=== PATIENT | male | born 1980 | race Caucasian/White ===

== ENCOUNTER 2024-01-19 13:28 | Inpatient (IN) | payer OTHER, SELFPAY ==
--- NOTE | ~2024-01-19 | CT_ITS ---
EXAMINATION: CT ABDOMEN AND PELVIS WITH CONTRAST CLINICAL INFORMATION: Questionable colitis COMPARISON: August 03, 2011 TECHNIQUE: Multidetector volumetric images were obtained from the superior aspect of the liver through the pubic symphysis following administration 85 mL of Omnipaque 350 intravenous contrast. Sagittal and coronal reformatted images were obtained on the technologist's workstation. Oral contrast: No This CT examination was performed using dose optimization techniques as appropriate, variously including the following: *Automated exposure control *Adjustment of mA and/or kV according to patient size (this includes techniques or standardized protocols for targeted exams where dose is matched to indication/reason for exam; i.e. extremities or head) *Use of iterative reconstruction technique DLP: 345 mGy-cm FINDINGS: LUNG BASES: There are numerous ill-defined perihilar lung nodules seen mostly on the right but seen in the left lower lobe as well. No evidence of pleural effusion. LIVER, GALLBLADDER, AND BILIARY TREE: The liver is normal in size, shape, and attenuation. No focal hepatic lesion or biliary ductal dilatation is present. The gallbladder is unremarkable with no evidence of radiopaque gallstones, gallbladder wall thickening, or obvious pericholecystic inflammatory changes. PANCREAS: Unremarkable. SPLEEN: There is splenomegaly, the spleen measured 14.3 cm. ADRENAL GLANDS: Unremarkable. KIDNEYS AND URETERS: There is nonobstructing calculus in interpolar collecting system of right kidney, measured, 0.5 cm. In the left kidney there is nonobstructing 0.3 cm stone in upper pole. There is no hydroureteronephrosis. BLADDER: Unremarkable. GASTROINTESTINAL TRACT: There is thickened gastroesophageal junction Loops of bowel are not dilated. Appendix not identified. ABDOMINAL WALL: No significant hernia is appreciated. LYMPH NODES: Normal. VASCULAR: Unremarkable. PELVIC VISCERA: Unremarkable. OSSEOUS STRUCTURES: Status post L4-S1 posterior fusion CT/CT abdomen pelvis w IV con IMPRESSION: Dilated esophagus with thickened wall: Correlate with possibility of esophagitis. Splenomegaly. Multifocal pneumonia. Nephrolithiasis without hydronephrosis. Fleischner guidelines were followed. Electronically signed by: Maryse Vanessa MD 01/19/2024 10:19 PM EDT
--- NOTE | ~2024-01-19 | XR_ITS ---
EXAMINATION: XR CHEST 2 VIEW CLINICAL INFORMATION: Cough COMPARISON: None TECHNIQUE: PA and lateral views of the chest obtained. FINDINGS: There are patchy and nodular airspace opacities scattered throughout the right lung. The left lung is clear. No pleural effusions. The cardiomediastinal silhouette is not enlarged. XR/XR chest 2V IMPRESSION: Patchy and nodular opacities in the right hemithorax might be postinfectious, but are nonspecific. Close follow-up is recommended to confirm clearing. If persistent, suggest thoracic CT. Electronically signed by: Edin Harden MD 01/19/2024 03:48 PM EDT
--- NOTE | ~2024-01-19 | CT_ITS ---
EXAMINATION: CT ANGIOGRAM CHEST CLINICAL INFORMATION: Coughing up blood question of PE COMPARISON: None available. TECHNIQUE: Multiple axial images were obtained through the chest after the administration of 85 mL of Omnipaque 350 intravenous contrast. Extensive vascular post-processing including two-dimensional and three-dimensional reformatted images were created and reviewed on an independent workstation. This CT examination was performed using dose optimization techniques as appropriate, variously including the following: *Automated exposure control *Adjustment of mA and/or kV according to patient size (this includes techniques or standardized protocols for targeted exams where dose is matched to indication/reason for exam; i.e. extremities or head) *Use of iterative reconstruction technique DLP: 186.94 mGy-cm FINDINGS: There is no evidence of pulmonary embolism. Mediastinum. Thyroid gland is unremarkable. There is mild mediastinal lymphadenopathy with lymph nodes in front of the trachea measured 1.6 cm. There is dilatation of esophagus filled with fluid. There is no pericardial effusion or cardiomegaly and no coronary artery calcifications seen. Lungs there are numerous lung nodules, with reticulonodular pattern seen in the most of the right upper lobe but seen through the entire right lung with less prominent nodularity through the left lung and scarring in the left upper lobe as well as left upper lung bronchiectasis. Pleura: There is no pleural or pericardial effusion. ABDOMEN: Liver, visualized pancreas, spleen, unremarkable. No evidence of reflux seen IVC. Osseous structures: Unremarkable CT/CT angio chest PE protocol IMPRESSION: No evidence of pulmonary embolism. Dilated esophagus with possible mass in the lower esophagus at the gastroesophageal junction. Mediastinal lymphadenopathy. Numerous lung nodules and multifocal pneumonia. Fleischner guidelines were followed. Electronically signed by: Maryse Vanessa MD 01/19/2024 10:11 PM EDT
[2024-01-19 13:48] VITALS: BP 141/96; PULSE 118; RESP 16; TEMP 37.2; O2SAT 98; BMI 24.0
--- NOTE | 2024-01-19 14:16 | ED_ITS ---
HPI - URI/Sore Throat General Chief Complaint: Upper Respiratory Symptoms Stated Complaint: Coughing up black substance Time Seen by Provider: 01/19/24 16:31 Source: patient Mode of arrival: ambulatory Limitations: no limitations History of Present Illness ED Provider: Donna Bernal PA-C HPI Narrative: Year old male history of hep C,DM, and CKD homeless presents to ED for coughing up brown black phlegm with body aches. Patient is a smoker. Patient denies any fever, or chills. He denies any rectal bleeding. Patient denies any recent Pepto-Bismol. Patient states acid burning sensation in abdomen. Patient denies drinking alcohol. Related Data Home Medications ?Medication ?Instructions ?Recorded ?Confirmed cyclobenzaprine 5 mg tablet 5 mg PO Q8H PRN muscle spasm 01/19/24 01/19/24 gabapentin 600 mg tablet 600 mg PO TID 01/19/24 01/19/24 methadone 10 mg/5 mL oral solution 120 mg PO DAILY 01/20/24 01/20/24 Allergies Allergy/AdvReac Type Severity Reaction Status Date / Time morphine [Morphine] Allergy Unknown ITCHY RASH Verified 01/19/24 13:50 Review of Systems 2 Review of Systems: Coughing up black brown sputum, body aches Yes all other systems are reviewed and are negative PMFSH Past Medical History Medical History Peripheral neuropathy Social History Social History Household Members: Other Housing: Other Do you presently have visiting nurse or other home services: No Patient Tobacco Use Status: Current everyday Tobacco user Tobacco use type: Cigarette Smoked in Last 30 Days: Yes Patient Interested in Nicotine Replacement: No Patient Given Instructions on How to Stop Smoking: No Second Hand Smoke Exposure: Yes Use of substances other than those prescribed or required for medical reasons: Yes Last Used Substance Other:: 1 year ago Currently Displaying Signs/Symptoms of Drug Intoxication Withdrawal: No Any prior treatment program specific to substance use: No Have you been hit, kicked, punched, or otherwise hurt by someone within the past year? If so, by whom?: No Is there a partner from a previous relationship who is making you feel unsafe now?: No Are you made to feel afraid or neglected: No Advance Directives: Yes Advance Directives Information Provided: Yes Advance Directives on File: No Advance Directives Date on File: 01/20/24 Do you have a plan to hurt others: No Plan Recently lost weight without trying: No How much weight loss: Unsure Eating poorly because of decreased appetite: No Nutrition screen score: 2 Poor oral hygiene: No service: No Physical Exam 2 Vital Signs: Vital Signs: Last Vital Signs Temp 97.8 F 01/20/24 11:28 Pulse 95 01/20/24 11:28 Resp 17 01/20/24 11:28 BP 143/88 H 01/20/24 11:28 Pulse Ox 96 01/20/24 11:28 O2 Del Method Room Air 01/20/24 11:28 BMI result Body Mass Index 24.0 Const: General: cooperative, healthy appearing, comfortable, no acute distress, well developed, alert, awake and Physically active O rientation/consciousness: patient oriented x3 HEENT: Head: Yes normal to inspection, Yes No palpable skull fracture present, Yes normocephalic, Yes atraumatic and No abrasion Ears: hearing grossly normal bilaterally, external ears normal, TM's normal bilaterally, TM normal on the right, TM normal on the left, EAC's normal, mastoids normal and no periauricular adenopathy Throat: Yes posterior oropharynx normal, Yes tonsils normal and Yes uvula midline Eyes: General: appearance normal, both eyes and all related structures Neck: Neck: Yes normal visual inspection, Yes full ROM, Yes no lymphadenopathy, Yes no meningeal signs, Yes trachea midline, Yes supple, No anterior neck swelling and No tender Chest: Chest palpation & inspection: normal inspection of the chest and normal palpation of entire chest wall Resp: Effort & Inspection: normal respiratory effort and able to speak in complete sentences Auscultation: clear to auscultation bilaterally Cardio: Jugular venous distension: no JVD Heart sounds: S1 normal heart sound present and S2 normal heart sound present GI: Inspection: Yes normal to inspection Palpation (GI): Soft to palpation, not firm, nontender, no guarding and not rigid : General: No CVA tenderness and Yes no CVA tenderness Back/Spine/Pelvis: Back: no CVA tenderness, No CVA tenderness and No back tenderness Skin: General skin exam: no rashes or lesions noted, elasticity normal and turgor normal Neuro: General: patient oriented x3, gait normal, tone normal, moves all extremities, Normal light touch and pain sensation, no meningeal signs, no focal motor deficits, CN's II-XI intact bilaterally and normal sensation to monofilament Extrem: General: Yes normal to inspection, Yes full ROM and Yes capillary refill normal Course Course Course Narrative: This is a Rapid Medical Exam performed in triage by Madai Ramos PA-C. Full HPI, ROS and PE to be performed by primary ED provider. 43-year-old male PMHx DM presenting to the ED c/o productive cough of brown/black phlegm, malaise, myalgias. Denies CP/SOB, travel, AC use PE: Taking in complete sentences. Lungs CTA, +dark brown/black sputum appreciated in emesis bag Plan: Viral testing, CXR Reevaluation(s) Reevaluation #1: Patient's repeat hemoglobin hematocrit is 7.2 and 21.8 representing a drop from 8.5 and 25.9 respectively. Will discuss with Dr. Zaman again Time: 21:00 Reevaluation #2: Patient's CT scan shows erosive esophagitis with multifocal pneumonia. The patient's respiratory status has been stable on room air throughout his visit. He has received antibiotics for pneumonia. In regards to the erosive esophagitis and GI bleed, I discussed with Dr. Zaman who is comfortable admitting the patient here, we will plan for EGD in the morning, so would like the patient NPO after midnight. The patient is already typed and crossed for possible blood transfusion. I did discuss possible blood transfusion with the patient given his drop in hemoglobin but he would prefer to hold off for now. He is willing to reconsider if he becomes more unstable but currently his blood pressure is 148/88 Time: 22:45 Medications Administered Generic Name Dose Route Start Last Admin Trade Name Freq PRN Reason Stop Dose Admin Levofloxacin 750 mg in 150 mls @ 100 mls/hr 01/19/24 23:00 01/20/24 01:15 Levaquin IV Infused Q24H BECKI Infusion Methadone HCl 120 mg 01/20/24 11:20 01/20/24 11:29 Methadone Hcl 20 Mg/2 Ml Oral.Conc PO 120 mg DAILY@0800 BECKI Administration Pantoprazole Sodium 40 mg 01/20/24 06:30 01/20/24 05:56 Pantoprazole Sodium 40 Mg/10 Ml Vial IVPUSH 40 mg BID@0630,1630 BECKI Administration Sodium Chloride 3 ml 01/20/24 00:00 01/20/24 11:31 0.9 % Sodium Chloride Flush 3 Ml Syringe IVFLUSH 3 ml QSHIFT BECKI Administration Discontinued Medications Generic Name Dose Route Start Last Admin Trade Name Cal PRN Reason Stop Dose Admin Ceftriaxone Sodium 1 gm 01/19/24 19:25 01/19/24 20:23 Ceftriaxone Sodium 1 Gm Vial IVPUSH 01/19/24 19:26 1 gm ONCE ONE Administration Azithromycin 500 mg/ Sodium 250 mls @ 125 mls/hr 01/19/24 19:25 01/19/24 22:34 Chloride IV 01/19/24 21:24 Infused ONCE ONE Infusion Sodium Chloride 1,000 mls @ 999 mls/hr 01/20/24 02:30 01/20/24 03:37 Ns IV 01/20/24 03:30 Infused .Q1H1M BECKI Infusion Iohexol 85 ml 01/19/24 20:24 01/19/24 20:25 Iohexol 350 Mg/Ml 100 Ml Infus..Btl IV 01/19/24 20:25 85 ml ONCE ONE Administration Pantoprazole Sodium 40 mg 01/19/24 18:16 01/19/24 20:23 Pantoprazole Sodium 40 Mg/10 Ml Vial IVPUSH 01/19/24 18:17 40 mg ONCE ONE Administration Medical Decision Making Medical Decision Making MDM Narrative: 43 yold male presenting to the ED for coughing black/brown phelghm with malaise and body aches. Patient states also feeling fatigued. Patient refused rectal exam. Patient into anemic and we have no prior labs to compare to. Case was discussed with Dr. Messina who came to also evaluate patient. He states patient may be having upper GI bleed and agreed to start Protonix. He states this could be hemoptysis versus hematochezia. You recommend chest CT to rule out PE and pneumonia. Chest x-ray does show opacity. Patient dental Dr. Mayuri Bills he is also having multiple bouts of abdominal pain diarrhea. CT abdomen ordered. 7:42pm: Stool guaiac negative. Lab called and canceled gastric occult testing stating sample has too much mucus. [facility] received which shows patient also has a history of diabetes and CKD. Patient also has history of opiate use disorder. 8:04pm: Case discussed with Dr. Zaman of gastroenterology who recommends repeat CBC and for BRANDO RODRIGUEZ to text her with the results of imaging and repeat CBC. Differential Diagnosis Differential Diagnoses: The differential diagnosis associated with the presentation includes (GI bleed, pneumonia,) Admission/Observation Consideration of admission/observation: Escalation of care including admission/observation considered Consult Healthcare Provider Management of the patient was discussed with: Oscillograph Technician (Dr. Zaman) Lab Data MDM Lab Attestation statement: I reviewed the patient's lab results. 01/20/24 05:50 01/20/24 05:50 Labs: Lab Results 01/19/24 01/19/24 01/19/24 Range/Units 13:59 14:33 14:54 WBC 5.4 (4.8-10.8) X10*3/uL RBC 2.96 L (4.60-5.80) X10*6/uL Hgb 8.5 L (14.0-18.0) g/dl Hct 25.9 L (42.0-52.0) % MCV 87.5 (80.0-98.0) fL MCH 28.7 (27.0-33.0) pg MCHC 32.8 (31.0-36.0) g/dl RDW 14.4 (11.0-16.0) % Plt Count 111 L (160-400) X10*3/uL MPV 10.5 (9.4-12.4) fL Immature Gran % (Auto) 0.6 H (0.0-0.4) % Neut % (Auto) 71.5 (45-73) % Lymph % (Auto) 19.5 L (20-40) % [place] % (Auto) 6.3 (2-11) % Eos % (Auto) 1.5 (0-4) % Baso % (Auto) 0.6 (0-2) % Lymph # (Auto) 1.1 L (1.2-4.9) X10*3/uL [place] # (Auto) 0.3 (0.1-1.2) X10*3/uL Eos # (Auto) 0.1 (0.0-0.4) X10*3/uL Baso # (Auto) 0.0 (0.0-0.2) X10*3/uL Abs Immat Gran (auto) 0.03 (0.00-0.03) X10*3/uL Absolute Neuts (auto) 3.9 (2.0-8.3) x10*3/uL Absolute Nucleated RBC 0.000 (0.0-0.012) X10*3/uL Nucleated RBC % (auto) 0.0 (0.0-0.2) /100WBC PT 11.7 (10.9-12.4) SEC INR 1.0 (0.9-1.1) APTT 31.7 (26.0-36.8) SEC Sodium 139 (135-145) mmol/L Potassium 4.1 (3.3-5.1) mmol/L Chloride 104 (96-108) mmol/L Carbon Dioxide 26 (22-29) mmol/L Anion Gap 13 (12-20) BUN 27 H (9-16) mg/dL Creatinine 1.19 (0.5-1.4) mg/dL Estim Creat Clear Calc 65.6 Estimated GFR > 60 Random Glucose 170 H (60-115) mg/dL Lactic Acid (0.5-2.0) mmol/L Calcium 8.9 (8.4-10.2) mg/dL Total Bilirubin 0.3 (0.0-1.0) mg/dL Direct Bilirubin 0.1 (0.0-0.5) mg/dL AST 25 (5-37) U/L ALT 42 H (0-40) U/L Alkaline Phosphatase 79 (39-117) U/L Total Protein 7.0 (6.5-8.0) g/dL Albumin 3.8 (3.5-5.0) g/dL Gastric Occult Blood Stool Occult Blood (NEGATIVE) Influenza Type A (PCR) NEGATIVE (Negative) Influenza Type B (PCR) NEGATIVE (Negative) RSV RNA Qual (PCR) NEGATIVE (Negative) SARS-CoV-2 RNA (RT-PCR) NEGATIVE (Negative) Blood Type Antibody Screen 01/19/24 01/19/24 01/19/24 Range/Units 18:47 18:48 20:24 WBC 5.3 (4.8-10.8) X10*3/uL RBC 2.49 L (4.60-5.80) X10*6/uL Hgb 7.2 L (14.0-18.0) g/dl Hct 21.8 L (42.0-52.0) % MCV 87.6 (80.0-98.0) fL MCH 28.9 (27.0-33.0) pg MCHC 33.0 (31.0-36.0) g/dl RDW 14.4 (11.0-16.0) % Plt Count 97 L (160-400) X10*3/uL MPV 11.0 (9.4-12.4) fL Immature Gran % (Auto) 0.2 (0.0-0.4) % Neut % (Auto) 67.5 (45-73) % Lymph % (Auto) 22.7 (20-40) % [place] % (Auto) 7.9 (2-11) % Eos % (Auto) 1.3 (0-4) % Baso % (Auto) 0.4 (0-2) % Lymph # (Auto) 1.2 (1.2-4.9) X10*3/uL [place] # (Auto) 0.4 (0.1-1.2) X10*3/uL Eos # (Auto) 0.1 (0.0-0.4) X10*3/uL Baso # (Auto) 0.0 (0.0-0.2) X10*3/uL Abs Immat Gran (auto) 0.01 (0.00-0.03) X10*3/uL Absolute Neuts (auto) 3.6 (2.0-8.3) x10*3/uL Absolute Nucleated RBC 0.000 (0.0-0.012) X10*3/uL Nucleated RBC % (auto) 0.0 (0.0-0.2) /100WBC PT (10.9-12.4) SEC INR (0.9-1.1) APTT (26.0-36.8) SEC Sodium (135-145) mmol/L Potassium (3.3-5.1) mmol/L Chloride (96-108) mmol/L Carbon Dioxide (22-29) mmol/L Anion Gap (12-20) BUN (9-16) mg/dL Creatinine (0.5-1.4) mg/dL Estim Creat Clear Calc Estimated GFR Random Glucose (60-115) mg/dL Lactic Acid 1.2 (0.5-2.0) mmol/L Calcium (8.4-10.2) mg/dL Total Bilirubin (0.0-1.0) mg/dL Direct Bilirubin (0.0-0.5) mg/dL AST (5-37) U/L ALT (0-40) U/L Alkaline Phosphatase (39-117) U/L Total Protein (6.5-8.0) g/dL Albumin (3.5-5.0) g/dL Gastric Occult Blood Cancelled Stool Occult Blood NEGATIVE (NEGATIVE) Influenza Type A (PCR) (Negative) Influenza Type B (PCR) (Negative) RSV RNA Qual (PCR) (Negative) SARS-CoV-2 RNA (RT-PCR) (Negative) Blood Type O Positive Antibody Screen NEGATIVE Independent Historian Clinical information obtained from an independent historian. History obtained from or confirmed by: Other (patient) External Record Review External record reviewed: Other (prior visits) Critical Care Time Critical Care Time Critical Care Time: Yes Total Critical Care Time: 35 Attestation: 43-year-old male presents for evaluation of coughing up black substance. There was some question of whether he had upper GI bleed versus coughing up blood. CT scan does show multifocal pneumonia but the blood is likely coming some erosive esophagitis, he has received Protonix, plan for EGD in the morning. There were multiple consultations with GI Discharge Plan Discharge Clinical Impression: Multifocal pneumonia, Erosive esophagitis Patient Disposition: Admitted As Inpatient Interventions: Admission Worksheet (ED) Last Done: 01/19/24 23:13 Discharge Date/Time: 01/20/24 00:44
[2024-01-19 14:45] LABS: MANUAL DIFF FLAG NO
[2024-01-19 14:48] LABS: Basophils Percent Auto 0.6 % (0-2); Eosinophils Absolute Auto 0.1 X10*3/uL (0.0-0.4); Eosinophils Percent Auto 1.5 % (0-4); Hematocrit 25.9 % (42.0-52.0); Hemoglobin 8.5 g/dl (14.0-18.0); Imm Gran Abs Auto 0.03 X10*3/uL (0.00-0.03); Imm Gran Pct Auto 0.6 % (0.0-0.4); Lymphocytes Absolute Auto 1.1 X10*3/uL (1.2-4.9); Lymphocytes Percent Auto 19.5 % (20-40); Mean Corpuscular HGB Conc 32.8 g/dl (31.0-36.0); Mean Corpuscular Hemoglobin 28.7 pg (27.0-33.0); Mean Corpuscular Volume 87.5 fL (80.0-98.0); Mean Platelet Volume 10.5 fL (9.4-12.4); Monocytes Absolute Auto 0.3 X10*3/uL (0.1-1.2); Monocytes Percent Auto 6.3 % (2-11); Neutrophils Absolute Auto 3.9 x10*3/uL (2.0-8.3); Neutrophils Percent Auto 71.5 % (45-73); Platelet Count 111 X10*3/uL (160-400); Red Blood Count 2.96 X10*6/uL (4.60-5.80); Red Cell Distribution Width 14.4 % (11.0-16.0); White Blood Count 5.4 X10*3/uL (4.8-10.8)
[2024-01-19 15:04] LABS: Prothrombin Time 11.7 SEC (10.9-12.4)
[2024-01-19 15:24] LABS: Influenza A PCR NEGATIVE (Negative); Influenza B PCR NEGATIVE (Negative); Resp Syncy Virus RNA Qual PCR NEGATIVE (Negative); SARS COV2 PCR INHOUSE NEGATIVE (Negative)
[2024-01-19 15:27] LABS: Anion Gap 13 (12-20); Blood Urea Nitrogen 27 mg/dL (9-16); Calcium 8.9 mg/dL (8.4-10.2); Carbon Dioxide 26 mmol/L (22-29); Chloride 104 mmol/L (96-108); Creatinine Clr Calc Pharmacy 65.6; Estimated Glomerular Filt Rate > 60; Glucose Random 170 mg/dL (60-115); Potassium 4.1 mmol/L (3.3-5.1); Sodium 139 mmol/L (135-145)
[2024-01-19 17:54] VITALS: BP 131/95; PULSE 119; RESP 16; TEMP 37.1; O2SAT 95
[2024-01-19 18:18] LABS: Alanine Aminotransferase 42 U/L (0-40); Albumin Level 3.8 g/dL (3.5-5.0); Alkaline Phosphatase 79 U/L (39-117); Aspartate Amino Transferase 25 U/L (5-37); Bilirubin Direct 0.1 mg/dL (0.0-0.5); Bilirubin Total 0.3 mg/dL (0.0-1.0)
--- NOTE | 2024-01-19 18:30 | PC.NURSE ---
pt evaluated by MD Villa- pt will require more extensive eval and treatment- additional labs ordered, sputum collected and sent to lab for occult blood testing- sputum noted to be tenacious, thick, dark brown/black. pt refuses rectal exam. pt to provide stool. pt to be transferred to ED12. Report given to JESSICA Loza.
[2024-01-19 18:37] LABS: Partial Thromboplastin Time 31.7 SEC (26.0-36.8)
[2024-01-19 19:07] LABS: Lactic Acid 1.2 mmol/L (0.5-2.0)
[2024-01-19 19:09] LABS: OBS Int Ctl Valid YES; OBS1 NEGATIVE (NEGATIVE)
--- NOTE | 2024-01-19 19:13 | MHC.EDTECH ---
Second set of blood cultures sent to lab and patient moved from [facility] to ED12
[2024-01-19 19:19] VITALS: BP 135/87; PULSE 104; RESP 16; TEMP 36.9; O2SAT 94
[2024-01-19] MEDS: Azithromycin 500 MG in 0.9 % Sodium Chloride 250 ML 125 MG IV (20:23)
[2024-01-19] MEDS: Pantoprazole Sodium 40 MG/10 ML VIAL IVPUSH (20:23)
[2024-01-19] MEDS: cefTRIAXone sodium 1 GM VIAL IVPUSH (20:23)
[2024-01-19] MEDS: iohexoL 350 MG/ML 100 ML INFUS..BTL 85 ML IV (20:25)
[2024-01-19 20:28] LABS: MANUAL DIFF FLAG NO
[2024-01-19 20:50] LABS: Basophils Percent Auto 0.4 % (0-2); Eosinophils Absolute Auto 0.1 X10*3/uL (0.0-0.4); Eosinophils Percent Auto 1.3 % (0-4); Hematocrit 21.8 % (42.0-52.0); Hemoglobin 7.2 g/dl (14.0-18.0); Imm Gran Abs Auto 0.01 X10*3/uL (0.00-0.03); Imm Gran Pct Auto 0.2 % (0.0-0.4); Lymphocytes Absolute Auto 1.2 X10*3/uL (1.2-4.9); Lymphocytes Percent Auto 22.7 % (20-40); Mean Corpuscular Hemoglobin 28.9 pg (27.0-33.0); Mean Corpuscular Volume 87.6 fL (80.0-98.0); Monocytes Absolute Auto 0.4 X10*3/uL (0.1-1.2); Monocytes Percent Auto 7.9 % (2-11); Neutrophils Absolute Auto 3.6 x10*3/uL (2.0-8.3); Neutrophils Percent Auto 67.5 % (45-73); Red Blood Count 2.49 X10*6/uL (4.60-5.80); Red Cell Distribution Width 14.4 % (11.0-16.0); White Blood Count 5.3 X10*3/uL (4.8-10.8)
[2024-01-19 20:51] LABS: Platelet Count 97 X10*3/uL (160-400)
[2024-01-19 21:35] VITALS: BP 144/88; PULSE 112; RESP 16; TEMP 36.6; O2SAT 93
--- NOTE | 2024-01-19 22:50 | P.HPHOSP_ITS ---
History of Present Illness Date of Service: 01/20/24 Chief Complaint: Black sputum This is a 43-year-old male with pertinent history of neuropathy, opioid use disorder on methadone who presents to the emergency department for evaluation of coughing up black sputum. Patient states his symptoms started 1 day prior to presentation. He has been coughing up black colored phlegm. Has had multiple episodes of the same. His last episode he coughed up blood. Also had episode of vomiting but unclear if it was black or contained blood. This has never happened before. Denies dysphagia or odynophagia. No fever, chills, chest pain, palpitations, shortness of breath, abdominal pain, changes in urinary or bowel habits. In the emergency department, hemoglobin drop noted. Imaging with dilatation of esophagus concerning for possible mass. Review of Systems 2 Constitutional: Constitutional: Reports no additional constitutional complaints Cardiovascular: Cardiovascular: Reports no additional cardiovascular complaints Respiratory: Respiratory: Reports hemoptysis Gastrointestinal: Gastrointestinal: Reports vomiting Genitourinary: Genitourinary: Reports no additional male genitourinary complaints [facility] Medical History Peripheral neuropathy Pertinent family history: No family history of early CAD Social History Household Members: Other Housing: Other Do you presently have visiting nurse or other home services: No Patient Tobacco Use Status: Current everyday Tobacco user Tobacco use type: Cigarette Smoked in Last 30 Days: Yes Patient Interested in Nicotine Replacement: No Patient Given Instructions on How to Stop Smoking: No Second Hand Smoke Exposure: Yes Use of substances other than those prescribed or required for medical reasons: Yes Last Used Substance Other:: 1 year ago Any prior treatment program specific to substance use: No Have you been hit, kicked, punched, or otherwise hurt by someone within the past year? If so, by whom?: No Is there a partner from a previous relationship who is making you feel unsafe now?: No Are you made to feel afraid or neglected: No Advance Directives: Yes Advance Directives Information Provided: Yes Advance Directives on File: No Advance Directives Date on File: 01/20/24 Do you have a plan to hurt others: No Plan Recently lost weight without trying: No How much weight loss: Unsure Eating poorly because of decreased appetite: No Nutrition screen score: 2 Poor oral hygiene: No Meds Allergies Allergy/AdvReac Type Severity Reaction Status Date / Time morphine [Morphine] Allergy Unknown ITCHY RASH Verified 01/19/24 13:50 Home Medications ?Medication ?Instructions ?Recorded ?Confirmed ?Last Taken ?Type cyclobenzaprine 5 mg tablet 5 mg PO Q8H PRN muscle spasm 01/19/24 01/19/24 Unknown History gabapentin 600 mg tablet 600 mg PO TID 01/19/24 01/19/24 Unknown History Physical Exam 2 Vital Signs and Narrative: Vital Signs: Last Vital Signs Temp 97.8 F 01/19/24 21:35 Pulse 112 H 01/19/24 21:35 Resp 16 01/19/24 21:35 BP 144/88 H 01/19/24 21:35 Pulse Ox 93 01/19/24 21:35 O2 Del Method Room Air 01/19/24 21:35 BMI result Body Mass Index 24.0 Middle-aged male lying in bed in no distress Neck supple, no JVD Regular rate and rhythm, S1-S2 heard Bilateral crackles present Abdomen soft nontender, no guarding, no rigidity Patient is awake, alert and oriented to self, place, time and person ; no focal motor deficit Psych: Normal mood No pedal edema Results Labs 01/19/24 20:24 01/19/24 14:33 Labs: Laboratory Results - last 24 hr 01/19/24 01/19/24 01/19/24 13:59 14:33 14:54 MCV 87.5 MCH 28.7 MCHC 32.8 RDW 14.4 Plt Count 111 L MPV 10.5 Immature Gran % (Auto) 0.6 H Neut % (Auto) 71.5 Lymph % (Auto) 19.5 L [place] % (Auto) 6.3 Eos % (Auto) 1.5 Baso % (Auto) 0.6 Lymph # (Auto) 1.1 L [place] # (Auto) 0.3 Eos # (Auto) 0.1 Baso # (Auto) 0.0 Abs Immat Gran (auto) 0.03 Absolute Neuts (auto) 3.9 Absolute Nucleated RBC 0.000 Nucleated RBC % (auto) 0.0 PT 11.7 INR 1.0 APTT 31.7 Anion Gap 13 Estim Creat Clear Calc 65.6 Estimated GFR > 60 Random Glucose 170 H Lactic Acid Calcium 8.9 Total Bilirubin 0.3 Direct Bilirubin 0.1 AST 25 ALT 42 H Alkaline Phosphatase 79 Total Protein 7.0 Albumin 3.8 Stool Occult Blood Influenza Type A (PCR) NEGATIVE Influenza Type B (PCR) NEGATIVE RSV RNA Qual (PCR) NEGATIVE SARS-CoV-2 RNA (RT-PCR) NEGATIVE Blood Type Antibody Screen 01/19/24 01/19/24 01/19/24 18:47 18:48 20:24 MCV 87.6 MCH 28.9 MCHC 33.0 RDW 14.4 Plt Count 97 L MPV 11.0 Immature Gran % (Auto) 0.2 Neut % (Auto) 67.5 Lymph % (Auto) 22.7 [place] % (Auto) 7.9 Eos % (Auto) 1.3 Baso % (Auto) 0.4 Lymph # (Auto) 1.2 [place] # (Auto) 0.4 Eos # (Auto) 0.1 Baso # (Auto) 0.0 Abs Immat Gran (auto) 0.01 Absolute Neuts (auto) 3.6 Absolute Nucleated RBC 0.000 Nucleated RBC % (auto) 0.0 PT INR APTT Anion Gap Estim Creat Clear Calc Estimated GFR Random Glucose Lactic Acid 1.2 Calcium Total Bilirubin Direct Bilirubin AST ALT Alkaline Phosphatase Total Protein Albumin Stool Occult Blood NEGATIVE Influenza Type A (PCR) Influenza Type B (PCR) RSV RNA Qual (PCR) SARS-CoV-2 RNA (RT-PCR) Blood Type O Positive Antibody Screen NEGATIVE Imaging Radiologist's Impressions: Impressions Chest X-Ray 01/19/24 13:53 IMPRESSION: Patchy and nodular opacities in the right hemithorax might be postinfectious, but are nonspecific. Close follow-up is recommended to confirm clearing. If persistent, suggest thoracic CT. Electronically signed by: Edin Harden MD 01/19/2024 03:48 PM EDT RP Abdomen/Pelvis CT 01/19/24 20:01 IMPRESSION: Dilated esophagus with thickened wall: Correlate with possibility of esophagitis. Splenomegaly. Multifocal pneumonia. Nephrolithiasis without hydronephrosis. Fleischner guidelines were followed. Electronically signed by: Maryse Vanessa MD 01/19/2024 10:19 PM EDT RP Chest CTA 01/19/24 20:01 IMPRESSION: No evidence of pulmonary embolism. Dilated esophagus with possible mass in the lower esophagus at the gastroesophageal junction. Mediastinal lymphadenopathy. Numerous lung nodules and multifocal pneumonia. Fleischner guidelines were followed. Electronically signed by: Maryse Vanessa MD 01/19/2024 10:11 PM EDT RP Assessment and Plan (1) Bronchiectasis: Status: Acute (2) Hemoptysis: Status: Acute (3) Blood loss anemia: Status: Acute (4) Dilation of esophagus: Status: Acute Plan This is a 43-year-old male with pertinent history of neuropathy, opioid use disorder on methadone who presents to the emergency department for evaluation of coughing up black sputum. #. Hemoptysis: Likely in the setting of bronchiectasis. Initiated IV Levaquin. Consulting pulmonology, appreciate assistance #. Dilated esophagus with possible mass on imaging: Leading to ?pseudohemoptysis in the setting of GI bleed. Consulted Gastroenterology, appreciate assistance #. Acute blood loss anemia in the setting of above: Patient refused blood transfusion in the ER. Closely monitor and repeat H&H in a.m. #. Peripheral neuropathy: On Flexeril and gabapentin #. Opioid use disorder: On methadone Med rec pending DVT prophylaxis: Mechanical Full code Admit as inpatient and will require two night minimum hospital stay for IV antibiotics, close monitoring of H&H (as above), which is not possible in a lesser acute setting. Specialist consult pending Quality Stroke Does the patient have a stroke diagnosis?: No VTE Prior VTE?: No VTE Risk Level:: Medical - moderate - high VTE Device Contraindication: N/A - Device Ordered VTE Drug Contraindication: Treatment Not Indicated
--- OUTSIDE RECORDS SUMMARY | 2024-01-19 22:58 | XMS_ITS | Continuity of Care Document ---
Author Organization [facility] Address [address] [place] [address]- Care Team Providers Care Gambreler Name Role Phone Lachelle MCKEON, Calin Mckeon Primary Care Physician [place] [facility] [place]): [place] 07/03/23 [facility] [address] [place] [id number] Attending Physician: AdmtrDuke Admitting Physician: Admtr, Ar8 Referring Physician: Admtr, Ar8 Allergies, Adverse Reactions, Alerts Substance Reaction Severity Status morphine 1 Unknown Active Zosyn Active 1Has a side effect - itching. Immunizations Given and Recorded Vaccine Date Status Refusal Reason SARS-CoV-2 (COVID-19) Ad26 vaccine 11/13/20 Record ed tetanus/diphtheria/pertussis, acel(Tdap) 10/26/08 Recorded Medications Alcohol Wipes See Instructions, # 100 each, Refills 5, Tot. Refills 5, Maintenance, use as directed for Type 2 Diabetes Mellitus; test at least 3 times per day, insulin given 4 x daily, 12/19/22 9:25:00 EDT, Supply, 163, cm, 12/18/22 13:39:00 EDT, Height, 43.6, kg,... Start Date: 12/19/22 Status: Ordered cefepime 2 g intravenous injection = 2,000 mg, IVPB, Every 8 hours, 0 Refills, Maintenance, 03/10/23 16:18:00 EST, Injection, Partial fill upon patient request if the prescription is for a schedule II opioid drug. Start Date: 03/10/23 Status: Ordered Cubicin RF = 450 mg, IV Infusion, Every 24 hours, 0 Refills, Maintenance, 03/10/23 16:19:00 EST, Partial fill upon patient request if the prescription is for a schedule II opioid drug. Start Date: 03/10/23 Status: Ordered Enoxaparin 0.4 mL = 40 mg, Subcutaneous Injection, Daily, 0 Refills, Maintenance, 04/08/23 14:59:00 EST, Injection, Partial fill upon patient request if the prescription is for a schedule II opioid drug. Start Date: 04/08/23 Status: Ordered Freestyle Lite Lancets See Instructions, # 200 each, Refills 5, Tot. Refills 5, Maintenance, use as directed for Type 2 Diabetes Mellitus; test at least 3 times per day, 12/19/22 9:23:00 EDT, Supply, 163, cm, 12/18/22 13:39:00 EDT, Height, 43.6, kg, 12/04/22 9:38:00 EDT, . Start Date: 12/19/22 Stop Date: 06/17/23 Status: Ordered Freestyle Lite Monitor See Instructions, # 1 each, Refills 5, Tot. Refills 5, Maintenance, use as directed for Type 2 Diabetes Mellitus, 12/19/22 9:24:00 EDT, Supply, 163, cm, 12/18/22 13:39:00 EDT, Height, 43.6, kg, 12/04/22 9:38:00 EDT, Dry Weight Start Date: 12/19/22 Stop Date: 06/17/23 Status: Ordered Freestyle Lite Test Strips See Instructions, # 200 each, Tot. Refills 5, Maintenance, use as directed for Type 2, as directed for Type 2 Diabetes Mellitus; test at least 3 times per day, 12/19/22 9:24:00 EDT, Supply, 163, cm, 12/18/22 13:39:00 EDT, Height, 43.6, kg, 12/04/22 9:... Start Date: 12/19/22 Stop Date: 01/18/23 Status: Ordered gabapentin 300 mg oral capsule 600 mg, By Mouth, 3 times a day, # 90 capsule, Refills 0, Tot. Refills 0, Maintenance, 12/19/22 9:11:00 EDT, Route to Pharmacy Electronically, [facility]/pharmacy #[id number], Partial fill upon patient request ifthe prescription is for a schedule II opioid drug.,... Start Date: 12/19/22 Stop Date: 01/18/23 Status: Ordered Glucagon Inj = 1 mg, Intramuscular, Once, PRN Other, 0 Refills, Maintenance, 04/08/23 14:59:00 EST, Injection, Partial fill upon patient request if the prescription is for a schedule II opioid drug. Start Date: 04/08/23 Status: Ordered Glucose Gel = 15 Gm, By Mouth, Every 20 minutes, PRN Blood Glucose, 50 to 70 and patient ALERT, 0 Refills, Maintenance, 04/08/23 14:59:00 EST, Gel, Partial fill upon patient request if the prescription is for a schedule II opioid drug. Start Date: 04/08/23 Status: Ordered Glucose Gel = 30 Gm, By Mouth, Every 20 minutes, PRN Blood Glucose, LESS THAN 50 and patient ALERT, 0 Refills, Maintenance, 04/08/23 14:59:00 EST, Gel, Partial fill upon patient request if the prescription is for a schedule II opioid drug. Start Date: 04/08/23 Status: Ordered HYDROmorphone 2 mg oral tablet = 2 mg, By Mouth, Every 6 hours, PRN Pain , Severe, 0 Refills, Maintenance, 04/22/23 11:04:00 EST, Tablet, Partial fill upon patient request if the prescription is for a schedule II opioid drug. Start Date: 04/22/23 Status: Ordered ibuprofen 400 mg oral tablet 400 mg, By Mouth, 3 times a day, PRN, Refills 0, Maintenance, Pain , Moderate, 03/10/23 16:20:00 EST, Partial fill upon patient request if the prescription is for a schedule II opioid drug. Start Date: 03/10/23 Status: Ordered Insulin Glargine Inj 0.1 mL = 10 units, Subcutaneous Injection, Daily at bedtime, 0 Refills, Maintenance, 04/22/23 11:04:00 EST, Injection, Partial fill upon patient request if the prescription is for a schedule II opioid drug. Start Date: 04/22/23 Status: Ordered Insulin Lispro 1-5 units , Subcutaneous Injection, 3 times a day before meals, << Sliding Scale Comments >> 150 - 199 1 units Call if less than 70 200 - 249 2 units 250 - 299 3 units 300 - 349 4 units 350 - 399 5 units Call if greater than 400 <<... Start Date: 04/22/23 Status: Ordered lisinopril 10 mg oral tablet 10 mg, By Mouth, Daily, Refills 0, Maintenance, 04/22/23 11:05:00 EST, Partial fill upon patient request if the prescription is for a schedule II opioid drug. Start Date: 04/22/23 Status: Ordered LORazepam 0.5 mg oral tablet = 0.5 mg, By Mouth, Daily at bedtime, PRN Anxiety, 0 Refills, Maintenance, 04/08/23 15:00:00 EST, Tablet, Partial fill upon patient request if the prescription is for a schedule II opioid drug. Start Date: 04/08/23 Status: Ordered melatonin 3 mg oral tablet = 3 mg, By Mouth, Daily at bedtime, PRN Insomnia, 0 Refills, Maintenance, 03/10/23 16:33:00 EST, Tablet, Partial fill upon patient request if the prescription is for a schedule II opioid drug. Start Date: 03/10/23 Status: Ordered Methadone = 80 mg, By Mouth, Daily, 0 Refills, Maintenance, 04/22/23 11:05:00 EST, Tablet, Partial fill upon patient request if the prescription is for a schedule II opioid drug. Start Date: 04/22/23 Status: Ordered NaCL 0.9% Flush 5 mL, IV Push, Daily, 0 Refills, Maintenance, 04/08/23 14:59:00 EST, Injection, Partial fill upon patient request if the prescription is for a schedule II opioid drug. Start Date: 04/08/23 Status: Ordered NaCL 0.9% Flush 3 mL, IV Push, Every 8 hours, PRN Line/Tube Patency, 0 Refills, Maintenance, 04/08/23 15:00:00 EST,Injection, Partial fill upon patient request if the prescription is for a schedule II opioid drug. Start Date: 04/08/23 Status: Ordered NaCL 0.9% Flush 5 mL, IV Push, Every hour, PRN Line/Tube Patency, Pre and post medication administration, follow with Heparin Flush, use 10 mL syringe, 0 Refills, Maintenance, 04/08/23 15:00:00 EST, Injection, Partial fill upon patient request if the prescription is... Start Date: 04/08/23 Status: Ordered nalOXONE Inj 0.5 mL = 0.2 mg, IV Push, Every 5 minutes, PRN Other, Respiratory Rate less than 8 or for somnolence/excessive sedation. Repeat until Respiratory Rate is greater than 15 and patient is more alert., 0Refills, Maintenance, 04/08/23 15:00:00 EST, Inject... Start Date: 04/08/23 Status: Ordered Pen [place], 31 G x 5 mm BD Ultra Fine III See Instructions, # 100 each, Refills 5, Tot. Refills 5, Maintenance, use as directed for Type 2 Diabetes Mellitus, 12/19/22 9:23:00 EDT, Supply, 163, cm, 12/18/22 13:39:00 EDT, Height, 43.6, kg, 12/04/22 9:38:00 EDT, Dry Weight Start Date: 12/19/22 Stop Date: 06/17/23 Status: Ordered Robitussin DM Liquid 10 mL, By Mouth, Every 4 hours, PRN Cough, 0 Refills, Maintenance, 04/08/23 15:00:00 EST, Syrup, Partial fill upon patient request if the prescription is for a schedule II opioid drug. Start Date: 04/08/23 Status: Ordered simethicone 80 mg oral tablet, chewable 80 mg, Chew, 3 times a day, PRN, Refills 0, Maintenance, Gas, 04/08/23 15:00:00 EST, Partial fill upon patient request if the prescription is for a schedule II opioid drug. Start Date: 04/08/23 Status: Ordered Tylenol 325 mg oral tablet 975 mg, By Mouth, 3 times a day, Refills 0, Maintenance, 03/10/23 16:18:00 EST, Partial fill upon patient request if the prescription is for a schedule II opioid drug. Start Date: 03/10/23 Status: Ordered Vashe Topical Solution 475 mL, Topically, Every other day, 0 Refills, Maintenance, Solution Start Date: 04/07/23 Status: Ordered Zofran Inj = 4 mg, IV Push, Every 6 hours, PRN Nausea & Vomiting, 0 Refills, Maintenance, 04/08/23 15:00:00 EST, Injection, Partial fill upon patient request if the prescription is for a schedule II opioid drug. Start Date: 04/08/23 Status: Ordered Problem List Condition Confirmation Course Effective Dates Status H ealth Status Informant Cellulitis Confirmed Active Cellulitis and abscess of hand, except fingers and thumb Confirmed Active Cocaine use disorder, severe, dependence Confirmed Active Uncontrolled diabetes mellitus with hyperglycemia Confirmed Active Diabetes Confirmed Active Hyperglycemia without ketosis Confirmed Active Hyponatremia Confirmed Active Opioid use disorder, severe, dependence Confirmed Active Polysubstance abuse Confirmed Active Underweight Confirmed Active Social History Social History Type Response Smoking Status 10 or more cigarette s (1/2 pack or more)/day in last 30 days entered on: 01/28/18 Sex Patient Care team information Care Team Personnel Name: Suha Joya RN Position: [facility] RN Member Role: Primary Care Nurse Name: Lorraine Sherwood RN Position: [facility] AMB Nurse Member Role: Primary Care Nurse Name: Hailey Corado RN Position: [facility] RN Jessica Member Role: Primary Care Nurse Name: Alayna Barfield RN Position: [facility] RN Member Role: Primary Care Nurse Name: Ana Pink RN Position: [facility] RN Member Role: Primary Care Nurse Name: Aida Saul RN Position: [facility] RN Member Role: Primary Care Nurse Name: Ashley Gastelum RN Position: [facility] RN Member Role: Primary Care Nurse Name: Calin Larose MD Position: [facility] Physician (General Medicine) Member Role: PCP Address: Address: [address] [place] [address] Name: Mami Goetz RN Position: [facility] RN Member Role: Primary Care Nurse Name: Pennie Hamilton RN Position: [facility] RN Member Role: Primary Care Nurse Name: Naima Beach RN Position: [facility] RN Member Role: Primary Care Nurse Name: Margo Valdez LPN Position: [facility] RN Member Role: Primary Care Nurse Name: Rakel Barfield RN Position: [facility] RN Member Role: Primary Care Nurse Name: Zev Brock RN Position: [facility] RN Member Role: Primary Care Nurse Name: Chela Herrera RN Position: [facility] RN Member Role: Primary Care Nurse Name: Felecia Vaughn RN Position: [facility] RN Member Role: Primary Care Nurse Name: Liane Tellez RN Position: [facility] SN RN Member Role: Primary Care Nurse Name: Veronica Garcia RN Position: [facility] RN Member Role: Primary Care Nurse Name: Mai Jimenez LPN Position: [facility] RN Member Role: Primary Care Nurse Name: Toña Dubon RN Position: [facility] RN Member Role: Primary Care Nurse Name: Connie Leavitt RN Position: [facility] RN Member Role: Primary Care Nurse Name: Manav Muñiz RN Position: [facility] ED RN W/OE and Tasks Member Role: Primary Care Nurse Name: Alee Shaikh RN Position: [facility] RN Member Role: Primary Care Nurse Name: Christy Almanza RN Position: [facility] RN Member Role: Primary Care Nurse Name: Lashae Servin RN Position: [facility] RN Member Role: Primary Care Nurse Name: Toy Langley RN Position: [facility] RN Member Role: Primary Care Nurse Name: Bindu Gaspar RN Position: [facility] RN Member Role: Primary Care Nurse Name: Alexey Wilkins RN Position: [facility] RN Member Role: Primary Care Nurse Name: Ilene Orona RN Position: [facility] RN Member Role: Primary Care Nurse Name: Doroteo Ray RN Position: [facility] RN Member Role: Primary Care Nurse Name: Miko Alvarez RN Position: [facility] RN Member Role: Primary Care Nurse Name: Fausto Pearl LPN Position: [facility] RN Member Role: Primary Care Nurse Name: Hugo Marshall RN Position: [facility] RN Member Role: Primary Care Nurse Name: Sammie Jimenez RN Position: [facility] RN Member Role: Primary Care Nurse Name: Verenice Espinoza RN Position: [facility] RN Member Role: Primary Care Nurse Name: Livier Denton Position: [facility] RN Member Role: Primary Care Nurse Name: Lucian Kelly RN Position: [facility] RN Member Role: Primary Care Nurse Name: Charissa Banuelos RN Position: [facility] RN Member Role: Primary Care Nurse Name: See Anderson RN Position: [facility] ED RN W/OE and Tasks Member Role: Primary Care Nurse Name: Michoacano Bowles RN Position: [facility] RN Member Role: Primary Care Nurse Name: Kala Ferraro RN Position: [facility] RN Member Role: Primary Care Nurse Name: Lee Hyde RN Position: [facility] RN Member Role: Primary Care Nurse Name: Dino Brewster RN Position: [facility] RN Member Role: Primary Care Nurse Name: Sara Carpenter RN Position: [facility] RN Member Role: Primary Care Nurse Name: Molly Kebede RN Position: [facility] OB RN Member Role: Primary Care Nurse Name: Nadya Murillo LPN Position: [facility] RN Member Role: Primary Care Nurse Name: Brittaney Eagle RN Position: [facility] RN Member Role: Primary Care Nurse Name: Dahiana Muller LPN Position: [facility] RN Member Role: Primary Care Nurse Name: Renee Villanueva RN Position: [facility] ED RN W/OE and Tasks Member Role: Primary Care Nurse Care Team Related Persons Name: DEBRA ZHAO Address: [address] [place] [address] Name: DODIE ZHAO Address: home [address] [facility] [place] [address] Name: GEMMA ZHAO Address: home [address] [place] [address]
--- OUTSIDE RECORDS SUMMARY | 2024-01-19 22:58 | XMS_ITS | Continuity of Care Document ---
Author Organization [facility] ter Address [address] [place] [id number]- Care Team Providers Care Service Advocate Contact Name Role Phone Anthony MCKEON, Jett Su Primary Care Physician Encounter [facility] [place] Date(s): 10/15/21 - 10/17/[address] [address]- Encounter Diagnosis Infected wound(Final) - 10/15/21 Discharge Disposition: A-D/C AMA Attending Physician: Gris MCKEON, Liz Yousif Admitting Physician: José Manuel MKCEON, Rashad Steele Referring Physician: Not on Staff, Referring MD Allergies, Adverse Reactions, Alerts Substance Reaction Severity Status morphine 1 Unknown Active 1Has a side effect - itching. Medications Alcohol Pads See Instructions, # 200 each, Refills 1, Tot. Refills 1, Maintenance, use as directed for Type 2 DMcheck POC TID, 06/30/21 9:35:00 EDT, Supply, 162, cm, 02/29/20 13:15:00 EST, Height, 46.9, kg, 06/28/21 12:21:00 EDT, Dry Weight Start Date: 06/30/21 Stop Date: 08/29/21 Status: Ordered ferrous sulfate 325 mg oral tablet 1 tablet = 325 mg, By Mouth, 3 times a day, # 270 tablet, 0 Refills, Maintenance, 10/16/21 15:42:00EDT, Tablet, Partial fill upon patient request if the prescription is for a schedule II opioid drug. Start Date: 10/16/21 Status: Ordered Freestyle Lancets See Instructions, # 200 each, Refills 1, Tot. Refills 1, Maintenance, use as directed for Type 2 DMcheck POC TID, 06/30/21 9:34:00 EDT, Supply, 162, cm, 02/29/20 13:15:00 EST, Height, 46.9, kg, 06/28/21 12:21:00 EDT, Dry Weight Start Date: 06/30/21 Stop Date: 08/29/21 Status: Ordered Freestyle Lite Monitor See Instructions, # 1 each, Refills 5, Tot. Refills 5, Maintenance, use as directed for Type 2 DM check POC TID, 06/30/21 9:34:00 EDT, Supply, 162, cm, 02/29/20 13:15:00 EST, Height, 46.9, kg, 06/28/21 12:21:00 EDT, Dry Weight Start Date: 06/30/21 Stop Date: 12/27/21 Status: Ordered Freestyle Lite Test Strips See Instructions, # 200 each, Tot. Refills 5, Maintenance, use as directed for Type 2 DM check POC TID, 06/30/21 9:34:00 EDT, Supply, 162, cm, 02/29/20 13:15:00 EST, Height, 46.9, kg, 06/28/21 12:21:00 EDT, Dry Weight Start Date: 06/30/21 Stop Date: 07/30/21 Status: Ordered Humalog Kwik Pen 100 units/mL subcutaneous injection See Instructions, take Insulin SQ TID use slidingscale for the dose 100 to 149 take 4 units 150 to 199 take 6 units 200 to 249 take 8 units 250 to 299 take 10 units 300 to 349 take 12 units 350 to 399 take 14 units call MD if > 400, # 15 mL, 2... Start Date: 06/30/21 Status: Ordered Lantus Solostar Pen 100 units/mL subcutaneous solution TAKE 10 UNITS AT 8AM AND 20 UNITS AT BEDTIME Start Date: 10/16/21 Status: Ordered multivitamin with minerals Therapeutic Multiple Vitamins with Minerals oral tablet 1 tablet, By Mouth, Daily, # 30 tablet, 0 Refills, Maintenance, 10/16/21 15:42:00 EDT, Tablet, Partial fill upon patient request if the prescription is for a schedule II opioid drug. Start Date: 10/16/21 Status: Ordered olanzapine 15 mg oral tablet, disintegrating 1 tablet = 15 mg, By Mouth, Daily, # 30 tablet, 0 Refills, Maintenance, 10/16/21 15:41:00 EDT, DIS Tablet, Partial fill upon patient request if the prescription is for a schedule II opioid drug. Start Date: 10/16/21 Status: Ordered Pen [place], 29 G x 12.7 mm BD Ultra Fine See Instructions, # 100 each, Refills 5, Tot. Refills 5, Maintenance, use as directed for Type 2 DMcheck POC TID, 06/30/21 9:35:00 EDT, Supply, 162, cm, 02/29/20 13:15:00 EST, Height, 46.9, kg, 06/28/21 12:21:00 EDT, Dry Weight Start Date: 06/30/21 Stop Date: 12/27/21 Status: Ordered vitamin A 48546 u oral capsule 10,000 International_Units, 1, capsule, By Mouth, Daily, # 30 capsule, Refills 0, Maintenance, 10/16/21 15:42:00 EDT, Partial fill upon patient request if the prescription is for a schedule II opioiddrug. Start Date: 10/16/21 Status: Ordered Vitamin C 500 mg oral tablet 1 tablet = 500 mg, By Mouth, Daily, # 30 tablet, 0 Refills, Maintenance, 10/16/21 15:42:00 EDT, Tablet, Partial fill upon patient request if the prescription is for a schedule II opioid drug. Start Date: 10/16/21 Status: Ordered zinc sulfate 220 mg oral capsule 220 mg, 1, capsule, By Mouth, Daily Start Date: 10/16/21 Status: Ordered Problem List Condition Effective Dates Status Health Status Inform ant Cellulitis(Confirmed) Active Cellulitis and abscess of [place] nd, except fingers and thumb(Confirmed) Active Cocaine use disorder, severe , dependence(Confirmed) Active Hyperglycemia without ketosis(Confirmed) Active Hyponatremia(Confirmed) Active Opioid use disorder, severe, dependence(Confirmed) Active Polysubstance abuse(Confirmed) Active Results Orders for Microbiology Reports Name Date Blood Culture 10/15/21 Blood Culture #2 10/15/21 Microbiology Reports TEST:Blood Culture, Second Order STATUS:Unauthenticated BODY SITE: SOURCE:Blood COLLECTED DATE/TIME:10/15/21 10:04 AM Blood Culture, Second Order SPECIMEN DESCRIPTION : BLOOD NOSITE SPECIAL REQUESTS : NONE CULTURE : NO GROWTH AFTER 48 HOURS REPORT STATUS : PRELIMINARY REPORT TEST:Blood Culture STATUS:Unauthenticated BODY SITE: SOURCE:Blood COLLECTED DATE/TIME:10/15/21 10:00 AM Blood Culture SPECIMEN DESCRIPTION : BLOOD NOSITE SPECIAL REQUESTS : NONE CULTURE : NO GROWTH AFTER 48 HOURS REPORT STATUS : PRELIMINARY REPORT Vital Signs Most recent to oldest [Reference Range]: 1 2 3 Oxygen Saturation [94-100 %] 100 % (10/17/21 6:00 PM) 100 % (10/17/21 3:00 PM) 100 % (10/17/21 8:00 AM) Pulse Rate [55-90 bpm] 73 bpm (10/17/21 6:00 PM) 60 bpm (10/17/21 3:00 PM) 56 bpm (10/17/21 8:00 AM) Blood Pressure [90-138/55-84 mm Hg] 130/83mm Hg (10/17/21 6:00 PM) 159/96mm Hg *H* (10/17/21 3:00 PM) 137/89mm Hg (10/17/21 8:00 AM) Respiratory Rate [16-30 br/min] 18 br/min (10/17/21 6:00 PM) 18 br/min (10/17/21 3:00 PM) 20 br/min (10/17/21 8:00 AM) Temperature [96.8-100.4 DegF] 97.5 DegF (10/17/21 6:00 PM) 94.3 DegF *L* (10/17/21 3:00 PM) 95.4 DegF *L* (10/17/21 8:00 AM) Mode of Delivery (Oxygen) Room air (10/17/21 6:00 PM) Room air (10/17/21 3:00 PM) Room air (10/17/21 8:00 AM) Blood pressure sites Arm, right (10/17/21 6:00 PM) Arm, left (10/17/21 3:00 PM) Arm, right (10/17/21 8:00 AM) Temperature Route Oral (10/17/21 6:00 PM) Oral (10/17/21 3:00 PM) Axillary (10/17/21 8:00 AM) Social History Social History Type Response Smoking Status 10 or more cigarette s (1/2 pack or more)/day in last 30 days entered on: 01/28/18 Sex
--- OUTSIDE RECORDS SUMMARY | 2024-01-19 22:58 | XMS_ITS | Continuity of Care Document ---
Author Organization [facility] Address [address] [place] [address]- Care Team Providers Care Aluminum Siding Installer Name Role Phone Calin Lraose MD Primary Care Physician [place] [facility] [place] 05/01/23 [facility] [address] [place] [id number]- Attending Physician: Olena Parsons MD Admitting Physician: Olena Parsons MD Referring Physician: Not on Staff, Referring MD [...] 12/19/22 9:11:00 EDT, Route to Pharmacy Electronically, [facility]pharm[facility] #[id number], Partial fill upon patient request [...] Inject... Start Date: 04/08/23 Status: Ordered Pen [place], 31 G x 5 mm BD Ultra [...] Team Personnel Name: Suha Joya RN Position: [facility] RN Member Role: Primary Care Nurse Name: Lorraine Sherwood RN Position: [facility] AMB Nurse Member Role: Primary Care Nurse Name: Hailey Corado RN Position: [facility] RN Supv Member Role: Primary Care Nurse Name: Alayna Barfield RN Position: [facility] RN Member Role: Primary Care Nurse Name: Ana Pink RN Position: [facility] RN Member Role: Primary Care Nurse Name: Aida Saul RN Position: [facility] RN Member Role: Primary Care Nurse Name: Ashley Gasteulm RN Position: [facility] RN Member Role: Primary Care Nurse Name: Calin Larose MD Position: [facility] Physician (General Medicine) Member Role: PCP Address: Address: [address] [place] [address] Name: Mami Goetz RN Position: [facility] RN Member Role: Primary Care Nurse Name: Naima Beach RN Position: [facility] RN Member Role: Primary Care Nurse Name: Margo Valdez LPN Position: [facility] RN Member Role: Primary Care Nurse Name: Zev Brock RN Position: [facility] RN Member Role: Primary Care Nurse Name: Chela Herrera RN Position: [facility] RN Member Role: Primary Care Nurse Name: Felecia Vaughn RN Position: [facility] RN Member Role: Primary Care Nurse Name: Liane Tellez RN Position: [facility] SN RN Member Role: Primary Care Nurse Name: Pennie Sanchez RN Position: [facility] RN Member Role: Primary Care Nurse Name: Veronica Garcia RN Position: [facility] RN Member Role: Primary Care Nurse Name: Mai Jimenez LPN Position: [facility] RN Member Role: Primary Care Nurse Name: Rakel Burton RN Position: [facility] RN Member Role: Primary Care Nurse Name: Toña Dubon RN Position: [facility] RN Member Role: Primary Care Nurse Name: Connie Leavitt RN Position: [facility] RN Member Role: Primary Care Nurse Name: Manav Muñiz RN Position: [facility] ED RN W/OE and Tasks Member Role: Primary Care Nurse Name: Alee Shaikh RN Position: [facility] RN Member Role: Primary Care Nurse Name: Christy Almanza RN Position: [facility] RN Member Role: Primary Care Nurse Name: Lashae Servin RN Position: [facility] RN Member Role: Primary Care Nurse Name: Toy Langley RN Position: [facility] RN Member Role: Primary Care Nurse Name: Bindu Gaspar RN Position: [facility] RN Member Role: Primary Care Nurse Name: Alexey Wilkins RN Position: [facility] RN Member Role: Primary Care Nurse Name: Ilene Orona RN Position: [facility] RN Member Role: Primary Care Nurse Name: Carlos Martin RN Position: [facility] RN Member Role: Primary Care Nurse Name: Doroteo Ray RN Position: [facility] RN Member Role: Primary Care Nurse Name: Miko Alvarez RN Position: [facility] RN Member Role: Primary Care Nurse Name: Fausto Pearl LPN Position: [facility] RN Member Role: Primary Care Nurse Name: Hugo Marshall RN Position: [facility] RN Member Role: Primary Care Nurse Name: Sammie Jimenez RN Position: [facility] RN Member Role: Primary Care Nurse Name: Verenice Espinoza RN Position: [facility] RN Member Role: Primary Care Nurse Name: Livier Denton Position: [facility] RN Member Role: Primary Care Nurse Name: Lucian Kelly RN Position: [facility] RN Member Role: Primary Care Nurse Name: Charissa Banuelos RN Position: [facility] RN Member Role: Primary Care Nurse Name: See Anderson RN Position: [facility] ED RN W/OE and Tasks Member Role: Primary Care Nurse Name: Michoacano Bowles RN Position: [facility] RN Member Role: Primary Care Nurse Name: Kala Ferraro RN Position: [facility] RN Member Role: Primary Care Nurse Name: Lee Hyde RN Position: [facility] RN Member Role: Primary Care Nurse Name: Dino Brewster RN Position: [facility] RN Member Role: Primary Care Nurse Name: Sara Carpenter RN Position: [facility] RN Member Role: Primary Care Nurse Name: Molly Kebede RN Position: [facility] OB RN Member Role: Primary Care Nurse Name: Nadya Murillo LPN Position: [facility] RN Member Role: Primary Care Nurse Name: Brittaney Eagle RN Position: [facility] RN Member Role: Primary Care Nurse Name: Dahiana Muller LPN Position: [facility] RN Member Role: Primary Care Nurse Name: Renee Villanueva RN Position: [facility] ED RN W/OE and Tasks Member Role: Primary Care Nurse Care Team Related Persons Name: DEBRA ZHAO Address: home [address] [place] [address] Name: DODIE ZHAO Address: [address] [place] [address] Name: GEMMA ZHAO Address: home [address] [place] [address]
--- OUTSIDE RECORDS SUMMARY | 2024-01-19 22:58 | XMS_ITS | Continuity of Care Document ---
Author Organization [facility] Address [address] [place] [address]- Care Team Providers Care Advertising Coordinator Name Role Phone Marshall Mcghee MD Primary Care Physician [place] [facility] [place] 12/25/19 [facility] [address] [place] [address]- [facility] Attending Physician: [facility] Admitting Physician: [facility], [facility] Referring Physician: [place], [facility] Allergies, Adverse Reactions, Alerts Substance Reaction Severity Status morphine Active Medications insulin glargine 100 units/mL subcutaneous solution 0.42 mL = 42 units, Subcutaneous Injection, Daily at bedtime, # 12.6 mL, 0 Refills, Maintenance, 11/08/19 18:09:00 EDT, Injection, Open[facility] #[id number], 163, cm, 11/08/19 1:23:00 EDT, Height, 45.8, kg, 10/28/19 21:34:00 EDT, Dry Weight Start Date: 11/08/19 Status: Ordered insulin lispro 100 units/mL injectable solution 8-24 units, Subcutaneous Injection, 3 times a day before meals, << Sliding Scale Comments >> 70 - 109 8 units Call if less than 70 110 - 149 10 units 150 - 189 12 units 190 - 229 14 [id number] - 269 16 units 270 - 309 18 units 3... Start Date: 11/08/19 Stop Date: 12/08/19 Status: Ordered Problem List Condition Effective Dates Status Health Status Inform ant Cellulitis(Confirmed) Active Social History Social History Type Response Smoking Status 10 or more cigarette s (1/2 pack or more)/day in last 30 days entered on: 01/28/18 Sex
--- OUTSIDE RECORDS SUMMARY | 2024-01-19 22:58 | XMS_ITS | Continuity of Care Document ---
Author Organization [facility] ter Address [address] [place] [id number]- Care Team Providers Care High Worker Name Role Phone Osmel MORALEZ MD, Delvin Garces Primary Care Physician Encounter [facility] Date(s): 08/06/22 - 08/07/[address] [id number]- Encounter Diagnosis Left arm cellulitis(Final) - 08/06/22 Discharge Disposition: A-D/C AMA Attending Physician: Zaria Ramos MD Admitting Physician: Eber Tao DO Referring Physician: Not on Staff, Referring MD Allergies, Adverse Reactions, Alerts Substance Reaction Severity Status morphine 1 Unknown Active 1Has a side effect - itching. Immunizations Given and Recorded Vaccine Date Status Refusal Reason SARS-CoV-2 (COVID-19) Ad26 vaccine 11/13/20 Record ed tetanus/diphtheria/pertussis, acel(Tdap) 10/26/08 Recorded Medications Bactrim DS 800 mg-160 mg oral tablet 1 tablet, By Mouth, 2 times a day, for 7 days, # 14 tablet, 0 Refills, Acute 08/14/22 18:35:00 EDT,08/07/22 18:35:00 EDT, Tablet, [facility]/pharmacy #[id number], Partial fill upon patient request if the prescription is for a schedule II opioid drug., 1 tablet By... Start Date: 08/07/22 Stop Date: 08/14/22 Status: Ordered HYDROmorphone Inj 1 mg, Injection, IV Push Slowly, Every 4 hours, PRN for Pain , Severe, Routine, 08/06/22 11:51:00 EDT Start Date: 08/06/22 Stop Date: 08/08/22 Status: Discontinued Problem List Condition Confirmation Course Effective Dates Status H ealth Status Informant Cellulitis Confirmed Active Cellulitis and abscess of hand, except fingers and thumb Confirmed Active Cocaine use disorder, severe, dependence Confirmed Active Hyperglycemia without ketosis Confirmed Active Hyponatremia Confirmed Active Opioid use disorder, severe, dependence Confirmed Active Polysubstance abuse Confirmed Active Underweight Confirmed Active Results Orders for Microbiology Reports Name Date Wound Superficial Culture W/ Gram Smear (Superficial Wound Culture W/ Gram Smear) 08/07/22 Blood Culture 08/05/22 Blood Culture #2 08/05/22 Microbiology Reports TEST:Superficial Wound Culture STATUS:Unauthenticated BODY SITE: SOURCE:E SWAB COLLECTED DATE/TIME:08/07/22 11:03 AM Superficial Wound Culture SPECIMEN DESCRIPTION : E SWAB ARM LT ULCER SPECIAL REQUESTS : NONE GRAM STAIN : 4+ POLYMORPHONUCLEAR LEUKOCYTES 3+ GRAM POSITIVE COCCI REPORT STATUS : PRELIMINARY REPORT TEST:Blood Culture STATUS:Unauthenticated BODY SITE: SOURCE:Blood COLLECTED DATE/TIME:08/05/22 10:32 PM Blood Culture SPECIMEN DESCRIPTION : BLOOD RA SPECIAL REQUESTS : NONE CULTURE : NO GROWTH AFTER 24 HOURS REPORT STATUS : PRELIMINARY REPORT TEST:Blood Culture, Second Order STATUS:Unauthenticated BODY SITE: SOURCE:Blood COLLECTED DATE/TIME:08/05/22 10:32 PM Blood Culture, Second Order SPECIMEN DESCRIPTION : BLOOD LA SPECIAL REQUESTS : NONE CULTURE : NO GROWTH AFTER 24 HOURS REPORT STATUS : PRELIMINARY REPORT Radiology Reports * Exam Date Time Procedure Performing Provider Status 08/05/22 11:[address] Ext Upper W/O Contrast Left Yu Landeros; Modified Notes: (CT Ext Upper W/O Contrast Left) Reason For Exam: Infection RESULT: CT Ext Upper W/O Contrast Left CT Ext Upper W/O Contrast Left Hx of Present Illness: Pt arrives by AMS from home. Started 3 days go wound. Diabetic 40ibs weight loss with few days. bs 567; Reason: Infection; Clinical Question(s): Forearm; Order Comment: Please get from elbow through fingers 08 05 2022 22:01:08 EDT Rn putting IV now. 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 AC TECHNIQUE: Helical CT without contrast formatted in 3 planes. Weight-based protocol using automatictube modulation was used to optimize exposure parameters. COMPARISONS: None FINDINGS: Bones and joints: No fracture or dislocation is present. No erosions, productive changes or abnormal calcifications are noted. Soft Tissues: There is gas seen within the dorsal soft tissues in the wrist/proximal hand as well as along the dorsal aspect of the distal forearm. Possible small 1 cm fluid density collection seen in the adjacent soft tissues axial image 64 series 207. This can also be seen on coronal image 50 series 208. This could represent a small abscess likely in the subcutaneous tissues. There appears to be diffuse edema throughout the forearm. No other findings to indicate abscess appreciated. IMPRESSION: Prominent gas seen throughout the dorsal soft tissues. Possible small abscess in the soft tissues along the dorsal aspect of the distal forearm/overlying the ulna. This appears to be adjacent to the soft tissue defect in the same region. MRI may be helpful for further evaluation. No bony findings to indicate osteomyelitis appreciated. Ultrasound may be helpful to evaluate possible drainable abscess versus edematous change/phlegmon. WSN: [id number] Ordering Physician: Alejandro Lea Dictated By: Agusto Humphries MD Dictated Date/Time: 08/05/22 11:30 p Reviewed By: Agusto Humphries MD Signed By: Agusto Humphries MD Signed Date/Time: 08/05/22 11:30 pm Transcribed By: AKASH Transcribed Date/Time: 08/05/22 11:24 pm * Exam Date Time Procedure Performing Provider Status 08/05/22 11:01 PM Chest 2 Views Frontal and Lat Basilia Barry; Auth (Verified) Notes: (Chest 2 Views Frontal and Lat) Reason For Exam: Shortness of Breath, Fever;Other: RESULT: Chest 2 Views Frontal and Lat Chest 2 Views Frontal and Lat Hx of Present Illness: Pt arrives by AMS from home. Started 3 days go wound. Diabetic 40ibs weight loss with few days. bs 567; Reason: Other:; Shortness of Breath, Fever; Clinical Question(s): Pneumonia COMPARISON: None. FINDINGS: LINES AND TUBES: None. LUNGS AND PLEURA: Clear lungs. Normal pulmonary vascularity. No pleural effusion. No pneumothorax. HEART, MEDIASTINUM AND LIZBETH: Heart is normal in size. Normal mediastinal and hilar contour. BONES AND SOFT TISSUES: No acute osseous abnormality. An 8.5 cm non-circumscribed hyperdensity projects over the anterior left axillary region. IMPRESSION: No acute cardiopulmonary abnormality. An 8.5 cm hyperdensity projecting over the left anterior axillary region could be in the soft tissues or external to the patient. The density is similar to contrast material. WSN: [id number] Ordering Physician: Sugar Sullivan Dictated By: Nahid Mata MD Dictated Date/Time: 08/05/22 11:08 p Reviewed By: Nahid Mata MD Signed By: Nahid Mata MD Signed Date/Time: 08/05/22 11:08 pm Transcribed By: AKASH Transcribed Date/Time: 08/05/22 11:06 pm Vital Signs Most recent to oldest [Reference Range]: 1 2 3 Weight 41.3 kg (08/06/22 12:44 PM) Oxygen Saturation [94-100 %] 100 % (08/07/22 2:51 PM) 100 % (08/07/22 11:26 AM) 100 % (08/07/22 7:40 AM) Pulse Rate [55-90 bpm] 78 bpm (08/07/22 2:51 PM) 74 bpm (08/07/22 11:26 AM) 77 bpm (08/07/22 7:40 AM) Blood Pressure [90-138/55-84 mm Hg] 121/90mm Hg (08/07/22 2:51 PM) 130/89mm Hg (08/07/22 11:26 AM) 131/83mm Hg (08/07/22 7:40 AM) Respiratory Rate [16-30 br/min] 18 br/min (08/07/22 4:23 PM) 17 br/min (08/07/22 2:51 PM) 18 br/min (08/07/22 11:26 AM) Temperature [96.8-100.4 DegF] 97.6 DegF (08/07/22 2:51 PM) 97.7 DegF (08/07/22 11:26 AM) 98.1 DegF (08/07/22 7:40 AM) Mode of Delivery (Oxygen) Room air (08/07/22 2:51 PM) Room air (08/07/22 11:26 AM) Room air (08/07/22 7:40 AM) Blood pressure sites Arm, left (08/07/22 2:51 PM) Arm, left (08/07/22 11:26 AM) Arm, left (08/07/22 7:40 AM) Temperature Route Oral (08/07/22 2:51 PM) Oral (08/07/22 11:26 AM) Oral (08/07/22 7:40 AM) Dry Weight 41.3 kg (08/06/22 12:44 PM) Social History Social History Type Response Smoking Status 10 or more cigarette s (1/2 pack or more)/day in last 30 days entered on: 01/28/18 Sex History and physical note * Doreen MCKEON, Jaxson: PERFORM Event Display: History and Physical Hospital Authored Date: [id number] Patient: ??LUCIAN ZHAO ? Age:??42 Years?Sex:??Male?:??1980?? History of Present Illness ?? Mr. Zhao is our extremely unfortunate 42 y.o gentleman, appearing older and frailer than his age, severely cachectic, seen in the -B Observation Unit for his hospital admission PMH * Diet-controlled DM-2 (has not refilled any insulin since 10/2021) *??IVDU & polysubstance abuse * H.o. extensive IVDU-related infections:?? - H.o. 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 MRSA +??Burholderia cepacia bacteremia (10/2019) - H.o. 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 Romero)?? * H.o.??YAMILKA cavitary pneumonia with Streptococcus pneumoniae bacteremia (08/2020) ?? History??of current illness He presented to the ER yesterday evening (the triage note is from 08/05/2022 at 21:25 PM) with an impressive left arm wound.... he thought bugs were crawling in his wound .... He claims that he has??lost 40 pounds in the past few weeks. He looks completely cachectic. He says that his arm was fine until about a week or two ago , when he started developing progressively worse left arm wounds... the changes are IMPRESSIVE... they look older than a week or two... ulceration, crusting, with claw fingers, thickened fingers / dactylitis / enthesopathy.... (please see picture in the ER note) To our ER colleagues he denied any recent cocaine use / IVDU, but upon further questioning,??to me he admitted he was injecting as recently as Thursday?? just not on that arm ?? In-house: * Afebrile * WBC count = 4.7 K * H&H = 7.7??/ 26 * sCreat = 0.7 * Hyponatremia = 132 * Hypomagnesemia = 1.5, replacing * Sedimentation rate = 46 / CRP =??4.1 * Glucose values anywhere between 136 - 503 * HIV (-) * CXR (-) * CT left arm IMPRESSION: Prominent gas seen throughout the dorsal soft tissues. Possible small abscess in the soft tissues along the dorsal aspect of the distal forearm/overlying the ulna. This appears to be adjacent to the soft tissue defect in the same region. MRI may be helpful for further evaluation. No bony findings to indicate osteomyelitis appreciated. Ultrasound may be helpful to evaluate possible drainable abscess versus edematous change/phlegmon. ?? Hand Surgery has been consulted Has been started on IV vancomycin + piperacillin-tazobactam Blood cultures incubating / in process TTE + CT chest ordered (suspect endocarditis + septic emboli +/- lung abscess) ? Allergies Morphine ?? 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 Family history Both parents are diabetic Has 4 brothers and 1 sister and they are healthy as far as he knows / not aware of their medical history Otherwise, non-contributory ?? --? Review of Systems General symptoms: (-)??fever / chills / sweats Cardiopulmonary:??(-) dyspnea??/ (-) cough / (-) chest pain GI:??(-) nausea /??(-)??abdominal pain /??(-) diarrhea :??(-) dysuria / urgency / frequency Skin: (+) impressive left arm ulcers and swelling / claw fingers / dactylitis / enthesopathy MSK: (+) left hand changes as above Vascular: No claudication Neuro: (-) headache / dizziness Heme: (-) bruising / bleeding Psych: No suicidal / homicidal ideation?? Objective Vital Signs?? Temperature: 97.4 DegF (08/06/22 12:01:00) Temperature Route: Oral (08/06/22 12:01:00) Pulse Rate: 76 bpm (08/06/22 12:01:00) Respiratory Rate: 19 br/min (08/06/22 13:19:00) Systolic Blood Pressure: 112 mm Hg (08/06/22 12:01:00) Diastolic Blood Pressure: 75 mm Hg (08/06/22 12:01:00) Blood pressure sites: Arm, left (08/06/22 12:01:00) Mean Arterial Pressure: 87 mm Hg (08/06/22 12:01:00) Pulse Pressure: 37 mm Hg (08/06/22 12:01:00) Oxygen Saturation: 100 % (08/06/22 12:01:00) Mode of Delivery (Oxygen): Room air (08/06/22 12:01:00) Early Warning Score: 9 (08/06/22 13:20:21) ? Physical Exam Afebrile, Tmax = 98.1 F, HR = 81', BP =??112 / 75 Cachectic, appearing older and frailer than his age Head & ENT: Normocephalic,??no thrush Eyes: SANTANA, normal orbits Respiratory: Chest??auscultation c.w.??few scattered rhonchi / secretions, poor inspiratory effort Cardiac: S1 / S2 / no murmur Gastrointestinal: Custer abdomen, no rebound, with no hepatosplenomegaly appreciated Skin: Left arm has impressive changes of ulceration / swelling / diffuse erythema / dactylitis / enthesopathy / claw??fingers?? Vascular: LEs (-) for edema.?? Neuro:??Grossly non-focal, A&O x 3 Psych: Grossly normal affect, no appreciable hallucinations.?? Assessment/Plan ? Left arm cellulitis (L03.90):??. Multiple ulcers of left arm (L98.499):??. Dactylitis (Q74.0):??. Enthesopathy (M77.9):??. Cachexia (R64):??. IVDU (intravenous drug user) (F19.90):??. Polysubstance abuse (F19.10):? Poor historian... he claims all these arm changes go back 1-2 weeks but they look older than that... Also, he is cachectic, has lost 40#, raising questions of (?) endocarditis / septic lung emboli / lung abscess Plan: * Hand Surgery has been consulted * On IV vancomycin + piperacillin-tazobactam while awaiting microbiology * Blood cultures incubating / in process * TTE ordered * CT chest ordered * Proactive skin & wound care * Proactive pain control On PRN oxycodone / PRN hydromorphone ?? DM2 (diabetes mellitus, type 2) (E11.9):? On insulin s.s. / POC's TID & qHS In 24-48 hs, once we get a sense of his 24-hour insulin requirements, can start insulin glargine...suspect he will need a small dose, maybe 8-10 units. ?? Hypomagnesemia (E83.42):? Closely monitor renal function and lytes Avoid nephrotoxics / NSAIDs? VTE Prophylaxis:? In all honesty, I would have ordered SC heparin, but the current VTE guidelines order set does not let me, does not provide any pharmacologic recommendations and you cannot order SC heparin on its own, separate from the order set. On pneumoboots. ?? Ongoing Medical Necessity:? Left arm cellulitis / suspected endocarditis / cachexia / hypomagnesemia / DM-2 ?? Discharge Planning:? Unclear yet ? Medications Home Medications No medications documented.? Results ?? Test Name Test Result Date/Time WBC 4.7 k/mm3 08/05/2022 22:32 EDT Hgb 7.7 Gm/dL 08/05/2022 22:32 EDT Hct 26.0 % 08/05/2022 22:32 EDT Platelet Count 149 k/mm3 08/05/2022 22:32 EDT Sed Rate 46 mm/hr 08/05/2022 22:32 EDT Sodium 132 mmol/L 08/05/2022 22:32 EDT Potassium 3.8 mmol/L 08/05/2022 22:32 EDT Chloride 93 mmol/L 08/05/2022 22:32 EDT Bicarbonate Level 28 mmol/L 08/05/2022 22:32 EDT Anion Gap 11 08/05/2022 22:32 EDT Glucose Level 503 mg/dL 08/05/2022 22:32 EDT Beta Hydroxybutyrate <0.05 mmol/L 08/05/2022 22:32 EDT BUN 10 mg/dL 08/05/2022 22:32 EDT Creatinine-Blood 0.7 mg/dL 08/05/2022 22:32 EDT Estimated GFR Creatinine 119 ML/MIN/1.73 M2 08/05/2022 22:32 EDT Calcium 8.6 mg/dL 08/05/2022 22:32 EDT Magnesium 1.5 mg/dL 08/05/2022 22:32 EDT Protein, Total 7.1 Gm/dL 08/05/2022 22:32 EDT Albumin 3.3 Gm/dL 08/05/2022 22:32 EDT AG Ratio 0.9 08/05/2022 22:32 EDT Alkaline Phosphatase 132 units/L 08/05/2022 22:32 EDT AST (SGOT) 21 units/L 08/05/2022 22:32 EDT ALT (SGPT) 23 units/L 08/05/2022 22:32 EDT Bilirubin, Total 0.2 mg/dL 08/05/2022 22:32 EDT Lactate 3.4 mmol/L 08/05/2022 22:32 EDT C-Reactive Protein 4.1 mg/dL 08/05/2022 22:32 EDT CK, Total 83 units/L 08/05/2022 22:32 EDT High Sensitivity Troponin (HSTnT) 47 ng/L 08/06/2022 04:00 EDT High Sensitivity Troponin (HSTnT) 56 ng/L 08/05/2022 22:32 EDT TSH 1.02 uIU/mL 08/05/2022 22:32 EDT HIV 4th Generation Ab-Ag Result NEGATIVE 08/05/2022 22:32 EDT COVID-19 by RT-PCR NEGATIVE 08/06/2022 03:20 EDT Appear/Color, Urine COLORLESS 08/06/2022 07:40 EDT Specific [place], Urine 1.018 08/06/2022 07:40 EDT pH, Urine 7.5 08/06/2022 07:40 EDT Albumin, Urine NEGATIVE 08/06/2022 07:40 EDT Glucose, Urine 3+ 08/06/2022 07:40 EDT Ketones, Urine NEGATIVE 08/06/2022 07:40 EDT Bilirubin, Urine NEGATIVE 08/06/2022 07:40 EDT Hemoglobin, Urine NEGATIVE 08/06/2022 07:40 EDT Nitrite, Urine NEGATIVE 08/06/2022 07:40 EDT Leukocyte, Urine NEGATIVE 08/06/2022 07:40 EDT Urobilinogen NORMAL 08/06/2022 07:40 EDT WBC's, Urine 3 /HPF 08/06/2022 07:40 EDT RBC's, Urine 1 /HPF 08/06/2022 07:40 EDT EKG study * Event Display: ECG 12-Lead Authored Date: Please click on pdf link to open report * Event Display: ECG 12-Lead Authored Date: Ventricular Rate: 106 BPM Atrial Rate: 106 BPM P-R Interval: 146 ms QRS Duration: 88 ms Q-T Interval: 370 ms QTC Calculation(Bazett): 491 ms P Dixon: 74 degrees R Dixon: 68 degrees T Dixon: 69 degrees Sinus tachycardia Nonspecific T wave abnormality Abnormal ECG When compared with ECG of 03-MAY-2022 11:29, Vent. rate has increased BY 51 BPM Confirmed by SOTERO QUINN MD ([id number]) on 08/06/2022 7:34:32 AM [place]: SOTERO QUINN MD US Heart * Event Display: Echocardiogram - Complete Authored Date: [id number] Transthoracic Echocardiography Report (TTE) Patient Demographics Patient Name LUCIAN ZHAO Date of Study 08/07/2022 Corporate Gender Male Facility Race Ethnicity Date of 1980 Height: 65 inches Age 42 year(s) Weight: 90.38 pounds Accession Number [id number] BSA: 1.41 m2 Room Number D32X BMI: 15.04 kg/m2 Referring Jaxson Braswell Interpreting Davida Villegas MD Physician [employer] Account Representative Indications Endocarditis. Additional Indications:IVDU Clinical History Diabetes mellitus. Polysubstance abuse. Study Data Type of Study TTE procedure:Echo Complete-Doppler, Colorflow, M-Mode. Study Date08/07/2022 Start Time: 08:55 AM Study Location: [facility] Adult Echo Study Status: Bedside Patient Status: Routine Technical Quality: Adequate Blood Pressure:111/58 mmHg EKG: Normal sinus rhythm HR: 61 bpm 2D Measurements LV Diastolic Dimension: 3.8 cm LV Systolic Dimension: 2.7 cm LV Septum Diastolic: 1 cm LV PW Diastolic: 1 cm AO Root Dimension: 3.8 cm LA Dimension: 3.1 cm LA ESV (BP):29.9 ml LVOT Stroke Volume: 56.23 ml LA ESV Index: 21 ml/m2 Stroke Volume Index39.88 ml/m2 LVOT: 2.2 cm Cardiac Index:2.43 l/min/m2 Doppler Measurements AV Peak Velocity: 84.5 cm/s MV Peak E-Wave: 68.3 cm/s AV Peak Gradient: 2.86 mmHg MV Peak A-Wave: 63.7 cm/s AV Mean Gradient: 2 mmHg MV E/A Ratio: 1.07 AV VTI:20.8 cm MV P1/2t: 54 msec LVOT Peak Velocity: 72.2 cm/s LVOT VTI14.8 cm MV Deceleration Time: 184 msec AV Area (Continuity):2.7 cm2 MV Area (PHT): 4.07 cm2 TR Velocity:201 cm/s PV Peak Velocity: 88.4 cm/s TR Gradient:16.16 mmHg PV Peak Gradient: 3.13 mmHg E' Septal Velocity: 10.8 cm/s E' Lateral Velocity: 13.4 cm/s E/Med E':6.552138 E/Lat E':5.302524 Cardiac Anatomy Left Ventricle/Interventricular Septum The left ventricle is normal in size. Ejection fraction is 50-60% overall. No definite wall motion abnormalities detected. Normal diastolic function. Left Atrium/Interatrial Septum The left atrium is normal in size. Aortic Valve No significant regurgitation or stenosis. Mitral Valve No significant regurgitation or stenosis. Aorta The aortic root is dilated at 3.8 cm when indexed. Right Ventricle The right ventricle is normal in size. Function preserved overall. Right Atrium The right atrium is normal in size. Pulmonic Valve No significant regurgitation. Tricuspid Valve Trace regurgitation. Pumonary Artery The pulmonary artery systolic pressure estimation is within normal limits. Venous Structures IVC is normal in size. Inspiratory collapse is likely normal. Pericardium/Extracardiac A small pericardial effusion cannot be excluded. Summary The left ventricle is normal in size. Ejection fraction is 50-60% overall. No definite wall motion abnormalities detected. Normal diastolic function. The left atrium is normal in size. The aortic root is dilated at 3.8 cm when indexed. The right ventricle is normal in size. Function preserved overall. The right atrium is normal in size. The pulmonary artery systolic pressure estimation is within normal limits. No obvious evidence of endocarditis, however, sensitivity of this study is inherently limited due to transthoracic technique. If clinical suspicion remains for endocarditis, consider OLIVIA. Comparison Comparison is made to the study of June 30, 2021. Signature * Event Display: Echocardiogram - Complete Authored Date: Hospital Progress note * Akbar Carias LPN: PERFORM, SIGN, VERIFY Event Display: Progress Note Hospital Authored Date: Patient: LUCIAN ZHAO Age: 42 years Sex: Male : 1980 Associated Diagnoses: None Author: Akbar Carisa LPN Pt is A+Ox4, VSS, BS 305 given lispro 8units, pt decided to leave AMA. I explained to patient to patient that it is for best of his health condition to stay in the hospital to finish his IV antibiotics but refused. I paged provider Yu Thorpe who came and talk to him too but still insisting to leave AMA. Pt left AMA. Discharge Information Rehabilitation Discharge : Rehab Discharge Index 08/07/2022 9:40 EDT Comments on treatment indicated OT to address ADL's, transfers, LUE function Full chart review completed Yes Hospital course Please see comment Transfer tub/shower OT Plan Supervision * Maurilio ROGERS, Yu Muñiz: PERFORM, SIGN, VERIFY Event Display: Progress Note Hospital Authored Date: Patient: LUCIAN ZHAO Age: 42 years Sex: Male : 1980 Associated Diagnoses: None Author: Yu Thorpe NP Impression and Plan Paged by RN pt requesting to leave AMA, has done so in the past, on exam a/ox3 has capacity and understands the risk of leaving including possible , discussed any s/s of concern pt is welcome tocome back to ED and requested pt f/u with PCP, discussed briefly with ID Dr. Johnson (time and recs appreciated) will send Bactrim script to his pharmacy of choice. * Rachel MCKEON, Zaria: PERFORM Event Display: Progress Note Hospital Authored Date: Patient: ??LUCIAN ZHAO ? Age:??42 Years?Sex:??Male?:??1980?? Subjective Patient seen and examined today. ??Patient refusing??most of the things today. ??He??he was earlierseen by the??surgeon and he refused surgical approach??to the abscess.?? He said he does not want anybody to open up his hand. ??He said IV antibiotics are working. ??He refuses??the CT??scan.?? He does not want to talk to anybody.?Mentions pain is a little better Review of Systems No nausea vomiting No??diarrhea or constipation No urinary complaints No fever or chills. Cachectic Lost weight. Objective Measurements?? Weight: 41.3 kg (08/06/22) Dry Weight: 41.3 kg (08/06/22) ? Vital Signs?? Temperature: 97.6 DegF (08/07/22 14:51:00) Temperature Route: Oral (08/07/22 14:51:00) Pulse Rate: 78 bpm (08/07/22 14:51:00) Respiratory Rate: 17 br/min (08/07/22 14:51:00) Systolic Blood Pressure: 121 mm Hg (08/07/22 14:51:00) Diastolic Blood Pressure:??90 mm Hg??High (08/07/22 14:51:00) Blood pressure sites: Arm, left (08/07/22 14:51:00) Mean Arterial Pressure: 100 mm Hg (08/07/22 14:51:00) Pulse Pressure: 31 mm Hg (08/07/22 14:51:00) Oxygen Saturation: 100 % (08/07/22 14:51:00) Mode of Delivery (Oxygen): Room air (08/07/22 14:51:00) Early Warning Score: 2 (08/07/22 14:52:05) ? Intake/Output? 08/06 03:11 08/07 07:00 08/06 07:00 08/05 07:00 08/04 07:00 ?? 08/07 15:27 08/07 15:27 08/07 06:59 08/06 06:59 08/05 06:59 Intake ?250.0 ?0 ? 50 ?200.0 ?0 Output ?0 ?0 ?0 ?0 ?0 Net Total ?250.0 ?0 ? 50 ?200.0 ?0 ? Physical Exam GENERAL: Thin, cachectic man who appears much older than his stated age though nontoxic HEENT: Anicteric, no subconjunctival petechiae, moist oral mucosa without lesions or thrush, edentulous CARDIOVASCULAR: Regular rate and rhythm. ??Not able to appreciate any murmurs, rubs, or gallops. ??No peripheral edema.?? RESPIRATORY: Lungs clear to auscultation GASTROINTESTINAL: Non-distended, normoactive bowel sounds, non-tender SKIN: ??No diffuse rash present, no stigmata of infective endocarditis, tattoos, track pinto.?? Left upper extremity with scattered wounds, most heavily??over the dorsum of the hand extending into the forearm.?? There is no??obvious surrounding erythema,??though upon light palpation??purulence is expressible from multiple locations (deep purulence was expressed and culture swab was obtained).?? His fingers are??quite edematous with poor range of motion. NEUROLOGICAL/PSYCH: A&Ox3, grossly intact _ Inpatient Medications Medications (16) Active SCHEDULED: (7) Heparin 5000 units/mL Inj (1 mL) (Heparin Inj) ??5,000 units 1 mL, Subcutaneous Injection, 2 times a day Insulin Lispro 100 units/mL Inj (3mL) (Insulin LISPRO Sliding Scale) ??2-10 units, Subcutaneous Injection, 3 times a day before meals NaCl 0.9% Flush 3ml (NaCL 0.9% Flush) ??3 mL, IV Push, Every 8 hours Piperacillin/Tazobactam 3.375 Gm Inj (Zosyn Extended IVPB) ??3.375 Gm, IVPB, Every 8 hours Silver dressing gel (44.4mL) (SilvaSorb) ??1 application, Topically, Every other day Vancomycin 500 mg Inj (Vancomycin IVPB) ??500 mg, IVPB, Every 24 hours Vashe Wound Care Emollient/Cleanser (Vashe Topical Solution) ??475 mL, Topically, Every other day CONTINUOUS: (0) PRN: (9) Acetaminophen 325 mg Tablet (Acetaminophen Tablet) ??650 mg, By Mouth, Every 4 hours Dextromethorphan-Guaifenesin 20 mg-200 mg/10 mL Liqu UD (Robitussin DM Liquid) ??10 mL, By Mouth, Every 4 hours HYDROmorphone 1 mg/mL Inj Syringe (HYDROmorphone Inj) ??1 mg 1 mL, IV Push Slowly, Every 4 hours Melatonin 3 mg Tablet (Melatonin Tablet) ??3 mg, By Mouth, Daily at bedtime NaCl 0.9% Flush 3ml (NaCL 0.9% Flush) ??3 mL, IV Push, Every 8 hours OxyCODONE 5 mg IR Tablet (oxyCODONE 5 mg oral tablet) ??5 mg, By Mouth, Every 6 hours Polyethylene Glycol 17 Gm Powder (MiraLax Powder) ??17 Gm 1 pack/packet, By Mouth, Daily Senna 8.6 mg / Docusate 50 mg tablet (Docusate/Senna Tablet) ??1 tablet, By Mouth, 2 times a day Simethicone 80 mg Chewable Tablet (Simethicone Tablet) ??80 mg, Chew, 3 times a day ? 72 Hour Antibiotic History Active Antibiotics Calendar Day Last Administered First Administered Piperacillin-Tazobactam??3.375 Gm, 25 mL/hr, IVPB, Every 8 hours ?2 08/07/2022 12:16 08/06/2022 13:28 Vancomycin??500 mg, 100 mL/hr, IVPB, Every 24 hours ?1 08/07/2022 00:25 08/07/2022 00:25 ? Stopped Antibiotics Stop Date/Time Last Administered First Administered Piperacillin-Tazobactam??3.375 Gm, 25 mL/hr, IVPB, Once 08/05/2022 23:59 08/05/2022 23:59 08/05/2022 23:59 Vancomycin??1 Gm, 200 mL, 200 mL/hr, IVPB, Once 08/05/2022 23:59 08/05/2022 23:59 08/05/2022 23:59 ? Results Recent Labs BLOOD COUNT & DIFF WBC 4.0 k/mm3 ()?? 08/07/2022 09:34 RBC 4.11 m/mm3 (Low)?? 08/07/2022 09:34 Hgb 8.3 Gm/dL (Low)?? 08/07/2022 09:34 Hct 29.0 % (Low)?? 08/07/2022 09:34 MCV 70.6 femtoliters (Low)?? 08/07/2022 09:34 MCH 20.2 pg (Low)?? 08/07/2022 09:34 MCHC 28.6 g/dL (Low)?? 08/07/2022 09:34 Platelet Count 160 k/mm3 ()?? 08/07/2022 09:34 RDW-SD 36.1 femtoliters ()?? 08/07/2022 09:34 MPV 9.5 femtoliters ()?? 08/07/2022 09:34 Nucleated RBC (Automated) 0.0 #/100 WBC'S ()?? 08/07/2022 09:34 Abs. NRBC 0.0 k/mm3 ()?? 08/07/2022 09:34 Abs. Neut 2.4 k/mm3 ()?? 08/07/2022 09:34 Abs. Lymph 1.3 k/mm3 ()?? 08/07/2022 09:34 Abs. Keith 0.2 k/mm3 (Low)?? 08/07/2022 09:34 Abs. Eo 0.1 k/mm3 ()?? 08/07/2022 09:34 Abs. Baso 0.0 k/mm3 ()?? 08/07/2022 09:34 Neut % 60.6 % ()?? 08/07/2022 09:34 Lymph % 31.8 % ()?? 08/07/2022 09:34 Keith % 4.0 % (Low)?? 08/07/2022 09:34 Eos % 2.3 % ()?? 08/07/2022 09:34 Baso % 0.8 % ()?? 08/07/2022 09:34 Imm Gran 0.5 % ()?? 08/07/2022 09:34 Abs. Imm Gran 0.0 k/mm3 ()?? 08/07/2022 09:34 ?? CARDIAC High Sensitivity Troponin (HSTnT) 47 ng/L (High)?? 08/06/2022 04:00 ?? CHEM GENERAL Sodium 137 mmol/L ()?? 08/07/2022 09:34 Potassium 3.5 mmol/L (Low)?? 08/07/2022 09:34 Chloride 100 mmol/L ()?? 08/07/2022 09:34 Bicarbonate Level 30 mmol/L (High)?? 08/07/2022 09:34 Anion Gap 7 ()?? 08/07/2022 09:34 Glucose Level 260 mg/dL (High)?? 08/07/2022 09:34 Glucose, POC 169 mg/dL (High)?? 08/07/2022 11:43 Hemoglobin A1C (Monitoring) 13.4 % (High)?? 08/07/2022 09:34 BUN 11 mg/dL ()?? 08/07/2022 09:34 Creatinine-Blood 0.6 mg/dL (Low)?? 08/07/2022 09:34 Estimated GFR Creatinine 120 ML/MIN/1.73 M2 ()?? 08/07/2022 09:34 Phosphorus 3.0 mg/dL ()?? 08/07/2022 09:34 Magnesium 1.8 mg/dL ()?? 08/07/2022 09:34 Albumin 3.0 Gm/dL (Low)?? 08/07/2022 09:34 Lactate 2.0 mmol/L ()?? 08/06/2022 02:51 C-Reactive Protein 4.1 mg/dL (High)?? 08/07/2022 09:34 ?? HEME OTHER Sed Rate 46 mm/hr (High)?? 08/07/2022 09:34 ?? UA/URINALYSIS Appear/Color, Urine COLORLESS ()?? 08/06/2022 07:40 Specific [place], Urine 1.018 ()?? 08/06/2022 07:40 pH, Urine 7.5 ()?? 08/06/2022 07:40 Albumin, Urine NEGATIVE ()?? 08/06/2022 07:40 Glucose, Urine 3+ (Abnormal)?? 08/06/2022 07:40 Ketones, Urine NEGATIVE ()?? 08/06/2022 07:40 Bilirubin, Urine NEGATIVE ()?? 08/06/2022 07:40 Hemoglobin, Urine NEGATIVE ()?? 08/06/2022 07:40 Nitrite, Urine NEGATIVE ()?? 08/06/2022 07:40 Leukocyte, Urine NEGATIVE ()?? 08/06/2022 07:40 Urobilinogen NORMAL mg/dL ()?? 08/06/2022 07:40 WBC's, Urine 3 /HPF ()?? 08/06/2022 07:40 RBC's, Urine 1 /HPF ()?? 08/06/2022 07:40 Bacteria SLIGHT HPF (Abnormal)?? 08/06/2022 07:40 Mucus SLIGHT /LPF ()?? 08/06/2022 07:40 Hold Urine Culture Testing available 48 hours from time of collection. ()?? 08/06/2022 07:40 ?? VIROLOGY COVID-19 by RT-PCR NEGATIVE ()?? 08/06/2022 03:20 ? Assessment/Plan Chief Complaint: Pt arrives by AMS from home. Started 3 days go wound. Diabetic 40ibs weight loss with few days. bs 567 ?? Diagnoses Cachexia ??(R64) DM2 (diabetes mellitus, type 2) ??(E11.9) Dactylitis ??(Q74.0) Enthesopathy ??(M77.9) Hypomagnesemia ??(E83.42) IVDU (intravenous drug user) ??(F19.90) Left arm cellulitis ??(L03.90) Multiple ulcers of left arm ??(L98.499) Polysubstance abuse ??(F19.10) ? 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 He is admitted due to the chronic LUE wounds and weight loss. ? CT of the left upper extremity revealed gas in the dorsal soft tissues with possible small abscesses without any obvious evidence of osteomyelitis ?? Complicated, chronic, infected LUE wound with gas and possible small abscesses on imaging with multifocal purulent drainage in a patient with poorly controlled diabetes and IVDU Patient completely refusing??surgical debridement at this time. Seen by ID and recommended to continue??IV Zosyn and vancomycin at this time. Cultures from the wound have been sent in. ??We will follow-up with the cultures and blood cultures. ?? Poorly controlled type 2 diabetes.?? Hemoglobin A1c??more than 13 Patient was started on insulin sliding scale. ??He mentions??that is what he takes at home. ??Not on long-acting.?? I will start him on Lantus 10 units daily.?? His sugars have been??ranging in the 300-4 100s ?? Hypomagnesemia on admission.?? Will replete ?? Polysubstance abuse, IVDA Addiction consult placed and but patient is refusing ?? Wound care consult placed and further wound ?? DVT prophylaxis placed on subcu heparin for now Patient is a full code Disposition??Will need hospitalization??for at least??2 to 3 days??till cultures come back ? Echo findings show The left ventricle is normal in size. Ejection fraction is 50-60% overall. No definite wall motion abnormalities detected. Normal diastolic function. ?? The left atrium is normal in size. ?? The aortic root is dilated at 3.8 cm when indexed. ?? The right ventricle is normal in size. Function preserved overall. ?? The right atrium is normal in size. ?? The pulmonary artery systolic pressure estimation is within normal limits. ?? No obvious evidence of endocarditis, however, sensitivity of this study is inherently limited due to transthoracic technique. If clinical suspicion remains for endocarditis, consider OLIVIA. ? Note * Akbar Carias LPN: PERFORM Event Display: Discharge/Transfer Note Hospital Authored Date: [id number] Nursing Discharge Note Entered On: 08/07/2022 18:33 EDT Performed On: 08/07/2022 18:29 EDT by Akbar Carias LPN Nursing Discharge Note 2 Discharge Time : 08/07/2022 18:20 EDT Discharge Level of Care at Discharge : Left Against Medical Advice Patient Left Unit Via : Wheelchair Patient Accompanied Off Unit with : Responsible adult DC Instructions Provided & Signed by Pt : No Patient Understands D/C Instructions : No Patient Instructions Discharge Signed : No Did Pt have Specialty Bed or Wound Vac : No Status of Unresolved Issues : Provider Yu Thorpe came to the bed side and explianed the risks ofleaving AMA. Akbar Carias LPN - 08/07/2022 18:29 EDT Laboratory * [place] , CIS S: TRANSCRIBE Nahid Mata MD: VERIFY Event Display: Result: Authored Date: [id number] Chest 2 Views Frontal and Lat Hx of Present Illness: Pt arrives by AMS from home. Started 3 days go wound. Diabetic 40ibs weight loss with few days. bs 567; Reason: Other:; Shortness of Breath, Fever; Clinical Question(s): Pneumonia COMPARISON: None. FINDINGS: LINES AND TUBES: None. LUNGS AND PLEURA: Clear lungs. Normal pulmonary vascularity. No pleural effusion. No pneumothorax. HEART, MEDIASTINUM AND LIZBETH: Heart is normal in size. Normal mediastinal and hilar contour. BONES AND SOFT TISSUES: No acute osseous abnormality. An 8.5 cm non-circumscribed hyperdensity projects over the anterior left axillary region. IMPRESSION: No acute cardiopulmonary abnormality. An 8.5 cm hyperdensity projecting over the left anterior axillary region could be in the soft tissues or external to the patient. The density is similar to contrast material. WSN: [id number] Ordering Physician: Sugar Sullivan Dictated By: Nahid Mata MD Dictated Date/Time: 08/05/22 11:08 p Reviewed By: Nahid Mata MD Signed By: Nahid Mata MD Signed Date/Time: 08/05/22 11:08 pm Transcribed By: AKASH Transcribed Date/Time: 08/05/22 11:[address] Upper extremity WO contrast * [facility] , CIS S: TRANSCRIBE Agusto Humphries MD: VERIFY Event Display: Result: Authored Date: [id number] CT Ext Upper W/O Contrast Left Hx of Present Illness: Pt arrives by AMS from home. Started 3 days go wound. Diabetic 40ibs weight loss with few days. bs 567; Reason: Infection; Clinical Question(s): Forearm; Order Comment: Please get from elbow through fingers 08 05 2022 22:01:08 EDT Rn putting IV now. 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 AC TECHNIQUE: Helical CT without contrast formatted in 3 planes. Weight-based protocol using automatictube modulation was used to optimize exposure parameters. COMPARISONS: None FINDINGS: Bones and joints: No fracture or dislocation is present. No erosions, productive changes or abnormal calcifications are noted. Soft Tissues: There is gas seen within the dorsal soft tissues in the wrist/proximal hand as well as along the dorsal aspect of the distal forearm. Possible small 1 cm fluid density collection seen in the adjacent soft tissues axial image 64 series 207. This can also be seen on coronal image 50 series 208. This could represent a small abscess likely in the subcutaneous tissues. There appears to be diffuse edema throughout the forearm. No other findings to indicate abscess appreciated. IMPRESSION: Prominent gas seen throughout the dorsal soft tissues. Possible small abscess in the soft tissues along the dorsal aspect of the distal forearm/overlying the ulna. This appears to be adjacent to the soft tissue defect in the same region. MRI may be helpful for further evaluation. No bony findings to indicate osteomyelitis appreciated. Ultrasound may be helpful to evaluate possible drainable abscess versus edematous change/phlegmon. WSN: [id number] Ordering Physician: Alejandro Lea Dictated By: Agusto Humphries MD Dictated Date/Time: 08/05/22 11:30 p Reviewed By: Agusto Humphries MD Signed By: Agusto Humphries MD Signed Date/Time: 08/05/22 11:30 pm Transcribed By: AKASH Transcribed Date/Time: 08/05/22 11:24 pm Patient Care team information Care Team Personnel Name: Lorraine Sherwood RN Position: [facility] AMB Nurse Member Role: Primary Care Nurse Name: Ana Pink RN Position: [facility] RN Member Role: Primary Care Nurse Name: Ashley Gastelum RN Position: [facility] RN Member Role: Primary Care Nurse Name: Naima Beach RN Position: [facility] RN Member Role: Primary Care Nurse Name: Delvin Bolivar III, MD Position: Reference Physician Member Role: PCP Address: Address: [address] [place] [id number] Name: Zev Brock Position: [facility] RN Member Role: Primary Care Nurse Name: Patt Ponce RN Position: [facility] RN Member Role: Primary Care Nurse Name: Pennie Sanchez RN Position: [facility] RN Member Role: Primary Care Nurse Name: Veronica Garcia RN Position: [facility] RN Member Role: Primary Care Nurse Name: Manav Muñiz RN Position: [facility] ED RN W/OE and Tasks Member Role: Primary Care Nurse Name: Alee Shaikh RN Position: [facility] RN Member Role: Primary Care Nurse Name: Christy Almanza RN Position: [facility] RN Member Role: Primary Care Nurse Name: Bindu Gaspar RN Position: [facility] RN Member Role: Primary Care Nurse Name: Alexey Wilkins RN Position: [facility] RN Member Role: Primary Care Nurse Name: Ilene Orona RN Position: [facility] RN Member Role: Primary Care Nurse Name: Miko Alvarez RN Position: [facility] RN Member Role: Primary Care Nurse Name: Sammie Jimenez RN Position: [facility] RN Member Role: Primary Care Nurse Name: Verenice Espinoza RN Position: [facility] RN Member Role: Primary Care Nurse Name: Lucian Kelly RN Position: [facility] RN Member Role: Primary Care Nurse Name: Charissa Banuelos RN Position: [facility] RN Member Role: Primary Care Nurse Name: Yana Hernandez RN Position: [facility] RN Member Role: Primary Care Nurse Name: Molly Kebdee RN Position: [facility] OB RN Member Role: Primary Care Nurse Name: Brittaney Eagle RN Position: [facility] RN Member Role: Primary Care Nurse Name: Fabian ESQUIVEL Attending Position: [facility] ED Medicine MD Name: Daina Rivero Position: [facility] Associate Professional Member Role: ED Physician Logistics Support Address: Address: [address] [place] [address] [place] [address]- Name: Dahiana Wheat Position: [facility] ED RN W/OE and Tasks Member Role: Patient Care Provider Name: Jack Mcnulty Position: [facility] ED TA [facility] Name: Sakina Collins Position: [facility] ED TA [facility] Member Role: Dam Operator Care Team Related Persons Name: DEBRA ZHAO Address: home [address] [place] [address] Name: DODIE ZHAO Address: home [address] [place] [address]
--- OUTSIDE RECORDS SUMMARY | 2024-01-19 22:58 | XMS_ITS | Continuity of Care Document ---
Author Organization [facility] Address [address] [place] [address]- Care Team Providers Care Noise Tester Name Role Phone Marshall Mcghee MD Primary Care Physician Encounter [facility] ACCT R [id number] Date(s): 11/03/19 - 12/25/19 [facility] [address] [place] [address]- [facility] Attending Physician: Boris García MD Admitting Physician: Boris García MD Referring Physician: Marshall Mcghee MD Allergies, Adverse Reactions, Alerts Substance Reaction Severity Status morphine Active Medications insulin glargine 100 units/mL subcutaneous solution 0.42 mL = 42 units, Subcutaneous Injection, Daily at bedtime, # 12.6 mL, 0 Refills, Maintenance, 11/08/19 18:09:00 EDT, Injection, [employer] #[id number], 163, cm, 11/08/19 1:23:00 EDT, Height, 45.8, kg, 10/28/19 21:34:00 EDT, Dry Weight Start Date: 11/08/19 Status: Ordered insulin lispro 100 units/mL injectable solution 8-24 units, Subcutaneous Injection, 3 times a day before meals, << Sliding Scale Comments >> 70 - 109 8 units Call if less than 70 110 - 149 10 units 150 - 189 12 units 190 - 229 14 [id number] - 269 16 units 270 - 309 18 units 3... Start Date: 11/08/19 Stop Date: 12/08/19 Status: Ordered Problem List Condition Effective Dates Status Health Status Inform ant Cellulitis(Confirmed) Active Social History Social History Type Response Smoking Status 10 or more cigarette s (1/2 pack or more)/day in last 30 days entered on: 01/28/18 Sex
--- OUTSIDE RECORDS SUMMARY | 2024-01-19 22:58 | XMS_ITS | Continuity of Care Document ---
Author Organization [facility] ter Address [address] [place] [id number]- Care Team Providers Care Aircraft Servicer Name Role Phone Osmel MORALEZ MD, Delvin Garces Primary Care Physician Encounter [facility] Date(s): 09/09/20 - 09/13/[address] [address] Discharge Disposition: A-D/C AMA Attending Physician: Maria Del Rosario Escalante MD Admitting Physician: Hailey Mtz MD Referring Physician: Not on Staff, Referring MD Allergies, Adverse Reactions, Alerts Substance Reaction Severity Status morphine 1 Unknown Active 1Has a side effect - itching. Medications Dilaudid Inj 1 mg, Injection, IV Push Slowly, Every 4 hours, Hold for: sbp<100 or oversedation or rr<12, PRN for Pain , Severe, Routine, 09/10/20 16:29:00 EDT Start Date: 09/10/20 Stop Date: 09/14/20 Status: Discontinued Problem List Condition Effective Dates Status Health Status Inform ant Cellulitis(Confirmed) Active Cellulitis and abscess of [place] nd, except fingers and thumb(Confirmed) Active Cocaine use disorder, severe , dependence(Confirmed) Active Hyperglycemia without ketosis(Confirmed) Active Hyponatremia(Confirmed) Active Opioid use disorder, severe, dependence(Confirmed) Active Polysubstance abuse(Confirmed) Active Results Orders for Microbiology Reports Name Date AFB Culture w/ AFB Smear, Respiratory (C ulture AFB w/ AFB Smear, Respiratory) 09/12/20 AFB Culture w/ AFB Smear, Respiratory (C ulture AFB w/ AFB Smear, Respiratory) 09/11/20 AFB Culture w/ AFB Smear, Respiratory (A RAJENDRA FAST CULT,RESPIRATORY) 09/10/20 Blood Culture 09/10/20 Sputum Culture w/ Gram Smear 09/10/20 Blood Culture 09/09/20 Blood Culture #2 09/09/20 Microbiology Reports TEST:AFB Culture w/AFB Smear, Respiratory STATUS:Unauthenticated BODY SITE: SOURCE:EXPECT COLLECTED DATE/TIME:09/12/20 10:42 AM AFB Culture w/AFB Smear, Respiratory SPECIMEN DESCRIPTION : EXPECTORATED SPUTUM SPUTUM SPECIAL REQUESTS : NONE DIRECT EXAM : NO ACID FAST BACILLI SEEN ON DIRECT SMEAR, TEST PERFORMED AT [facility] CULTURE : SPECIMEN SENT TO [facility], [place], [place] REPORT STATUS : PRELIMINARY REPORT TEST:AFB Culture w/AFB Smear, Respiratory STATUS:Unauthenticated BODY SITE: SOURCE:EXPECT COLLECTED DATE/TIME:09/11/20 12:00 PM AFB Culture w/AFB Smear, Respiratory SPECIMEN DESCRIPTION : EXPECTORATED SPUTUM SPUTUM SPECIAL REQUESTS : NONE DIRECT EXAM : NO ACID FAST BACILLI SEEN ON DIRECT SMEAR, TEST PERFORMED AT [facility] CULTURE : SPECIMEN SENT TO [facility], [place], [place] REPORT STATUS : PRELIMINARY REPORT TEST:AFB Culture w/AFB Smear, Respiratory STATUS:Unauthenticated BODY SITE: SOURCE:ENDOTR COLLECTED DATE/TIME:09/10/20 1:00 PM AFB Culture w/AFB Smear, Respiratory SPECIMEN DESCRIPTION : ENDOTRACHEAL ASPIRATE SPECIAL REQUESTS : NONE DIRECT EXAM : NO ACID FAST BACILLI SEEN ON DIRECT SMEAR, TEST PERFORMED AT [facility] CULTURE : SPECIMEN SENT TO [facility], [place], [place] REPORT STATUS : PRELIMINARY REPORT TEST:Blood Culture STATUS:Unauthenticated BODY SITE: SOURCE:Blood COLLECTED DATE/TIME:09/10/20 10:52 AM Blood Culture SPECIMEN DESCRIPTION : BLOOD L ARM SPECIAL REQUESTS : NONE CULTURE : NO GROWTH 3 DAYS REPORT STATUS : PRELIMINARY REPORT TEST:Sputum Culture STATUS:Auth (Verified) BODY SITE: SOURCE:INDUCE COLLECTED DATE/TIME:09/10/20 3:00 AM Sputum Culture SPECIMEN DESCRIPTION : INDUCED SPUTUM SPECIAL REQUESTS : NONE GRAM STAIN : 2+ POLYMORPHONUCLEAR LEUKOCYTES 1+ SQ.EPITHELIAL CELLS 2+ GRAM POSITIVE COCCI 1+ GRAM POSITIVE COCCI CULTURE : 3+ STAPHYLOCOCCUS AUREUS. REPORT STATUS : FINAL 09/12/2020 ORGANISM 3+ STAPHYLOCOCCUS AUREUS. METHOD MIN. INHIB. CONC. (MCG/ML) CIPROFLOXACIN SUSCEPTIBLE CLINDAMYCIN SUSCEPTIBLE ERYTHROMYCIN SUSCEPTIBLE LEVOFLOXACIN SUSCEPTIBLE OXACILLIN SUSCEPTIBLE PENICILLIN SUSCEPTIBLE RIFAMPIN SUSCEPTIBLE RIFAMPIN RIFAMPIN SHOULD NOT BE USED ALONE FOR ANTIMICROBIAL RIFAMPIN THERAPY. TETRACYCLINE SUSCEPTIBLE TRIMETH/SULFAMETHOX SUSCEPTIBLE VANCOMYCIN SUSCEPTIBLE TEST:Blood Culture, Second Order STATUS:Auth (Verified) BODY SITE: SOURCE:Blood COLLECTED DATE/TIME:09/09/20 5:02 PM Blood Culture, Second Order SPECIMEN DESCRIPTION : BLOOD LT AC SPECIAL REQUESTS : CRITICAL VALUE CALLED AND VERIFIED BY READBACK FOR: GRAM POSITIVE COCCI TO [id number], ER, 09/10/20603, BY TECH [id number] CULTURE : STREPTOCOCCUS PNEUMONIAE. FOR SUSCEPTIBILITY RESULT REFER TO BLOOD CULTURE REPORT STATUS : FINAL 09/12/2020 TEST:Blood Culture STATUS:Auth (Verified) BODY SITE: SOURCE:Blood COLLECTED DATE/TIME:09/09/20 4:49 PM Blood Culture SPECIMEN DESCRIPTION : BLOOD RAC SPECIAL REQUESTS : CRITICAL VALUE CALLED AND VERIFIED BY READBACK FOR: GRAM POSITIVE COCCI TO [id number], ER, 09/10/20603, BY [employer] [id number] CULTURE : STREPTOCOCCUS PNEUMONIAE. INTERPRETIVE GUIDANCE FOR S.PNEUMONIAE AND PENICILLIN: SUSCEPTIBILITY TO PENICILLIN IS DETERMINED BY BODY SITE OF INFECTION WELL ROUTE OF ADMINISTRATION. THIS RESULT WOULD BE CONSIDERED RESISTANT FOR CSF ISOLATES (I.E., MENINGITIS). FOR ALL OTHER ISOLATES, THE POTENTIAL EFFICACY OF PENICILLIN DEPENDS ON DOSE WELL ROUTE OF ADMINISTRATION. FOR ORAL THERAPY WITH PENICILLIN V, VALUES OF 0.12 TO 1.0 MCG/ML ARE CONSIDERED INTERMEDIATE, GREATER THAN OR EQUAL TO 2.0 MCG/ML IS CONSIDERED RESISTANT. FOR PARENTERAL THERAPY, LESS THAN OR EQUAL TO 2.0 MCG/ML IS SUSCEPTIBLE, 4.0 MCG/ML IS INTERMEDIATE. FOR NONMENINGITIS ISOLATES, PENICILLIN MICS LESS THAN OR EQUAL TO 2.0 MCG/ML INDICATE SUSCEPTIBILITY TO AMOXICILLIN. Streptococcus pneumoniae was identified by multi-plex PCR REPORT STATUS : FINAL 09/12/2020 ORGANISM STREPTOCOCCUS PNEUMONIAE. INTERPRETIVE GUIDANCE FOR S.PNEUMONIAE AND PENICILLIN: SUSCEPTIBILITY TO PENICILLIN IS DETERMINED BY BODY SITE OF INFECTION WELL ROUTE OF ADMINISTRATION. THIS RESULT WOULD BE CONSIDERED RESISTANT FOR CSF ISOLATES (I.E., MENINGITIS). FOR ALL OTHER ISOLATES, THE POTENTIAL EFFICACY OF PENICILLIN DEPENDS ON DOSE WELL ROUTE OF ADMINISTRATION. FOR ORAL THERAPY WITH PENICILLIN V, VALUES OF 0.12 TO 1.0 MCG/ML ARE CONSIDERED INTERMEDIATE, GREATER THAN OR EQUAL TO 2.0 MCG/ML IS CONSIDERED RESISTANT. FOR PARENTERAL THERAPY, LESS THAN OR EQUAL TO 2.0 MCG/ML IS SUSCEPTIBLE, 4.0 MCG/ML IS INTERMEDIATE. FOR NONMENINGITIS ISOLATES, PENICILLIN MICS LESS THAN OR EQUAL TO 2.0 MCG/ML INDICATE SUSCEPTIBILITY TO AMOXICILLIN. METHOD MIN. INHIB. CONC. (MCG/ML) PENICILLIN MCG/ML. SEE INTERPRETIVE GUIDANCE FOR S.PNEUMONIAE PENICILLIN AND PENICILLIN. PENICILLIN JILLIAN EQ 2 MCG/ML CEFTRIAXONE SUSCEPTIBLE CLINDAMYCIN SUSCEPTIBLE ERYTHROMYCIN SUSCEPTIBLE LEVOFLOXACIN SUSCEPTIBLE MEROPENEM INTERMEDIATE TETRACYCLINE SUSCEPTIBLE TRIMETH/SULFAMETHOX RESISTANT CEFTRIAXONE(MENINGIT SUSCEPTIBLE Radiology Reports * Exam Date Time Procedure Performing Provider Status 09/09/20 6:09 PM Chest 2 Views Frontal and Lat Amparo Green; Auth (Verified) Notes: (Chest 2 Views Frontal and Lat) Reason For Exam: Shortness of Breath, Fever;Other: RESULT: Chest 2 Views Frontal and Lat Chest 2 Views Frontal and Lat Hx of Present Illness: Pt C O chest Pressure, and worsening BLE, + cough; Reason: Other:; Shortnessof Breath, Fever; Clinical Question(s): Pneumonia COMPARISON: 03/02/2020 FINDINGS: LINES AND TUBES: None. LUNGS AND PLEURA: Interval development of a large thick wall cavity in the left apex. Right lung is clear. No pleuraleffusion. HEART, MEDIASTINUM AND LIZBETH: Heart is normal in size. Normal upper mediastinal and hilar contour. BONES AND SOFT TISSUES: No acute abnormality. IMPRESSION: Large cavitary lesion in the left apex. CT is recommended for further evaluation. A [place] message has been communicated via the [employer] system on 09/09/2020 6:22 PM, Message ID [id number]. WSN: [id number] Ordering Physician: Dior Kunz Dictated By: Marty Rodriguez MD Dictated Date/Time: 09/09/20 6:22 pm Reviewed By: Marty Rodriguez MD Signed By: Marty Rodriguez MD Signed Date/Time: 09/09/20 6:22 pm Transcribed By: AKASH Transcribed Date/Time: 09/09/20 6:16 pm Vital Signs Most recent to oldest [Reference Range]: 1 2 3 Oxygen Saturation [94-100 %] 100 % (09/13/20 2:00 PM) 100 % (09/13/20 11:00 AM) 99 % (09/13/20 7:00 AM) Pulse Rate [55-90 bpm] 85 bpm (09/13/20 2:00 PM) 95 bpm *H* (09/13/20 11:00 AM) 89 bpm (09/13/20 7:00 AM) Blood Pressure [90-138/55-84 mm Hg] 117/70mm Hg (09/13/20 2:00 PM) 122/79mm Hg (09/13/20 11:00 AM) 132/81mm Hg (09/13/20 7:00 AM) Respiratory Rate [16-30 br/min] 20 br/min (09/13/20 2:01 PM) 18 br/min (09/13/20 2:00 PM) 20 br/min (09/13/20 1:31 PM) Temperature [96.8-100.4 DegF] 98.5 DegF (09/13/20 2:00 PM) 98.1 DegF (09/13/20 11:00 AM) 97.9 DegF (09/13/20 7:00 AM) Mode of Delivery (Oxygen) Room air (09/13/20 2:00 PM) Room air (09/13/20 11:00 AM) Room air (09/13/20 7:00 AM) Blood pressure sites Arm, right (09/13/20 2:00 PM) Arm, right (09/13/20 11:00 AM) Arm, right (09/13/20 7:00 AM) Temperature Route Oral (09/13/20 2:00 PM) Oral (09/13/20 11:00 AM) Oral (09/13/20 7:00 AM) Social History Social History Type Response Smoking Status 10 or more cigarette s (1/2 pack or more)/day in last 30 days entered on: 01/28/18 Sex
--- OUTSIDE RECORDS SUMMARY | 2024-01-19 22:58 | XMS_ITS | Continuity of Care Document ---
Author Organization [facility] Address [address] [place] [address]- Care Team Providers Care Daycare Director Name Role Phone Lachelle MCKEON, Calin Mckeon Primary Care Physician Encounter [facility] Date(s): 09/14/20 - 11/01/20 [facility] [address] [place], [place] [address] Attending Physician: Young Castillo MD Admitting Physician: Young Castillo MD Referring Physician: Calin Larose MD Allergies, Adverse Reactions, Alerts Substance Reaction Severity Status morphine 1 Unknown Active 1Has a side effect - itching. Problem List Condition Effective Dates Status Health Status Inform ant Cellulitis(Confirmed) Active Cellulitis and abscess of camp[place] nd, except fingers and thumb(Confirmed) Active Cocaine use disorder, severe , dependence(Confirmed) Active Hyperglycemia without ketosis(Confirmed) Active Hyponatremia(Confirmed) Active Opioid use disorder, severe, dependence(Confirmed) Active Polysubstance abuse(Confirmed) Active Social History Social History Type Response Smoking Status 10 or more cigarette s (1/2 pack or more)/day in last 30 days entered on: 01/28/18 Sex
--- OUTSIDE RECORDS SUMMARY | 2024-01-19 22:58 | XMS_ITS | Continuity of Care Document ---
Author Organization [facility] ter Address [address] [place] [id number]- Care Team Providers Care Panel Cutter Name Role Phone Not on Staff, PCP Primary Care Physician Unavail able Encounter [facility] [place] Date(s): 03/26/23 - 03/26/[address] [address]- Discharge Disposition: A-D/C Walkout Attending Physician: Not on Staff, Attending MD Admitting Physician: Not on Staff, Admitting MD Referring Physician: Not on Staff, Referring [...] opioid drug. Start Date: 03/10/23 Status: Ordered ferrous sulfate 325 mg oral enteric coated tablet 325 mg, 1, tablet, By Mouth, Daily, # 30 tablet, Refills 0, Tot. Refills 0, Maintenance, 12/19/22 10:40:00 EDT, Route to Pharmacy Electronically, [facility]/pharmacy #[id number], Partial fill upon patient requestif the prescription is for a schedule II opioid serenity... Start Date: 12/19/22 Stop Date: 01/18/23 Status: Ordered folic acid 1 mg oral tablet 1 mg, By Mouth, Daily, Refills 0, Maintenance, 03/10/23 16:23:00 EST, Partial fill upon patient request if the prescription is for a schedule II opioid drug. Start Date: 03/10/23 Status: Ordered Freestyle Lite Lancets See Instructions, # 200 each, Refills 5, Tot. Refills 5, Maintenance, use as directed for Type 2 Diabetes Mellitus; test at least 3 times per day, 12/19/22 9:23:00 EDT, Supply, 163, cm, 12/18/22 13:39:00 EDT, Height, 43.6, kg, 12/04/22 9:38:00 EDT, Dr... Start Date: 12/19/22 Stop Date: 06/17/23 Status: [...] 12/19/22 9:11:00 EDT, Route to Pharmacy Electronically, [facility]/pharmacy #[id number], Partial fill upon patient request ifthe prescription is for a schedule II opioid drug.,... Start Date: 12/19/22 Stop Date: 01/18/23 Status: Ordered Humalog Kwik Pen 100 units/mL subcutaneous injection See Instructions, Take 3 times a day before meals, based on your blood sugar: For blood sugar 100 -149, take 4 units 150 - 199 5 units 200 - 249 6 units 250 - 299 7 units 300 - 349 8 units 350 - 3999 units 400 - 449 10 uni... Start Date: 12/19/22 Status: Ordered ibuprofen 400 mg oral tablet 400 mg, By Mouth, 3 times a day, PRN, Refills 0, Maintenance, Pain , Moderate, 03/10/23 16:20:00 EST, Partial fill upon patient request if the prescription is for a schedule II opioid drug. Start Date: 03/10/23 Status: Ordered Lantus Solostar Pen 100 units/mL subcutaneous solution = 15 units, Subcutaneous Injection, Daily at bedtime, # 10 mL, 0 Refills, Maintenance, 12/19/22 9:12:00 EDT, Injection, [facility]/pharmacy #[id number], Partial fill upon patient request if the prescription is for a schedule II opioid drug., 163, cm, 12/18/22 13:3... Start Date: 12/19/22 Stop Date: 01/18/23 Status: Ordered melatonin 3 mg oral tablet = 3 mg, By Mouth, Daily at bedtime, PRN Insomnia, 0 Refills, Maintenance, 03/10/23 16:33:00 EST, Tablet, Partial fill upon patient request if the prescription is for a schedule II opioid drug. Start Date: 03/10/23 Status: Ordered Methadone = 75 mg, By Mouth, Daily in AM, 0 Refills, Maintenance, 03/10/23 16:18:00 EST, Tablet, Partial fillupon patient request if the prescription is for a schedule II opioid drug. Start Date: 03/10/23 Status: Ordered Multivit Therapeutic/Minerals Tablet 1 tablet, By Mouth, Daily, 0 Refills, Maintenance, 03/10/23 16:19:00 EST, Tablet, Partial fill uponpatient request if the prescription is for a schedule II opioid drug. Start Date: 03/10/23 Status: Ordered Pen [place], 31 G x 5 mm BD Ultra Fine III See Instructions, # 100 each, Refills 5, Tot. Refills 5, Maintenance, use as directed for Type 2 Diabetes Mellitus, 12/19/22 9:23:00 EDT, Supply, 163, cm, 12/18/22 13:39:00 EDT, Height, 43.6, kg, 12/04/22 9:38:00 EDT, Dry Weight Start Date: 12/19/22 Stop Date: 06/17/23 Status: Ordered Tylenol 325 mg oral tablet 975 mg, By Mouth, 3 times a day, Refills 0, Maintenance, 03/10/23 16:18:00 EST, Partial fill upon patient request if the prescription is for a schedule II opioid drug. Start Date: 03/10/23 Status: Ordered zinc sulfate 220 mg oral capsule 220 mg, By Mouth, Daily in AM, # 30 tablet, Refills 0, Tot. Refills 0, Maintenance, 12/19/22 9:22:00 EDT, Route to Pharmacy Electronically, [facility], Partial fill upon patient requestif the prescription is for a schedule II opioid serenity... Start Date: 12/19/22 Stop Date: 01/18/23 Status: Ordered Problem List Condition Confirmation Course Effective Dates Status H ealt Status Informant Cellulitis Confirmed Active Cellulitis and abscess of hand, except fingers and thumb Confirmed Active Cocaine use disorder, severe, dependence Confirmed Active Uncontrolled diabetes mellitus with hyperglycemia Confirmed Active Diabetes Confirmed Active Hyperglycemia without ketosis Confirmed Active Hyponatremia Confirmed Active Opioid use disorder, severe, dependence Confirmed Active Polysubstance abuse Confirmed Active Underweight Confirmed Active Vital Signs Most recent to oldest [Reference Range]: 1 Height 163 cm (03/26/23 4:18 PM) Weight 45.5 kg (03/26/23 4:18 PM) Oxygen Saturation [94-100 %] 100 % (03/26/23 4:18 PM) Pulse Rate [55-90 bpm] 98 bpm *H* (03/26/23 4:18 PM) Body Mass Index [18.5-24.99 kg/m2] 17.13 kg/m2 *L* (03/26/23 4:18 PM) Blood Pressure [90-138/55-84 mm Hg] 135/ 91mm Hg (03/26/23 4:18 PM) Respiratory Rate [16-30 br/min] 17 br/mi n (03/26/23 4:18 PM) Temperature [96.8-100.4 DegF] 98.2 DegF (03/26/23 4:18 PM) Mode of Delivery (Oxygen) Room air (03/26/23 4:18 PM) Blood pressure sites Arm, right (03/26/23 4:18 PM) Temperature Route Tympanic (03/26/23 4:18 PM) Dry Weight 45.5 kg (03/26/23 4:18 PM) Weight Obtained Via Patient/family state d (03/26/23 4:18 PM) Dry Weight Obtained Via Patient/family s tated (03/26/23 4:18 PM) Social History Social History Type Response Smoking Status 10 or more cigarette s (1/2 pack or more)/day in last 30 days entered on: 01/28/18 Sex EKG study * Event Display: EKG Authored Date: [id number] Patient Care team information Care Team Personnel Name: Lorraine Sherwood RN Position: [facility] AMB Nurse Member Role: Primary Care Nurse Name: Hailey Corado RN Position: [facility] RN Supv Member Role: Primary Care Nurse Name: Ana Pink RN Position: [facility] RN Member Role: Primary Care Nurse Name: Aida Saul RN Position: [facility] RN Member Role: Primary Care Nurse Name: Ashley Gastelum RN Position: [facility] RN Member Role: Primary Care Nurse Name: Naima Beach RN Position: [facility] RN Member Role: Primary Care Nurse Name: Margo Valdez LPN Position: [facility] RN Member Role: Primary Care Nurse Name: Zev Brock RN Position: [facility] RN Member Role: Primary Care Nurse Name: Chela Herrera RN Position: [facility] RN Member Role: Primary Care Nurse Name: Felecia Vaughn RN Position: [facility] RN Member Role: Primary Care Nurse Name: Liane Tellez RN Position: [facility] SN RN Member Role: Primary Care Nurse Name: Pennie Sanchez RN Position: [facility] RN Member Role: Primary Care Nurse Name: Veronica Garcia RN Position: [facility] RN Member Role: Primary Care Nurse Name: Mai Jimenez LPN Position: [facility] RN Member Role: Primary Care Nurse Name: Rakel Burton RN Position: [facility] RN Member Role: Primary Care Nurse Name: Toña Dubon RN Position: [facility] RN Member Role: Primary Care Nurse Name: Manav Muñiz RN Position: [facility] ED RN W/OE and Tasks Member Role: Primary Care Nurse Name: Alee Shaikh RN Position: [facility] RN Member Role: Primary Care Nurse Name: Christy Almanza RN Position: [facility] RN Member Role: Primary Care Nurse Name: Lashae Servin RN Position: [facility] RN Member Role: Primary Care Nurse Name: Bindu Gaspar RN Position: [facility] RN Member Role: Primary Care Nurse Name: Alexey Wilkins RN Position: [facility] RN Member Role: Primary Care Nurse Name: Ilene Orona RN Position: [facility] RN Member Role: Primary Care Nurse Name: Seth Rivera RN Position: [facility] RN Member Role: Primary Care Nurse Name: Doroteo Ray RN Position: [facility] RN Member Role: Primary Care Nurse Name: Miko Alvarez RN Position: [facility] RN Member Role: Primary Care Nurse Name: Not on Staff, PCP Position: [facility] Physician (General Medicine) Member Role: PCP Name: Hugo Marshall RN Position: [facility] RN Member Role: Primary Care Nurse Name: Sammie Jimenez RN Position: [facility] RN Member Role: Primary Care Nurse Name: Verenice Espinoza RN Position: [facility] RN Member Role: Primary Care Nurse Name: Livier Denton Position: [facility] RN Member Role: Primary Care Nurse Name: Lucian Kelly RN Position: [facility] RN Member Role: Primary Care Nurse Name: Charissa Banuelos RN Position: [facility] RN Member Role: Primary Care Nurse Name: Yana Hernandez RN Position: [facility] RN Member Role: Primary Care Nurse Name: Kala Ferraro RN Position: [facility] RN Member Role: Primary Care Nurse Name: Sara Carpenter RN Position: [facility] RN Member Role: Primary Care Nurse Name: Molly Kebede RN Position: [facility] OB RN Member Role: Primary Care Nurse Name: Brittaney Eagle RN Position: [facility] RN Member Role: Primary Care Nurse Name: Dahiana Muller LPN Position: [facility] RN Member Role: Primary Care Nurse Name: Renee Villanueva RN Position: [facility] ED RN W/OE and Tasks Member Role: Primary Care Nurse Care Team Related Persons Name: DEBRA ZHAO Address: [address] [place] [address] Name: DODIE ZHAO Address: [address] [place] [address] Name: GEMMA ZHAO Address: home [address] [place] [address]
--- OUTSIDE RECORDS SUMMARY | 2024-01-19 22:58 | XMS_ITS | Continuity of Care Document ---
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 Start Date: 04/08/23 Status: Ordered Pen Rudyard, 31 G x 5 mm BD Ultra [...] Team Personnel Name: Suha Joya RN Position: [facility] RN Member Role: Primary Care Nurse Name: Lorraine Sherwood RN Position: [facility] AMB Nurse Member Role: Primary Care Nurse Name: Hailey Corado RN Position: [facility] RN Supv Member Role: Primary Care Nurse Name: Alayna Barfield RN Position: [facility] RN Member Role: Primary Care Nurse Name: Ana Pink RN Position: [facility] RN Member Role: Primary Care Nurse Name: Aida Saul RN Position: [facility] RN Member Role: Primary Care Nurse Name: Ashley Gastelum RN Position: [facility] RN Member Role: Primary Care Nurse Name: Calin Larose MD Position: [facility] Physician (General Medicine) Member Role: PCP Address: Address: [address] [place] [address] Name: Mami Goetz RN Position: [facility] RN Member Role: Primary Care Nurse Name: Pennie Hamilton RN Position: [facility] RN Member Role: Primary Care Nurse Name: Naima Beach RN Position: [facility] RN Member Role: Primary Care Nurse Name: Margo Valdez LPN Position: [facility] RN Member Role: Primary Care Nurse Name: Rakel Barfield RN Position: [facility] RN Member Role: Primary Care Nurse Name: Zev Brock RN Position: [facility] RN Member Role: Primary Care Nurse Name: Chela Herrera RN Position: [facility] RN Member Role: Primary Care Nurse Name: Felecia Vaughn RN Position: [facility] RN Member Role: Primary Care Nurse Name: Liane Tellez RN Position: [facility] SN RN Member Role: Primary Care Nurse Name: Veronica Garcia RN Position: [facility] RN Member Role: Primary Care Nurse Name: Mai Jimenez LPN Position: [facility] RN Member Role: Primary Care Nurse Name: Toña Dubon RN Position: [facility] RN Member Role: Primary Care Nurse Name: Connie Leavitt RN Position: [facility] RN Member Role: Primary Care Nurse Name: Manav Muñiz RN Position: [facility] ED RN W/OE and Tasks Member Role: Primary Care Nurse Name: Alee Shaikh RN Position: [facility] RN Member Role: Primary Care Nurse Name: Christy Almanza RN Position: [facility] RN Member Role: Primary Care Nurse Name: Lashae Servin RN Position: [facility] RN Member Role: Primary Care Nurse Name: Toy Langley RN Position: [facility] RN Member Role: Primary Care Nurse Name: Bindu Gaspar RN Position: [facility] RN Member Role: Primary Care Nurse Name: Alexey Wilkins RN Position: [facility] RN Member Role: Primary Care Nurse Name: Ilene Orona RN Position: [facility] RN Member Role: Primary Care Nurse Name: Doroteo Ray RN Position: [facility] RN Member Role: Primary Care Nurse Name: Miko Alvarez RN Position: [facility] RN Member Role: Primary Care Nurse Name: Fausto Pearl LPN Position: [facility] RN Member Role: Primary Care Nurse Name: Hugo Marshall RN Position: [facility] RN Member Role: Primary Care Nurse Name: Sammie Jimenez RN Position: [facility] RN Member Role: Primary Care Nurse Name: Verenice Espinoza RN Position: [facility] RN Member Role: Primary Care Nurse Name: Livier Denton Position: [facility] RN Member Role: Primary Care Nurse Name: Lucian Kelly RN Position: [facility] RN Member Role: Primary Care Nurse Name: Charissa Banuelos RN Position: [facility] RN Member Role: Primary Care Nurse Name: See Anderson RN Position: [facility] ED RN W/OE and Tasks Member Role: Primary Care Nurse Name: Michoacano Bowles RN Position: [facility] RN Member Role: Primary Care Nurse Name: Kala Ferraro RN Position: [facility] RN Member Role: Primary Care Nurse Name: Lee Hyde RN Position: [facility] RN Member Role: Primary Care Nurse Name: Dino Brewster RN Position: [facility] RN Member Role: Primary Care Nurse Name: Sara Carpenter RN Position: [facility] RN Member Role: Primary Care Nurse Name: Molly Kebede RN Position: [facility] OB RN Member Role: Primary Care Nurse Name: Nadya Murillo LPN Position: [facility] RN Member Role: Primary Care Nurse Name: Brittaney Eagle RN Position: [facility] RN Member Role: Primary Care Nurse Name: Dahiana Muller LPN Position: [facility] RN Member Role: Primary Care Nurse Name: Renee Villanueva RN Position: [facility] ED RN W/OE and Tasks Member Role: Primary Care Nurse Care Team Related Persons Name: DEBRA ZHAO Address: home [address] [place] [address] Name: DODIE ZHAO Address: [address] [place] [address] Name: GEMMA ZHAO Address: home [address] [place] [address]
--- OUTSIDE RECORDS SUMMARY | 2024-01-19 22:58 | XMS_ITS | Continuity of Care Document ---
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 [place] Date(s): 02/26/20 - 02/29/[address] [address] Discharge Disposition: A-D/C AMA Attending Physician: Charissa Wesley MD Admitting Physician: Caron Pickens MD Referring Physician: Not on Staff, Referring MD Allergies, Adverse Reactions, Alerts Substance Reaction Severity Status NKA Active Medications dicloxacillin 500 mg oral capsule 1 capsule = 500 mg, By Mouth, Every 6 hours, for 5 days, # 20 capsule, 0 Refills, Acute 03/05/20 19:57:00 EST, 02/29/20 19:57:00 EST, Capsule, [facility] #[id number], Partial fill upon patient request if the prescription is for a schedule II opio... Start Date: 02/29/20 Stop Date: 03/05/20 Status: Ordered levoFLOXacin 750 mg oral tablet 1 tablet = 750 mg, By Mouth, Every 24 hours, for 5 days, # 5 tablet, 0 Refills, Acute 03/05/20 19:55:00 EST, 02/29/20 19:55:00 EST, Tablet, [facility] #[id number], Partial fill upon patient request if the prescription is for a schedule II opioid... Start Date: 02/29/20 Stop Date: 03/05/20 Status: Ordered MorPHINE Inj 4 mg, Injection, IV Push Slowly, Every 4 hours, PRN for Pain , Severe, Routine, 02/27/20 8:57:00 EST Start Date: 02/27/20 Stop Date: 03/05/20 Status: Ordered oxyCODONE 5 mg oral tablet 10 mg, Tablet, By Mouth, Every 6 hours, PRN for Pain , Severe, Routine, 02/26/20 21:50:00 EST Start Date: 02/26/20 Stop Date: 03/04/20 Status: Ordered Problem List Condition Effective Dates Status Health Status Inform ant Cellulitis(Confirmed) Active Cellulitis and abscess of [place] [address], except fingers and thumb(Confirmed) Active Cocaine use disorder, severe , dependence(Confirmed) Active Hyperglycemia without ketosis(Confirmed) Active Hyponatremia(Confirmed) Active Opioid use disorder, severe, dependence(Confirmed) Active Polysubstance abuse(Confirmed) Active Results Orders for Microbiology Reports Name Date AFB Culture w/ AFB Smear, Nonrespiratory (ACID FAST CULT,NON-RESP) 02/26/20 Anaerobic Culture (ANAEROBIC CULTURE) Fungal Culture, Nonrespiratory (FUNGAL C ULT,NON-RESPIRATORY) 02/26/20 Wound Deep Culture w/ Gram Smear (DEEP W OUND CULTURE) 02/26/20 Anaerobic Culture (ANAEROBIC CULTURE) Fungal Culture, Nonrespiratory (FUNGAL C ULT,NON-RESPIRATORY) 02/26/20 Wound Deep Culture w/ Gram Smear (DEEP W OUND CULTURE) 02/26/20 Blood Culture 02/26/20 Blood Culture 02/26/20 Blood Culture #2 02/26/20 Microbiology Reports TEST:Anaerobic Culture STATUS:Unauthenticated BODY SITE: SOURCE:FLUID COLLECTED DATE/TIME:02/26/20 7:35 PM Anaerobic Culture SPECIMEN DESCRIPTION : FLUID right arm abcess SPECIAL REQUESTS : NONE CULTURE : NO ANAEROBES ISOLATED SO FAR. REPORT STATUS : PRELIMINARY REPORT TEST:Deep Wound Culture STATUS:Unauthenticated BODY SITE: SOURCE:FLUID COLLECTED DATE/TIME:02/26/20 7:35 PM Deep Wound Culture SPECIMEN DESCRIPTION : FLUID right arm abcess SPECIAL REQUESTS : NONE GRAM STAIN : 3+ GRAM POSITIVE RODS 2+ GRAM NEGATIVE RODS 3+ YEAST 4+ POLYMORPHONUCLEAR LEUKOCYTES CULTURE : 4+ BAM ALBICANS 1+ STAPHYLOCOCCUS AUREUS. 1+ BURKHOLDERIA (PSEUDOMONAS) CEPACIA 1+ LACTOBACILLUS SPECIES SUSCEPTIBILITY TESTING NOT ROUTINELY PERFORMED ON THIS ISOLATE. ORGANISM 1+ BURKHOLDERIA (PSEUDOMONAS) CEPACIA METHOD MIN. INHIB. CONC. (MCG/ML) CEFTAZIDIME SUSCEPTIBLE LEVOFLOXACIN SUSCEPTIBLE MEROPENEM SUSCEPTIBLE TRIMETH/SULFAMETHOX SUSCEPTIBLE REPORT STATUS : PRELIMINARY REPORT TEST:Fungal Culture, Non-Respiratory STATUS:Unauthenticated BODY SITE: SOURCE:FLUID COLLECTED DATE/TIME:02/26/20 7:35 PM Fungal Culture, Non-Respiratory SPECIMEN DESCRIPTION : FLUID right arm abcess SPECIAL REQUESTS : NONE DIRECT EXAM : 2+ BUDDING YEAST WITH PSEUDOHYPHAE REPORT STATUS : PRELIMINARY REPORT TEST:AFB Culture w/AFB Smear, Non-Respiratory STATUS:Unauthenticated BODY SITE: SOURCE:FLUID COLLECTED DATE/TIME:02/26/20 7:35 PM AFB Culture w/AFB Smear, Non-Respiratory SPECIMEN DESCRIPTION : FLUID right arm abcess SPECIAL REQUESTS : NONE DIRECT EXAM : NO ACID FAST BACILLI SEEN ON DIRECT SMEAR, TEST PERFORMED AT [facility] No acid fast bacilli seen on concentrated smear. Per [facility] protocol, this specimen was concentrated prior to smear preparation. [facility], [address] [place] [id number]. CULTURE : SPECIMEN SENT TO [facility] [facility], [place], [place] REPORT STATUS : PRELIMINARY REPORT TEST:Anaerobic Culture STATUS:Unauthenticated BODY SITE: SOURCE:Blood COLLECTED DATE/TIME:02/26/20 7:24 PM Anaerobic Culture SPECIMEN DESCRIPTION : BLOOD [facility] SPECIAL REQUESTS : NONE CULTURE : NO ANAEROBES ISOLATED SO FAR. REPORT STATUS : PRELIMINARY REPORT TEST:Fungal Culture, Non-Respiratory STATUS:Unauthenticated BODY SITE: SOURCE:Blood COLLECTED DATE/TIME:02/26/20 7:24 PM Fungal Culture, Non-Respiratory SPECIMEN DESCRIPTION : BLOOD [facility] SPECIAL REQUESTS : NONE DIRECT EXAM : 4+ BUDDING YEAST WITH PSEUDOHYPHAE REPORT STATUS : PRELIMINARY REPORT TEST:Deep Wound Culture STATUS:Auth (Verified) BODY SITE: SOURCE:Blood COLLECTED DATE/TIME:02/26/20 7:24 PM Deep Wound Culture SPECIMEN DESCRIPTION : BLOOD [facility] SPECIAL REQUESTS : NONE GRAM STAIN : 4+ GRAM POSITIVE RODS 3+ YEAST 2+ GRAM NEGATIVE RODS 4+ POLYMORPHONUCLEAR LEUKOCYTES CULTURE : 4+ STAPHYLOCOCCUS AUREUS. 4+ BAM ALBICANS 1+ BURKHOLDERIA (PSEUDOMONAS) CEPACIA 1+ LACTOBACILLUS SPECIES SUSCEPTIBILITY TESTING NOT ROUTINELY PERFORMED ON THIS ISOLATE. REPORT STATUS : FINAL 02/29/2020 ORGANISM 4+ STAPHYLOCOCCUS AUREUS. METHOD MIN. INHIB. CONC. (MCG/ML) CIPROFLOXACIN RESISTANT CLINDAMYCIN SUSCEPTIBLE ERYTHROMYCIN SUSCEPTIBLE LEVOFLOXACIN RESISTANT OXACILLIN SUSCEPTIBLE PENICILLIN RESISTANT RIFAMPIN SUSCEPTIBLE RIFAMPIN RIFAMPIN SHOULD NOT BE USED ALONE FOR ANTIMICROBIAL RIFAMPIN THERAPY. TETRACYCLINE SUSCEPTIBLE TRIMETH/SULFAMETHOX SUSCEPTIBLE VANCOMYCIN SUSCEPTIBLE ORGANISM 1+ BURKHOLDERIA (PSEUDOMONAS) CEPACIA METHOD MIN. INHIB. CONC. (MCG/ML) CEFTAZIDIME SUSCEPTIBLE LEVOFLOXACIN SUSCEPTIBLE MEROPENEM SUSCEPTIBLE TRIMETH/SULFAMETHOX SUSCEPTIBLE TEST:Blood Culture, Second Order STATUS:Unauthenticated BODY SITE: SOURCE:Blood COLLECTED DATE/TIME:02/26/20 8:50 AM Blood Culture, Second Order SPECIMEN DESCRIPTION : BLOOD LEFTAC SPECIAL REQUESTS : NONE CULTURE : NO GROWTH 3 DAYS REPORT STATUS : PRELIMINARY REPORT TEST:Blood Culture STATUS:Unauthenticated BODY SITE: SOURCE:Blood COLLECTED DATE/TIME:02/26/20 8:30 AM Blood Culture SPECIMEN DESCRIPTION : BLOOD RT AC SPECIAL REQUESTS : NONE CULTURE : NO GROWTH 3 DAYS REPORT STATUS : PRELIMINARY REPORT TEST:Blood Culture STATUS:Unauthenticated BODY SITE: SOURCE:Blood COLLECTED DATE/TIME:02/26/20 8:30 AM Blood Culture SPECIMEN DESCRIPTION : BLOOD LEFT AC SPECIAL REQUESTS : NONE CULTURE : NO GROWTH 3 DAYS REPORT STATUS : PRELIMINARY REPORT Radiology Reports * Exam Date Time Procedure Performing Provider Status 02/26/20 10:57 AM Elbow Min 3 Views Right Juvenal Banuelos J; Auth (Verified) Notes: (Elbow Min 3 Views Right) Reason For Exam: Infection RESULT: Elbow Min 3 Views Right Elbow Min 3 Views Right, 3 views Hx of Present Illness: Pt presents with bilateral abscesses on arms. History of IVDA and MRSA infections; Reason: Infection; Clinical Question(s): Osteomyelitis COMPARISON: 08/16/2019 FINDINGS: No joint effusion. No fracture. No radiographic evidence of osteomyelitis. Persistent or recurrent tissue nodularity in the ventral soft tissues. No retained foreign body. IMPRESSION: No radiographic evidence of osteomyelitis. No joint effusion. Ventral soft tissue nodularity likely correlating with clinical abscesses. WSN: [id number] Ordering Physician: Surendra Pizarro Dictated By: Adrien Granados MD Dictated Date/Time: 02/26/20 11:27 a Reviewed By: Adrien Granados MD Signed By: Adrien Granados MD Signed Date/Time: 02/26/20 11:27 am Transcribed By: AKASH Transcribed Date/Time: 02/26/20 11:24 am * Exam Date Time Procedure Performing Provider Status 02/26/20 10:57 AM Forearm 2 Views Right Nakita Banuelos i; Auth (Verified) Notes: (Forearm 2 Views Right) Reason For Exam: Infection RESULT: Forearm 2 Views Right Forearm 2 Views Right Hx of Present Illness: Pt presents with bilateral abscesses on arms. History of IVDA and MRSA infections; Reason: Infection; Clinical Question(s): Osteomyelitis COMPARISON: 08/16/2019, 10/29/2019 FINDINGS: Prominent soft tissue nodularity in the ventral aspect of the proximal forearm. No radiographic evidence of osteomyelitis. No retained foreign body. Degenerative changes at the triscaphe joint. IMPRESSION: Recurrent abscesses in the proximal forearm not well evaluated by radiograph. No radiographic evidence of osteomyelitis. WSN: [id number] Ordering Physician: Surendra Pizarro Dictated By: Adrien Granados MD Dictated Date/Time: 02/26/20 11:24 a Reviewed By: Adrien Granados MD Signed By: Adrien Granados MD Signed Date/Time: 02/26/20 11:24 am Transcribed By: AKASH Transcribed Date/Time: 02/26/20 11:22 am * Exam Date Time Procedure Performing Provider Status 02/26/20 10:57 AM Forearm 2 Views Left Sisi Banuelos; Auth (Verified) Notes: (Forearm 2 Views Left) Reason For Exam: Infection RESULT: Forearm 2 Views Left Forearm 2 Views Left Hx of Present Illness: Pt presents with bilateral abscesses on arms. History of IVDA and MRSA infections; Reason: Infection; Clinical Question(s): Osteomyelitis COMPARISON: Wrist radiographs 01/20/2020 0 correlation. FINDINGS: Soft tissue nodularity spanning approximately 3 cm in length overlying the distal ulnar diaphysis as well as multiple nodular soft tissue densities overlying the proximal radial head and diaphysis. The soft tissue densities project in the volar soft tissues on the lateral view. No discrete soft tissue gas. No fracture. No retained foreign body. Degenerative changes of the wrist. IMPRESSION: Superficial soft tissue nodularity proximally overlying the radius and distally overlying the ulna likely reflect reported abscesses. Consider further evaluation with ultrasound or MRI if clinically warranted. No radiographic evidence of osteomyelitis. WSN: [id number] Ordering Physician: Surendra Pizarro Dictated By: Adrien Granados MD Dictated Date/Time: 02/26/20 11:20 a Reviewed By: Adrien Granados MD Signed By: Adrien Granados MD Signed Date/Time: 02/26/20 11:20 am Transcribed By: AKASH Transcribed Date/Time: 02/26/20 11:17 am Vital Signs Most recent to oldest [Reference Range]: 1 2 3 Height 162 cm (02/29/20 1:15 PM) 162 cm (02/29/20 5:17 AM) 162 cm (02/28/20 7:58 PM) Weight 55.8 kg (02/28/20 1:39 AM) 49.2 kg (02/26/20 6:16 PM) 49.2 kg (02/26/20 5:02 PM) Oxygen Saturation [94-100 %] 99 % (02/29/20 1:15 PM) 97 % (02/29/20 5:17 AM) 100 % (02/28/20 7:58 PM) Pulse Rate [55-90 bpm] 69 bpm (02/29/20 1:15 PM) 75 bpm (02/29/20 8:35 AM) 59 bpm (02/29/20 5:17 AM) Body Mass Index [18.5-24.99] 21.26 (02/28/20 1:39 AM) 18.75 (02/26/20 6:16 PM) 18.75 (02/26/20 5:02 PM) Blood Pressure [90-138/55-84 mm Hg] 131/71mm Hg (02/29/20 1:15 PM) 125/72mm Hg (02/29/20 8:35 AM) 152/95mm Hg *H* (02/29/20 5:17 AM) Respiratory Rate [16-30 br/min] 16 br/min (02/29/20 4:50 PM) 18 br/min (02/29/20 1:15 PM) 16 br/min (02/29/20 12:47 PM) Temperature [96.8-100.4 DegF] 98.0 DegF (02/29/20 1:15 PM) 97.8 DegF (02/29/20 8:35 AM) 98.5 DegF (02/28/20 7:58 PM) Liters per Minute 4 L/min (02/26/20 9:15 PM) 4 L/min (02/26/20 9:00 PM) 4 L/min (02/26/20 8:45 PM) Mode of Delivery (Oxygen) Room air (02/29/20 1:15 PM) Room air (02/29/20 5:17 AM) Room air (02/28/20 7:58 PM) Blood pressure sites Leg, left (02/29/20 1:15 PM) Leg, left (02/29/20 5:17 AM) Leg, right (02/28/20 7:58 PM) Temperature Route Oral (02/29/20 1:15 PM) Oral (02/29/20 8:35 AM) Oral (02/28/20 7:58 PM) Dry Weight 49.2 kg (02/26/20 6:16 PM) 49.2 kg (02/26/20 5:02 PM) Weight Obtained Via Bed scale (02/28/20 1:39 AM) Patient/family stated (02/26/20 6:16 PM) Dry Weight Obtained Via Patient/family stated (02/26/20 6:16 PM) Social History Social History Type Response Smoking Status 10 or more cigarette s (1/2 pack or more)/day in last 30 days entered on: 01/28/18 Sex
--- OUTSIDE RECORDS SUMMARY | 2024-01-19 22:59 | XMS_ITS | Continuity of Care Document ---
Author Organization [facility] ter Address [address] [place] [id number]- Care Team Providers Care Enterprise Engineer Name Role Phone Lachelle MCKEON, Calin Mckeon Primary Care Physician Encounter [facility] Date(s): 02/21/23 - 03/12/[address] [address] Encounter Diagnosis Cellulitis of arm(Final) - 02/20/23 Cellulitis of arm(Final) - 03/11/23 Discharge Disposition: A-D/C AMA Attending Physician: Devika Huffman MD Admitting Physician: Moris Fernandez MD Referring Physician: Not on Staff, Referring [...] 12/19/22 10:40:00 EDT, Route to Pharmacy Electronically, [facility]/pharmacy #[id number], Partial fill upon patient requestif [...] EDT, Height, 43.6, kg, 12/04/22 9:38:00 EDT, .. Start Date: 12/19/22 Stop Date: 06/17/23 Status: [...] gabapentin 300 mg oral capsule 600 mg, Capsule, By Mouth, 03/12/23 15:00:00 EST Start Date: 03/12/23 Stop Date: 03/12/23 Status: Completed gabapentin 300 mg oral capsule 600 mg, By Mouth, 3 times a day, # 90 capsule, Refills 0, Tot. Refills 0, Maintenance, 12/19/22 9:11:00 EDT, Route to Pharmacy Electronically, [facility]/pharmacy #[id number], Partial fill upon patient request ifthe prescription is for a schedule II opioid drug.,... Start Date: 12/19/22 Stop Date: 01/18/23 Status: Ordered gabapentin 300 mg oral capsule 600 mg, Capsule, By Mouth, 03/12/23 9:00:00 EST Start Date: 03/12/23 Stop Date: 03/12/23 Status: Completed Humalog Kwik Pen 100 units/mL subcutaneous injection [...] 0 Refills, Maintenance, 12/19/22 9:12:00 EDT, Injection, [facility]/pharmacy #[id number], Partial fill upon [...] drug. Start Date: 03/10/23 Status: Ordered Methadone Tablet 75 mg, Tablet, By Mouth, 03/12/23 9:00:00 EST Start Date: 03/12/23 Stop Date: 03/12/23 Status: Completed Multivit Therapeutic/Minerals Tablet 1 tablet, By Mouth, Daily, 0 Refills, Maintenance, 03/10/23 16:19:00 EST, Tablet, Partial fill uponpatient request if the prescription is for a schedule II opioid drug. Start Date: 03/10/23 Status: Ordered oxyCODONE 5 mg oral tablet 5 mg, Tablet, By Mouth, Every 6 hours, PRN for Pain , Severe, Routine, 03/10/23 16:50:00 EST Start Date: 03/10/23 Stop Date: 03/13/23 Status: Discontinued Pen Como, 31 G x 5 mm BD Ultra [...] 12/19/22 9:22:00 EDT, Route to Pharmacy Electronically, [facility], Partial fill upon patient requestif the [...] Results Orders for Microbiology Reports Name Date Anaerobic Culture (ANAEROBIC CULTURE) Anaerobic Culture (ANAEROBIC CULTURE) Anaerobic Culture (ANAEROBIC CULTURE) Tissue Culture w/ Gram Smear (TISSUE/BIO PSY CULT.) 03/02/23 Tissue Culture w/ Gram Smear (TISSUE/BIO PSY CULT.) 03/02/23 Wound Deep Culture w/ Gram Smear (DEEP W OUND CULTURE) 03/02/23 Blood Culture 02/20/23 Microbiology Reports TEST:Anaerobic Culture STATUS:Auth (Verified) BODY SITE: SOURCE:TISSUE1 COLLECTED DATE/TIME:03/02/23 8:15 AM Anaerobic Culture SPECIMEN DESCRIPTION : TISSUE LEFT WRIST SPECIAL REQUESTS : NONE CULTURE : NO ANAEROBES ISOLATED REPORT STATUS : FINAL 03/05/2023 TEST:Anaerobic Culture STATUS:Auth (Verified) BODY SITE: SOURCE:BONE COLLECTED DATE/TIME:03/02/23 8:15 AM Anaerobic Culture SPECIMEN DESCRIPTION : BONE DISTAL RADIUS BONE SPECIAL REQUESTS : NONE CULTURE : 1+ MORGANELLA MORGANII This isolate was identified using Maldi-TOF system NO ANAEROBES ISOLATED REPORT STATUS : FINAL 03/06/2023 ORGANISM 1+ MORGANELLA MORGANII This isolate was identified using Maldi-TOF system METHOD MIN. INHIB. CONC. (MCG/ML) AMPICILLIN RESISTANT AMPICILLIN/SULBACTAM RESISTANT CIPROFLOXACIN SUSCEPTIBLE ERTAPENEM SUSCEPTIBLE GENTAMICIN SUSCEPTIBLE LEVOFLOXACIN SUSCEPTIBLE PIPERACILLIN/TAZOBAC SUSCEPTIBLE TRIMETH/SULFAMETHOX SUSCEPTIBLE TEST:Anaerobic Culture STATUS:Auth (Verified) BODY SITE: SOURCE:SWAB1 COLLECTED DATE/TIME:03/02/23 8:15 AM Anaerobic Culture SPECIMEN DESCRIPTION : SWAB LEFT HAND ABSCESS SPECIAL REQUESTS : NONE CULTURE : NO ANAEROBES ISOLATED REPORT STATUS : FINAL 03/04/2023 TEST:Tissue/Biopsy Culture STATUS:Auth (Verified) BODY SITE: SOURCE:BONE COLLECTED DATE/TIME:03/02/23 8:15 AM Tissue/Biopsy Culture SPECIMEN DESCRIPTION : BONE DISTAL RADIUS BONE SPECIAL REQUESTS : NONE GRAM STAIN : 1+ POLYMORPHONUCLEAR LEUKOCYTES 1+ RBC'S NO ORGANISMS SEEN CULTURE : NO GROWTH 2 DAYS REPORT STATUS : FINAL 03/04/2023 TEST:Tissue/Biopsy Culture STATUS:Modified/Amended/Corrected BODY SITE: SOURCE:TISSUE1 COLLECTED DATE/TIME:03/02/23 8:15 AM Tissue/Biopsy Culture SPECIMEN DESCRIPTION : TISSUE LEFT WRIST SPECIAL REQUESTS : NONE GRAM STAIN : 1+ POLYMORPHONUCLEAR LEUKOCYTES 2+ GRAM POSITIVE COCCI 2+ GRAM POSITIVE RODS 1+ GRAM NEGATIVE RODS CRITICAL VALUE CALLED AND VERIFIED BY READBACK FOR: GRAM STAIN TO [id number] AT 1321 03/02/23 AT [id number] BY 157 CULTURE : 4+ PROTEUS VULGARIS These AST results were performed on the Vitek 2 ID and AST system 3+ KLEBSIELLA OXYTOCA These AST results were performed on the Microscan ID and AST system 2+ ENTEROCOCCUS FAECALIS, VANCOMYCIN RESISTANT. These AST results were performed on the Microscan ID and AST system REPORT STATUS : FINAL 03/05/2023 ORGANISM 4+ PROTEUS VULGARIS These AST results were performed on the Vitek 2 ID and AST system METHOD MIN. INHIB. CONC. (MCG/ML) AMOXICILLIN/CLAVULAN SUSCEPTIBLE AMPICILLIN RESISTANT AMPICILLIN/SULBACTAM INTERMEDIATE CEFAZOLIN RESISTANT CEFEPIME SUSCEPTIBLE CEFTRIAXONE RESISTANT CIPROFLOXACIN SUSCEPTIBLE ERTAPENEM SUSCEPTIBLE GENTAMICIN SUSCEPTIBLE LEVOFLOXACIN SUSCEPTIBLE MEROPENEM SUSCEPTIBLE PIPERACILLIN/TAZOBAC SUSCEPTIBLE TETRACYCLINE RESISTANT TRIMETH/SULFAMETHOX SUSCEPTIBLE ORGANISM 3+ KLEBSIELLA OXYTOCA These AST results were performed on the Microscan ID and AST system METHOD MIN. INHIB. CONC. (MCG/ML) AMOXICILLIN/CLAVULAN RESISTANT AMPICILLIN RESISTANT AMPICILLIN/SULBACTAM SUSCEPTIBLE CEFAZOLIN RESISTANT CEFEPIME SUSCEPTIBLE CEFTRIAXONE SUSCEPTIBLE CIPROFLOXACIN SUSCEPTIBLE ERTAPENEM SUSCEPTIBLE GENTAMICIN SUSCEPTIBLE LEVOFLOXACIN SUSCEPTIBLE MEROPENEM SUSCEPTIBLE PIPERACILLIN/TAZOBAC SUSCEPTIBLE TETRACYCLINE SUSCEPTIBLE TRIMETH/SULFAMETHOX SUSCEPTIBLE ORGANISM 2+ ENTEROCOCCUS FAECALIS, VANCOMYCIN RESISTANT. These AST results were performed on the Microscan ID and AST system METHOD MIN. INHIB. CONC. (MCG/ML) AMPICILLIN RESISTANT LINEZOLID RESISTANT TETRACYCLINE SUSCEPTIBLE VANCOMYCIN RESISTANT GENTAMICIN SYNERGY ACTIVE IN SYNERGY STREPTOMYCIN SYNERGY ACTIVE IN SYNERGY TEST:Deep Wound Culture STATUS:Auth (Verified) BODY SITE: SOURCE:SWAB1 COLLECTED DATE/TIME:03/02/23 8:15 AM Deep Wound Culture SPECIMEN DESCRIPTION : SWAB LEFT HAND ABSCESS SPECIAL REQUESTS : NONE GRAM STAIN : 1+ POLYMORPHONUCLEAR LEUKOCYTES 1+ RBC'S 1+ GRAM POSITIVE COCCI CULTURE : 4+ STAPHYLOCOCCUS AUREUS, METHICILLIN RESISTANT. METHICILLIN RESISTANT STAPH AUREUS SHOULD BE CONSIDERED CLINICALLY RESISTANT TO ALL BETA-LACTAMS. This isolate was identified using Maldi-TOF system These AST results were performed on the Vitek 2 ID and AST system REPORT STATUS : FINAL 03/04/2023 ORGANISM 4+ STAPHYLOCOCCUS AUREUS, METHICILLIN RESISTANT. METHICILLIN RESISTANT STAPH AUREUS SHOULD BE CONSIDERED CLINICALLY RESISTANT TO ALL BETA-LACTAMS. This isolate was identified using Maldi-TOF system These AST results were performed on the Vitek 2 ID and AST system METHOD MIN. INHIB. CONC. (MCG/ML) CIPROFLOXACIN SUSCEPTIBLE CLINDAMYCIN SUSCEPTIBLE ERYTHROMYCIN RESISTANT INDUCIBLE CLINDAMYCI NEGATIVE LEVOFLOXACIN SUSCEPTIBLE LINEZOLID SUSCEPTIBLE OXACILLIN RESISTANT RIFAMPIN SUSCEPTIBLE RIFAMPIN RIFAMPIN SHOULD NOT BE USED ALONE FOR ANTIMICROBIAL RIFAMPIN THERAPY. TETRACYCLINE SUSCEPTIBLE TRIMETH/SULFAMETHOX SUSCEPTIBLE VANCOMYCIN SUSCEPTIBLE TEST:Blood Culture STATUS:Auth (Verified) BODY SITE: SOURCE:Blood COLLECTED DATE/TIME:02/21/23 12:35 AM Blood Culture SPECIMEN DESCRIPTION : BLOOD NO SITE SPECIAL REQUESTS : NONE CULTURE : NO GROWTH 5 DAYS. REPORT STATUS : FINAL 02/26/2023 Radiology Reports * Exam Date Time Procedure Performing Provider Status 02/22/23 8:06 PM MRI Joint Ext Upper W+W/O Contrast Left Raúl Otero; Auth (Verified) Notes: (MRI Joint Ext Upper W+W/O Contrast Left) Reason For Exam: XR concerning for osteomyelitis/septic arthritis left radiocarpal joint;Infection RESULT: MRI Joint Ext Upper W+W/O Contrast Left INDICATION: History of septic arthritis/osteomyelitis of the radiocarpal joint status post arthrotomy and washout on 12/15/2022. TECHNIQUE: Multiplanar multisequence MRI of the left forearm and wrist were obtained with and without intravenous contrast material. 9 mL of Clariscan intravenous contrast was administered. COMPARISONS: Radiographs dated 02/20/2023. CT dated 12/04/2022, 09/05/2022 FINDINGS: Study is markedly limited due to patient motion artifact as well as large [id number]-[id number] imaging. Bone: Abnormal increased T2 signal and postcontrast enhancement in the distal radius and ulna whichappear eroded. The abnormal signal and enhancement involves the distal 3 cm of the radius and ulna.Abnormal marrow signal and enhancement throughout all of the carpal bones as well as the base of the second, third, and fourth metacarpals concerning for osteomyelitis. There is increased T2 signal throughout the radial and ulnar shafts without enhancement likely reflecting serous atrophy. The ulna is dorsally subluxed relative to the carpal bones. There is eroded increasing cavity of the distal radius with [id number] articulation with the scaphoid and lunate. Soft tissues: Near-complete absence of visceral fat. Diffuse subcutaneous and soft tissue edema. Extensive areas of ulceration in the dorsal aspect of the forearm starting in the mid forearm extending to the wrist. The ulceration extends to the extensor tendons. The extensor pollicis longus tendon appears torn at the level of Stephani's tubercle. Extensor carpi radialis brevis and longus appear torn in the mid forearm. Several extensor digitorum tendons are torn or partially torn in the distal third of the forearm. No discrete drainable collection. Any areas of fluid appear to extend to the skin surface. The flexor tendons appear intact. IMPRESSION: Limited examination due to extensive soft tissue for deformity, patient motion artifact, and marrow signal changes likely related to malnutrition. 1. Destructive osteomyelitis involving the distal radius and ulna. Abnormal marrow signal and postcontrast enhancement throughout all carpal bones and the base of the second, third, and fourth metacarpals concerning for osteomyelitis. 2. Abnormal nonenhancing marrow signal throughout the visualized radius and ulna more proximal to the distal site of osteomyelitis, likely reflecting serous atrophy of the bone marrow and malnutrition. 3. Extensive ulceration of the dorsal forearm with ulceration extending to the extensor tendons, several which appear torn as described above. WSN: [id number] Ordering Physician: Montrell Horowitz Dictated By: Adrien Granados MD Dictated Date/Time: 02/23/23 9:04 am Reviewed By: Adrien Granados MD Signed By: Adrien Granados MD Signed Date/Time: 02/23/23 9:04 am Transcribed By: AKASH Transcribed Date/Time: 02/23/23 8:36 am * Exam Date Time Procedure Performing Provider Status 02/20/23 10:56 PM Tibia/Fibula 2 Views Left Benja Miller; Auth (Verified) Notes: (Tibia/Fibula 2 Views Left) Reason For Exam: Infection RESULT: Tibia/Fibula 2 Views Left Tibia/Fibula 2 Views Left Hx of Present Illness: Infected wounds; Reason: Infection; Clinical Question(s): Osteomyelitis COMPARISON: None. FINDINGS: No fractures or bone lesions. Visualized joints are normal. Normal soft tissues. IMPRESSION: Normal. WSN: [id number] Ordering Physician: Ruben Mccormick Dictated By: Sly Bergman MD Dictated Date/Time: 02/20/23 11:08 p Reviewed By: Sly Bergman MD Signed By: Sly Bergman MD Signed Date/Time: 02/20/23 11:08 pm Transcribed By: CSB Transcribed Date/Time: 02/20/23 11:07 pm * Exam Date Time Procedure Performing Provider Status 02/20/23 10:56 PM Tibia/Fibula 2 Views Right Ad Miller; Auth (Verified) Notes: (Tibia/Fibula 2 Views Right) Reason For Exam: Infection RESULT: Tibia/Fibula 2 Views Right Tibia/Fibula 2 Views Right Hx of Present Illness: Infected wounds; Reason: Infection; Clinical Question(s): Osteomyelitis COMPARISON: None. FINDINGS: No fractures or bone lesions. No osseous erosions to indicate osteomyelitis. Mild osteoarthritis at the right knee joint with joint effusion. Normal soft tissues. IMPRESSION: Mild osteoarthritis of the right knee joint. Joint effusion.. WSN: [id number] Ordering Physician: Ruben Mccormick Dictated By: Sly Bergman MD Dictated Date/Time: 02/20/23 11:07 p Reviewed By: Sly Bergman MD Signed By: Sly Bergman MD Signed Date/Time: 02/20/23 11:07 pm Transcribed By: CSB Transcribed Date/Time: 02/20/23 11:06 pm * Exam Date Time Procedure Performing Provider Status 02/20/23 10:56 PM Wrist Comp Min 3 Views Left Angela , Ad; Auth (Verified) Notes: (Wrist Comp Min 3 Views Left) Reason For Exam: Infection RESULT: Wrist Comp Min 3 Views Left Wrist Comp Min 3 Views Left Hx of Present Illness: Infected wounds; Reason: Infection; Clinical Question(s): Osteomyelitis COMPARISON: None. FINDINGS: There is diffuse osteopenia, with associated soft tissue swelling. Erosive changes within the distal radius. There is periosteal reaction along the medial side of the distal radius and ulna. No arthritic change. Normal carpal configuration. Intact radial and ulnar styloid processes. Normal soft tissues. IMPRESSION: Findings are concerning for osteomyelitis of the intercarpal row and distal radiocarpal joints. Recommend MRI for better evaluation. WSN: [id number] Ordering Physician: Ruben Mccormick Dictated By: Sly Bergman MD Dictated Date/Time: 02/20/23 11:04 p Reviewed By: Sly Bergman MD Signed By: Sly Bergman MD Signed Date/Time: 02/20/23 11:04 pm Transcribed By: AKASH Transcribed Date/Time: 02/20/23 11:02 pm * Exam Date Time Procedure Performing Provider Status 02/20/23 10:56 PM Forearm 2 Views Left [place] , Ad; Auth (Verified) Notes: (Forearm 2 Views Left) Reason For Exam: Infection RESULT: Forearm 2 Views Left Forearm 2 Views Left Hx of Present Illness: Infected wounds; Reason: Infection; Clinical Question(s): Osteomyelitis COMPARISON: 12/03/2022. FINDINGS: Direct changes distal radius at the radiocarpal joint. The visualized joint spaces are normal. Normal soft tissues. IMPRESSION: Possible septic joint at the distal radiocarpal joint. Recommend MRI for better evaluation WSN: [id number] Ordering Physician: Ruben Mccormick Dictated By: Sly Bergman MD Dictated Date/Time: 02/20/23 11:05 p Reviewed By: Sly Bergman MD Signed By: Sly Bergman MD Signed Date/Time: 02/20/23 11:05 pm Transcribed By: AKASH Transcribed Date/Time: 02/20/23 11:02 pm Vital Signs Most recent to oldest [Reference Range]: 1 2 3 4 5 Height 162.5 cm (03/12/23 11:51 AM) 162.5 cm (03/11/23 9:10 PM) 162.5 cm (03/11/23 4:21 PM) Weight 42.2 kg (03/06/23 6:00 AM) 45.5 kg (03/05/23 4:30 AM) 45.45 kg (03/02/23 7:15 AM) Oxygen Saturation [94-100 %] 99 % (03/12/23 11:51 AM) 99 % (03/11/23 9:10 PM) 100 % (03/11/23 4:21 PM) Pulse Rate [55-90 bpm] 114 bpm *H* (03/12/23 11:51 AM) 95 bpm *H* (03/11/23 9:10 PM) 112 bpm *H* (03/11/23 4:21 PM) Body Mass Index [18.5-24.99 kg/m2] 15.98 kg/m2 *L* (03/06/23 6:00 AM) 17.23 kg/m2 *L* (03/05/23 4:30 AM) 17.21 kg/m2 *L* (03/02/23 7:15 AM) Blood Pressure [90-138/55-84 mm Hg] 105/68mm Hg (03/12/23 11:51 AM) 119/71mm Hg (03/11/23 9:10 PM) 114/79mm Hg (03/11/23 4:21 PM) Respiratory Rate [16-30 br/min] 16 br/min (03/12/23 2:15 PM) 17 br/min (03/12/23 11:51 AM) 16 br/min (03/12/23 9:35 AM) 16 br/min (03/12/23 9:35 AM) 16 br/min (03/12/23 9:35 AM) Temperature [96.8-100.4 DegF] 98.9 DegF (03/12/23 11:51 AM) 98.1 DegF (03/11/23 9:10 PM) 98.2 DegF (03/11/23 4:21 PM) Liters per Minute 0 L/min (02/22/23 2:00 PM) 0 L/min (02/22/23 11:00 AM) 0 L/min (02/22/23 7:00 AM) Mode of Delivery (Oxygen) Room air (03/12/23 11:51 AM) Room air (03/11/23 9:10 PM) Room air (03/11/23 4:21 PM) Blood pressure sites Arm, left (03/12/23 11:51 AM) Arm, left (03/11/23 9:10 PM) Arm, left (03/11/23 4:21 PM) Temperature Route Oral (03/12/23 11:51 AM) Oral (03/11/23 9:10 PM) Oral (03/11/23 4:21 PM) Dry Weight 45.45 kg (02/21/23 3:42 AM) Weight Obtained Via Bed scale (03/06/23 6:00 AM) Bed scale (03/05/23 4:30 AM) Social History Social History Type Response Smoking Status 10 or more cigarette s (1/2 pack or more)/day in last 30 days entered on: 01/28/18 Sex Note * Christian Summers RN: PERFORM Event Display: Discharge/Transfer Note Hospital Authored Date: [id number] Nursing Discharge Note Entered On: 03/12/2023 18:52 EST Performed On: 03/12/2023 18:51 EST by Christian Summers RN Nursing Discharge Note 2 Discharge Time : 03/12/2023 17:30 EST Discharge Level of Care at Discharge : Left Against Medical Advice Patient Left Unit Via : Ambulatory Patient Accompanied Off Unit with : Ambulance/Chair Van Personnel Handover Given to Transport Personnel : Yes DC Instructions Provided & Signed by Pt : No Patient Understands D/C Instructions : No Patient Instructions Discharge Signed : No Did Pt have Specialty Bed or Wound Vac : No Christian Summers RN - 03/12/2023 18:51 EST * Devika Huffman MD: MODIFY, PERFORM, MODIFY, MODIFY Event Display: Discharge/Transfer Note Hospital Authored Date: [id number] Patient: ??LUCIAN ZHAO ? Age:??42 Years?Sex:??Male?:??1980?? Patient Information Discharge Location: S2 Primary Care Physician: Calin Larose MD Admit Date/Time: 02/21/23 00:55 Discharge Disposition Discharge Disposition: Senior Care Facility/Rehab Discharge Diagnosis Cellulitis of arm (L03.119) Diabetes (E11.9) Polysubstance abuse (F19.10) Penile lesion (N48.9) Acute on chronic anemia (D64.9) Anxiety (F41.9) Cellulitis of arm (L03.119) Chronic hepatitis C (B18.2) Cocaine use disorder (F14.10) Decubitus ulcer of right ischium, stage 2 (L89.312) Diarrhea, unspecified (R19.7) Insomnia (G47.00) Multiple wounds of skin (T14.8XXA) Non-pressure ulcer of left lower extremity, limited to breakdown of skin (L97.921) Non-pressure ulcer of right lower extremity, limited to breakdown of skin (L97.911) Osteomyelitis (M86.9) Severe malnutrition (E43) Severe opioid use disorder (F11.20) Skin ulcer of forearm with fat layer exposed (L98.492) Therapeutic drug monitoring (Z51.81) ?? _ Discharge Medications Acetaminophen (Tylenol 325 mg oral tablet)?975?Milligram?By Mouth?3 times a day Cefepime (cefepime 2 g intravenous injection)?2,000?Milligram?IVPB?Every 8 hours Daptomycin (Cubicin RF)?450?Milligram?IV Infusion?Every 24 hours Durable Medical Equipment (Freestyle Lite Lancets)?See Instructions?for 30?Days?use as directed for Type 2 Diabetes Mellitus; test at least 3 times per day Durable Medical Equipment (Pen Como, 31 G x 5 mm BD Ultra Fine III)?See Instructions?for 30?Days?use as directed for Type 2 Diabetes Mellitus Durable Medical Equipment (Freestyle Lite Monitor)?See Instructions?for 30?Days?use as directed for Type 2 Diabetes Mellitus Durable Medical Equipment (Freestyle Lite Test Strips)?See Instructions?for 30?Days?useas directed for Type 2, as directed for Type 2 Diabetes Mellitus; test at least 3 times per day Durable Medical Equipment (Alcohol Wipes)?See Instructions?use as directed for Type 2 Diabetes Mellitus; test at least 3 times per day, insulin given 4 x daily Ferrous Sulfate (ferrous sulfate 325 mg oral enteric coated tablet)?325?Milligram?1?tablet?By Mouth?Daily?for 30?Days Folic Acid (folic acid 1 mg oral tablet)?1?Milligram?By Mouth?Daily Gabapentin (gabapentin 300 mg oral capsule)?600?Milligram?By Mouth?3 times a day?for30?Days Ibuprofen (ibuprofen 400 mg oral tablet)?400?Milligram?By Mouth?3 times a day?as needed?Pain , Moderate Insulin Glargine (Lantus Solostar Pen 100 units/mL subcutaneous solution)?15?unit(s)?Subcutaneous Injection?Daily at bedtime?for 30?Days Insulin Lispro (Humalog Kwik Pen 100 units/mL subcutaneous injection)?See Instructions?Take 3times a day before meals, based on your blood sugar: For blood sugar 100 - 149, take ?? 4 [id number] - 199 ?? 5 units 200 - 249 ?? 6 units 250 - 299 ?? 7 units 300 - 349 ?? 8 units 350 - 399 ?? 9 [id number] - 449 ?? 10 units and call MD Melatonin (melatonin 3 mg oral tablet)?3?Milligram?By Mouth?Daily at bedtime?as needed?Insomnia Methadone?75?Milligram?By Mouth?Daily in AM Multivitamin With Minerals (Multivit Therapeutic/Minerals Tablet)?1?tab(s)?By Mouth?Daily Zinc Sulfate (zinc sulfate 220 mg oral capsule)?220?Milligram?By Mouth?Daily in AM?for 30?Days ? Quality Measures Tobacco Use Treatment:? 72 Hour Antibiotic History Active Antibiotics Calendar Day Last Administered First Administered Cefepime??2,000 mg, 33.33 mL/hr, IVPB, Every 8 hours ? 11 03/12/2023 07:06 03/02/2023 14:21 Daptomycin??450 mg, 9 mL, IV Push Slowly, Every 24 hours ?8 03/11/2023 11:56 03/05/2023 13:37 ? Medications Started Scheduled Tylenol Cefepime and daptomycin to complete the course As needed ibuprofen Folic Acid Medications Discontinued None Doses Changed Methadone changed to 75 mg daily PCP Follow-Up/Heads-Up ID Office ; Monitoring labs (test/frequency): CBC w/ diff, CMP, ESR, CRP Future Appointments Thursday 9:00 AM EST ?? With: Issa MCKEON, Olena Contreras Where: [facility] [address] [place] [address]- Status: Pending Hospital Course 42-year-old gentleman with a PMH of left upper extremity wounds, poorly controlled type 2 diabetes,IV drug use, hepatitis C, prior MRSA bacteremia, polysubstance use who presented to the ED with worsening purulence and pain in chronic left upper extremity wounds.?? Seen by hand surgery. ??Status po st??washout and bone biopsy ID on board???Plan is for IV cefepime and daptomycin??for 6 weeks may need longer. ??ID will arrange for outpatient follow-up Seen by??addiction medicine as well??and patient is on methadone. Last dose of methadone??not provided. He??will be discharged??to rehab, requires less than 30 days??needed at the rehab? Cellulitis of arm (L03.119):??. Multiple wounds of skin (T14.8XXA):??. Osteomyelitis (M86.9):? Worsening chronic wounds of left forearm, consistent with osteomyelitis Status post wound cleaning by plastic surgery on 02/21 Blood cultures have been negative till date. MRI of left forearm completed: Destructive osteomyelitis involving the distal radius and ulna. Abnormal marrow signal and postcontrast enhancement throughout all carpal bones and the base of the second, third, and fourth metacarpals concerning for osteomyelitis. Abnormal nonenhancing marrow signal throughout the visualized radius and ulna more proximal to the distal site of osteomyelitis, likely reflecting serous atrophy of the bone marrow and malnutrition. Extensive ulceration of the dorsal forearm with ulceration extendingto the extensor tendons, several which appear torn as described above. Appreciate wound care evaluation. Continue dressing as per recommendations Plastic surgery following. Went back to OR again on 03/02 for: 1. Left forearm and wrist washout, excisional debridement of skin, subcutaneous tissue and muscle 20x7cm 2. Left distal radius bone biopsy Operative cultures with multiple organisms???including MRSA,??Proteus,??Klebsiella, Enterococcus faecalis and Morganella Infectious disease following Plan Plan is for IV cefepime and daptomycin??for 6 weeks may need longer. ??ID will arrange for outpatient follow-up. ??Will need weekly safety labs Hand surgery signed off on 03/04 Wound care recommendation - BID wound care: warm soaks??with soapy water. Pat dry. Cover wound with??Aquacel, followed by??[facility]SD. Wrap with Kerlix. Can be done by bedside nurses BID daily Pain control???Tylenol, as needed??ibuprofen ? 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 Start date: 03/02 End date: 04/27 (8 weeks -possibly longer) Vascular access: TBD Monitoring labs (test/frequency): CBC w/ diff, CMP, ESR, CRP Imaging needed before outpt f/u visit: no Suggested outpt f/u visit: Yes, requested ID Office ; ? Acute on chronic anemia (D64.9):?? No signs of active bleeding noted iron studies consistent with a combination of iron deficiency and anaemia of chronic disease Folate borderline low: commenced on folate supplementation. Vitamin B12 normal. Status post 1 unit PRBC transfusion on 02/20 and then on 02/28 Plan Continue with ferrous sulfate and folic acid Monitor labs as outpatient ? Diabetes (E11.9):??Diet liberalized to regular diet because of severe malnutrition. continue lantus and lispro sliding scale Plan Continue with Lantus and insulin sliding scale ?? Polysubstance abuse (F19.10):?? Appreciate addiction medicine following. Continue methadone -increased further to 75 mg on??03/09 Plan Continue with methadone 75 mg daily Oxycodone being titrated off ?? Penile lesion (N48.9):??HIV/syphilis were negative UA was negative Chlamydia/gonorrhea PCR negative. ?? Diarrhea, unspecified (R19.7):??Resolved?? C diff testing negative abdo exam benign may well be due to opiate withdrawal ?? Anxiety (F41.9):??. Insomnia (G47.00):??Melatonin at bedtime Objective Surgical Procedures Biopsy Soft Tissue 03/02/2023 08:00 Debridement Procedure 03/02/2023 08:00 Pending Results Add On Lab Order ordered on 02/23/2023 Add On Lab Order ordered on 02/28/2023 Add On Lab Order ordered on 03/08/2023 Transfuse RBCs ordered on 02/21/2023 Transfuse RBCs ordered on 02/23/2023 Transfuse RBCs ordered on 02/23/2023 Transfuse RBCs ordered on 02/28/2023 Follow-Up Appointments Added Follow Up ?Time Frame ?Comments Thang Fajardo?05/14/2023 13:30?You have an appointment on 05/14/23 at 1:[address] Thang Fajardo at [facility], [address] [place] [address]. Please call if you need to cancel or reschedule. PCP Not on Staff Post Discharge Care Diet: ??Regular Diet ?? Activity: ??as tolerated ?? Wound Care: ??Wound Site: Left forearm Soak wound with warm soapy water for 10- 20 minutes daily. Pat dry. Cover with silvadene and dry dressing. Wrap with Kerlix. Change dressing daily with soak. Daily Yes ?? Code Status: ??Full Resuscitation ?? Home Health Face to Face ^HomeHealthFTF Results Discharge Labs BLOOD BANK Blood Type O Positive ()?? 02/28/2023 08:14 Antibody Screen Negative ()?? 02/28/2023 08:14 RBC Unit ID [id number] ()?? 02/28/2023 11:11 RBC Available PT ()?? 02/28/2023 11:11 ?? BLOOD COUNT & DIFF WBC 4.7 k/mm3 ()?? 03/08/2023 09:58 RBC 3.53 m/mm3 (Low)?? 03/08/2023 09:58 Hgb 8.4 Gm/dL (Low)?? 03/08/2023 09:58 Hct 28.2 % (Low)?? 03/08/2023 09:58 MCV 79.9 femtoliters (Low)?? 03/08/2023 09:58 MCH 23.8 pg (Low)?? 03/08/2023 09:58 MCHC 29.8 g/dL (Low)?? 03/08/2023 09:58 Platelet Count 208 k/mm3 ()?? 03/08/2023 09:58 RDW-SD 56.9 femtoliters (High)?? 03/08/2023 09:58 MPV 9.5 femtoliters ()?? 03/08/2023 09:58 Nucleated RBC (Automated) 0.0 #/100 WBC'S ()?? 03/08/2023 09:58 Abs. NRBC 0.0 k/mm3 ()?? 03/08/2023 09:58 Abs. Neut 1.6 k/mm3 ()?? 02/28/2023 05:51 Abs. Lymph 1.4 k/mm3 ()?? 02/28/2023 05:51 Abs. [place] 0.2 k/mm3 (Low)?? 02/28/2023 05:51 Abs. Eo 0.1 k/mm3 ()?? 02/28/2023 05:51 Abs. Baso 0.0 k/mm3 ()?? 02/28/2023 05:51 Neut % 47.0 % ()?? 02/28/2023 05:51 Lymph % 42.7 % ()?? 02/28/2023 05:51 [place] % 6.7 % ()?? 02/28/2023 05:51 Eos % 2.4 % ()?? 02/28/2023 05:51 Baso % 0.9 % ()?? 02/28/2023 05:51 Retic Count 2.0 % ()?? 02/28/2023 05:51 Retic Count Corrected 1.0 % ()?? 02/28/2023 05:51 Retic Production Index 0.5 % (Low)?? 02/28/2023 05:51 Imm Gran 0.3 % ()?? 02/28/2023 05:51 Abs. Imm Gran 0.0 k/mm3 ()?? 02/28/2023 05:51 ? CARDIAC CK, Total 28 units/L ()?? 03/08/2023 09:58 High Sensitivity Troponin (HSTnT) 67 ng/L (Critical)?? 02/21/2023 06:04 ?? CHEM GENERAL Sodium 136 mmol/L ()?? 03/08/2023 09:58 Potassium 4.3 mmol/L ()?? 03/08/2023 09:58 Chloride 99 mmol/L ()?? 03/08/2023 09:58 Bicarbonate Level 28 mmol/L ()?? 03/08/2023 09:58 Anion Gap 9 ()?? 03/08/2023 09:58 Glucose Level 50 mg/dL (Low)?? 02/24/2023 01:29 Glucose, POC 303 mg/dL (High)?? 03/12/2023 08:08 BUN 27 mg/dL (High)?? 03/08/2023 09:58 Creatinine-Blood 0.5 mg/dL (Low)?? 03/08/2023 09:58 Estimated GFR Creatinine 129 ML/MIN/1.73 M2 ()?? 03/08/2023 09:58 Calcium 7.5 mg/dL (Low)?? 02/24/2023 01:29 Phosphorus 3.1 mg/dL ()?? 02/28/2023 05:51 Magnesium 1.7 mg/dL ()?? 02/28/2023 05:51 Protein, Total 5.9 Gm/dL (Low)?? 02/24/2023 01:29 Albumin 2.1 Gm/dL (Low)?? 02/24/2023 01:29 AG Ratio 0.6 ()?? 02/24/2023 01:29 Alkaline Phosphatase 112 units/L ()?? 02/24/2023 01:29 AST (SGOT) 11 units/L ()?? 02/24/2023 01:29 ALT (SGPT) 7 units/L ()?? 02/24/2023 01:29 Bilirubin, Total 0.2 mg/dL ()?? 02/24/2023 01:29 Vitamin B12 Level 602 pg/mL ()?? 02/23/2023 03:29 Folic Acid Level 4.5 ng/mL ()?? 02/23/2023 03:29 Lactate 2.3 mmol/L (High)?? 02/21/2023 00:35 Iron Level 13 mcg/dL (Low)?? 02/23/2023 03:29 Iron Binding Capacity, Unsaturated 125 mcg/dL ()?? 02/23/2023 03:29 Iron Binding Capacity, Estimated Total 138 mcg/dL (Low)?? 02/23/2023 03:29 % Iron Saturation 9 % (Low)?? 02/23/2023 03:29 Ferritin Level 78 ng/mL ()?? 02/23/2023 03:29 C-Reactive Protein 5.0 mg/dL (High)?? 02/21/2023 00:35 ? HEME OTHER Sed Rate 17 mm/hr (High)?? 02/21/2023 05:41 Hold Blue Top SPECIMEN DISCARDED AFTER 4 HOURS. ()?? 02/21/2023 00:35 ?? SEROLOGY INF DISEASE C.difficile Toxin INDETERMINATE. PLEASE REFER TO SUPPLEMENTAL C.DIFFICILE PCR TEST (Abnormal)?? 02/25/2023 03:26 C. Difficile Toxin by PCR NEGATIVE ()?? 02/25/2023 03:26 Syphilis Interpretation Indicative of the absence of infection with Treponemal pallidum. Test ()?? 02/21/2023 15:51 Syphilis Screen by ALEKSANDR NEGATIVE (N)?? 02/21/2023 15:51 RPR Titer Result NOT INDICATED ()?? 02/21/2023 15:51 TP-PA Result NOT INDICATED ()?? 02/21/2023 15:51 Chlamydia Trachomatis Amplified Probe NEGATIVE ()?? 02/22/2023 17:55 N. Gonorrhoeae Amplified Probe NEGATIVE ()?? 02/22/2023 17:55 Chlamydia / GC AMP Probe Specimen URETHRA ()?? 02/22/2023 17:55 HIV 4th Generation Ab-Ag Result NEGATIVE (N)?? 02/21/2023 15:51 ?? TOXICOLOGY/TDM Vancomycin Level, Trough 8.4 mg/L (Low)?? 03/03/2023 22:37 ? UA/URINALYSIS Appear/Color, Urine LIGHT YELLOW ()?? 02/22/2023 17:55 Specific Hallie, Urine 1.012 ()?? 02/22/2023 17:55 pH, Urine 7.5 ()?? 02/22/2023 17:55 Albumin, Urine NEGATIVE ()?? 02/22/2023 17:55 Glucose, Urine NEGATIVE ()?? 02/22/2023 17:55 Ketones, Urine NEGATIVE ()?? 02/22/2023 17:55 Bilirubin, Urine NEGATIVE ()?? 02/22/2023 17:55 Hemoglobin, Urine NEGATIVE ()?? 02/22/2023 17:55 Nitrite, Urine NEGATIVE ()?? 02/22/2023 17:55 Leukocyte, Urine NEGATIVE ()?? 02/22/2023 17:55 Urobilinogen NORMAL mg/dL ()?? 02/22/2023 17:55 WBC's, Urine 1 /HPF ()?? 02/22/2023 17:55 RBC's, Urine 1 /HPF ()?? 02/22/2023 17:55 Mucus SLIGHT /LPF ()?? 02/22/2023 17:55 Hold Urine Culture Testing available 48 hours from time of collection. ()?? 02/22/2023 17:55 ? URINE OTHER Est Creatinine Clearance 121.20 mL/min ()?? 03/08/2023 10:57 ? 31 minutes spent on discharge ?? Addendum???3: 46 PM: Despite??being accepted at rehab facility, patient refused to go to rehab facility??and??decided to leave AGAINST MEDICAL ADVICE. ?? * Misti Georges MD: PERFORM Event Display: Discharge/Transfer Note Hospital Authored Date: [id number] Patient: ??LUCIAN ZHAO ? Age:??42 Years?Sex:??Male?:??1980?? Patient Information Discharge Location: S2 Primary Care Physician: Lachelle MCKEON, Calin Mckeon Admit Date/Time: 02/21/23 00:55 Discharge Disposition Discharge Disposition: Senior Care Facility/Rehab Discharge Diagnosis ?? Cellulitis of arm (L03.119) Diabetes (E11.9) Polysubstance abuse (F19.10) Penile lesion (N48.9) Acute on chronic anemia (D64.9) Anxiety (F41.9) Chronic hepatitis C (B18.2) Cocaine use disorder (F14.10) Decubitus ulcer of right ischium, stage 2 (L89.312) Diarrhea, unspecified (R19.7) Insomnia (G47.00) Multiple wounds of skin (T14.8XXA) Non-pressure ulcer of left lower extremity, limited to breakdown of skin (L97.921) Non-pressure ulcer of right lower extremity, limited to breakdown of skin (L97.911) Osteomyelitis (M86.9) Severe malnutrition (E43) Severe opioid use disorder (F11.20) Skin ulcer of forearm with fat layer exposed (L98.492) Therapeutic drug monitoring (Z51.81) ?? _ Discharge Medications ?? Acetaminophen (Tylenol 325 mg oral tablet)?975?Milligram?By Mouth?3 times a day Cefepime (cefepime 2 g intravenous injection)?2,000?Milligram?IVPB?Every 8 hours Daptomycin (Cubicin RF)?450?Milligram?IV Infusion?Every 24 hours Durable Medical Equipment (Freestyle Lite Lancets)?See Instructions?for 30?Days?use as directed for Type 2 Diabetes Mellitus; test at least 3 times per day Durable Medical Equipment (Pen Como, 31 G x 5 mm BD Ultra Fine III)?See Instructions?for 30?Days?use as directed for Type 2 Diabetes Mellitus Durable Medical Equipment (Freestyle Lite Monitor)?See Instructions?for 30?Days?use as directed for Type 2 Diabetes Mellitus Durable Medical Equipment (Freestyle Lite Test Strips)?See Instructions?for 30?Days?useas directed for Type 2, as directed for Type 2 Diabetes Mellitus; test at least 3 times per day Durable Medical Equipment (Alcohol Wipes)?See Instructions?use as directed for Type 2 Diabetes Mellitus; test at least 3 times per day, insulin given 4 x daily Ferrous Sulfate (ferrous sulfate 325 mg oral enteric coated tablet)?325?Milligram?1?tablet?By Mouth?Daily?for 30?Days Folic Acid (folic acid 1 mg oral tablet)?1?Milligram?By Mouth?Daily Gabapentin (gabapentin 300 mg oral capsule)?600?Milligram?By Mouth?3 times a day?for30?Days Ibuprofen (ibuprofen 400 mg oral tablet)?400?Milligram?By Mouth?3 times a day?as needed?Pain , Moderate Insulin Glargine (Lantus Solostar Pen 100 units/mL subcutaneous solution)?15?unit(s)?Subcutaneous Injection?Daily at bedtime?for 30?Days Insulin Lispro (Humalog Kwik Pen 100 units/mL subcutaneous injection)?See Instructions?Take 3times a day before meals, based on your blood sugar: For blood sugar 100 - 149, take ?? 4 [id number] - 199 ?? 5 units 200 - 249 ?? 6 units 250 - 299 ?? 7 units 300 - 349 ?? 8 units 350 - 399 ?? 9 [id number] - 449 ?? 10 units and call MD Melatonin (melatonin 3 mg oral tablet)?3?Milligram?By Mouth?Daily at bedtime?as needed?Insomnia Methadone?75?Milligram?By Mouth?Daily in AM Multivitamin With Minerals (Multivit Therapeutic/Minerals Tablet)?1?tab(s)?By Mouth?Daily Zinc Sulfate (zinc sulfate 220 mg oral capsule)?220?Milligram?By Mouth?Daily in AM?for 30?Days ? Medications Started Scheduled Tylenol Cefepime and daptomycin to complete the course As needed ibuprofen Folic Acid Doses Changed Methadone changed to 75 mg daily Allergies Allergies ?(Active and Proposed Allergies Only) Zosyn? (Severity: Unknown severity, Onset: Unknown) morphine? (Severity: Unknown, Onset: Unknown) ?Comments: Has a side effect - itching. ? PCP Follow-Up/Heads-Up ?? Weekly safety labs ?? Outpatient infectious disease follow-up Future Appointments Thursday 9:00 AM EST ?? With: Olena Parsons MD Where: [facility] Infect[facility] [address] [place] [address]- Status: Pending Hospital Course ?? 42-year-old gentleman with a PMH of left upper extremity wounds, poorly controlled type 2 diabetes,IV drug use, hepatitis C, prior MRSA bacteremia, polysubstance use who presented to the ED with worsening purulence and pain in chronic left upper extremity wounds.?? Seen by hand surgery. ??Status po st??washout and bone biopsy ID on board???currently on broad-spectrum antibiotics???waiting for final??operative culture Seen by??addiction medicine as well??and patient is on methadone ?? Cellulitis of arm (L03.119):??. Multiple wounds of skin (T14.8XXA):??. Osteomyelitis (M86.9):? Worsening chronic wounds of left forearm, consistent with osteomyelitis Status post wound cleaning by plastic surgery on 02/21 Blood cultures have been negative till date. MRI of left forearm completed: Destructive osteomyelitis involving the distal radius and ulna. Abnormal marrow signal and postcontrast enhancement throughout all carpal bones and the base of the second, third, and fourth metacarpals concerning for osteomyelitis. Abnormal nonenhancing marrow signal throughout the visualized radius and ulna more proximal to the distal site of osteomyelitis, likely reflecting serous atrophy of the bone marrow and malnutrition. Extensive ulceration of the dorsal forearm with ulceration extendingto the extensor tendons, several which appear torn as described above. Appreciate wound care evaluation. Continue dressing as per recommendations Plastic surgery following. Went back to OR again on 03/02 for: 1. Left forearm and wrist washout, excisional debridement of skin, subcutaneous tissue and muscle 20x7cm 2. Left distal radius bone biopsy Operative cultures with multiple organisms???including MRSA,??Proteus,??Klebsiella, Enterococcus faecalis and Morganella Infectious disease following Plan Plan is for IV cefepime and daptomycin??for 6 weeks may need longer. ??ID will arrange for outpatient follow-up. ??Will need weekly safety labs Hand surgery signed off on 03/04 Wound care recommendation - BID wound care: warm soaks??with soapy water. Pat dry. Cover wound with??Aquacel, followed by??DSD. Wrap with Kerlix. Can be done by bedside nurses BID daily Pain control???Tylenol, as needed??ibuprofen ? OPAT as per ID - ?? 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 Start date: 03/02 End date: 04/27 (8 weeks -possibly longer) Vascular access: TBD Monitoring labs (test/frequency): CBC w/ diff, CMP, ESR, CRP Imaging needed before outpt f/u visit: no Suggested outpt f/u visit: Yes, requested ID Office ; ? Acute on chronic anemia (D64.9):?? No signs of active bleeding noted iron studies consistent with a combination of iron defiency and anaemia of chronic disease Folate borderline low: commenced on folate supplementation. Vitamin B12 normal. Status post 1 unit PRBC transfusion on 02/20 and then on 02/28 Plan Continue with ferrous sulfate and folic acid Monitor labs as outpatient ?? Diabetes (E11.9):??Diet liberalized to regular diet because of severe malnutrition. continue lantus and lispro sliding scale Plan Continue with Lantus and insulin sliding scale ?? Polysubstance abuse (F19.10):?? Appreciate addiction medicine following. Continue methadone -increased further to 75 mg on??03/09 Plan Continue with methadone 75 mg daily Oxycodone being titrated off ?? Penile lesion (N48.9):??HIV/syphilis were negative UA was negative Chlamydia/gonorrhea PCR negative. ?? Diarrhea, unspecified (R19.7):??Resolved?? C diff testing negative abdo exam benign may well be due to opiate withdrawal ?? Anxiety (F41.9):??. Insomnia (G47.00):??Melatonin at bedtime ?? Objective ? Seen in the morning Discussed with copy manager No significant overnight event He is agreeable going to??rehab He is aware that he is very weak and deconditioned ?? Vital Signs?? Temperature: 97.7 DegF (03/10/23 11:30:00) Temperature Route: Oral (03/10/23 11:30:00) Pulse Rate:??114 bpm??High (03/10/23 11:30:00) Respiratory Rate: 20 br/min (03/10/23 14:39:00) Systolic Blood Pressure: 105 mm Hg (03/10/23 11:30:00) Diastolic Blood Pressure: 79 mm Hg (03/10/23 11:30:00) Blood pressure sites: Arm, left (03/10/23 11:30:00) Mean Arterial Pressure: 88 mm Hg (03/10/23 11:30:00) Pulse Pressure: 26 mm Hg (03/10/23 11:30:00) Oxygen Saturation: 98 % (03/10/23 11:30:00) Mode of Delivery (Oxygen): Room air (03/10/23 11:30:00) Early Warning Score: 4 (03/10/23 14:40:07) ? . Physical Exam ?? General???cachectic looking man, no acute distress at rest Respiratory???no wheezing Cardiovascular???normal heart sounds GI???abdomen soft, bowel sound present Neuro-??? oriented x 3 Left Forearm has bandage ?? Surgical Procedures Biopsy Soft Tissue 03/02/2023 08:00 Debridement Procedure 03/02/2023 08:00 Pending Results Add On Lab Order ordered on 02/23/2023 Add On Lab Order ordered on 02/28/2023 Add On Lab Order ordered on 03/08/2023 Transfuse RBCs ordered on 02/21/2023 Transfuse RBCs ordered on 02/23/2023 Transfuse RBCs ordered on 02/23/2023 Transfuse RBCs ordered on 02/28/2023 Follow-Up Appointments Added Follow Up ?Time Frame ?Comments Thang Fajardo?05/14/2023 13:30?You have an appointment on 05/14/23 at 1:[address] Thang Fajardo at [facility], [address] [place] [address]. Please call if you need to cancel or reschedule. PCP Not on Staff Post Discharge Care Diet: ??Regular Diet ?? Activity: ??as tolerated ?? Wound Care: ??Wound Site: Left forearm Soak wound with warm soapy water for 10- 20 minutes daily. Pat dry. Cover with silvadene and dry dressing. Wrap with Kerlix. Change dressing daily with soak. Daily Yes ?? Code Status: ??Full Resuscitation ?? Home Health Face to Face ^HomeHealthFTF Results Discharge Labs BLOOD BANK Blood Type O Positive ()?? 02/28/2023 08:14 Antibody Screen Negative ()?? 02/28/2023 08:14 RBC Unit ID [id number] ()?? 02/28/2023 11:11 RBC Available PT ()?? 02/28/2023 11:11 ?? BLOOD COUNT & DIFF WBC 4.7 k/mm3 ()?? 03/08/2023 09:58 RBC 3.53 m/mm3 (Low)?? 03/08/2023 09:58 Hgb 8.4 Gm/dL (Low)?? 03/08/2023 09:58 Hct 28.2 % (Low)?? 03/08/2023 09:58 MCV 79.9 femtoliters (Low)?? 03/08/2023 09:58 MCH 23.8 pg (Low)?? 03/08/2023 09:58 MCHC 29.8 g/dL (Low)?? 03/08/2023 09:58 Platelet Count 208 k/mm3 ()?? 03/08/2023 09:58 RDW-SD 56.9 femtoliters (High)?? 03/08/2023 09:58 MPV 9.5 femtoliters ()?? 03/08/2023 09:58 Nucleated RBC (Automated) 0.0 #/100 WBC'S ()?? 03/08/2023 09:58 Abs. NRBC 0.0 k/mm3 ()?? 03/08/2023 09:58 Abs. Neut 1.6 k/mm3 ()?? 02/28/2023 05:51 Abs. Lymph 1.4 k/mm3 ()?? 02/28/2023 05:51 Abs. [place] 0.2 k/mm3 (Low)?? 02/28/2023 05:51 Abs. Eo 0.1 k/mm3 ()?? 02/28/2023 05:51 Abs. Baso 0.0 k/mm3 ()?? 02/28/2023 05:51 Neut % 47.0 % ()?? 02/28/2023 05:51 Lymph % 42.7 % ()?? 02/28/2023 05:51 [place] % 6.7 % ()?? 02/28/2023 05:51 Eos % 2.4 % ()?? 02/28/2023 05:51 Baso % 0.9 % ()?? 02/28/2023 05:51 Retic Count 2.0 % ()?? 02/28/2023 05:51 Retic Count Corrected 1.0 % ()?? 02/28/2023 05:51 Retic Production Index 0.5 % (Low)?? 02/28/2023 05:51 Imm Gran 0.3 % ()?? 02/28/2023 05:51 Abs. Imm Gran 0.0 k/mm3 ()?? 02/28/2023 05:51 ? CARDIAC CK, Total 28 units/L ()?? 03/08/2023 09:58 High Sensitivity Troponin (HSTnT) 67 ng/L (Critical)?? 02/21/2023 06:04 ?? CHEM GENERAL Sodium 136 mmol/L ()?? 03/08/2023 09:58 Potassium 4.3 mmol/L ()?? 03/08/2023 09:58 Chloride 99 mmol/L ()?? 03/08/2023 09:58 Bicarbonate Level 28 mmol/L ()?? 03/08/2023 09:58 Anion Gap 9 ()?? 03/08/2023 09:58 Glucose Level 50 mg/dL (Low)?? 02/24/2023 01:29 Glucose, POC 293 mg/dL (High)?? 03/10/2023 12:24 BUN 27 mg/dL (High)?? 03/08/2023 09:58 Creatinine-Blood 0.5 mg/dL (Low)?? 03/08/2023 09:58 Estimated GFR Creatinine 129 ML/MIN/1.73 M2 ()?? 03/08/2023 09:58 Calcium 7.5 mg/dL (Low)?? 02/24/2023 01:29 Phosphorus 3.1 mg/dL ()?? 02/28/2023 05:51 Magnesium 1.7 mg/dL ()?? 02/28/2023 05:51 Protein, Total 5.9 Gm/dL (Low)?? 02/24/2023 01:29 Albumin 2.1 Gm/dL (Low)?? 02/24/2023 01:29 AG Ratio 0.6 ()?? 02/24/2023 01:29 Alkaline Phosphatase 112 units/L ()?? 02/24/2023 01:29 AST (SGOT) 11 units/L ()?? 02/24/2023 01:29 ALT (SGPT) 7 units/L ()?? 02/24/2023 01:29 Bilirubin, Total 0.2 mg/dL ()?? 02/24/2023 01:29 Vitamin B12 Level 602 pg/mL ()?? 02/23/2023 03:29 Folic Acid Level 4.5 ng/mL ()?? 02/23/2023 03:29 Lactate 2.3 mmol/L (High)?? 02/21/2023 00:35 Iron Level 13 mcg/dL (Low)?? 02/23/2023 03:29 Iron Binding Capacity, Unsaturated 125 mcg/dL ()?? 02/23/2023 03:29 Iron Binding Capacity, Estimated Total 138 mcg/dL (Low)?? 02/23/2023 03:29 % Iron Saturation 9 % (Low)?? 02/23/2023 03:29 Ferritin Level 78 ng/mL ()?? 02/23/2023 03:29 C-Reactive Protein 5.0 mg/dL (High)?? 02/21/2023 00:35 ? HEME OTHER Sed Rate 17 mm/hr (High)?? 02/21/2023 05:41 Hold Blue Top SPECIMEN DISCARDED AFTER 4 HOURS. ()?? 02/21/2023 00:35 ?? SEROLOGY INF DISEASE C.difficile Toxin INDETERMINATE. PLEASE REFER TO SUPPLEMENTAL C.DIFFICILE PCR TEST (Abnormal)?? 02/25/2023 03:26 C. Difficile Toxin by PCR NEGATIVE ()?? 02/25/2023 03:26 Syphilis Interpretation Indicative of the absence of infection with Treponemal pallidum. Test ()?? 02/21/2023 15:51 Syphilis Screen by ALEKSANDR NEGATIVE (N)?? 02/21/2023 15:51 RPR Titer Result NOT INDICATED ()?? 02/21/2023 15:51 TP-PA Result NOT INDICATED ()?? 02/21/2023 15:51 Chlamydia Trachomatis Amplified Probe NEGATIVE ()?? 02/22/2023 17:55 N. Gonorrhoeae Amplified Probe NEGATIVE ()?? 02/22/2023 17:55 Chlamydia / GC AMP Probe Specimen URETHRA ()?? 02/22/2023 17:55 HIV 4th Generation Ab-Ag Result NEGATIVE (N)?? 02/21/2023 15:51 ?? TOXICOLOGY/TDM Vancomycin Level, Trough 8.4 mg/L (Low)?? 03/03/2023 22:37 ? UA/URINALYSIS Appear/Color, Urine LIGHT YELLOW ()?? 02/22/2023 17:55 Specific Hallie, Urine 1.012 ()?? 02/22/2023 17:55 pH, Urine 7.5 ()?? 02/22/2023 17:55 Albumin, Urine NEGATIVE ()?? 02/22/2023 17:55 Glucose, Urine NEGATIVE ()?? 02/22/2023 17:55 Ketones, Urine NEGATIVE ()?? 02/22/2023 17:55 Bilirubin, Urine NEGATIVE ()?? 02/22/2023 17:55 Hemoglobin, Urine NEGATIVE ()?? 02/22/2023 17:55 Nitrite, Urine NEGATIVE ()?? 02/22/2023 17:55 Leukocyte, Urine NEGATIVE ()?? 02/22/2023 17:55 Urobilinogen NORMAL mg/dL ()?? 02/22/2023 17:55 WBC's, Urine 1 /HPF ()?? 02/22/2023 17:55 RBC's, Urine 1 /HPF ()?? 02/22/2023 17:55 Mucus SLIGHT /LPF ()?? 02/22/2023 17:55 Hold Urine Culture Testing available 48 hours from time of collection. ()?? 02/22/2023 17:55 ? URINE OTHER Est Creatinine Clearance 121.20 mL/min ()?? 03/08/2023 10:57 ? _ minutes spent on discharge * Toy Langley RN: PERFORM Event Display: Procedures Invasive Line Authored Date: [id number] Vascular Access Insertion Entered On: 03/09/2023 17:52 EST Performed On: 03/09/2023 17:49 EST by Toy Langley RN Vascular Access Insertion Date of Vascular Access Insertion : 03/09/2023 EST Procedure Location Vascular Access : IV Room W4 Person recording insertion : Lace Machine Operator Lace Machine Operator of Vascular Access : Toy Langley RN Occupation of Vascular Access Lace Machine Operator : Registered nurse Was thread clipper a member of PICC/IV Team : Yes Toy Langley RN - 03/09/2023 17:49 EST Procedural Comments Risk Factors and Labs Reviewed : Yes Anticoagulation Therapy : Yes Antiplatelet Therapy : No Toy Langley RN - 03/09/2023 17:49 EST Was vascular access order placed : Yes Vascular Access Type : Central line Time Out Performed : Yes Time Out Data : Patient identified, Site verified, Procedure verified, Consent signed, RN attendance Reason for Vascular Access Insertion : Medication requires use of vascular access Suspected Vascular Access Infection : No, the access was not exchanged over a guide wire Vascular Access Procedure Check : Consent obtained Hand Hygiene prior to insertion : Yes Maximal sterile barriers used : Mask, Sterile gown, Large sterile full body drape, Sterile gloves, Ultrasound sterile cover, Cap Sterile Field Maintained : Yes Skin Preparation : Chlorhexidine (CHG) Skin Prep dry at first skin puncture : Yes Antimicrobial coated catheter used : No Successful central line placement : Yes Vascular Access Catheter Type : PICC line Vascular Access Insertion Site : Other: Right upper arm brachial vein Vascular Access Insertion Side : Right Vascular Access Catheter Size : 4Fr Vascular Access Catheter Length : 35cm Vessel Identified By : Ultrasound Vascular Access Insertion Circumstance : Non-emergent Vascular Access Catheter Securement : Statlock Vascular Access Dressing : Occlusive Follow-up CXR : Not applicable CXR Comment : PICC tip in SVC confirmed via Sherlock 3CG technology Toy Langley RN - 03/09/2023 17:49 EST DCP GENERIC CODE Suture needles : 0 Como : 3 Scalpels : 1 Clamps : 0 Guide Wires : 1 Toy Langley RN - 03/09/2023 17:49 EST Complications during Insertion : None Tolerated CLIP procedure well : Yes Insertion Attempts : 1 Vascular Access Device QA : CT PICC 4Fr Single lumen Right arm @35cm Vascular Access Device Lot Number : [id number] Vascular Access Device Code : [id number] Vascular Access Device Expiration Date : 03/22/2024 EST Vascular Access Insertion Comments : Mid bicep circumference 10cm above AC: 22cm PICC okay to use Toy Langley RN - 03/09/2023 17:49 EST * Event Display: Provider Clarification Note Please click on pdf link to open report * Olivia Gloria: PERFORM, SIGN, VERIFY Event Display: Patient Education Handout Authored Date: [id number] Surgical pathology study * Event Display: Surgical Pathology Authored Date: [id number] Patient Name: LUCIAN ZHAO Lab Patient : 1980 (Age: 42) Collection Date: 03/02/2023 Accession Date: 03/02/2023 Sign Out Date: 03/09/2023 Tissue Source: 1:LEFT WRIST TISSUE 2:LEFT DISTAL RADIUS BONE Final Diagnosis: 1.Left wrist tissue, debridement: - Devitalized fibrous tissue and necrotic fibrinnopurulent debris. 2. Left distal radius bone, biopsy: - Fragments of bone with chronic inflammation and marrow fibrosis consistent with chronic osteomyelitis. Primary Pathologist:Yvette Han M.D. electronically signed out by: Yvette Han M.D. / MELITON Clinical History: Non healing wound Gross Description: Part 1. Labeled left wrist tissue . Received in formalin is a 1.5 x 1.3 x 0.3 cm irregular melgar-green, markedly softened fragment of tissue. No skin is grossly present. No uninvolved tissue is grossly identified. The specimen is submitted in toto. 1-1 piece. ()* Part 2. Labeled left distal radius bone . Received in formalin are 3 melgar- yellow, indurated fragments of presumptive bone which range from 0.4 x 0.2 x 0.2 cm up to 0.5 x 0.4 x 0.2 cm. The specimen isentirely submitted following decalcification. 1-3 pieces. ()* Phone #: [phone], On-Call Pathologist: [id number] Admission evaluation note * Lor MCKEON, Montrell Su: PERFORM Event Display: Admission Note Authored Date: Patient: ??LUCIAN ZHAO ? Age:??42 Years?Sex:??Male?:??1980?? Chief Complaint/Reason for Consultation From home, increased drainage from chronic wounds to L forearm, bilat feet, and genitalia. Admittedin nov for similar complaints, has not followed up outpt wound management or PCP. States he has been taking his prescribed abx. A/ox4, VSS, ambulatory. History of Present Illness Mr. Zhao is a 42-year-old gentleman with a PMH of left upper extremity wounds, poorly controlled type 2 diabetes, IV drug use, hepatitis C, prior MRSA bacteremia, polysubstance use who presented to the ED with worsening purulence and pain in chronic left upper extremity wounds. ?? Patient states his wounds started 2-3 weeks ago however per chart he has had them longer, includingundergoing surgical intervention for left upper extremity wounds in Nov 2022. He did not adhere tofollow up or antibiotic treatment after discharge. He was also seen in August 2022 for similar complaints including osteomyelitis of distal ulna at which time surgery was recommended but he left AMA.??He also has history of right pate wounds. Currently denies chest pain, abdominal pain, fever, cough, chills, dyspnea, nausea/vomiting/diarrhea. Patient states he is developing skin lesions around hisbody including his scrotum and penis which is relatively new over the past 3 weeks. ?? On arrival to the ER he was hemodynamically stable, hypertensive 169/95.?? Labs showed Cr 0.6, Ca 7.6, Mg 1.8, CRP 4, lactate 2.3, troponin 76.??Imaging showed possible septic joint at the distal radiocarpal joint of the left hand versus osteomyelitis.?? Hand surgery was consulted and patient's left upper extremity forearm wound was gently cleansed with Betadine 70 DSD's.?? Plastic surgery will follow. Review of Systems All systems reviewed and negative except as indicated in HPI. Objective Vital Signs?? Temperature: 97.3 DegF (02/21/23 03:00:00) Temperature Route: Oral (02/21/23 03:00:00) Pulse Rate: 77 bpm (02/21/23 03:00:00) Respiratory Rate: 16 br/min (02/21/23 03:00:00) Systolic Blood Pressure: 135 mm Hg (02/21/23 03:00:00) Diastolic Blood Pressure: 79 mm Hg (02/21/23 03:00:00) Blood pressure sites: Arm, left (02/21/23 03:00:00) Mean Arterial Pressure: 120 mm Hg (02/20/23 20:55:00) Pulse Pressure: 77 mm Hg (02/21/23 01:41:00) Oxygen Saturation: 100 % (02/21/23 03:00:00) Mode of Delivery (Oxygen): Room air (02/21/23 03:00:00) Early Warning Score: 3 (02/21/23 03:31:17) ? Intake/Output? 02/21 00:55 02/21 07:00 02/20 07:00 02/19 07:00 02/18 07:00 ?? 02/21 06:00 02/21 06:00 02/21 06:59 02/20 06:59 02/19 06:59 Intake ?200 ?0 ?200 ?0 ?0 Output ?0 ?0 ?0 ?0 ?0 Net Total ?200 ?0 ?200 ?0 ?0 ? Physical Exam Constitutional: Alert, in no acute distress. Head EENT: Extraocular muscle movement intact.??Moist mucous membranes.?? Neck: Supple. No JVD. Respiratory: Clear to auscultation. No wheezing or crackles. No use of accessory muscles. Cardiovascular: S1S2 regular. No murmurs, rubs or gallops. Gastrointestinal: Abdomen soft, non-tender, non-distended. Normal bowel sounds. Genitourinary: No CVA tenderness. Extremities: No lower extremity pitting??edema. No cyanosis or clubbing. Neurologic: AAOx3, Speech normal. No focal neurological deficits. Skin: Chronic appearing open??wounds on right??pate.??Left arm??covered in dressing.?? Psychiatric: Normal mood and affect Assessment/Plan 42-year-old gentleman with a PMH of left upper extremity wounds, poorly controlled type 2 diabetes,IV drug use, hepatitis C, prior MRSA bacteremia, polysubstance use who presented to the ED with worsening purulence and pain in chronic left upper extremity wounds. ?? Cellulitis of arm (L03.119):? Worsening chronic wounds of left arm Also has wounds on penis, scrotum, right leg - wound consult ordered - f/u with plastics - ID consult placed per plastics recs - continue vanc and zosyn - f/u blod cultures - MRI??LUE??ordered ?? Diabetes (E11.9):? - lantus 6u nightly - SSI - glucose 140-180 ?? Polysubstance abuse (F19.10):? f/u with clinic regarding methadone dosing ?? Penile lesion Has scrotal and penile lesions, denies sexual??activity, has history of IV drug use - ordered HIV, syphilis RPR - ID consult placed ?? Code status: full DVT ppx:??lovenox Diet: regular Dispo: floors ?? Total Visit Time: I personally spent a total of 80 minutes, including both [id number]-vg-[id number] and ytg-mbey-iy-face time on the date of the encounter, addressing the above diagnoses. Activities performed in this time include chart review, obtaining / reviewing history, performing amedically necessary evaluation, documentation and counseling. ?? Montrell Horowitz MD Plumbing Inspector 7p-7a After 7 am please contact day time provider for questions/consult updates. ? Histories Past Medical History/Problem List Active Problems??(10) Cellulitis Cellulitis and abscess of hand, except fingers and thumb Cocaine use disorder, severe, dependence Diabetes Hyperglycemia without ketosis Hyponatremia Opioid use disorder, severe, dependence Polysubstance abuse Uncontrolled diabetes mellitus with hyperglycemia Underweight ? Past Surgical History No surgery history documented. ? Social History Alcohol Details:??Use: Never. Substance Abuse Details:??Use: Past. ??Type: Heroin. ??Substance abuse in household: No. Details:??Use: Past. ??Type: Heroin. ??Substance abuse in household: No. Tobacco Details:??Use: 10 or more cigarettes (1/2 pack or more)/day in last 30 days. ? Family History No family history recorded. ? Medications Home Medications Durable Medical Equipment (Freestyle Lite Lancets)?See Instructions?for 30?Days?use as directed for Type 2 Diabetes Mellitus; test at least 3 times per day Durable Medical Equipment (Pen [place], 31 G x 5 mm BD Ultra Fine III)?See Instructions?for 30?Days?use as directed for Type 2 Diabetes Mellitus Durable Medical Equipment (Freestyle Lite Monitor)?See Instructions?for 30?Days?use as directed for Type 2 Diabetes Mellitus Durable Medical Equipment (Freestyle Lite Test Strips)?See Instructions?for 30?Days?useas directed for Type 2, as directed for Type 2 Diabetes Mellitus; test at least 3 times per day Durable Medical Equipment (Alcohol Wipes)?See Instructions?use as directed for Type 2 Diabetes Mellitus; test at least 3 times per day, insulin given 4 x daily Ferrous Sulfate (ferrous sulfate 325 mg oral enteric coated tablet)?325?Milligram?1?tablet?By Mouth?Daily?for 30?Days Gabapentin (gabapentin 300 mg oral capsule)?600?Milligram?By Mouth?3 times a day?for30?Days Insulin Glargine (Lantus Solostar Pen 100 units/mL subcutaneous solution)?15?unit(s)?Subcutaneous Injection?Daily at bedtime?for 30?Days Insulin Lispro (Humalog Kwik Pen 100 units/mL subcutaneous injection)?See Instructions?Take 3times a day before meals, based on your blood sugar: For blood sugar 100 - 149, take ?? 4 - 199 ?? 5 units 200 - 249 ?? 6 units 250 - 299 ?? 7 units 300 - 349 ?? 8 units 350 - 399 ?? 9 [id number] - 449 ?? 10 units and call MD Methadone?100?Milligram?By Mouth?Daily in AM Miscellaneous Rx (Lab draw--CBC with diff, CMP, ESR, and CRP)?See Instructions?Draw every 2 weeks while on antibiotics. Results to ID-- Dr Olena Parsons . ?? Zinc Sulfate (zinc sulfate 220 mg oral capsule)?220?Milligram?By Mouth?Daily in AM?for 30?Days ? Inpatient Medications Medications (11) Active SCHEDULED: (4) Insulin Lispro 100 units/mL Inj (3mL) (Insulin LISPRO Sliding Scale) ??2-10 units, Subcutaneous Injection, 3 times a day before meals NaCl 0.9% Flush 3ml (NaCL 0.9% Flush) ??3 mL, IV Push, Every 8 hours Piperacillin/Tazobactam 3.375 Gm Inj (Zosyn Extended IVPB) ??3.375 Gm, IVPB, Every 8 hours Vancomycin 1 Gm / D5%W 200 mL (Vancomycin IVPB) ??1 Gm 200 mL, IVPB, Daily CONTINUOUS: (0) PRN: (7) Acetaminophen 325 mg Tablet (Acetaminophen Tablet) ??650 mg, By Mouth, Every 4 hours Docusate Sodium 100 mg Capsule (Docusate Sodium Capsule) ??100 mg 1 capsule, By Mouth, 2 times a day HYDROmorphone 0.5 mg/0.5 mL Inj Syringe (Dilaudid Inj) ??0.5 mg 0.5 mL, IV Push Slowly, Every 4 hours Melatonin 3 mg Tablet (Melatonin Tablet) ??3 mg, By Mouth, Daily at bedtime NaCl 0.9% Flush 3ml (NaCL 0.9% Flush) ??3 mL, IV Push, Every 8 hours Polyethylene Glycol 17 Gm Powder (MiraLax Powder) ??17 Gm 1 pack/packet, By Mouth, Daily Simethicone 80 mg Chewable Tablet (Simethicone Tablet) ??80 mg, Chew, 3 times a day ? Results Recent Labs BLOOD BANK Blood Type O Positive ()?? 02/20/2023 22:11 Antibody Screen Negative ()?? 02/20/2023 22:11 ?? CARDIAC High Sensitivity Troponin (HSTnT) 76 ng/L (Critical)?? 02/21/2023 00:35 ?? CHEM GENERAL Sodium 135 mmol/L ()?? 02/21/2023 00:35 Potassium 4.2 mmol/L ()?? 02/21/2023 00:35 Chloride 97 mmol/L (Low)?? 02/21/2023 00:35 Bicarbonate Level 30 mmol/L (High)?? 02/21/2023 00:35 Anion Gap 8 ()?? 02/21/2023 00:35 Glucose Level 156 mg/dL (High)?? 02/21/2023 00:35 BUN 17 mg/dL ()?? 02/21/2023 00:35 Creatinine-Blood 0.6 mg/dL (Low)?? 02/21/2023 00:35 Estimated GFR Creatinine 125 ML/MIN/1.73 M2 ()?? 02/21/2023 00:35 Calcium 7.6 mg/dL (Low)?? 02/21/2023 00:35 Magnesium 1.8 mg/dL ()?? 02/21/2023 00:35 Protein, Total 6.7 Gm/dL ()?? 02/21/2023 00:35 Albumin 2.5 Gm/dL (Low)?? 02/21/2023 00:35 AG Ratio 0.6 ()?? 02/21/2023 00:35 Alkaline Phosphatase 134 units/L (High)?? 02/21/2023 00:35 AST (SGOT) 10 units/L ()?? 02/21/2023 00:35 ALT (SGPT) 8 units/L ()?? 02/21/2023 00:35 Bilirubin, Total 0.2 mg/dL ()?? 02/21/2023 00:35 Lactate 2.3 mmol/L (High)?? 02/21/2023 00:35 C-Reactive Protein 5.0 mg/dL (High)?? 02/21/2023 00:35 ?? HEME OTHER Hold Blue Top SPECIMEN DISCARDED AFTER 4 HOURS. ()?? 02/21/2023 00:35 ? Blood Glucose Trend Glucose Level:??156 mg/dL??High (02/21/23 00:35:00) ? CBC, CBC w/Diff?? No qualifying data available. ?? LFT Albumin:??2.5 Gm/dL??Low (00:35) Alkaline Phosphatase:??134 units/L??High (00:35) ALT (SGPT): 8 units/L (00:35) AST (SGOT): 10 units/L (00:35) Bilirubin, Total: 0.2 mg/dL (00:35) ?? Urinalysis?? No qualifying data available. ?? Microbiology ?? Blood Culture #2?? Collected?? Source: Blood Body Site: ?? Collected Dt/Tm: 02/20/2023 23:40 Last Updated Dt/Tm: 02/20/2023 22:11 Blood Culture?? Collected?? Source: Blood Body Site: ?? Collected Dt/Tm: 02/20/2023 23:40 Last Updated Dt/Tm: 02/20/2023 22:11 ? Blood Gases?? No qualifying data available. ?? * Otto Byrd MD: PERFORM Event Display: Admission Note Authored Date: ? Interval progress note ?? Patient was admitted earlier in the morning. ??The typewriter operator automatic saw the patient on the same day of admission on 02/21.?? Patient was noticed to have anemia??on the morning blood work with hemoglobin of 6.2.?? Consent signed with patient and 1 unit of PRBC transfusion ordered.?? Status post wound cleaning by plastic surgery on the morning of 02/21.?? They are planning for or debridement when the schedule allows.?? Continue with??vancomycin,??Zosyn changed to cefepime??as patient did have reaction earlier in the morning-unsure what reaction it was.?? Resume diabetic??diet for now.?? Pain management??ordered.?? As per documentation patient is on methadone 100 mg daily.?? Patient tells typewriter operator automatic that he takes 30 mg of methadone on a daily basis. ??Nursing staff??on the floor updated to call patient's methadone clinic??for verification. ??Will touch base with pharmacy for 1 dose of methadone 30 mg??today.?? ID to follow-up for antibiotic recommendations. ??Patient does have penile lesion.?? ESR elevated at 17, CRP at 5.?? RPR for syphilis/HIV test pending.?? Patient did have elevated troponin on presentation??of 76-67. ??Patient denies chest pain.?? Most likely in the setting of infection. ??Willcontinue to monitor for now.?? Follow blood cultures ? Electronically signed: ?? Otto Byrd MD. ? EKG study * Event Display: ECG 12-Lead Authored Date: [id number] Please click on pdf link to open report * Event Display: ECG 12-Lead Authored Date: [id number] Ventricular Rate: 101 BPM Atrial Rate: 101 BPM P-R Interval: 128 ms QRS Duration: 72 ms Q-T Interval: 330 ms QTC Calculation(Bazett): 427 ms P [place]: 67 degrees R [place]: 59 degrees T [place]: 78 degrees Sinus tachycardia Otherwise normal ECG When compared with ECG of 23-FEB-2023 11:07, No significant change was found Confirmed by LUCIAN MCCULLOUGH ([id number]) on 03/03/2023 2:31:58 PM [place]: LUCIAN MCCULLOUGH * Event Display: EKG Authored Date: * Event Display: ECG 12-Lead Authored Date: Please click on pdf link to open report * Event Display: ECG 12-Lead Authored Date: [id number] Ventricular Rate: 101 BPM Atrial Rate: 101 BPM P-R Interval: 126 ms QRS Duration: 82 ms Q-T Interval: 360 ms QTC Calculation(Bazett): 466 ms P [place]: 76 degrees R [place]: 77 degrees T [place]: 85 degrees Sinus tachycardia Low voltage QRS Borderline ECG When compared with ECG of 16-DEC-2022 10:58, No significant change was found Confirmed by LUCIAN MCCULLOUGH ([id number]) on 02/23/2023 2:55:03 PM [place]rone: LUCIAN MCCULLOUGH Cardiology * Event Display: Cardiac Rhythm Strips Authored Date: * Event Display: Cardiac Rhythm Strips Authored Date: Hospital Progress note * Rakel Burton RN: PERFORM, SIGN, VERIFY Event Display: Progress Note Hospital Authored Date: Patient: LUCIAN ZHAO Age: 42 years Sex: Male : 1980 Associated Diagnoses: None Author: Rakel Burton RN Findings Problem Related to Alteration in Integumentary : Alteration in Integumentary/new 03/11/2023 22:00 EST Alteration in Integumentary Related to Other: unknown etiology Goals & Outcomes, Integumentary Pt will maintain adequate fluid & nutritional balance, Pt will maintain intact skin integrity Interventions, Integumentary Keep linen clean, dry and wrinkle free, Keep skin clean & dry, Maintain sterile technique with dressing changes, Relieve pressure off bony areas, Use pH balanced no rinse cleanser if incontinent, Use pressure dispersing devices as appropriate Goals/Interventions, Integumentary Yes Integumentary, Problem Start 03/10/2023 15:59 Reviewed plan with, Integumentary Patient Patient Progression, Integumentary Pt progressing according to plan . Evaluation Patient is alert and oriented x3 speech is clear and patient follows all commands, he complains of pain medication given and effective. Patient blood sugar is greater than 500 Over night MD made aware 12 units of insulin given. Patient blood sugar rechecked and WNL. 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 Patient uses the urinal and bed charles. Call horner insight bed alarm on. Please see bio and cis for more details.. * Livier Denton: VERIFY, MODIFY, SIGN, PERFORM, SIGN Event Display: Progress Note Hospital Authored Date: Patient: LUCIAN ZHAO Age: 42 years Sex: Male : 1980 Associated Diagnoses: None Author: Livier Denton Findings Problem Related to Alteration in Comfort 03/11/2023 9:00 EST Alteration in Comfort Related to Disease process, Other: LEFT ARM OSTEOMYELITIS Goals & Outcomes: Comfort Pt will report acceptable level of comfort & pain control, Pt will state importance of adhering to pain strategy regime, Pt will demonstrate necessary skills to manage pain, Non-verbal indicators will indicate comfort/pain control Interventions Implemented: Comfort Assess pain using appropriate pain scale/tools Goals/Interventions, Comfort Yes Comfort, Problem Start 02/21/2023 17:33 Reviewed plan with, Comfort Patient Patient Progression, Comfort Pt progressing according to plan Comfort, Problem Ongoing Yes . Alteration in Nutrition : Alteration in Nutrition/new 03/11/2023 9:00 EST Alteration in Nutrition Related to Malnutrition Goals & Outcomes, Nutrition Pt will achieve/maintain adequate nutrition status Interventions, Nutrition Consider small snacks or frequent meals if pt has difficulty, Monitor intake of ordered dietary supplementation Goals/Interventions, Nutrition Yes Nutrition, Problem Start 03/10/2023 16:00 Reviewed plan with, Nutrition Patient Patient Progression, Nutrition Pt progressing according to plan . Nursing Data Vital Signs : VITAL SIGNS SECTION 03/11/2023 16:21 EST Temperature 98.2 DegF Temperature Route Oral Pulse Rate 112 bpm H Respiratory Rate 15 br/min L Systolic Blood Pressure 114 mm Hg Diastolic Blood Pressure 79 mm Hg Blood pressure sites Arm, left Mean Arterial Pressure 91 mm Hg Pulse Pressure 35 mm Hg Oxygen Saturation 100 % Mode of Delivery (Oxygen) Room air . Evaluation Patient is A+O x4. Patient refused some of AM medications.Patient refused wound care on left arm. Patient stating pain is 9/10. Oxycodone given. Patient is resting in bed, bed in lowest position, andsafety measures are in place. See CIS for further details. . Discharge Information Rehabilitation Discharge : Rehab Discharge Index 03/09/2023 10:48 EST Cane: distance < 10 * Nathanael MCKEON, Devika: PERFORM, MODIFY Event Display: Progress Note Hospital Authored Date: [id number] Patient: ??LUCIAN ZHAO ? Age:??42 Years?Sex:??Male?:??1980?? Subjective No acute overnight events. Patient remains hemodynamically stable. Patient is saying that??he has no idea??what infection he is being treated for??and??nobody has told him anything??since he has been at the hospital. Review of Systems Negative except as above. Social History Alcohol Details:??Use: Never. Substance Abuse Details:??Use: Past. ??Type: Heroin. ??Substance abuse in household: No. Details:??Use: Past. ??Type: Heroin. ??Substance abuse in household: No. Tobacco Details:??Use: 10 or more cigarettes (1/2 pack or more)/day in last 30 days. ? Family History No family history recorded. ? Objective Vital Signs?? Temperature: 98.2 DegF (03/11/23 16:21:00) Temperature Route: Oral (03/11/23 16:21:00) Pulse Rate:??112 bpm??High (03/11/23 16:21:00) Respiratory Rate:??15 br/min??Low (03/11/23 16:21:00) Systolic Blood Pressure: 114 mm Hg (03/11/23 16:21:00) Diastolic Blood Pressure: 79 mm Hg (03/11/23 16:21:00) Blood pressure sites: Arm, left (03/11/23 16:21:00) Mean Arterial Pressure: 91 mm Hg (03/11/23 16:21:00) Pulse Pressure: 35 mm Hg (03/11/23 16:21:00) Oxygen Saturation: 100 % (03/11/23 16:21:00) Mode of Delivery (Oxygen): Room air (03/11/23 16:21:00) Early Warning Score: 2 (03/11/23 16:59:34) ? Physical Exam Constitutional: Alert, in no acute distress.Cachectic.?? Multiple??lesions from skin picking. ??He is actively picking on his skin while I was in??the room. Neck: Supple. No JVD. Respiratory: Clear to auscultation. No wheezing or crackles. No use of accessory muscles. Cardiovascular: S1S2 regular. No murmurs, rubs or gallops. Gastrointestinal: Abdomen soft, non-tender, non-distended. Normal bowel sounds. Extremities: No lower extremity pitting edema. No cyanosis or clubbing. Neurologic: AAOx3, Speech normal. No focal neurological deficits. _ Home Medications Acetaminophen (Tylenol 325 mg oral tablet)?975?Milligram?By Mouth?3 times a day Cefepime (cefepime 2 g intravenous injection)?2,000?Milligram?IVPB?Every 8 hours Daptomycin (Cubicin RF)?450?Milligram?IV Infusion?Every 24 hours Durable Medical Equipment (Freestyle Lite Lancets)?See Instructions?for 30?Days?use as directed for Type 2 Diabetes Mellitus; test at least 3 times per day Durable Medical Equipment (Pen [place], 31 G x 5 mm BD Ultra Fine III)?See Instructions?for 30?Days?use as directed for Type 2 Diabetes Mellitus Durable Medical Equipment (Freestyle Lite Monitor)?See Instructions?for 30?Days?use as directed for Type 2 Diabetes Mellitus Durable Medical Equipment (Freestyle Lite Test Strips)?See Instructions?for 30?Days?useas directed for Type 2, as directed for Type 2 Diabetes Mellitus; test at least 3 times per day Durable Medical Equipment (Alcohol Wipes)?See Instructions?use as directed for Type 2 Diabetes Mellitus; test at least 3 times per day, insulin given 4 x daily Ferrous Sulfate (ferrous sulfate 325 mg oral enteric coated tablet)?325?Milligram?1?tablet?By Mouth?Daily?for 30?Days Folic Acid (folic acid 1 mg oral tablet)?1?Milligram?By Mouth?Daily Gabapentin (gabapentin 300 mg oral capsule)?600?Milligram?By Mouth?3 times a day?for30?Days Ibuprofen (ibuprofen 400 mg oral tablet)?400?Milligram?By Mouth?3 times a day?as needed?Pain , Moderate Insulin Glargine (Lantus Solostar Pen 100 units/mL subcutaneous solution)?15?unit(s)?Subcutaneous Injection?Daily at bedtime?for 30?Days Insulin Lispro (Humalog Kwik Pen 100 units/mL subcutaneous injection)?See Instructions?Take 3times a day before meals, based on your blood sugar: For blood sugar 100 - 149, take ?? 4 - 199 ?? 5 units 200 - 249 ?? 6 units 250 - 299 ?? 7 units 300 - 349 ?? 8 units 350 - 399 ?? 9 chery148 - 449 ?? 10 units and call MD Melatonin (melatonin 3 mg oral tablet)?3?Milligram?By Mouth?Daily at bedtime?as needed?Insomnia Methadone?75?Milligram?By Mouth?Daily in AM Multivitamin With Minerals (Multivit Therapeutic/Minerals Tablet)?1?tab(s)?By Mouth?Daily Zinc Sulfate (zinc sulfate 220 mg oral capsule)?220?Milligram?By Mouth?Daily in AM?for 30?Days ? Inpatient Medications Medications (31) Active SCHEDULED: (15) Acetaminophen 325 mg Tablet (Tylenol 325 mg oral tablet) ??975 mg, By Mouth, 3 times a day Cefepime 2 Gm Inj (Cefepime Extended IVPB) ??2,000 mg, IVPB, Every 8 hours Daptomycin 500 mg Inj (DAPTOmycin Inj) ??450 mg 9 mL, IV Push Slowly, Every 24 hours Enoxaparin 40 mg Inj (Enoxaparin Inj) ??40 mg 0.4 mL, Subcutaneous Injection, Daily Ferrous Sulfate 325 mg EC Tablet (ferrous sulfate 325 mg oral enteric coated tablet) ??325 mg, By Mouth, Daily Folic Acid 1 mg Tablet (folic acid 1 mg oral tablet) ??1 mg, By Mouth, Daily Gabapentin 300 mg Capsule (gabapentin 300 mg oral capsule) ??600 mg, By Mouth, 3 times a day Heparin Lock Flush 50 units / 5 mL (Heparin Flush 10 units/mL Inj) ??50 units 5 mL, IV Push, Daily Insulin Glargine 100 units/mL Inj (Lantus Inj) ??12 units 0.12 mL, Subcutaneous Injection, Daily atbedtime Insulin Lispro 100 units/mL Inj (3mL) (Insulin LISPRO Sliding Scale) ??2-10 units, Subcutaneous Injection, 3 times a day before meals Lorazepam 0.5 mg Tablet (LORazepam 0.5 mg oral tablet) ??0.5 mg, By Mouth, Daily at bedtime Methadone 5 mg Tablet (Methadone Tablet) ??75 mg, By Mouth, Daily in AM Multivitamin Therapeutic / Minerals Tablet (Multivit Therapeutic/Minerals Tablet) ??1 tablet, By Mouth, Daily NaCl 0.9% Flush 3ml (NaCL 0.9% Flush) ??3 mL, IV Push, Every 8 hours NaCl 0.9% Flush 3ml (NaCL 0.9% Flush) ??5 mL, IV Push, Daily CONTINUOUS: (0) PRN: (16) Acetaminophen 325 mg Tablet (Acetaminophen Tablet) ??650 mg, By Mouth, Every 4 hours Dextrose Inj Syringe (Dextrose 50% Inj Syringe (25Gm)) ??12.5 Gm, IV Push Slowly, Every 20 minutes Dextrose Inj Syringe (Dextrose 50% Inj Syringe (25Gm)) ??25 Gm, IV Push Slowly, Every 15 minutes Docusate Sodium 100 mg Capsule (Docusate Sodium Capsule) ??100 mg 1 capsule, By Mouth, 2 times a day Glucagon 1 mg Inj (Glucagon Inj) ??1 mg, Intramuscular, Once Glucose 40% Gel (15 Gm) (Glucose Gel) ??15 Gm, By Mouth, Every 20 minutes Glucose 40% Gel (15 Gm) (Glucose Gel) ??30 Gm, By Mouth, Every 20 minutes Heparin Lock Flush 50 units / 5 mL (Heparin Flush 10 units/mL Inj) ??50 units 5 mL, IV Push, Every hour Ibuprofen 400 mg Tablet (ibuprofen 400 mg oral tablet) ??400 mg, By Mouth, 3 times a day Loperamide 2 mg Capsule (loperamide 2 mg oral capsule) ??2 mg, By Mouth, Every 3 hours Melatonin 3 mg Tablet (Melatonin Tablet) ??3 mg, By Mouth, Daily at bedtime NaCl 0.9% Flush 3ml (NaCL 0.9% Flush) ??3 mL, IV Push, Every 8 hours NaCl 0.9% Flush 3ml (NaCL 0.9% Flush) ??5 mL, IV Push, Every hour nalOXONE ??400mcg/mL Inj (nalOXONE Inj) ??0.2 mg 0.5 mL, IV Push, Every 5 minutes OxyCODONE 5 mg IR Tablet (oxyCODONE 5 mg oral tablet) ??5 mg, By Mouth, Every 6 hours Simethicone 80 mg Chewable Tablet (Simethicone Tablet) ??80 mg, Chew, 3 times a day ? 72 Hour Antibiotic History Active Antibiotics Calendar Day Last Administered First Administered Cefepime??2,000 mg, 33.33 mL/hr, IVPB, Every 8 hours ? 10 03/11/2023 14:14 03/02/2023 14:21 Daptomycin??450 mg, 9 mL, IV Push Slowly, Every 24 hours ?7 03/11/2023 11:56 03/05/2023 13:37 ? Results Recent Labs CHEM GENERAL Glucose, POC 216 mg/dL (High)?? 03/11/2023 12:20 ? Assessment/Plan Chief Complaint: From home, increased drainage from chronic wounds to L forearm, bilat feet, and genitalia. Admitted in nov for similar complaints, has not followed up outpt wound management or PCP.States he has been taking his prescribed abx. A/ox4, VSS, ambulatory. ?? Diagnoses Acute on chronic anemia ??(D64.9) Anxiety ??(F41.9) Cellulitis of arm ??(L03.119) Chronic hepatitis C ??(B18.2) Cocaine use disorder ??(F14.10) Decubitus ulcer of right ischium, stage 2 ??(L89.312) Diarrhea, unspecified ??(R19.7) Insomnia ??(G47.00) Multiple wounds of skin ??(T14.8XXA) Non-pressure ulcer of left lower extremity, limited to breakdown of skin ??(L97.921) Non-pressure ulcer of right lower extremity, limited to breakdown of skin ??(L97.911) Osteomyelitis ??(M86.9) Severe malnutrition ??(E43) Severe opioid use disorder ??(F11.20) Skin ulcer of forearm with fat layer exposed ??(L98.492) Therapeutic drug monitoring ??(Z51.81) 1. ??Cellulitis of arm ??(L03.119) 2. ??Diabetes ??(E11.9) 3. ??Polysubstance abuse ??(F19.10) 4. ??Penile lesion ??(N48.9) ? 42-year-old gentleman with a PMH of left upper extremity wounds, poorly controlled type 2 diabetes,IV drug use, hepatitis C, prior MRSA bacteremia, polysubstance use who presented to the ED with worsening purulence and pain in chronic left upper extremity wounds.?? Seen by hand surgery. ??Status po st??washout and bone biopsy ID on board???currently on broad-spectrum antibiotics???waiting for final??operative culture Seen by??addiction medicine as well??and patient is on methadone ?? Cellulitis of arm (L03.119):??. Multiple wounds of skin (T14.8XXA):??. Osteomyelitis (M86.9):? Worsening chronic wounds of left forearm, consistent with osteomyelitis Status post wound cleaning by plastic surgery on 02/21 Blood cultures have been negative till date. MRI of left forearm completed: Destructive osteomyelitis involving the distal radius and ulna. Abnormal marrow signal and postcontrast enhancement throughout all carpal bones and the base of the second, third, and fourth metacarpals concerning for osteomyelitis. Abnormal nonenhancing marrow signal throughout the visualized radius and ulna more proximal to the distal site of osteomyelitis, likely reflecting serous atrophy of the bone marrow and malnutrition. Extensive ulceration of the dorsal forearm with ulceration extendingto the extensor tendons, several which appear torn as described above. Appreciate wound care evaluation. Continue dressing as per recommendations Plastic surgery following. Went back to OR again on 03/02 for: 1. Left forearm and wrist washout, excisional debridement of skin, subcutaneous tissue and muscle 20x7cm 2. Left distal radius bone biopsy Operative cultures with multiple organisms???including MRSA,??Proteus,??Klebsiella, Enterococcus faecalis and Morganella Infectious disease following Plan Plan is for IV cefepime and daptomycin??for 6 weeks may need longer. ??ID will arrange for outpatient follow-up. ??Will need weekly safety labs Hand surgery signed off on 03/04 Wound care recommendation -??BID wound care: warm soaks??with soapy water. Pat dry. Cover wound with??Aquacel, followed by??DSD. Wrap with Kerlix. Can be done by bedside nurses BID daily Pain control???Tylenol, as needed??ibuprofen and oxycodone.? OPAT as per ID - ?? 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 Start date: 03/02 End date: 04/27 (8 weeks -possibly longer) Vascular access: TBD Monitoring labs (test/frequency): CBC w/ diff, CMP, ESR, CRP Imaging needed before outpt f/u visit: no Suggested outpt f/u visit: Yes, requested ID Office ; ? Acute on chronic anemia (D64.9):?? No signs of active bleeding noted iron studies consistent with a combination of iron defiency and anaemia of chronic disease Folate borderline low: commenced on folate supplementation. Vitamin B12 normal. Status post 1 unit PRBC transfusion on 02/20. Another unit of PRBCs on 02/28 ?? Diabetes (E11.9):??Diet liberalized to regular diet because of severe malnutrition. continue lantus and lispro sliding scale increased lantus to 12 units given ongoing hyperglycaemia??on 03/03 Plan Continue with Lantus if blood sugar persistently more than 180 will increase Lantus further ? Polysubstance abuse (F19.10):??Appreciate addiction medicine following. Continue methadone - now increased to 65mg QTc WNL on 03/03 Will need to slowly taper off??oxycodone???this has been discussed with patient ?? Penile lesion (N48.9):??HIV/syphilis were negative UA was negative Chlamydia/gonorrhea PCR negative. ?? Diarrhea, unspecified (R19.7):??C diff testing negative abdominal??exam benign may well be due to opiate withdrawal Plan prn loperamide ?? Anxiety (F41.9):??. ?? Insomnia (G47.00):??added scheduled 0.5mg lorazepam at night It was??counseled that this will not be continued on discharge ?? VTE Prophylaxis:??lovenox Code Status:??Full ?? Ongoing Medical Necessity:??IV abx. Dispo???plan is for??discharge to rehab hopefully tomorrow ?? Discharge Planning:? Consult note * Sha ROGERS, Brenda Roque: PERFORM Event Display: Consultation Note Authored Date: [id number] Patient: ??LUCIAN ZHAO ? Age:??42 Years?Sex:??Male?:??1980?? Chief Complaint BLE, LUE, groin, buttocks Reason for Consultation BLE, LUE, groin, buttocks History of Present Illness Pt is a 42 yr old male seen at the request of the medical service for evaluation of BLE, LUE, groin, buttocks. Pt was admitted on 02/21 for increased drainage from chronic wounds.??HPI obtained from chart review and pt. Pt reports??recurrent hx of wounds to bilateral feet and BLE that initially present as blisters that eventually ruptured leaving open wounds. Pt report performing dressing changes at home which consist of nonadherent gauze and gauze wrap. Pt reports pain to bilateral legs and feet; stated you can look at them but don't touch them . Pt unable to rate BLE/feet pain at this time.Pt reports hx of sores to buttocks; denies pain to buttocks and reports sores appeared similar to sores on legs/feet but are currently scabbed over. Pt reports sores on penis; denies hx of HSV, HIV, or genital warts. Denies pain to penis. Reports dry skin to scrotum; denies pain to scrotum. Pt reports chronic wound to left forearm with chronic cellulitis. Pt with hx of multiple hospital admissions for left forearm ulcer, hx of surgical debridement in 11/2022, noncompliance w/follow-up and antibiotic treatment, and frequently leaves hospital AMA. Pt is followed by Surgery; had washout of left forearm wounds w/Betadine in ER and has orders for daily dressing changes w/Silvadene cream. MRI pending; pt refusing MRI at this time. Lives at home; uses cane to assist w/ambulation. ?? PMH: type 2 diabetes,??IV drug use,??hep C, opioid use, polysubstance use, cocaine use ?? PSH: Denies hx of surgeries ?? Social Hx: Declines to answer; no hx of alcohol use with current nicotine use (1/2 ppd) and former heroin use; chart reviewed ?? FMH: Declines to answer; no pertinent FMH documented on chart; chart reviewed ?? Review of Systems Constitutional:??Denies fever/chills. Eyes:??No vision changes ENT:??No hearing loss, sneezing, congestion, runny nose or sore throat. Respiratory:??No shortness of breath, cough. Cardiovascular:??No chest pain or palpitations. Gastrointestinal:??No anorexia, N/V/D, or abdominal pain. :??Denies??urinary incontinence Neurologic:??No headache, dizziness. Musculoskeletal:??Reports baseline??severe pain to BLE, bilateral feet, and left forearm Skin:??See HPI Physical Exam Vitals & Measurements T:??98.3?F?? TMIN:??97.5?F?? TMAX:??98.9?F?? HR:??107??(Peripheral)?? RR:??18?? BP:??131/80?? SpO2:??100%?? Constitutional:??WD/cachectic male??in no distress. Mental Status:??Alert/oriented to person, place and time. Head: Normocephalic. Cardiac: RRR, +S1/S2. No murmur, rub, gallop. Respiratory: Unlabored breathing; on RA.??Lungs equal/clear to auscultation. Gastrointestinal: Abdomen soft, non-tender, +bowel sounds, flat Neurologic: Moves all extremities x4 independently. Normal, coherent speech Skin: Warm, pink dry. No rashes or lesions. No petechiae or purpura.??Pt declined to turn for visual assessment of buttocks. Dry small scabs on penis; no active drainage, erythema, or point tenderness noted. Dry dark brown scab (or dry feces) to posterior scrotum; no active drainage, erythema, or point tenderness noted. Musculoskeletal: No cyanosis or clubbing. Extremities:??+2 dorsalis pedis pulses bilaterally; +1 posterior tibial pulses bilaterally. No peripheral pitting edema noted. Multiple slightly dry ulcers to BLE, rt toes, and bilateral medial feet with scattered dried dark brown drainage on BLE. Small amount of pale melgar drainage noted on disposable bed pad under legs/feet. Point tenderness to BLE/feet w/light palpation. Thickened wrinkled skin w/dull brown hyperpigmentation to BLE. Cluster of??3 ulcers to left forearm measuring approx 20 x 8 x 0.5 cm with pink moist wound bed; scattered areas of pale yellow/dark brown soft eschar within wound bed, scattered biofilm and fibrinous exudate present. Dry dark brown scabbed eschar along periwound edge. Moderate amount of light brown drainage noted on removed dressing; no malodor noted. Point tenderness to left forearm. Slight maceration to periwound edge w/epiboly. Scattered dry brown scabsto surrounding area. Psychiatric:??Euthymic mood, normal affect. Normal thought content, normal judgment. Assessment/Plan Assessment: Pt w/PMH for type 2 diabetes,??IV drug use,??hep C, opioid use, polysubstance use, cocaine use who presents??with multiple wounds. Pt w/>2 month hx of ulcers to BLE/feet that initiallypresent as blisters that rupture leaving open wounds. Pt also w/chronic hx of LUE ulcer with recurrent cellulitis??w/failed treatment due to pt's noncompliance??with??therapy and??frequently leaving hospital AMA. Pt also with new ulcers to penis/scrotum and buttocks with unknown etiology or length of time present. ?? Cellulitis of arm (L03.119):??managed by medical team ?? Diabetes (E11.9):??recommend low carb diet and tight glucose control ?? Penile lesion (N48.9):??lesion is dry without drainage; topical ointments or dressings are not required at this time -medical team awaiting?? Chlamydia/gonococcus??PCR; HIV/syphillis tests were negative ?? Decubitus ulcer of right ischium, stage 2 (L89.312):??pt declined repositioning for visual assessment; reviewed pictures in pt's chart from 02/21 -ulcer appears superficial; likely pressure ulcer due to location and cachexia -Clean w/pH skin cleanser. Pat dry. Apply thin layer of z-guard to periwound; do not reapply if present. Apply dime thick layer of Triad to wound bed. No cover dressing required; may cover w/ABD and medipore tape. Change QOD; order placed -turn/reposition q2 hrs and prn -continue use of low air loss mattress -use Gaymar (waffle) cushion when OOB to chair ?? Non-pressure ulcer of left lower extremity, limited to breakdown of skin (L97.921):??pt declines application of any form of dressings or wraps on BLE -skin has dull hyperpigmentation w/thickened wrinkled skin; resembles venous stasis skin changes ?? Non-pressure ulcer of right lower extremity, limited to breakdown of skin (L97.911):??pt declines application of any form of dressings or wraps on BLE -skin has dull hyperpigmentation w/thickened wrinkled skin; resembles venous stasis skin changes ?? Osteomyelitis (M86.9):??managed by medical team ?? Skin ulcer of forearm with fat layer exposed (L98.696):??current orders for daily dressing changes w/Silvadene cream -recommend the following dressing: Clean wound bed w/Vashe moistened gauze; use gentle but firm pressure to remove loose debris. Apply Vashe soaked gauze x5-10 mins; remove/pat dry. Apply Skin Prep to periwound. Apply nickel thick layer of Santyl to necrotic soft and dry eschar. Apply Aquacel Ag toentire wound bed. Cover w/gauze and lightly wrap w/juvenal. Change QD. Apply Tubigrip sock (size E) to hand/forearm or lightly wrap w/4 inch RUBENS for compression. Monitor skin/perfusion status. -keep left arm elevated ?? Discharge Planning: Recommend pt f/u with local wound care center upon discharge for wound/ulcer management. If referring to [facility], please??request through the [employer] list listed as a tab in the Inbox Summary section; select Wound Care - Scheduling to send a communication message requesting an appointment.? Please re-consult wound care MD/JAYY for deterioration in wound/skin status. ?? Pictures uploaded in [employer] ?? Thank you for allowing me to participate in the care of this patient,??I appreciate the opportunity to assist??in management. My assessment and??all recommendations??have been communicated??to the patient's primary team via this documentation. Please??feel free to reach out with any??concerns??or questions. Problem List/Past Medical History Ongoing Cellulitis Cellulitis and abscess of hand, except fingers and thumb Cocaine use disorder, severe, dependence Diabetes Hyperglycemia without ketosis Hyponatremia Opioid use disorder, severe, dependence Polysubstance abuse Uncontrolled diabetes mellitus with hyperglycemia Underweight Medications Inpatient Acetaminophen Tablet, 650 mg, By Mouth, Every 4 hours, PRN Dilaudid Inj, 0.5 mg= 0.5 mL, IV Push Slowly, Every 4 hours, PRN Docusate Sodium Capsule, 100 mg= 1 capsule, By Mouth, 2 times a day, PRN ferrous sulfate 325 mg oral enteric coated tablet, 325 mg, By Mouth, Daily gabapentin 300 mg oral capsule, 600 mg, By Mouth, 3 times a day Insulin LISPRO Sliding Scale, 2-10 units, Subcutaneous Injection, 3 times a day before meals Lantus Inj, 6 units= 0.06 mL, Subcutaneous Injection, Daily at bedtime Melatonin Tablet, 3 mg, By Mouth, Daily at bedtime, PRN Methadone Tablet, 30 mg, By Mouth, Daily MiraLax Powder, 17 Gm= 1 pack/packet, By Mouth, Daily, PRN NaCL 0.9% Flush, 3 mL, IV Push, Every 8 hours NaCL 0.9% Flush, 3 mL, IV Push, Every 8 hours, PRN Simethicone Tablet, 80 mg, Chew, 3 times a day, PRN Vancomycin IVPB, 500 mg, IVPB, Every 12 hours Home Alcohol Wipes, See Instructions, 5 refills ferrous sulfate 325 mg oral enteric coated tablet, 325 mg= 1 tablet, By Mouth, Daily Freestyle Lite Lancets, See Instructions, 5 refills Freestyle Lite Monitor, See Instructions, 5 refills Freestyle Lite Test Strips, See Instructions, 5 refills gabapentin 300 mg oral capsule, 600 mg, By Mouth, 3 times a day Humalog Kwik Pen 100 units/mL subcutaneous injection, See Instructions Lab draw--CBC with diff, CMP, ESR, and CRP, See Instructions, 4 refills Lantus Solostar Pen 100 units/mL subcutaneous solution, 15 units, Subcutaneous Injection, Daily at bedtime Methadone, 100 mg, By Mouth, Daily in AM Pen [place], 31 G x 5 mm BD Ultra Fine III, See Instructions, 5 refills zinc sulfate 220 mg oral capsule, 220 mg, By Mouth, Daily in AM Allergies morphine Zosyn Social History Alcohol Use: Never. Substance Abuse Use: Past. Type: Heroin. Substance abuse in household: No. Tobacco Use: 10 or more cigarettes (1/2 pack or more)/day in last 30 days. Immunizations Vaccine Date Status SARS-CoV-2 (COVID-19) Ad26 vaccine 11/13/2020 Recorded tetanus/diphtheria/pertussis, acel(Tdap) 10/26/2008 Recorded Images coccyx buttocksupper legs penisscrotum rt medial ft lt medial ft bilateral feet penis penis Lt forearm Lt forearm lt forearm * Mami Choe: PERFORM, MODIFY Event Display: Consultation Note Authored Date: Patient: ??LUCIAN ZHAO ? Age:??42 Years?Sex:??Male?:??1980?? Reason for Consultation Addiction Med Consult - IVDU Requested by??Dr Juan Francisco Steinberg History of Present Illness Lucian Zhao is a 42 yo male with a PMHx of??IVDU,??HCV,??chronic wounds,??poorly controlled??DM T2,??previous??MRSA bacteremia. He was admitted??02/21 after presenting with??multiple??concerning wounds. Pt??with worsening??redness and pain in??LUE??and genital??wounds.?? Imaging with possible septic joint vs osteomyelitis in the left hand. Follow up MRI of the LUE with evidence of destructive osteomyelitis involving distal radius and ulna, also??enhancement involving base of the second, third,fourth metacarpals, concerning for osteomyelitis. Also noted were findings consistent with bone kenyon ow atrophy and malnutrition.??ID and surgical teams involved. Pt received 30mg of methadone yesterday and this morning. ?? Met with pt this??morning.??Pt appearing??more cachectic than he has previously. Pt reporting that??he would like to??get??back on methadone. He would like to??still go to??[facility] on??[address] Pt is not wanting to do any split dosing of the methadone right now. He has been using about 1 bundle a day??of heroin.??Additionally, pt??has continued??to use??daily??cocaine. Pt does not endorse use??of any??other substances??lately,??such as??ETOH??or any benzos. Aside from referral to??the??methadone clinic, pt??expressed??he is not interested in any??other??referrals??from us currently. Review of Systems Reporting he is quite hungry, otherwise no complaints. Physical Exam Vitals & Measurements T:??98.3?F?? TMIN:??97.5?F?? TMAX:??98.9?F?? HR:??107??(Peripheral)?? RR:??18?? BP:??131/80?? SpO2:??100%?? General:??Emaciated male,??appears older than stated age.??Breathing is??even and unlabored.??In noacute distress,??no diaphoresis. Mental Status Exam: Appearance:??disheveled?? Attitude:??cooperative? Eye contact:??normal Motor activity:??calm, no aberrant movements? Mood:??euthymic? Affect:??congruent? Speech:??fluent, unimpaired? Judgment:??appears intact? Insight:??appears intact? Thought process:??linear? Reliability:??likely reliable source? Delusions or hallucinations:??denies Fund of knowledge:??intact Assessment/Plan Cocaine use disorder (F14.10):??. Patient counseled on risks of cocaine use, including seizures, psychosis, vascular complications such as heart attack and stroke. Also discussed risk of contamination in the cocaine supply with othersubstances such as fentanyl or heroin, which can lead to overdose. At this time, there are no viable medication options specific to cocaine use disorder. Other options may include motivational interviewing, cognitive behavioral therapy, as well as contingency management plans. Pt??receptive.? Severe opioid use disorder (F11.20):??. Pt with ongoing opioid use, would like to get back on methadone and attend [facility] on [address] Referral to be submitted. Pt not interested in any other referrals/supports right now. Pt will need an EKG to ensure QTc is <500ms. If this looks OK, can give pt another 10mg of methadone x1 today and maintain on 40mg daily for now. Fine to continue any other pain medications needed for acute pain control. ?? Can consider addition of some PRNs to help with withdrawal on a symptomatic basis: Clonidine 0.1mg PO q 8 hrs PRN restlessness (so long as vitals are stable) Vistaril 25mg PO q 4 hrs PRN anxiety Flexeril 10mg PO TID PRN body aches ?? Update sent via [employer] to Dr Byrd. Addiction??Service will continue to follow with this patient. Thank you for allowing us to participate in the care of this patient. Please contact me with any further questions or concerns.?? Problem List/Past Medical History Ongoing Cellulitis Cellulitis and abscess of hand, except fingers and thumb Cocaine use disorder, severe, dependence Diabetes Hyperglycemia without ketosis Hyponatremia Opioid use disorder, severe, dependence Polysubstance abuse Uncontrolled diabetes mellitus with hyperglycemia Underweight Medications Inpatient Acetaminophen Tablet, 650 mg, By Mouth, Every 4 hours, PRN Dilaudid Inj, 0.5 mg= 0.5 mL, IV Push Slowly, Every 4 hours, PRN Docusate Sodium Capsule, 100 mg= 1 capsule, By Mouth, 2 times a day, PRN ferrous sulfate 325 mg oral enteric coated tablet, 325 mg, By Mouth, Daily gabapentin 300 mg oral capsule, 600 mg, By Mouth, 3 times a day Insulin LISPRO Sliding Scale, 2-10 units, Subcutaneous Injection, 3 times a day before meals Lantus Inj, 6 units= 0.06 mL, Subcutaneous Injection, Daily at bedtime Melatonin Tablet, 3 mg, By Mouth, Daily at bedtime, PRN Methadone Tablet, 30 mg, By Mouth, Daily MiraLax Powder, 17 Gm= 1 pack/packet, By Mouth, Daily, PRN NaCL 0.9% Flush, 3 mL, IV Push, Every 8 hours NaCL 0.9% Flush, 3 mL, IV Push, Every 8 hours, PRN Simethicone Tablet, 80 mg, Chew, 3 times a day, PRN Vancomycin IVPB, 500 mg, IVPB, Every 12 hours Home Alcohol Wipes, See Instructions, 5 refills ferrous sulfate 325 mg oral enteric coated tablet, 325 mg= 1 tablet, By Mouth, Daily Freestyle Lite Lancets, See Instructions, 5 refills Freestyle Lite Monitor, See Instructions, 5 refills Freestyle Lite Test Strips, See Instructions, 5 refills gabapentin 300 mg oral capsule, 600 mg, By Mouth, 3 times a day Humalog Kwik Pen 100 units/mL subcutaneous injection, See Instructions Lab draw--CBC with diff, CMP, ESR, and CRP, See Instructions, 4 refills Lantus Solostar Pen 100 units/mL subcutaneous solution, 15 units, Subcutaneous Injection, Daily at bedtime Methadone, 100 mg, By Mouth, Daily in AM Pen [place], 31 G x 5 mm BD Ultra Fine III, See Instructions, 5 refills zinc sulfate 220 mg oral capsule, 220 mg, By Mouth, Daily in AM Allergies morphine Zosyn Social History Alcohol Use: Never. Substance Abuse Use: Past. Type: Heroin. Substance abuse in household: No. Tobacco Use: 10 or more cigarettes (1/2 pack or more)/day in last 30 days. Immunizations Vaccine Date Status SARS-CoV-2 (COVID-19) Ad26 vaccine 11/13/2020 Recorded tetanus/diphtheria/pertussis, acel(Tdap) 10/26/2008 Recorded * Jia Walker: PERFORM, SIGN, VERIFY Event Display: Consultation Note Authored Date: [id number] Patient: LUCIAN ZHAO Age: 42 years Sex: Male : 1980 Associated Diagnoses: None Author: Jia Walker Patient is interested in MAT for recovery resources. Patient has been referred to [facility] for recovery resources. No additional resources were needed at this time. Addiction Consultation Team [address] [place] [address] Patient: Lucian Zhao (: 1980) Date: 02/23/2023 You have been referred to the following programs: [facility] Clinic [address] [facility] [address] Dosing Hours: Mon-Fri from 6:00am-12:00pm and Sat-Sun 7:00am-10:00am. Please bring last dose letter and discharge paperwork to the clinic for a methadone intake. Patient Care team information Care Team Personnel Name: Lorraine Sherwood RN Position: [facility] AMB Nurse Member Role: Primary Care Nurse Name: Hailey Corado RN Position: [facility] RN Supv Member Role: Primary Care Nurse Name: Ana Pink RN Position: [facility] RN Member Role: Primary Care Nurse Name: Aida Saul RN Position: [facility] RN Member Role: Primary Care Nurse Name: Ashley Gastelum RN Position: [facility] RN Member Role: Primary Care Nurse Name: Calin Larose MD Position: [facility] Physician (General Medicine) Member Role: PCP Address: Address: [address] [place] [address] Name: Naima Beach RN Position: [facility] RN Member Role: Primary Care Nurse Name: Margo Valdez LPN Position: [facility] RN Member Role: Primary Care Nurse Name: Zev Brock RN Position: [facility] RN Member Role: Primary Care Nurse Name: Chela Herrera RN Position: [facility] RN Member Role: Primary Care Nurse Name: Felecia Vaughn RN Position: [facility] RN Member Role: Primary Care Nurse Name: Liane Tellez RN Position: [facility] SN RN Member Role: Primary Care Nurse Name: Pennie Sanchez RN Position: S RN Member Role: Primary Care Nurse Name: Veronica Garcia RN Position: S RN Member Role: Primary Care Nurse Name: Mai Jimenez LPN Position: S RN Member Role: Primary Care Nurse Name: Rakel Burton RN Position: S RN Member Role: Primary Care Nurse Name: Toña Dubon RN Position: [facility] ED RN W/OE and Tasks Member Role: Primary Care Nurse Name: Manav Muñiz RN Position: [facility] ED RN W/OE and Tasks Member Role: Primary Care Nurse Name: Alee Shaikh RN Position: [facility] RN Member Role: Primary Care Nurse Name: Christy Almanza RN Position: [facility] RN Member Role: Primary Care Nurse Name: Lashae Servin RN Position: [facility] RN Member Role: Primary Care Nurse Name: Bindu Gaspar RN Position: [facility] RN Member Role: Primary Care Nurse Name: Alexey Wilkins RN Position: [facility] RN Member Role: Primary Care Nurse Name: Ilene Orona RN Position: [facility] RN Member Role: Primary Care Nurse Name: Seth Rivera RN Position: [facility] RN Member Role: Primary Care Nurse Name: Doroteo Ray RN Position: [facility] RN Member Role: Primary Care Nurse Name: Miko Alvarez RN Position: [facility] RN Member Role: Primary Care Nurse Name: Hugo Marshall RN Position: [facility] RN Member Role: Primary Care Nurse Name: Sammie Jimenez RN Position: [facility] RN Member Role: Primary Care Nurse Name: Verenice Espinoza RN Position: [facility] RN Member Role: Primary Care Nurse Name: Livier Denton Position: [facility] RN Member Role: Primary Care Nurse Name: Lucian Kelly RN Position: [facility] RN Member Role: Primary Care Nurse Name: Charissa Banuelos RN Position: [facility] RN Member Role: Primary Care Nurse Name: See Anderson RN Position: [facility] RN Member Role: Primary Care Nurse Name: Yana Hernandez RN Position: [facility] RN Member Role: Primary Care Nurse Name: Kala Ferraro RN Position: [facility] RN Member Role: Primary Care Nurse Name: Sara Carpenter RN Position: [facility] RN Member Role: Primary Care Nurse Name: Molly Kebede RN Position: [facility] OB RN Member Role: Primary Care Nurse Name: Brittaney Eagle RN Position: [facility] RN Member Role: Primary Care Nurse Name: Dahiana Mulelr LPN Position: [facility] RN Member Role: Primary Care Nurse Name: Renee Villanueva RN Position: [facility] RN Member Role: Primary Care Nurse Name[facility] Attending Position: [facility] ED Attendings Patient Name: *RAPHAEL, Inpt Attending Position: [facility] ED Medicine MD Name: Suzanne Goff Position: [facility] ED OA Charge Member Role: ED Associate Name: Hailey Hunter Position: [facility] ED RN W/OE and Tasks Member Role: Patient Care Provider Name: Alexander Fox Position: [facility] ED TA [facility] Member Role: Patient Care Provider Care Team Related Persons Name: DEBRA ZHAO Address: [address] [place] [address] Name: DODIE ZHAO Address: [address] [place] [address] Name: GEMMA ZHAO Address: [address] [place] [address]
--- OUTSIDE RECORDS SUMMARY | 2024-01-19 22:59 | XMS_ITS | Continuity of Care Document ---
Author Organization [facility] Address [address] [place] [address]- Care Team Providers Care Suede Cleaner Name Role Phone Lachelle MCKEON, Calin Mckeon Primary Care Physician Encounter [facility] [place] Date(s): 10/22/21 - 02/13/22 [facility] [address] [place], [place] [address] Attending Physician: Young Castillo MD Admitting Physician: Young Castillo MD Allergies, Adverse Reactions, Alerts Substance Reaction [...] drug. Start Date: 10/16/21 Status: Ordered Pen [place], 29 G x 12.7 mm BD Ultra Fine See Instructions, # 100 each, Refills 5, Tot. Refills 5, Maintenance, use as directed for Type 2 DMcheck POC TID, 06/30/21 9:35:00 EDT, Supply, 162, cm, 02/29/20 13:15:00 EST, Height, 46.9, kg, 06/28/21 12:21:00 EDT, Dry Weight Start Date: 06/30/21 Stop Date: 12/27/21 Status: Ordered vitamin A 75906 u oral capsule 10,000 International_[employer]its, 1, capsule, [...] Date: 10/16/21 Status: Ordered Problem List Condition Confirmation Course Effective Dates Status H ealth Status Informant Cellulitis Confirmed Active Cellulitis and abscess of hand, except fingers and thumb Confirmed Active Cocaine use disorder, severe, dependence Confirmed Active Hyperglycemia without ketosis Confirmed Active Hyponatremia Confirmed Active Opioid use disorder, severe, dependence Confirmed Active Polysubstance abuse Confirmed Active Social History Social History Type Response Smoking Status 10 or more cigarette s (1/2 pack or more)/day in last 30 days entered on: 01/28/18 Sex Patient Care team information Care Team Personnel Name: Lorraine Sherwood RN Position: [facility] AMB Nurse Member Role: Primary Care Nurse Name: Ana Pink RN Position: [facility] RN Member Role: Primary Care Nurse Name: Ashley Gastelum RN Position: [facility] RN Member Role: Primary Care Nurse Name: Calin Larose MD Position: [facility] Physician (General Medicine) Member Role: PCP Address: Address: [address] [place] [address] [place] [address]- Name: Zev Brock Position: [facility] RN Member Role: Primary Care Nurse Name: Patt Ponce RN Position: [facility] RN Member Role: Primary Care Nurse Name: Pennie Sanchez RN Position: [facility] RN Member Role: Primary Care Nurse Name: Naima Carolina RN Position: [facility] RN Member Role: Primary Care Nurse Name: Carol Marquez RN Position: [facility] RN Member Role: Primary Care Nurse Name: Manav Muñiz RN Position: [facility] ED RN W/OE and Tasks Member Role: Primary Care Nurse Name: Alee Shaikh RN Position: [facility] RN Member Role: Primary Care Nurse Name: Christy Almanza RN Position: [facility] RN Member Role: Primary Care Nurse Name: Bindu Gaspar RN Position: [facility] RN Member Role: Primary Care Nurse Name: Alexey Wilkins RN Position: [facility] RN Member Role: Primary Care Nurse Name: Ilene Orona RN Position: [facility] RN Member Role: Primary Care Nurse Name: Miko Alvarez RN Position: [facility] RN Member Role: Primary Care Nurse Name: Sammie Jimenez RN Position: [facility] RN Member Role: Primary Care Nurse Name: Verenice Espinoza RN Position: [facility] RN Member Role: Primary Care Nurse Name: Yana Hernandez RN Position: [facility] RN Member Role: Primary Care Nurse Name: Molly Kebede RN Position: [facility] OB RN Member Role: Primary Care Nurse Name: Brittaney Eagle RN Position: [facility] RN Member Role: Primary Care Nurse Care Team Related Persons Name: RUSTYFOREIGNRebeccaDEBRA Address: home [address] [place] [address] Name: CECE DODIE Address: home [address] [place] [address]
--- OUTSIDE RECORDS SUMMARY | 2024-01-19 22:59 | XMS_ITS | Continuity of Care Document ---
Author Organization [facility] Infectious Disease Address [address] [place] [address]- Care Team Providers Care Reproduction Machine Loader Name Role Phone Lachelle MCKEON, Calin Mckeon Primary Care Physician Encounter [facility] Date(s): 05/07/23 - 06/06/23 [facility] [address] [place] [address] Allergies, Adverse Reactions, Alerts Substance Reaction Severity [...] EDT, Height, 43.6, kg, 12/04/22 9:38:00 EDT, Start Date: 12/19/22 Stop Date: 06/17/23 Status: [...] 12/19/22 9:11:00 EDT, Route to Pharmacy Electronically, [facility]/pharmacy #[id number], Partial fill upon patient request ifthe prescription [...] Inject... Start Date: 04/08/23 Status: Ordered Pen [facility], 31 G x 5 mm BD Ultra [...] Team Personnel Name: Suha Joya RN Position: [facility] RN Member Role: Primary Care Nurse Name: Lorraine Sherwood RN Position: [facility] AMB Nurse Member Role: Primary Care Nurse Name: Hailey Corado RN Position: [facility] RN Supv Member Role: Primary Care Nurse Name: Alayna Barfield RN Position: [facility] RN Member Role: Primary Care Nurse Name: Ana Pink RN Position: [facility] RN Member Role: Primary Care Nurse Name: Aida Saul RN Position: [facility] RN Member Role: Primary Care Nurse Name: Ashley Gastelum RN Position: [facility] RN Member Role: Primary Care Nurse Name: Calin Larose MD Position: [facility] Physician (General Medicine) Member Role: PCP Address: Address: [address] [place] [address] Name: Mami Goetz RN Position: [facility] RN Member Role: Primary Care Nurse Name: Pennie Hamilton RN Position: [facility] RN Member Role: Primary Care Nurse Name: Naima Beach RN Position: [facility] RN Member Role: Primary Care Nurse Name: Margo Valdez LPN Position: [facility] RN Member Role: Primary Care Nurse Name: Zev Brock RN Position: [facility] RN Member Role: Primary Care Nurse Name: Chela Herrera RN Position: [facility] RN Member Role: Primary Care Nurse Name: Felecia Vaughn RN Position: [facility] RN Member Role: Primary Care Nurse Name: Liane Tellez RN Position: [facility] RN Member Role: Primary Care Nurse Name: Veronica Garcia RN Position: [facility] RN Member Role: Primary Care Nurse Name: Mai Jimenez LPN Position: [facility] RN Member Role: Primary Care Nurse Name: Rakel Burton RN Position: [facility] RN Member Role: Primary Care Nurse Name: Toña Dubon RN Position: [facility] RN Member Role: Primary Care Nurse Name: Connie Leavitt RN Position: [facility] RN Member Role: Primary Care Nurse Name: Manav Muñiz RN Position: [facility] ED RN W/OE and Tasks Member Role: Primary Care Nurse Name: Alee Shaikh RN Position: [facility] RN Member Role: Primary Care Nurse Name: Christy Almanza RN Position: [facility] RN Member Role: Primary Care Nurse Name: Lashae Servin RN Position: [facility] RN Member Role: Primary Care Nurse Name: Toy Langley RN Position: [facility] RN Member Role: Primary Care Nurse Name: Bindu Gaspar RN Position: [facility] RN Member Role: Primary Care Nurse Name: Alexey Wilkins RN Position: [facility] RN Member Role: Primary Care Nurse Name: Ilene Orona RN Position: [facility] RN Member Role: Primary Care Nurse Name: Doroteo Ray RN Position: [facility] RN Member Role: Primary Care Nurse Name: Miko Alvarez RN Position: [facility] RN Member Role: Primary Care Nurse Name: Fausto Pearl LPN Position: [facility] RN Member Role: Primary Care Nurse Name: Hugo Marshall RN Position: [facility] RN Member Role: Primary Care Nurse Name: Sammie Jimenez RN Position: [facility] RN Member Role: Primary Care Nurse Name: Verenice Espinoza RN Position: [facility] RN Member Role: Primary Care Nurse Name: Livier Denton Position: [facility] RN Member Role: Primary Care Nurse Name: Lucian Kelly RN Position: [facility] RN Member Role: Primary Care Nurse Name: Charissa Banuelos RN Position: [facility] RN Member Role: Primary Care Nurse Name: See Anderson RN Position: [facility] ED RN W/OE and Tasks Member Role: Primary Care Nurse Name: Michoacano Bowles RN Position: [facility] RN Member Role: Primary Care Nurse Name: Kala Ferraro RN Position: [facility] RN Member Role: Primary Care Nurse Name: Lee Hyde RN Position: [facility] RN Member Role: Primary Care Nurse Name: Dino Brewster RN Position: [facility] RN Member Role: Primary Care Nurse Name: Sara Carpenter RN Position: [facility] RN Member Role: Primary Care Nurse Name: Molly Kebede RN Position: [facility] OB RN Member Role: Primary Care Nurse Name: Nadya Murillo LPN Position: [facility] RN Member Role: Primary Care Nurse Name: Brittaney Eagle RN Position: [facility] RN Member Role: Primary Care Nurse Name: Dahiana Muller LPN Position: [facility] RN Member Role: Primary Care Nurse Name: Renee Villanueva RN Position: [facility] ED RN W/OE and Tasks Member Role: Primary Care Nurse Care Team Related Persons Name: DEBRA ZHAO Address: home [address] [place] [address] Name: DODIE ZHAO Address: [address] [place] [address] Name: GEMMA ZHAO Address: [address] [place] [address]
--- OUTSIDE RECORDS SUMMARY | 2024-01-19 22:59 | XMS_ITS | Continuity of Care Document ---
Author Organization [facility] ter Address [address] [place] [id number] Care Team Providers Care Weapons Specialist Name Role Phone Not on Staff, PCP Primary Care Physician Unavail able Encounter [facility] Date(s): 05/02/22 - 05/03/[address] [id number] Discharge Disposition: A-D/C AMA Attending Physician: Ray Rhoades MD, Tanner Ortez Admitting Physician: Lor MCKEON, Montrell Su Referring Physician: Not on Staff, Referring MD Allergies, Adverse Reactions, Alerts Substance Reaction Severity Status morphine 1 Unknown Active 1Has a side effect - itching. Immunizations Given and Recorded Vaccine Date Status Refusal Reason SARS-CoV-2 (COVID-19) Ad26 vaccine 11/13/20 Record ed tetanus/diphtheria/pertussis, acel(Tdap) 10/26/08 Recorded Medications Methadone Tablet 30 mg, Tablet, By Mouth, Once, Routine, 05/03/22 12:00:00 EST, Stop date 05/03/22 12:00:00 EST Start Date: 05/03/22 Stop Date: 05/03/22 Status: Completed Problem List Condition Confirmation Course Effective Dates [...] for Microbiology Reports Name Date Blood Culture 05/01/22 Blood Culture #2 05/01/22 Microbiology Reports TEST:Blood Culture STATUS:Unauthenticated BODY SITE: SOURCE:Blood COLLECTED DATE/TIME:05/01/22 5:58 PM Blood Culture SPECIMEN DESCRIPTION : BLOOD NO SITE SPECIAL REQUESTS : NONE CULTURE : NO GROWTH AFTER 48 HOURS REPORT STATUS : PRELIMINARY REPORT TEST:Blood Culture, Second Order STATUS:Unauthenticated BODY SITE: SOURCE:Blood COLLECTED DATE/TIME:05/01/22 5:58 PM Blood Culture, Second Order SPECIMEN DESCRIPTION : BLOOD NO SITE SPECIAL REQUESTS : NONE CULTURE : NO GROWTH AFTER 48 HOURS REPORT STATUS : PRELIMINARY REPORT Radiology Reports * Exam Date Time Procedure Performing Provider Status 05/02/22 4:26 AM US Extremity Non-Vas cular Left Limited Hai , Bijal; Auth (Verified) Notes: (US Extremity Non-Vascular Left Limited) Reason For Exam: LEFT FOREARM ULCER, SWELLING;Abscess RESULT: US Extremity Non-Vascular Left Limited US Extremity Non-Vascular Left Limited Reason: Abscess; LEFT FOREARM ULCER, SWELLING; Clinical Question(s): Abscess COMPARISON: CT left upper extremity 10/15/2021 FINDINGS: High-resolution, linear array imaging of the superficial soft tissues of the left forearm was performed in the area of the patient's wound. There is significant thickening and heterogeneous subcutaneous edema in the area of concern along the ulnar aspect of the left forearm. Irregularity of the skin corresponds to the area of ulceration.At the distal aspect of the wound, there is a small irregularly-shaped hypoechoic collection measuring up to 1.0 x 1.2 x 0.5 cm, with hypoechoic tract extending towards the skin. Small hyperechoic foc us is present within it with posterior shadowing, possibly tiny focus of gas versus punctate calcification. IMPRESSION: Superficial edema surrounding the area of the wound in the left forearm, with a tiny collection at the distal aspect measuring 1.2 x 1.2 x 0.5 cm which may reflect tiny abscess pocket with tract extending towards the skin. WSN: [id number] Ordering Physician: Tim Moore Dictated By: Skylar Liu MD Dictated Date/Time: 05/02/22 8:14 am Reviewed By: Skylar Liu MD Signed By: Skylar Liu MD Signed Date/Time: 05/02/22 8:14 am Transcribed By: AKASH Transcribed Date/Time: 05/02/22 7:55 am * Exam Date Time Procedure Performing Provider Status 05/01/22 8:[address] Abd/Pelvis W/ IV Contrast Only Eusebia Jones; Auth (Verified) Notes: (CT Abd/Pelvis W/ IV Contrast Only) Reason For Exam: RUQ and Mid epi abd ttp;Pain RESULT: CT Abd/Pelvis W/ IV Contrast Only CT Chest W/ Contrast, CT Abd/Pelvis W/ IV Contrast Only INDICATION: r o septic pulm emboli; TECHNIQUE: Helical CT scan of the chest, abdomen, and pelvis with IV contrast, formatted in 3 planes. 75 cc of Omnipaque 300 was administered intravenously. This study was performed without oral contrast. Weight-based protocol was performed using automatic exposure control. CTDIvol Body: 4.60 mGy, DLP Body: 326 mGy*cm. COMPARISON: CT chest from 09/09/2020 FINDINGS: Safety Supervisor view findings, lines and tubes: None. Trachea and airways: There is fluid and debris within the distal left mainstem bronchus extending into the bronchi of the left lower lobe and lingula. There is also minimal debris within the right lower lobe bronchi. Lungs and pleura: Left apical scarring at site of previously seen pneumatoceles. Multiple patchy peribronchiolar nodular consolidations predominantly in the right middle and lower lobes with mild bronchial wall thickening and occlusion. Appearance is most consistent with pneumonia . No effusion or pneumothorax. Mediastinum and ham: No mass or hematoma. No mediastinal or hilar lymphadenopathy. No esophageal abnormality. Heart: Heart is normal in size. No pericardial effusion. Aorta: No aortic aneurysm. Pulmonary arteries: Normal caliber. No evidence of pulmonary embolism on this study performed without angiographic technique. Chest wall soft tissues: No acute abnormality. Diaphragm: Intact. Liver: Diffuse low-attenuation throughout the liver parenchyma consistent with hepatic steatosis. No evidence of a suspicious lesion. Gallbladder: Contracted but no CT evidence of gallbladder pathology. Bile ducts: No biliary ductal dilation. Spleen: Mild splenomegaly measuring up to 14 cm. Pancreas: No suspicious lesion or ductal dilatation. Adrenal glands: No nodule. Kidneys and ureters: No hydronephrosis, stone, or suspicious lesion. Bladder: Significantly distended without wall thickening or surrounding stranding. Reproductive organs: Unremarkable. Stomach, small bowel, and large bowel: Normal caliber stomach and bowel loops. No surrounding inflammatory changes. Appendix: No evidence of acute appendicitis. Peritoneum and retroperitoneum: Diffuse small volume ascites and fluid throughout the mesentery. Noomental or mesenteric lesions. Lymph nodes: No enlarged lymph nodes. Blood vessels: No vascular calcifications or aneurysm. No evidence of venous thrombosis. Abdominal and pelvic wall soft tissues: No acute abnormality. Bones: No acute abnormality. Lumbar fusion hardware at the L4-S1 level with bilateral screws in theL4 vertebral body in S1 vertebral bodies with the aortic root report. Intervertebral disc spacer device at the L4-L5 and L5-S1 level. IMPRESSION: CHEST CT: Patchy and nodular airspace opacities throughout the right middle lobe and right lower lobe compatible with bronchopneumonia. Additional fluid and debris within the bronchi to the left lower lobe though there is no significant consolidation in the left lower lobe. No cavitary lesions or specific CT findings of septic emboli. ABDOMEN-PELVIS CT: Small volume ascites and increased attenuation of the central mesentery suggesting mesenteric fluid. Mild splenomegaly. I have personally reviewed the images and I agree with this report. WSN: [id number] Ordering Physician: Isael Gaines Dictated By: Carmen Davis MD Dictated Date/Time: 05/01/22 10:40 p Reviewed By: Landen García MD Signed By: Landen García MD Signed Date/Time: 05/01/22 10:45 pm Transcribed By: AKASH Transcribed Date/Time: 05/01/22 9:39 pm * Exam Date Time Procedure Performing Provider Status 05/01/22 8:[address] Chest W/ Contrast Eusebia Granados; Bradley (Verified) Notes: (CT Chest W/ Contrast) Reason For Exam: r/o septic pulm emboli;Other: RESULT: CT Chest W/ Contrast CT Chest W/ Contrast, CT Abd/Pelvis W/ IV Contrast Only INDICATION: r o septic pulm emboli; TECHNIQUE: Helical CT scan of the chest, abdomen, and pelvis with IV contrast, formatted in 3 planes. 75 cc of Omnipaque 300 was administered intravenously. This study was performed without oral contrast. Weight-based protocol was performed using automatic exposure control. CTDIvol Body: 4.60 mGy, DLP Body: 326 mGy*cm. COMPARISON: CT chest from 09/09/2020 FINDINGS: Safety Supervisor view findings, lines and tubes: None. Trachea and airways: There is fluid and debris within the distal left mainstem bronchus extending into the bronchi of the left lower lobe and lingula. There is also minimal debris within the right lower lobe bronchi. Lungs and pleura: Left apical scarring at site of previously seen pneumatoceles. Multiple patchy peribronchiolar nodular consolidations predominantly in the right middle and lower lobes with mild bronchial wall thickening and occlusion. Appearance is most consistent with pneumonia . No effusion or pneumothorax. Mediastinum and ham: No mass or hematoma. No mediastinal or hilar lymphadenopathy. No esophageal abnormality. Heart: Heart is normal in size. No pericardial effusion. Aorta: No aortic aneurysm. Pulmonary arteries: Normal caliber. No evidence of pulmonary embolism on this study performed without angiographic technique. Chest wall soft tissues: No acute abnormality. Diaphragm: Intact. Liver: Diffuse low-attenuation throughout the liver parenchyma consistent with hepatic steatosis. No evidence of a suspicious lesion. Gallbladder: Contracted but no CT evidence of gallbladder pathology. Bile ducts: No biliary ductal dilation. Spleen: Mild splenomegaly measuring up to 14 cm. Pancreas: No suspicious lesion or ductal dilatation. Adrenal glands: No nodule. Kidneys and ureters: No hydronephrosis, stone, or suspicious lesion. Bladder: Significantly distended without wall thickening or surrounding stranding. Reproductive organs: Unremarkable. Stomach, small bowel, and large bowel: Normal caliber stomach and bowel loops. No surrounding inflammatory changes. Appendix: No evidence of acute appendicitis. Peritoneum and retroperitoneum: Diffuse small volume ascites and fluid throughout the mesentery. Noomental or mesenteric lesions. Lymph nodes: No enlarged lymph nodes. Blood vessels: No vascular calcifications or aneurysm. No evidence of venous thrombosis. Abdominal and pelvic wall soft tissues: No acute abnormality. Bones: No acute abnormality. Lumbar fusion hardware at the L4-S1 level with bilateral screws in theL4 vertebral body in S1 vertebral bodies with the aortic root report. Intervertebral disc spacer device at the L4-L5 and L5-S1 level. IMPRESSION: CHEST CT: Patchy and nodular airspace opacities throughout the right middle lobe and right lower lobe compatible with bronchopneumonia. Additional fluid and debris within the bronchi to the left lower lobe though there is no significant consolidation in the left lower lobe. No cavitary lesions or specific CT findings of septic emboli. ABDOMEN-PELVIS CT: Small volume ascites and increased attenuation of the central mesentery suggesting mesenteric fluid. Mild splenomegaly. I have personally reviewed the images and I agree with this report. WSN: [id number] Ordering Physician: Isael Gaines Dictated By: Carmen Davis MD Dictated Date/Time: 05/01/22 10:40 p Reviewed By: Landen García MD Signed By: Landen García MD Signed Date/Time: 05/01/22 10:45 pm Transcribed By: AKASH Transcribed Date/Time: 05/01/22 9:39 pm * Exam Date Time Procedure Performing Provider Status 05/01/22 8:[address] Head/Brain W/O Contrast Darwin Arlyn Welsh; Auth (Verified) Notes: (CT Head/Brain W/O Contrast) Reason For Exam: r/o ICH;Other: RESULT: CT Head/Brain W/O Contrast CT Head/Brain W/O Contrast INDICATION: Reason: Other:; r o ICH; Clinical Question(s): Hematoma TECHNIQUE: Noncontrast head CT using axial technique and reconstructed in axial and coronal planes.Iterative reconstruction techniques are used to optimize dose and image quality. CTDIvol Head: 48.30 mGy, DLP Head: 773 mGy*cm. COMPARISON: 09/09/2020 FINDINGS: Safety Supervisor view findings, lines and tubes: None. BRAIN AND EXTRA-AXIAL SPACES: No parenchymal hemorrhage, midline shift, or mass effect. Mccall-white matter differentiation is wellpreserved. No acute infarct. Negative insular ribbon and hyperdense vessel signs. Ventricles, sulci, and basilar cisterns are normal. No white matter lesions. No subarachnoid hemorrhage. No subdural or epidural collection. CALVARIUM, SKULL BASE, AND SOFT TISSUES: No fractures or suspicious bony lesions. The paranasal sinuses and mastoid air cells are clear. Visualized orbits and globes are intact. The extracranial soft tissues are unremarkable. IMPRESSION: No acute intracranial pathology. WSN: [id number] Ordering Physician: Isael Gaines Dictated By: Landen García MD Dictated Date/Time: 05/01/22 8:24 pm Reviewed By: Landen García MD Signed By: Landen García MD Signed Date/Time: 05/01/22 8:24 pm Transcribed By: AKASH Transcribed Date/Time: 05/01/22 8:23 pm Vital Signs Most recent to oldest [Reference Range]: 1 2 3 Height 164 cm (05/03/22 11:35 AM) 164 cm (05/03/22 7:55 AM) 164 cm (05/03/22 3:35 AM) Weight 43.3 kg (05/02/22 6:11 PM) Oxygen Saturation [94-100 %] 98 % (05/03/22 11:35 AM) 94 % (05/03/22 7:55 AM) 98 % (05/03/22 3:35 AM) Pulse Rate [55-90 bpm] 56 bpm (05/03/22 11:35 AM) 50 bpm *L* (05/03/22 7:55 AM) 52 bpm *L* (05/03/22 3:35 AM) Body Mass Index [18.5-24.99 kg/m2] 16.1 kg/m2 *L* (05/02/22 6:11 PM) Blood Pressure [90-138/55-84 mm Hg] 114/76mm Hg (05/03/22 11:35 AM) 127/84mm Hg (05/03/22 7:55 AM) 127/86mm Hg (05/03/22 3:35 AM) Respiratory Rate [16-30 br/min] 18 br/min (05/03/22 12:44 PM) 18 br/min (05/03/22 11:44 AM) 16 br/min (05/03/22 11:35 AM) Temperature [96.8-100.4 DegF] 97.6 DegF (05/03/22 11:35 AM) 98.1 DegF (05/03/22 7:55 AM) 98.5 DegF (05/03/22 3:35 AM) Liters per Minute 3 L/min (05/01/22 4:50 PM) 3 L/min (05/01/22 4:50 PM) 3 L/min (05/01/22 4:26 PM) Mode of Delivery (Oxygen) Room air (05/03/22 11:35 AM) Room air (05/03/22 7:55 AM) Room air (05/03/22 3:35 AM) Blood pressure sites Arm, right (05/03/22 11:35 AM) Arm, right (05/03/22 7:55 AM) Arm, right (05/03/22 3:35 AM) Temperature Route Oral (05/03/22 11:35 AM) Oral (05/03/22 7:55 AM) Oral (05/03/22 3:35 AM) Dry Weight 43.3 kg (05/02/22 6:11 PM) Weight Obtained Via Bed scale (05/02/22 6:11 PM) Dry Weight Obtained Via Bed scale (05/02/22 6:11 PM) Social History Social History Type Response Smoking Status 10 or more cigarette s (1/2 pack or more)/day in last 30 days entered on: 01/28/18 Sex Admission evaluation note * Tim Moore MD: PERFORM Event Display: Admission Note Authored Date: [id number] Patient: ??LUCIAN ZHAO ? Age:??41 Years?Sex:??Male?:??1980?? 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 ? He reported that he has been having chest pain for 1 month. ??Patient had a chest pain right-sided chest as gradual onset, stabbing, 8 out of 10, intermittent,??with no aggravating or alleviating factors, associated with productive cough but no fever, no chills, no shortness of breath. ? In addition, patient also reported left upper quadrant abdominal pain??for 1 month??with nausea vomiting for the last 2 days. ? Also endorsed that he has chronic wound on his left forearm that is there for at least 6 months. ??Patient reported that he would have intermittent pus drainage from his chronic wound. ??Patient put that??last past drainage was about few days ago??from one of the pockets.?? Patient reports that he uses??IV cocaine??and heroin every 2 days.?Reports last use of cocaine was about 2 days ago. ? As per ER note, patient told ER provider that he was admitted in outside hospital due to MRSA bacteremia due to left arm infection??but he left AMA.??however, upon my questioning the patient denied any recent hospitalization or any recent antibiotic??usage. Review of Systems All pertinent negatives and positives are noted in HPI. ??All other systems were reviewed and are negative. Objective ? Vital Signs?? Temperature: 98.9 DegF (05/01/22 16:50:00) Temperature Route: Oral (05/01/22 16:50:00) Pulse Rate: 78 bpm (05/02/22 00:54:00) Respiratory Rate: 20 br/min (05/01/22 16:50:00) Systolic Blood Pressure: 129 mm Hg (05/02/22 00:54:00) Diastolic Blood Pressure: 83 mm Hg (05/02/22 00:54:00) Blood pressure sites: Arm, right (05/02/22 00:54:00) Mean Arterial Pressure: 98 mm Hg (05/01/22 16:50:00) Pulse Pressure: 46 mm Hg (05/02/22 00:54:00) Oxygen Saturation: 100 % (05/02/22 00:54:00) Liters per Minute: 3 L/min (05/01/22 16:50:00) Liters per Minute: 3 L/min (05/01/22 16:50:00) Mode of Delivery (Oxygen): Room air (05/02/22 00:54:00) Early Warning Score: 4 (05/02/22 00:54:58) ? Physical Exam Constitutional: Alert, in no acute distress. Head: Normocephalic. ?? Eyes: Pupils are equal, round and reactive to light. Extraocular muscles intact. No pallor or scleral icterus ?? Ear, Nose and Throat: mucous membranes moist. Ears and nose - no obvious deformities. Trachea midline. ?? Neck: Supple, Full range of motion.No JVD or bruits. Respiratory:??Clear to auscultation. No wheezing or rhonchi.??No use of accessory muscles. No tactile fremitus.?? Cardiovascular:??PMI not visible. S1 S2 regular. No murmurs, rubs or gallops. Gastrointestinal:??Abdomen soft, non-tender, non-distended. Normal bowel sounds. No pulsatile mass.No hepatosplenomegaly. Genitourinary:??No costovertebral angle tenderness. Extremities:??1+ lower extremity pitting edema. No cyanosis or clubbing. Neurologic:??AAOx3, Cranial nerves II-XII grossly intact. Speech normal, no facial droop. No focal neurological deficits. Moves all extremities spontaneously. Sensation intact bilaterally.??Flexor plantar response Skin:??Left forearm: Multiple ulcers noted on left forearm with surrounding??dark discoloration of the skin, no??purulent drainage noted,??some areas of fluctuance noticed Musculoskeletal:??No gross deformities on inspection. Normal range of motion in hips, knees, ankles. .??Muscle strength within normal limits Heme/Lymphatics:??Palpation of neck reveals no swelling or tenderness of neck nodes.?? Psychiatric: Normal mood and affect. Assessment/Plan Diagnoses 1. ??Community acquired pneumonia of right lung ??(J18.9) 2. ??Polysubstance abuse ??(F19.10) 3. ??Nonhealing ulcer of upper extremity limited to breakdown of skin ??(L98.503) ?? Assessment:??Patient is a 41 years old male who is. To ER with chest pain, abdominal pain. CT chestwas done and patient was found on pneumonia.??Patient also reported to ER. At that he??was at the hospital and left AMA??after??being treated for MRSA bacteremia.??Therefore patient admitted for community-acquired pneumonia??and possible MRSA bacteremia ?? Community acquired pneumonia of right lung (J18.9):??Chest pain with productive cough for [address] chest was done that showed??bronchopneumonia in the right Order sputum cultures, Legionella, strep antigen Started??patient on IV cefepime to cover Pseudomonas, IV vancomycin due to history of??MRSA bacteremia We will monitor her status and once blood cultures came back negative for MRSA,??vancomycin can be switched to doxycycline ?? Polysubstance abuse (F19.10):??Patient reports??he doing the cocaine abuse, last use of cocaine wasabout 2 days ago Per previous records, patient was seen by addiction medicine??last year and as per records, it appears that patient has been noncompliant with his??addiction medicine treatment in the past Urine drug screen??ordered Consult addiction medicine ?? 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 COVID-19 virus Patient also found to COVID-19 but he is not short of breath, on room air satting about 94% No respiratory distress Patient does not qualify for IV Decadron We will monitor respiratory status and if patient becomes hypoxic, will initiate Decadron ? Diabetes mellitus type 2 Not on any medications at home Started on sliding scale insulin HbA1c ordered ? Possible MRSA bacteremia Patient told ER provider that??that he was at outside hospital where he was getting treated for MRSA bacteremia due to left arm infection but left AMA Upon??my question, patient denied any recent hospitalization or IV antibiotic treatment Blood??cultures have been ordered Patient is on IV Vancomycin until we have final blood culture report available If??blood cultures negative for MRSA, mycin can be discontinued and switched to doxycycline However, if blood cultures come back positive for MRSA, will also order echocardiogram and consult infectious disease ? No history of TB ER provider??in his note that patient has history of tuberculosis but??upon questioning??patient, patient denied any TB history As per our record??sputum cultures have been done in the past that did not show any AFB, CT??chest did not show any cavitary lesion, previous cavitary lesions have resolved TB interferon blood test??have been ordered in the ER by ER provider ? Abdominal pain, etiology unclear CT Abdomen was done that did not show any acute pathology ? Abdominal ascites: CT abdomen showed mild ascites??that was also present on??previous CAT scan images ? Chronic microcytic anemia: Hemoglobin stable at baseline ? Hypercoagulopathy?? Etiology: Likely secondary to liver disease Labs showed INR 1.2, PT 12.4, APTT??35.1 CT abdomen showed??hepatocellular disease and mild ascites Will trend with labs and recommend outpatient follow-up VTE Prophylaxis:??Lovenox ?VTE Prophylaxis Assessment:??VTE Prophylaxis Ordered ?? Code Status:??Full Code ?Order Code Status:??Code Status Ordered ?? Ongoing Medical Necessity:??Community??acquired??pneumonia, IVDA ?? Discharge Planning:??Pending clinical course ? Date of service: May 02, 2019 Histories Allergies Allergies ?(Active and Proposed Allergies Only) morphine? (Severity: Unknown, Onset: Unknown) ?Comments: Has a side effect - itching. ? Past Medical History/Problem List Active Problems??(7) Cellulitis Cellulitis and abscess of hand, except fingers and thumb Cocaine use disorder, severe, dependence Hyperglycemia without ketosis Hyponatremia Opioid use disorder, severe, dependence Polysubstance abuse ? Past Surgical History Hernia repair ? Social History Alcohol Details:??Use: Never. Substance Abuse ?? Use both IV cocaine and heroin Tobacco Details:??Use: 10 or more cigarettes (1/2 pack or more)/day in last 30 days. ? Family History No family history??premature CAD ? Medications Home Medications No medications documented.? Results Recent Labs BLOOD COUNT & DIFF WBC 5.8 k/mm3 ()?? 05/01/2022 17:58 RBC 3.77 m/mm3 (Low)?? 05/01/2022 17:58 Hgb 8.6 Gm/dL (Low)?? 05/01/2022 17:58 Hct 28.2 % (Low)?? 05/01/2022 17:58 MCV 74.8 femtoliters (Low)?? 05/01/2022 17:58 MCH 22.8 pg (Low)?? 05/01/2022 17:58 MCHC 30.5 g/dL (Low)?? 05/01/2022 17:58 Platelet Count 127 k/mm3 (Low)?? 05/01/2022 17:58 RDW-SD 42.1 femtoliters ()?? 05/01/2022 17:58 MPV 9.3 femtoliters (Low)?? 05/01/2022 17:58 Nucleated RBC (Automated) 0.0 #/100 WBC'S ()?? 05/01/2022 17:58 Abs. NRBC 0.0 k/mm3 ()?? 05/01/2022 17:58 Abs. Neut 4.5 k/mm3 ()?? 05/01/2022 17:58 Abs. Lymph 1.1 k/mm3 ()?? 05/01/2022 17:58 Abs. [place] 0.2 k/mm3 (Low)?? 05/01/2022 17:58 Abs. Eo 0.0 k/mm3 ()?? 05/01/2022 17:58 Abs. Baso 0.0 k/mm3 ()?? 05/01/2022 17:58 Neut % 77.2 % (High)?? 05/01/2022 17:58 Lymph % 18.1 % ()?? 05/01/2022 17:58 [place] % 4.1 % (Low)?? 05/01/2022 17:58 Eos % 0.0 % ()?? 05/01/2022 17:58 Baso % 0.3 % ()?? 05/01/2022 17:58 Imm Gran 0.3 % ()?? 05/01/2022 17:58 Abs. Imm Gran 0.0 k/mm3 ()?? 05/01/2022 17:58 ?? CARDIAC Nt-Probnp 1221 pg/mL (High)?? 05/01/2022 17:58 High Sensitivity Troponin (HSTnT) 55 ng/L (Critical)?? 05/01/2022 21:21 ?? CHEM GENERAL Sodium 135 mmol/L ()?? 05/01/2022 17:58 Potassium 3.3 mmol/L (Low)?? 05/01/2022 17:58 Chloride 92 mmol/L (Low)?? 05/01/2022 17:58 Bicarbonate Level 34 mmol/L (High)?? 05/01/2022 17:58 Anion Gap 9 ()?? 05/01/2022 17:58 Glucose Level 345 mg/dL (High)?? 05/01/2022 17:58 BUN 10 mg/dL ()?? 05/01/2022 17:58 Creatinine-Blood 0.6 mg/dL (Low)?? 05/01/2022 17:58 Estimated GFR Creatinine 125 ML/MIN/1.73 M2 ()?? 05/01/2022 17:58 Calcium 8.4 mg/dL (Low)?? 05/01/2022 17:58 Calcium, Ionized pH Corrected 1.12 mmol/L (Low)?? 05/01/2022 17:58 Magnesium 1.7 mg/dL ()?? 05/01/2022 17:58 Protein, Total 7.3 Gm/dL ()?? 05/01/2022 17:58 Albumin 3.5 Gm/dL ()?? 05/01/2022 17:58 AG Ratio 0.9 ()?? 05/01/2022 17:58 Alkaline Phosphatase 234 units/L (High)?? 05/01/2022 17:58 AST (SGOT) 21 units/L ()?? 05/01/2022 17:58 ALT (SGPT) 22 units/L ()?? 05/01/2022 17:58 Bilirubin, Total 0.5 mg/dL ()?? 05/01/2022 17:58 Lactate 1.8 mmol/L ()?? 05/01/2022 17:53 ?? COAG INR 1.2 (High)?? 05/01/2022 17:58 Protime (PT) 12.4 seconds (High)?? 05/01/2022 17:58 APTT 35.1 seconds (High)?? 05/01/2022 17:58 ?? UA/URINALYSIS Appear/Color, Urine LIGHT YELLOW ()?? 05/01/2022 23:49 Specific [place], Urine 1.031 (High)?? 05/01/2022 23:49 pH, Urine 6.0 ()?? 05/01/2022 23:49 Albumin, Urine 1+ (Abnormal)?? 05/01/2022 23:49 Glucose, Urine 4+ (Abnormal)?? 05/01/2022 23:49 Ketones, Urine NEGATIVE ()?? 05/01/2022 23:49 Bilirubin, Urine NEGATIVE ()?? 05/01/2022 23:49 Hemoglobin, Urine 1+ (Abnormal)?? 05/01/2022 23:49 Nitrite, Urine POSITIVE (Abnormal)?? 05/01/2022 23:49 Leukocyte, Urine 2+ (Abnormal)?? 05/01/2022 23:49 Urobilinogen NORMAL mg/dL ()?? 05/01/2022 23:49 WBC's, Urine 30 /HPF (High)?? 05/01/2022 23:49 RBC's, Urine 3 /HPF ()?? 05/01/2022 23:49 Bacteria MODERATE HPF (Abnormal)?? 05/01/2022 23:49 Mucus SLIGHT /LPF ()?? 05/01/2022 23:49 Hold Urine Culture Testing available 48 hours from time of collection. ()?? 05/01/2022 23:49 ?? VIROLOGY Influenza A PCR NEGATIVE ()?? 05/01/2022 18:15 Influenza B PCR NEGATIVE ()?? 05/01/2022 18:15 RSV PCR NEGATIVE ()?? 05/01/2022 18:15 COVID-19 PCR Specimen Source NASAL ()?? 05/01/2022 18:15 COVID-19 PCR Result POSITIVE (Abnormal)?? 05/01/2022 18:15 ? Coagulation Profile APTT:??35.1 seconds??High (17:58) INR:??1.2??High (17:58) Protime (PT):??12.4 seconds??High (17:58) ?? Hospital Progress note * Ray Rhoades MD, Tanner Ortez: PERFORM, MODIFY Event Display: Progress Note Hospital Authored Date: Patient: ??RUSTYLUCIAN SONG ? Age:??41 Years?Sex:??Male?:??1980?? Subjective ?? No overnight events Alert oriented x3 Not in distress Comfortable on room air Cachectic Complains of back pain Denies fever or chills Asking for discharge. ??Told him that he is not medically ready and will have to sign AM??if he wants to be discharged Potassium-3.4, magnesium-1.5. ??Supplemental potassium chloride 40 mg p.o. and magnesium 2 g IV. A1c-13.8, started on Lantus 15 units at bedtime Declined HIV testing Pending ID final recommendations Review of Systems negative except as above Objective Vital Signs?? Temperature: 97.6 DegF (05/03/22 11:35:00) Temperature Route: Oral (05/03/22 11:35:00) Pulse Rate: 56 bpm (05/03/22 11:35:00) Respiratory Rate: 18 br/min (05/03/22 11:44:00) Systolic Blood Pressure: 114 mm Hg (05/03/22:35:00) Diastolic Blood Pressure: 76 mm Hg (05/03/22:35:00) Blood pressure sites: Arm, right (05/03/22 11:35:00) Mean Arterial Pressure: 89 mm Hg (05/03/22 11:35:00) Pulse Pressure: 38 mm Hg (05/03/22:35:00) Oxygen Saturation: 98 % (05/03/22 11:35:00) Mode of Delivery (Oxygen): Room air (05/03/22 11:35:00) Early Warning Score: 8 (05/03/22 12:24:39) ? Pain Scores?? No qualifying data available. ? Physical Exam Constitutional: Alert, in no distress.cachectic Mental Status: Oriented to person, place and time. Head: Normocephalic. Neck: Supple, Full range of motion. Respiratory: Clear to auscultation. No wheezing, rales or rhonchi. Cardiovascular: S1 S2 regular. No murmurs, rubs or gallops. Gastrointestinal: Abdomen soft, non-tender, non-distended. Genitourinary: No costovertebral angle tenderness. Neurologic: Moves all extremities spontaneously. Sensation intact bilaterally. Skin:??LUE-wide spread ulceration with granulation tissue in the L arm and forearm?? Musculoskeletal: No cyanosis or clubbing. No gross deformities. Normal range of motion. Assessment/Plan Diagnoses COVID-19 ??(U07.1) 1. ??Community acquired pneumonia of right lung ??(J18.9) 2. ??Polysubstance abuse ??(F19.10) 3. ??Nonhealing ulcer of upper extremity limited to breakdown of skin ??(L98.491) ?? Assessment:? 41 years old male??with PMH of IVDA,??Diabetes mellitus type II, chronic wound of left forearm [facility] with chest pain, abdominal pain. CT chest was done and patient was found on pneumonia. Admitted for community-acquired pneumonia. ?? Community acquired pneumonia of right lung (J18.9): Strep pneumonia?? Chest pain with productive cough for 1 month ??CT chest was done that showed bronchopneumonia in the right ??Urine strep antigen positive ??Started patient on IV cefepime to cover Pseudomonas, IV vancomycin due to history of MRSA bacteremia Blood cx negative so far ID consulted Declined HIV testing today ? Polysubstance abuse (F19.10): ??Patient reports he doing the cocaine abuse, last use of cocaine was about 2 days ago ??Per previous records, patient was seen by addiction medicine last year and as per records, it appears that patient has been noncompliant with his addiction medicine treatment in the past ??Urine drug screen ordered ??Consulted addiction medicine ??Will give methadone 30 mg today-will increase to 40 mg if QTc normal ? Nonhealing ulcer of upper extremity limited to breakdown of skin (L98.491): ??Patient has chronic nonhealing ulcer of left forearm intermittent pus drainage ??Physical exam: Multiple ulcers noted left forearm with induration, area of black discoloration and small area of the flexor ??Ultrasound ordered to rule out any underlying abscess ??ultrasound shows any evidence of abscess, ??Wound care consulted ? COVID-19 virus ??Patient also found to COVID-19 but he is not short of breath, on room air satting about 94% ??No respiratory distress ??Patient does not qualify for IV Decadron ??We will monitor respiratory status and if patient becomes hypoxic, will initiate Decadron ??Isolation 05/01 to 05/11 ?? Hypokalemia Hypomagnesemia Potassium-3.4, magnesium-1.5. Supplemental potassium chloride 40 mg p.o. and magnesium??2 g IV. ?Diabetes mellitus type 2 ??Not on any medications at home ??HbA1c??13.8 ??will start on Lantus 15 U QHS Humalog slide scale DM diet ?? Severe malnutrition Appears cachectic HIV 2 years ago negative Declining HIV testing now Thiamine, Folate, MVT Supplements TID Nutrition consult ? Abdominal pain, etiology unclear CT Abdomen was done that did not show any acute pathology ?? Abdominal ascites: CT abdomen showed mild ascites that was also present on previous CAT scan image ?? Chronic microcytic anemia: Hemoglobin stable at baseline ?? VTE Prophylaxis: Lovenox ? Code Status: Full Code ? Ongoing Medical Necessity:??multiple electrolyte abnormalities ? * Lucian Kelly RN: PERFORM, SIGN, VERIFY, MODIFY, SIGN Event Display: Progress Note Hospital Authored Date: Patient: LUCIAN ZHAO Age: 41 years Sex: Male : 1980 Associated Diagnoses: None Author: Lucian Kelly RN Findings Narrative/Incidental Pt a/o x4, speech clear, resistant to assessment, reports generalized pain 10/30, states im withdrawing, everything hurts , pt given 30mg methadone with some effect, denies NT dizziness and vision changes, pt HAIDER's equal with 3/5 strength, unsure if true strength or lack of particiaption, +peripheral pulses, lungs CTA, denies cough/SOB, on RA, NSR on tele box #7, +BS, using the urinal at the bedside, pt asked How long do i have to stay here? , HS POC = 413, 5 units lispro ordered by on-call provider and administered, wound care completed per order however pt refused to let RN put abd pad or juvenal wrap, see CIS for full assessment, will continue to monitor pt for changes. * Thierry Calzada MD: MODIFY, SIGN, VERIFY, SIGN, MODIFY, PERFORM Event Display: Progress Note Hospital Authored Date: Patient: LUCIAN ZHAO Age: 41 years Sex: Male : 1980 Associated Diagnoses: None Author: Thierry Calzada MD SUBJECTIVE He was seen and assessed this morning. He has mild abdominal pain He said he was withdrawing from opioid OBJECTIVE Vitals reviewed On exam: General: middle aged, cachectic male, lying in bed, in no acute distress Neck: Supple, no JVD Heart: regular rhythm, S1 and S2 heard, no MRGs Lungs: CTA bilaterally, no rales, rhonchi, wheezing or rubs. Patient not in respiratory distress Abdomen: soft, non-tender, non-distended, +BS in all quadrants. No organomegaly Extremities: left arm has ulcers, Warm, no edema b/l. Neuro: CN 2-12 grossly intact, motor strength 5/5 in all extremities Psyche: Agitated, anxious ASSESSMENT/PLAN Community acquired pneumonia of right lung: continue Vanc, Cefepime Polysubstance abuse: addiction medicine recs Nonhealing ulcer of upper extremity: US shows small abscess which I don't believe needs to be drained. ID consulted COVID-19 virus: doing well on room air, enhanced precautions in place Recent history of possible MRSA bacteremia: reported told ED physician but denied to me. BCx pending, ID consulted No history of TB: TB interferon ordered by ER provider (pending) Abdominal pain, etiology unclear: CT Abdomen was done that did not show any acute pathology For detailed assessment and plan please see Admission note * Elsi MCKEON, Thierry: PERFORM Event Display: Progress Note Hospital Authored Date: [id number] Addiction medicine recs: patient want to go back on methadone. Can start with 30 mg of methadone, qtc 491 today. Increase to 40 mg tomorrow if qtc is normal ID recs: continue vanc/cefepime till BCx are pending; obtain HIV. Note * Dahiana Menard RN: PERFORM Event Display: Discharge/Transfer Note Hospital Authored Date: [id number] Nursing Discharge Note Entered On: 05/03/2022 16:07 EST Performed On: 05/03/2022 15:15 EST by Dahiana Menard RN Nursing Discharge Note 2 Discharge Time : 05/03/2022 15:15 EST Discharge Level of Care at Discharge : Left Against Medical Advice AMA Form Signed : Yes Patient Left Unit Via : Wheelchair Patient Accompanied Off Unit with : Other: Nursing staff. DC Instructions Provided & Signed by Pt : No Patient Understands D/C Instructions : No Patient Instructions Discharge Signed : Yes Did Pt have Specialty Bed or Wound Vac : No Dahiana Menard RN - 05/03/2022 16:06 EST * KATELYN Shafer S: Skylar Armstrong MD: VERIFY Event Display: Result: Authored Date: [id number] US Extremity Non-Vascular Left Limited Reason: Abscess; LEFT FOREARM ULCER, SWELLING; Clinical Question(s): Abscess COMPARISON: CT left upper extremity 10/15/2021 FINDINGS: High-resolution, linear array imaging of the superficial soft tissues of the left forearm was performed in the area of the patient's wound. There is significant thickening and heterogeneous subcutaneous edema in the area of concern along the ulnar aspect of the left forearm. Irregularity of the skin corresponds to the area of ulceration.At the distal aspect of the wound, there is a small irregularly-shaped hypoechoic collection measuring up to 1.0 x 1.2 x 0.5 cm, with hypoechoic tract extending towards the skin. Small hyperechoic foc us is present within it with posterior shadowing, possibly tiny focus of gas versus punctate calcification. IMPRESSION: Superficial edema surrounding the area of the wound in the left forearm, with a tiny collection at the distal aspect measuring 1.2 x 1.2 x 0.5 cm which may reflect tiny abscess pocket with tract extending towards the skin. WSN: [id number] Ordering Physician: Tim Moore Dictated By: Skylar Liu MD Dictated Date/Time: 05/02/22 8:14 am Reviewed By: Skylar Liu MD Signed By: Skylar Liu MD Signed Date/Time: 05/02/22 8:14 am Transcribed By: AKASH Transcribed Date/Time: 05/02/22 7:[address] Head WO contrast * KATELYN Shafer S: Landen Velez MD: VERIFY Event Display: Result: Authored Date: [id number] CT Head/Brain W/O Contrast INDICATION: Reason: Other:; r o ICH; Clinical Question(s): Hematoma TECHNIQUE: Noncontrast head CT using axial technique and reconstructed in axial and coronal planes.Iterative reconstruction techniques are used to optimize dose and image quality. CTDIvol Head: 48.30 mGy, DLP Head: 773 mGy*cm. COMPARISON: 09/09/2020 FINDINGS: Safety Supervisor view findings, lines and tubes: None. BRAIN AND EXTRA-AXIAL SPACES: No parenchymal hemorrhage, midline shift, or mass effect. Mccall-white matter differentiation is wellpreserved. No acute infarct. Negative insular ribbon and hyperdense vessel signs. Ventricles, sulci, and basilar cisterns are normal. No white matter lesions. No subarachnoid hemorrhage. No subdural or epidural collection. CALVARIUM, SKULL BASE, AND SOFT TISSUES: No fractures or suspicious bony lesions. The paranasal sinuses and mastoid air cells are clear. Visualized orbits and globes are intact. The extracranial soft tissues are unremarkable. IMPRESSION: No acute intracranial pathology. WSN: [id number] Ordering Physician: Isael Gaines Dictated By: Landen García MD Dictated Date/Time: 05/01/22 8:24 pm Reviewed By: Landen García MD Signed By: Landen García MD Signed Date/Time: 05/01/22 8:24 pm Transcribed By: AKASH Transcribed Date/Time: 05/01/22 8:[address] Abdomen and Pelvis W contrast IV * [facility] , KATELYN S: TRANSCRIBE Landen García MD: VERIFY Carmen Davis MD A: SIGN Event Display: Result: Authored Date: [id number] CT Chest W/ Contrast, CT Abd/Pelvis W/ IV Contrast Only INDICATION: r o septic pulm emboli; TECHNIQUE: Helical CT scan of the chest, abdomen, and pelvis with IV contrast, formatted in 3 planes. 75 cc of Omnipaque 300 was administered intravenously. This study was performed without oral contrast. Weight-based protocol was performed using automatic exposure control. CTDIvol Body: 4.60 mGy, DLP Body: 326 mGy*cm. COMPARISON: CT chest from 09/09/2020 FINDINGS: Safety Supervisor view findings, lines and tubes: None. Trachea and airways: There is fluid and debris within the distal left mainstem bronchus extending into the bronchi of the left lower lobe and lingula. There is also minimal debris within the right lower lobe bronchi. Lungs and pleura: Left apical scarring at site of previously seen pneumatoceles. Multiple patchy peribronchiolar nodular consolidations predominantly in the right middle and lower lobes with mild bronchial wall thickening and occlusion. Appearance is most consistent with pneumonia . No effusion or pneumothorax. Mediastinum and ham: No mass or hematoma. No mediastinal or hilar lymphadenopathy. No esophageal abnormality. Heart: Heart is normal in size. No pericardial effusion. Aorta: No aortic aneurysm. Pulmonary arteries: Normal caliber. No evidence of pulmonary embolism on this study performed without angiographic technique. Chest wall soft tissues: No acute abnormality. Diaphragm: Intact. Liver: Diffuse low-attenuation throughout the liver parenchyma consistent with hepatic steatosis. No evidence of a suspicious lesion. Gallbladder: Contracted but no CT evidence of gallbladder pathology. Bile ducts: No biliary ductal dilation. Spleen: Mild splenomegaly measuring up to 14 cm. Pancreas: No suspicious lesion or ductal dilatation. Adrenal glands: No nodule. Kidneys and ureters: No hydronephrosis, stone, or suspicious lesion. Bladder: Significantly distended without wall thickening or surrounding stranding. Reproductive organs: Unremarkable. Stomach, small bowel, and large bowel: Normal caliber stomach and bowel loops. No surrounding inflammatory changes. Appendix: No evidence of acute appendicitis. Peritoneum and retroperitoneum: Diffuse small volume ascites and fluid throughout the mesentery. Noomental or mesenteric lesions. Lymph nodes: No enlarged lymph nodes. Blood vessels: No vascular calcifications or aneurysm. No evidence of venous thrombosis. Abdominal and pelvic wall soft tissues: No acute abnormality. Bones: No acute abnormality. Lumbar fusion hardware at the L4-S1 level with bilateral screws in theL4 vertebral body in S1 vertebral bodies with the aortic root report. Intervertebral disc spacer device at the L4-L5 and L5-S1 level. IMPRESSION: CHEST CT: Patchy and nodular airspace opacities throughout the right middle lobe and right lower lobe compatible with bronchopneumonia. Additional fluid and debris within the bronchi to the left lower lobe though there is no significant consolidation in the left lower lobe. No cavitary lesions or specific CT findings of septic emboli. ABDOMEN-PELVIS CT: Small volume ascites and increased attenuation of the central mesentery suggesting mesenteric fluid. Mild splenomegaly. I have personally reviewed the images and I agree with this report. WSN: [id number] Ordering Physician: Isael Ganies Dictated By: Carmen Davis MD Dictated Date/Time: 05/01/22 10:40 p Reviewed By: Landen García MD Signed By: Landen García MD Signed Date/Time: 05/01/22 10:45 pm Transcribed By: AKASH Transcribed Date/Time: 05/01/22 9:[address] Chest W contrast IV * [facility] , CIS S: TRANSCRIBE Landen García MD: VERIFY Carmen Davis MD A: SIGN Event Display: Result: Authored Date: [id number] CT Chest W/ Contrast, CT Abd/Pelvis W/ IV Contrast Only INDICATION: r o septic pulm emboli; TECHNIQUE: Helical CT scan of the chest, abdomen, and pelvis with IV contrast, formatted in 3 planes. 75 cc of Omnipaque 300 was administered intravenously. This study was performed without oral contrast. Weight-based protocol was performed using automatic exposure control. CTDIvol Body: 4.60 mGy, DLP Body: 326 mGy*cm. COMPARISON: CT chest from 09/09/2020 FINDINGS: Safety Supervisor view findings, lines and tubes: None. Trachea and airways: There is fluid and debris within the distal left mainstem bronchus extending into the bronchi of the left lower lobe and lingula. There is also minimal debris within the right lower lobe bronchi. Lungs and pleura: Left apical scarring at site of previously seen pneumatoceles. Multiple patchy peribronchiolar nodular consolidations predominantly in the right middle and lower lobes with mild bronchial wall thickening and occlusion. Appearance is most consistent with pneumonia . No effusion or pneumothorax. Mediastinum and ham: No mass or hematoma. No mediastinal or hilar lymphadenopathy. No esophageal abnormality. Heart: Heart is normal in size. No pericardial effusion. Aorta: No aortic aneurysm. Pulmonary arteries: Normal caliber. No evidence of pulmonary embolism on this study performed without angiographic technique. Chest wall soft tissues: No acute abnormality. Diaphragm: Intact. Liver: Diffuse low-attenuation throughout the liver parenchyma consistent with hepatic steatosis. No evidence of a suspicious lesion. Gallbladder: Contracted but no CT evidence of gallbladder pathology. Bile ducts: No biliary ductal dilation. Spleen: Mild splenomegaly measuring up to 14 cm. Pancreas: No suspicious lesion or ductal dilatation. Adrenal glands: No nodule. Kidneys and ureters: No hydronephrosis, stone, or suspicious lesion. Bladder: Significantly distended without wall thickening or surrounding stranding. Reproductive organs: Unremarkable. Stomach, small bowel, and large bowel: Normal caliber stomach and bowel loops. No surrounding inflammatory changes. Appendix: No evidence of acute appendicitis. Peritoneum and retroperitoneum: Diffuse small volume ascites and fluid throughout the mesentery. Noomental or mesenteric lesions. Lymph nodes: No enlarged lymph nodes. Blood vessels: No vascular calcifications or aneurysm. No evidence of venous thrombosis. Abdominal and pelvic wall soft tissues: No acute abnormality. Bones: No acute abnormality. Lumbar fusion hardware at the L4-S1 level with bilateral screws in theL4 vertebral body in S1 vertebral bodies with the aortic root report. Intervertebral disc spacer device at the L4-L5 and L5-S1 level. IMPRESSION: CHEST CT: Patchy and nodular airspace opacities throughout the right middle lobe and right lower lobe compatible with bronchopneumonia. Additional fluid and debris within the bronchi to the left lower lobe though there is no significant consolidation in the left lower lobe. No cavitary lesions or specific CT findings of septic emboli. ABDOMEN-PELVIS CT: Small volume ascites and increased attenuation of the central mesentery suggesting mesenteric fluid. Mild splenomegaly. I have personally reviewed the images and I agree with this report. WSN: [id number] Ordering Physician: Isael Gaines Dictated By: Carmen Davis MD Dictated Date/Time: 05/01/22 10:40 p Reviewed By: Landen García MD Signed By: Landen García MD Signed Date/Time: 05/01/22 10:45 pm Transcribed By: AKASH Transcribed Date/Time: 05/01/22 9:39 pm Patient Care team information Care Team Personnel Name: Lorraine Sherwood RN Position: [facility] AMB Nurse Member Role: Primary Care Nurse Name: Ana Pink RN Position: [facility] RN Member Role: Primary Care Nurse Name: Ashley Gastelum RN Position: [facility] RN Member Role: Primary Care Nurse Name: Zev Brock Position: [facility] RN Member Role: Primary Care Nurse Name: Patt Ponce RN Position: [facility] RN Member Role: Primary Care Nurse Name: Pennie Sanchez RN Position: [facility] RN Member Role: Primary Care Nurse Name: Naima Carolina RN Position: [facility] RN Member Role: Primary Care Nurse Name: Carol Marquez RN Position: [facility] RN Member Role: Primary Care Nurse Name: Manav Muñiz RN Position: [facility] ED RN W/OE and Tasks Member Role: Primary Care Nurse Name: Alee Shaikh RN Position: [facility] RN Member Role: Primary Care Nurse Name: Christy Almanza RN Position: [facility] RN Member Role: Primary Care Nurse Name: Bindu Gaspar RN Position: [facility] RN Member Role: Primary Care Nurse Name: Alexey Wilkins RN Position: [facility] RN Member Role: Primary Care Nurse Name: Ilene Orona RN Position: [facility] RN Member Role: Primary Care Nurse Name: Miko Alvarez RN Position: [facility] RN Member Role: Primary Care Nurse Name: Not on Staff, PCP Position: [facility] Physician (General Medicine) Member Role: PCP Name: Sammie Jimenez RN Position: [facility] RN Member Role: Primary Care Nurse Name: Verenice Espinoza RN Position: [facility] RN Member Role: Primary Care Nurse Name: Lucian Kelly RN Position: [facility] RN Member Role: Primary Care Nurse Name: Yana Hernandez RN Position: [facility] RN Member Role: Primary Care Nurse Name: Molly Kebede RN Position: [facility] OB RN Member Role: Primary Care Nurse Name: Brittaney Eagle RN Position: [facility] RN Member Role: Primary Care Nurse Name: Fabian ESQUIVEL Attending Position: [facility] ED Medicine MD Name: Madison Beach Position: [facility] ED TA [facility] Member Role: Patient Care Provider Name: Nadya Feliciano Position: [facility] Associate Professional Address: Address: [address] [place] [address] [place] [address]- Name: Liane Juan RN Position: [facility] ED RN W/OE and Tasks Member Role: Patient Care Provider Name: Lorin Hernández RN Position: [facility] ED RN W/OE and Tasks Member Role: Patient Care Provider Care Team Related Persons Name: DEBRA ZHAO Address: home [address] [place] [address] Name: DODIE ZHAO Address: home [address] [place] [address]
--- OUTSIDE RECORDS SUMMARY | 2024-01-19 22:59 | XMS_ITS | Continuity of Care Document ---
Author Organization [facility] ter Address [address] [place] [id number]- Care Team Providers Care Object Oriented Developer Name Role Phone Anthony MCKEON, Jett J Primary Care Physician Encounter [facility] Date(s): 06/28/21 - 06/30/[address] [address]- Encounter Diagnosis Hyperglycemia(Final) - 06/28/21 Discharge Disposition: A-D/C Home Attending Physician: Guillermo MCKEON, [facility] Admitting Physician: West Ramos DO Referring Physician: Not on Staff, Referring [...] Date: 06/30/21 Stop Date: 08/29/21 Status: Ordered doxycycline hyclate 100 mg oral capsule 1 capsule = 100 mg, By Mouth, Daily, for 5 days, # 5 capsule, 0 Refills, Acute 07/05/21 9:25:00 EDT, 06/30/21 9:25:00 EDT, Capsule, [facility], Partial fill upon patient request if the prescription is for a schedule II opioid drug., 162,... Start Date: 06/30/21 Stop Date: 07/05/21 Status: Ordered Freestyle Lancets See Instructions, # [...] subcutaneous solution = 15 units, Subcutaneous Injection, Daily, take at Lunch at time, # 10 mL, 2 Refills, Soft Stop, 06/30/21 9:25:00 EDT, Solution, [facility], Partial fill upon patient request if the prescription is for a schedule II opioid drug., 162, cm... Start Date: 06/30/21 Stop Date: 09/28/21 Status: Ordered Pen Thom[place]ons, 29 G x 12.7 mm BD Ultra Fine See Instructions, # 100 each, Refills 5, Tot. Refills 5, Maintenance, use as directed for Type 2 DMcheck POC TID, 06/30/21 9:35:00 EDT, Supply, 162, cm, 02/29/20 13:15:00 EST, Height, 46.9, kg, 06/28/21 12:21:00 EDT, Dry Weight Start Date: 06/30/21 Stop Date: 12/27/21 Status: Ordered Problem List Condition Effective Dates Status Health Status Inform ant Cellulitis(Confirmed) Active Cellulitis and abscess of [place] nd, except fingers and thumb(Confirmed) Active Cocaine use disorder, severe , dependence(Confirmed) Active Hyperglycemia without ketosis(Confirmed) Active Hyponatremia(Confirmed) Active Opioid use disorder, severe, dependence(Confirmed) Active Polysubstance abuse(Confirmed) Active Results Orders for Microbiology Reports Name Date Blood Culture 06/27/21 Microbiology Reports TEST:Blood Culture STATUS:Unauthenticated BODY SITE: SOURCE:Blood COLLECTED DATE/TIME:06/27/21 9:59 PM Blood Culture SPECIMEN DESCRIPTION : BLOOD R AC SPECIAL REQUESTS : NONE CULTURE : NO GROWTH AFTER 48 HOURS REPORT STATUS : PRELIMINARY REPORT Radiology Reports * Exam Date Time Procedure Performing Provider Status 06/27/21 10:15 PM Chest 2 Views Frontal and Lat Shirlene Soto; Auth (Verified) Notes: (Chest 2 Views Frontal and Lat) Reason For Exam: Shortness of Breath, Fever;Other: RESULT: Chest 2 Views Frontal and Lat Chest 2 Views Frontal and Lat Hx of Present Illness: Hyperglycemia BG>500 on arrival. Multiple unhealed abscesses on both arms.; Reason: Other:; Shortness of Breath, Fever; Clinical Question(s): Pneumonia COMPARISON: 09/09/2020 FINDINGS: LINES AND TUBES: None. LUNGS AND PLEURA: Clear lungs. Normal pulmonary vascularity. No pleural effusion. No pneumothorax. HEART, MEDIASTINUM AND LIZBETH: Heart is normal in size. Normal upper mediastinal and hilar contour. BONES AND SOFT TISSUES: No acute abnormality. IMPRESSION: No acute abnormality. WSN: [id number] Ordering Physician: Sam Kim Dictated By: Marty Rodriguez MD Dictated Date/Time: 06/27/21 10:33 p Reviewed By: Marty Rodriguez MD Signed By: Marty Rodriguez MD Signed Date/Time: 06/27/21 10:33 pm Transcribed By: AKASH Transcribed Date/Time: 06/27/21 10:33 pm Vital Signs Most recent to oldest [Reference Range]: 1 2 3 Weight 46.9 kg (06/28/21 12:21 PM) Oxygen Saturation [94-100 %] 100 % (06/30/21 8:16 AM) 96 % (06/30/21 5:00 AM) 100 % (06/30/21 1:00 AM) Pulse Rate [55-90 bpm] 82 bpm (06/30/21 8:16 AM) 82 bpm (06/30/21 5:00 AM) 87 bpm (06/30/21 1:00 AM) Blood Pressure [90-138/55-84 mm Hg] 140/101mm Hg *H* (06/30/21 8:16 AM) 152/106mm Hg *H* (06/30/21 5:00 AM) 158/107mm Hg *H* (06/30/21 1:00 AM) Respiratory Rate [16-30 br/min] 18 br/min (06/30/21 10:25 AM) 18 br/min (06/30/21 8:16 AM) 20 br/min (06/30/21 5:00 AM) Temperature [96.8-100.4 DegF] 97.7 DegF (06/30/21 8:16 AM) 97.6 DegF (06/30/21 5:00 AM) 97.7 DegF (06/30/21 1:00 AM) Mode of Delivery (Oxygen) Room air (06/30/21 8:16 AM) Room air (06/30/21 5:00 AM) Room air (06/30/21 1:00 AM) Blood pressure sites Arm, right (06/30/21 8:16 AM) Arm, right (06/30/21 5:00 AM) Arm, right (06/30/21 1:00 AM) Temperature Route Oral (06/30/21 8:16 AM) Oral (06/30/21 5:00 AM) Oral (06/30/21 1:00 AM) Dry Weight 46.9 kg (06/28/21 12:21 PM) Social History Social History Type Response Smoking Status 10 or more cigarette s (1/2 pack or more)/day in last 30 days entered on: 01/28/18 Sex
--- OUTSIDE RECORDS SUMMARY | 2024-01-19 22:59 | XMS_ITS | Continuity of Care Document ---
Author Organization [facility] Address [address] [place] [address]- Care Team Providers Care Elementary School Counselor Name Role Phone Lachelle MCKEON, Calin Mckeon Primary Care Physician Encounter [facility] Date(s): 10/02/20 - 11/01/20 [facility] [address] [place] [id number] Attending Physician: Duke Vaughan Admitting Physician: Duke Vaughan Referring Physician: AdmtrDuke Allergies, Adverse Reactions, Alerts Substance Reaction Severity [...]
--- OUTSIDE RECORDS SUMMARY | 2024-01-19 22:59 | XMS_ITS | Continuity of Care Document ---
Author Organization [facility] ter Address [address] [place] [address]- Care Team Providers Care Falsework Builder Name Role Phone Litzy MCKEON, Marshall Primary Care Physician Encounter [facility] Date(s): 08/16/19 - 08/20/[address] [address]- [facility] Discharge Disposition: A-D/C Home Attending Physician: Jhonny Garcia MD Admitting Physician: Soila Torrez MD Referring Physician: Not on Staff, Referring MD Allergies, Adverse Reactions, Alerts Substance Reaction Severity Status morphine Active Medications Insulin Lispro 8-18 units, Subcutaneous Injection, 3 times a day before meals, << Sliding Scale Comments >> 100 - 149 8 units Call if less than 100 150 - 199 10 units 200 - 249 12 units 250 - 299 14 units 300 - 349 16 units 350 - 399 18 units C... Start Date: 08/20/19 Status: Ordered Lantus Inj 0.4 mL = 40 units, Subcutaneous Injection, Daily at bedtime, 0 Refills, Maintenance, 08/20/19 10:42:00 EDT, Injection Start Date: 08/20/19 Status: Ordered Levaquin 750 mg oral tablet 1 tablet = 750 mg, By Mouth, Every 24 hours, for 10 days, # 10 tablet, 0 Refills, Acute 08/30/19 10:43:00 EDT, 08/20/19 10:43:00 EDT, Tablet, [facility], 163, cm, 08/20/19 7:45:00 EDT, Height, 54.8, kg, 08/17/19 4:34:00 EDT, Dry Weight Start Date: 08/20/19 Stop Date: 08/30/19 Status: Ordered Methadone = 90 mg, By Mouth, 0 Refills, Maintenance, 08/17/19 4:25:00 EDT, Partial fill upon patient request Start Date: 08/17/19 Status: Ordered Problem List Condition Effective Dates Status Health Status Inform ant Cellulitis(Confirmed) Active Results Orders for Microbiology Reports Name Date Blood Culture 08/18/19 Wound Deep Culture w/ Gram Smear (Deep W ound Culture w/ Gram Smear) 08/16/19 Blood Culture #2 08/16/19 Blood Culture 08/16/19 Microbiology Reports TEST:Blood Culture STATUS:Unauthenticated BODY SITE: SOURCE:Blood COLLECTED DATE/TIME:08/18/19 2:38 PM Blood Culture SPECIMEN DESCRIPTION : BLOOD R SPECIAL REQUESTS : NONE CULTURE : NO GROWTH AFTER 48 HOURS REPORT STATUS : PRELIMINARY REPORT TEST:Deep Wound Culture STATUS:Modified/Amended/Corrected BODY SITE: SOURCE:ABSCES COLLECTED DATE/TIME:08/16/19 11:57 AM Deep Wound Culture SPECIMEN DESCRIPTION : ABSCESS ARM RT SPECIAL REQUESTS : NONE GRAM STAIN : 1+ POLYMORPHONUCLEAR LEUKOCYTES 3+ GRAM NEGATIVE RODS 3+ GRAM POSITIVE RODS 2+ GRAM POSITIVE COCCI CULTURE : 3+ ENTEROCOCCUS FAECALIS LEVOFLOXACIN SUSCEPTIBILITY IS RELEASED PER REQUEST OF DR. FOREST BARRERA 4+ STREPTOCOCCUS VIRIDANS SPECIES SUSCEPTIBILITY TESTING NOT ROUTINELY PERFORMED ON THIS ISOLATE. REPORT STATUS : FINAL 08/19/2019 ORGANISM 3+ ENTEROCOCCUS FAECALIS LEVOFLOXACIN SUSCEPTIBILITY IS RELEASED PER REQUEST OF DR. FOREST BARRERA METHOD MIN. INHIB. CONC. (MCG/ML) AMPICILLIN SUSCEPTIBLE LEVOFLOXACIN SUSCEPTIBLE VANCOMYCIN SUSCEPTIBLE GENTAMICIN SYNERGY ACTIVE IN SYNERGY STREPTOMYCIN SYNERGY ACTIVE IN SYNERGY TEST:Blood Culture, Second Order STATUS:Unauthenticated BODY SITE: SOURCE:Blood COLLECTED DATE/TIME:08/16/19 8:25 AM Blood Culture, Second Order SPECIMEN DESCRIPTION : BLOOD LT SPECIAL REQUESTS : NONE CULTURE : NO GROWTH 4 DAYS REPORT STATUS : PRELIMINARY REPORT TEST:Blood Culture STATUS:Auth (Verified) BODY SITE: SOURCE:Blood COLLECTED DATE/TIME:08/16/19 8:10 AM Blood Culture SPECIMEN DESCRIPTION : BLOOD RARM SPECIAL REQUESTS : CRITICAL VALUE CALLED AND VERIFIED BY READBACK FOR: GRAM NEGATIVE DOTTIE CALLED TO MORGAN [id number] ONC ON 08/17/19 [id number] BY VCV [id number] CULTURE : BURKHOLDERIA (PSEUDOMONAS) CEPACIA Further identification to follow. No target organisms detected using the MetrasensArray BCID panel. This panel includes 24 bacterial and fungal targets and 3 resistance mechanisms. REPORT STATUS : FINAL 08/20/2019 ORGANISM BURKHOLDERIA (PSEUDOMONAS) CEPACIA METHOD MIN. INHIB. CONC. (MCG/ML) CEFTAZIDIME SUSCEPTIBLE LEVOFLOXACIN SUSCEPTIBLE MEROPENEM SUSCEPTIBLE TRIMETH/SULFAMETHOX SUSCEPTIBLE Radiology Reports * Exam Date Time Procedure Performing Provider Status 08/16/19 9:16 AM Forearm 2 Views Right Deshaun , Adore; Au th (Verified) Notes: (Forearm 2 Views Right) Reason For Exam: Infection RESULT: Forearm 2 Views Right Elbow 3 Views Right, Forearm 2 Views Right INDICATION: Infection; Clinical Question(s): Foreign Body; Hx of Present Illness: Surgery for R armabscess approx 8 mo ago now infected and cristina. Bilat FA scabbed sores covered with mesh. R FA has open incision. COMPARISON: None. FINDINGS: There is soft tissue swelling in the proximal forearm volar aspect. No evidence of air within this soft tissue swelling. No fracture or dislocation. No significant arthritic changes. No joint effusion. IMPRESSION: Soft tissue swelling of the proximal forearm without evidence of air to indicate abscess formation.No evidence of radiopaque foreign body. I have personally reviewed the images and I agree with this report. WSN: [id number] Ordering Physician: Jm Rabago Dictated By: Shawanda Lo DO Dictated Date/Time: 08/16/19 9:41 am Reviewed By: Surendra Ha MD Signed By: Surendra Ha MD Signed Date/Time: 08/16/19 9:46 am Transcribed By: AKASH Transcribed Date/Time: 08/16/19 9:38 am * Exam Date Time Procedure Performing Provider Status 08/16/19 9:15 AM Elbow Min 3 Views Right Adore Meade; Auth (Verified) Notes: (Elbow Min 3 Views Right) Reason For Exam: Infection RESULT: Elbow Min 3 Views Right Elbow 3 Views Right, Forearm 2 Views Right INDICATION: Infection; Clinical Question(s): Foreign Body; Hx of Present Illness: Surgery for R armabscess approx 8 mo ago now infected and cristina. Bilat FA scabbed sores covered with mesh. R FA has open incision. COMPARISON: None. FINDINGS: There is soft tissue swelling in the proximal forearm volar aspect. No evidence of air within this soft tissue swelling. No fracture or dislocation. No significant arthritic changes. No joint effusion. IMPRESSION: Soft tissue swelling of the proximal forearm without evidence of air to indicate abscess formation.No evidence of radiopaque foreign body. I have personally reviewed the images and I agree with this report. WSN: [id number] Ordering Physician: Jm Rabago Dictated By: Shawanda Lo DO Dictated Date/Time: 08/16/19 9:41 am Reviewed By: Surendra Ha MD Signed By: Surendra Ha MD Signed Date/Time: 08/16/19 9:46 am Transcribed By: AKASH Transcribed Date/Time: 08/16/19 9:38 am Vital Signs Most recent to oldest [Reference Range]: 1 2 3 Height 163 cm (08/20/19 7:45 AM) 163 cm (08/19/19 8:00 PM) 163 cm (08/19/19 3:41 PM) Weight 54.8 kg (08/17/19 4:12 AM) 54.8 kg (08/17/19 4:10 AM) Oxygen Saturation [94-100 %] 97 % (08/20/19 7:45 AM) 97 % (08/19/19 8:00 PM) 97 % (08/19/19 3:41 PM) Pulse Rate [55-90 bpm] 65 bpm (08/20/19 7:45 AM) 71 bpm (08/19/19 8:00 PM) 70 bpm (08/19/19 3:41 PM) Body Mass Index [18.5-24.99] 20.63 (08/17/19 4:10 AM) Blood Pressure [90-138/55-84 mm Hg] 118/81mm Hg (08/20/19 7:45 AM) 116/76mm Hg (08/19/19 8:00 PM) 115/59mm Hg (08/19/19 3:41 PM) Respiratory Rate [16-30 br/min] 19 br/min (08/20/19 9:41 AM) 18 br/min (08/20/19 8:41 AM) 20 br/min (08/20/19 7:45 AM) Temperature [96.8-100.4 DegF] 98.5 DegF (08/20/19 7:45 AM) 97.9 DegF (08/19/19 8:00 PM) 98.2 DegF (08/19/19 3:41 PM) Mode of Delivery (Oxygen) Room air (08/20/19 7:45 AM) Room air (08/19/19 8:00 PM) Room air (08/19/19 3:41 PM) Blood pressure sites Arm, right (08/20/19 7:45 AM) Arm, left (08/19/19 8:00 PM) Arm, right (08/19/19 3:41 PM) Temperature Route Oral (08/20/19 7:45 AM) Oral (08/19/19 8:00 PM) Oral (08/19/19 3:41 PM) Dry Weight 54.8 kg (08/17/19 4:10 AM) Weight Obtained Via Standing scale (08/17/19 4:12 AM) Standing scale (08/17/19 4:10 AM) Dry Weight Obtained Via Standing scale (08/17/19 4:10 AM) Social History Social History Type Response Smoking Status 10 or more cigarette s (1/2 pack or more)/day in last 30 days entered on: 01/28/18 Sex
--- OUTSIDE RECORDS SUMMARY | 2024-01-19 22:59 | XMS_ITS | Continuity of Care Document ---
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 Immunizations Given and Recorded Vaccine Date Status Refusal Reason SARS-CoV-2 (COVID-19) Ad26 vaccine 11/13/20 Record ed tetanus/diphtheria/pertussis, acel(Tdap) 10/26/08 Recorded Medications oxyCODONE 5 mg oral tablet 5 mg, Tablet, By Mouth, Every 6 hours, PRN for Pain , Severe, Routine, 09/05/22 21:37:00 EDT Start Date: 09/05/22 Stop Date: 09/08/22 Status: Discontinued Problem List Condition Confirmation Course [...] Date Wound Superficial Culture W/ Gram Smear (Culture Wound Superficial w/ Gram Smear) 09/05/22 Blood Culture 09/05/22 Blood Culture #2 09/05/22 Microbiology Reports TEST:Superficial Wound Culture STATUS:Unauthenticated BODY SITE: SOURCE:SWAB1 COLLECTED DATE/TIME:09/05/22 5:39 PM Superficial Wound Culture SPECIMEN DESCRIPTION : SWAB ARM LT SPECIAL REQUESTS : NONE GRAM STAIN : 3+ POLYMORPHONUCLEAR LEUKOCYTES 2+ GRAM POSITIVE COCCI CULTURE : 4+ STAPHYLOCOCCUS AUREUS. This isolate was identified using Maldi-TOF system 4+ STREPTOCOCCUS AGALACTIAE SERO GROUP B SUSCEPTIBILITY TESTING NOT ROUTINELY PERFORMED ON THIS ISOLATE. This isolate was identified using Maldi-TOF system REPORT STATUS : PRELIMINARY REPORT TEST:Blood Culture, Second Order STATUS:Unauthenticated BODY SITE: SOURCE:Blood COLLECTED DATE/TIME:09/05/22 2:34 PM Blood Culture, Second Order SPECIMEN DESCRIPTION : BLOOD NO SITE SPECIAL REQUESTS : CRITICAL VALUE CALLED AND VERIFIED BY READBACK FOR: GRAM POSITIVE COCCI CALLED TO [id number] ON D6A, ON 09/06 AT 2340, BY TECH [id number] CULTURE : GRAM POSITIVE COCCI Staphylococcus epidermidis was identified by multi-plex PCR REPORT STATUS : PRELIMINARY REPORT TEST:Blood Culture STATUS:Unauthenticated BODY SITE: SOURCE:Blood COLLECTED DATE/TIME:09/05/22 2:20 PM Blood Culture SPECIMEN DESCRIPTION : BLOOD NO SITE SPECIAL REQUESTS : NONE CULTURE : NO GROWTH AFTER 48 HOURS REPORT STATUS : PRELIMINARY REPORT Radiology Reports * Exam Date Time Procedure Performing Provider Status 09/05/22 4:[address] Ext Upper W/ Contrast Left Colon , Lelia; Auth (Verified) Notes: (CT Ext Upper W/ Contrast Left) Reason For Exam: Infection RESULT: CT Ext Upper W/ Contrast Left CT Ext Upper W/ Contrast Left Hx of Present Illness: L arm inection - seen here 2 weeks ago for same. did not take abx on discharge. wound now with pus, open areas, bleeding, edema, errythema, unable to move fingers x2 days.; Reason: Infection; Clinical Question(s): Forearm; Order Comment: TECHNIQUE: Helical CT with contrast formatted in 3 planes. 180 cc of Omnipaque 300 was administeredintravenously. Weight-based protocol using automatic tube modulation was used to optimize exposure parameters. CTDIvol Body: 8.64 mGy, DLP Body: 478 mGy*cm. COMPARISONS: 08/05/2022 FINDINGS: Multiple gas containing fluid collections within the dorsal soft tissues of the distal forearm, wrist and hand are best appreciated on images 14 through 28 of series 603. There are proximally 11 separate collections. The largest collection in the midline dorsal soft tissues of the distal forearm measures approximately 1 x 1 x 1.6 cm. Other collections are similar in size but slightly smaller Needle fragment within the ulnar soft tissues of the elbow on image 141 series 620 Erosion within the dorsal aspect of the distal ulna IMPRESSION: Approximately 11 small gas containing focal fluid collections/abscesses within the dorsal soft tissues of the distal forearm, wrist and hand. Erosion within the dorsal aspect of the distal ulna is consistent with osteomyelitis Small needle fragment within the ulnar soft tissues of the elbow Cortexted to Dr. Underwood at the time of dictation WSN: [id number] Ordering Physician: Bolivar Underwood MD Dictated By: Jhonny Zamora MD Dictated Date/Time: 09/05/22 6:35 pm Reviewed By: Jhonny Zamora MD Signed By: Jhonny Zamora MD Signed Date/Time: 09/05/22 6:35 pm Transcribed By: AKASH Transcribed Date/Time: 09/05/22 6:17 pm Vital Signs Most recent to oldest [Reference Range]: 1 2 3 Height 162 cm (09/07/22 8:30 AM) 162 cm (09/06/22 2: PM) Weight 43.1 kg (09/06/22 2: PM) 43.1 kg (09/06/22: PM) Oxygen Saturation [94-100 %] 98 % (09/07/22 8:30 AM) 100 % (09/06/22 7:00 PM) 100 % (09/06/22: PM) Pulse Rate [55-90 bpm] 77 bpm (09/07/22 8:30 AM) 93 bpm *H* (09/06/22 7:00 PM) 67 bpm (09/06/22: PM) Body Mass Index [18.5-24.99 kg/m2] 16.42 kg/m2 *L* (09/06/22: PM) Blood Pressure [90-138/55-84 mm Hg] 133/88mm Hg (09/07/22 8:30 AM) 126/83mm Hg (09/06/22 7:00 PM) 123/79mm Hg (09/06/22: PM) Respiratory Rate [16-30 br/min] 18 br/min (09/07/22 6:07 PM) 16 br/min (09/07/22 5:07 PM) 16 br/min (09/07/22 12:21 PM) Temperature [96.8-100.4 DegF] 98.1 DegF (09/07/22 8:30 AM) 98.5 DegF (09/06/22 7:00 PM) 97.7 DegF (09/06/22 2:26 PM) Liters per Minute 2 L/min (09/06/22 4:48 AM) 2 L/min (09/06/22 3:12 AM) 2 L/min (09/06/22 12:28 AM) Mode of Delivery (Oxygen) Room air (09/07/22 8:30 AM) Room air (09/06/22 7:00 PM) Room air (09/06/22 2:26 PM) Blood pressure sites Arm, left (09/07/22 8:30 AM) Arm, left (09/06/22 7:00 PM) Arm, left (09/06/22 2:26 PM) Temperature Route Oral (09/07/22 8:30 AM) Oral (09/06/22 7:00 PM) Oral (09/06/22 2:26 PM) Dry Weight 43.1 kg (09/06/22 2:26 PM) Weight Obtained Via Bed scale (09/06/22 2:26 PM) Bed scale (09/06/22 2:21 PM) Social History Social History Type Response Smoking Status 10 or more cigarette s (1/2 pack or more)/day in last 30 days entered on: 01/28/18 Sex Male Admission evaluation note * Pernell MCKEON, Fer: PERFORM, MODIFY, MODIFY Event Display: Admission Note Authored Date: [id number] Patient: ??LUCIAN ZHAO ? Age:??42 Years?Sex:??Male?:??1980?? Chief Complaint/Reason for Consultation Chronic left forearm/wrist wounds, abscesses History of Present Illness The patient is a 42-year-old gentleman with a past medical history of poorly controlled type 2 diabetes mellitus, IV drug abuse, left upper lobe cavitary lung lesion with pneumococcal bacteremia 2020, hepatitis C, prior MRSA bacteremia, prior upper extremity abscesses requiring drainage with chronic wounds to the left upper extremity was recently admitted to the hospital for chronic left upper extremity wounds and weight loss was recommended surgical debridement of his wounds, however declined over he presents with worsening left arm infection was being admitted for further evaluation management. ?? As described above, patient was recently admitted to the hospital from August 05 to August 07, 2022 with left upper extremity wounds and weight loss. ??CT of the left upper extremity revealed gas in the dorsal soft tissues with possible small abscesses without any obvious evidence of osteomyelitis. ??Patient was evaluated by surgery and he refused surgical debridement at the time. ??He was seen by ID and recommended to continue IV Zosyn and vancomycin. ??Superficial wound cultures at the time revealed 3+ gram-positive cocci with Staphylococcus aureus and Streptococcus agalactiae. ??Patient left AGAINST MEDICAL ADVICE at the time and was discharged with Bactrim. 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 ?? He presented to the emergency department on September 05, 2022 with swelling and pain which is worsened with intermittent purulent discharge from various aspects of his wound. ??In the emergency department, afebrile, tachycardic with heart rate 98, blood pressure 138/98, and saturating 98% on room air. ??Lab work-up was notable for microcytic anemia with a hemoglobin of 6.6, INR 1.2, glucose level 299, BUN 13, creatinine 0.5, calcium level 8.5, albumin 3.1, AST 18, ALT 13, and total CK 37. ??CT of the left upper extremity revealed approximately 11 small gas containing focal fluid collections/abscesses within the dorsal soft tissues of the distal forearm, wrist and hand. ??Erosion within the dorsal aspect of the distal ulna is consistent with osteomyelitis. ??A small needle fragments within theulnar soft tissue of the elbow were seen. ??Patient was evaluated by hand surgery and superficial wound cultures were collected and sent for analysis. ??Patient was recommended surgery tomorrow, however he continues to decline any surgical intervention. ??Patient was admitted to the hospital medicine service for further evaluation and management. Review of Systems Constitutional, Eye, Skin, Head/Neck, ENMT, Respiratory, Cardiovascular, Gastrointestinal, Endocrine, Musculoskeletal, Neurologic, Psych reviewed and negative except as noted in HPI. Objective Vital Signs?? Temperature: 97.3 DegF (09/05/22 18:31:00) Temperature Route: Oral (09/05/22 18:31:00) Pulse Rate: 80 bpm (09/05/22 18:31:00) Respiratory Rate: 16 br/min (09/05/22 18:31:00) Systolic Blood Pressure:??140 mm Hg??High (09/05/22 18:31:00) Diastolic Blood Pressure:??99 mm Hg??High (09/05/22 18:31:00) Mean Arterial Pressure: 111 mm Hg (09/05/22 13:15:00) Pulse Pressure: 41 mm Hg (09/05/22 18:31:00) Oxygen Saturation: 100 % (09/05/22 18:31:00) Mode of Delivery (Oxygen): Room air (09/05/22 18:31:00) ? Physical Exam General:??No apparent distress.??Thin, frail appearing.??Able to participate in a conversation. HEENT:??NCAT, EOMI, Sclera are anicteric. Moist oral mucosa. Neck:??Supple, No lymphadenopathy. No JVD. Cardiac:??Regular rate and rhythm, + S1, S2. No appreciable murmurs. PMI ND. Respiratory:??Clear to auscultation bilaterally without wheezes, rales or rhonchi. Abdomen:??Soft, nontender, non-distended, no abnormal BS, no HSM. Rectal exam deferred. Extremities:??No lower extremity edema noted.??Left upper extremity with??chronic-appearing wounds to the dorsal aspects of the distal forearm, wrist and proximal hand with??purulence.??Right 2nd finger is in a chronic state of flexion contracture. There is mild flexion contraction of the 3-5th fingers, though no pain with passive extension. Neurology:??No focal neurological deficits.?? Psych:??Appropriate affect. Assessment/Plan The patient is a 42-year-old gentleman with a past medical history of poorly controlled type 2 diabetes mellitus, IV drug abuse, left upper lobe cavitary lung lesion with pneumococcal bacteremia 2020, hepatitis C, prior MRSA bacteremia, prior upper extremity abscesses requiring drainage with chronic wounds to the left upper extremity was recently admitted to the hospital for chronic left upper extremity wounds and weight loss was recommended surgical debridement of his wounds, however declined over he presents with worsening left arm infection was being admitted for further evaluation management. ?? Chronic wound of the dorsal left forearm, wrist and hand with multiple deep abscesses Osteomyelitis of distal ulna Patient has a known history of chronic wound of the dorsal left forearm and multiple deep abscesses. He was admitted to the hospital from August 05 to August 07 and was recommended surgical debridement, however the patient denied. He was treated with vancomycin and piperacillin???tazobactam, however left AMA and was prescribed Bactrim which she did not refill. He represents with worsening purulence and left arm pain. He was found to have a white count of 5.4, anemia with hemoglobin of 6.6, INR 1.2, and bicarbonate level of 31. CT of the left upper extremity revealed approximately 11 small gas containing fluid collections within the dorsal soft tissue of the distal forearm, wrist and hand. ??Erosions within the dorsal aspect of the distal ulna consistent with osteomyelitis and small needle fragments within the ulnar soft tissue of the elbow. Patient was evaluated by hand surgery who recommended IV antibiotics and surgery tomorrow. However, patient denies surgical intervention at this time and continues to deny surgical intervention. ?? Plan: - Continue vancomycin - Continue piperacillin???tazobactam - Orthopedics following, n.p.o. for possible hand surgery, surgical debridement when the OR schedule allows and if patient reconsiders - Infectious disease consultation - IV LR at 100 mL/h - Follow blood cultures - Follow superficial wound cultures ?? Anemia Patient found to have a hemoglobin of 6.6 with an MCV of 69.1. Patient denies any bright red blood per rectum, hematemesis, melena, or other evidence of blood loss. Patient was counseled on possible need for blood transfusion and risks of not obtaining 1, however he declined blood transfusion at this time as he feels that he does not need 1. ?? Plan: - Continue to monitor CBC - Patient denies blood transfusion ?? IV drug abuse Tobacco dependence Patient reports that he uses intravenous cocaine and heroin. He reports that he last used yesterday. ?? Plan: - Addiction consultation - Social work consultation - Denies NRT - Continue to monitor for withdrawal ?? Type 2 diabetes mellitus Patient reports poorly controlled history of diabetes. He reports that he does not take any medications at home. ?? Plan: - Insulin sliding scale with POC 3 times daily - Obtain hemoglobin A1c ?? Quality measures: DVT prophylaxis: Pneumatic compression boots given anemia of unclear etiology and patient denying blood transfusion Diet: Diabetic, NPO after midnight Code: Full resuscitation ?? Patient discussed with Dr. Huang. Histories Allergies morphine? (Severity: Unknown, Onset: Unknown) ?Comments: Has a side effect - itching. ?? Past Medical History/Problem List Cellulitis and abscess of hand, except fingers and thumb Cocaine use disorder, severe, dependence Hyperglycemia without ketosis Hyponatremia Opioid use disorder, severe, dependence Polysubstance abuse Underweight ?? Past Surgical History No surgery history documented. ?? Social History Current tobacco use 1/2ppd IV cocaine and heroine use. ?? Family History Denies Medications Home Medications No medications documented.? Inpatient Medications Medications (11) Active SCHEDULED: (4) Insulin Lispro 100 units/mL Inj (3mL) (Insulin LISPRO Sliding Scale) ??2-10 units, Subcutaneous Injection, 3 times a day before meals NaCl 0.9% Flush 3ml (NaCL 0.9% Flush) ??3 mL, IV Push, Every 8 hours Piperacillin/Tazobactam 3.375 Gm Inj (Zosyn Extended IVPB) ??3.375 Gm, IVPB, Every 8 hours Vancomycin (Vancomycin IVPB) ??500 mg, IVPB, Every 12 hours CONTINUOUS: (0) PRN: (7) Acetaminophen 325 mg Tablet (Acetaminophen Tablet) ??650 mg, By Mouth, Every 4 hours Dextromethorphan-Guaifenesin 20 mg-200 mg/10 mL Liqu UD (Robitussin DM Liquid) ??10 mL, By Mouth, Every 4 hours Melatonin 3 mg Tablet [...] a day ? Results Recent Labs BLOOD COUNT & DIFF WBC 5.4 k/mm3 ()?? 09/05/2022 14:34 RBC 3.24 m/mm3 (Low)?? 09/05/2022 14:34 Hgb 6.6 Gm/dL (Low)?? 09/05/2022 14:34 Hct 22.4 % (Low)?? 09/05/2022 14:34 MCV 69.1 femtoliters (Low)?? 09/05/2022 14:34 MCH 20.4 pg (Low)?? 09/05/2022 14:34 MCHC 29.5 g/dL (Low)?? 09/05/2022 14:34 Platelet Count 171 k/mm3 ()?? 09/05/2022 14:34 RDW-SD 38.0 femtoliters ()?? 09/05/2022 14:34 MPV 9.1 femtoliters (Low)?? 09/05/2022 14:34 Nucleated RBC (Automated) 0.0 #/100 WBC'S ()?? 09/05/2022 14:34 Abs. NRBC 0.0 k/mm3 ()?? 09/05/2022 14:34 Abs. Neut 3.8 k/mm3 ()?? 09/05/2022 14:34 Abs. Lymph 1.2 k/mm3 ()?? 09/05/2022 14:34 Abs. [place] 0.3 k/mm3 (Low)?? 09/05/2022 14:34 Abs. Eo 0.0 k/mm3 ()?? 09/05/2022 14:34 Abs. Baso 0.0 k/mm3 ()?? 09/05/2022 14:34 Neut % 71.3 % ()?? 09/05/2022 14:34 Lymph % 21.5 % ()?? 09/05/2022 14:34 [place] % 5.8 % ()?? 09/05/2022 14:34 Eos % 0.6 % ()?? 09/05/2022 14:34 Baso % 0.4 % ()?? 09/05/2022 14:34 Imm Gran 0.4 % ()?? 09/05/2022 14:34 Abs. Imm Gran 0.0 k/mm3 ()?? 09/05/2022 14:34 ?? CARDIAC CK, Total 37 units/L ()?? 09/05/2022 14:35 ?? CHEM GENERAL Sodium 134 mmol/L ()?? 09/05/2022 14:35 Potassium 4.1 mmol/L ()?? 09/05/2022 14:35 Chloride 95 mmol/L (Low)?? 09/05/2022 14:35 Bicarbonate Level 31 mmol/L (High)?? 09/05/2022 14:35 Anion Gap 8 ()?? 09/05/2022 14:35 Glucose Level 299 mg/dL (High)?? 09/05/2022 14:35 BUN 13 mg/dL ()?? 09/05/2022 14:35 Creatinine-Blood 0.5 mg/dL (Low)?? 09/05/2022 14:35 Estimated GFR Creatinine 127 ML/MIN/1.73 M2 ()?? 09/05/2022 14:35 Calcium 8.5 mg/dL (Low)?? 09/05/2022 14:35 Protein, Total 6.6 Gm/dL ()?? 09/05/2022 14:35 Albumin 3.1 Gm/dL (Low)?? 09/05/2022 14:35 AG Ratio 0.9 ()?? 09/05/2022 14:35 Alkaline Phosphatase 115 units/L ()?? 09/05/2022 14:35 AST (SGOT) 18 units/L ()?? 09/05/2022 14:35 ALT (SGPT) 13 units/L ()?? 09/05/2022 14:35 Bilirubin, Total 0.2 mg/dL ()?? 09/05/2022 14:35 Lactate 2.1 mmol/L ()?? 09/05/2022 14:35 ?? COAG INR 1.2 (High)?? 09/05/2022 14:34 Protime (PT) 12.5 seconds (High)?? 09/05/2022 14:34 ?? MISC. CHEMISTRY Hold Green Top SPECIMEN DISCARDED AFTER 1 WEEK ()?? 09/05/2022 14:34 ? Hospital Progress note * Lorin Vines: PERFORM Event Display: Progress Note Hospital Authored Date: Patient: ??LUCIAN ZHAO ? Age:??42 Years?Sex:??Male?:??1980?? Paged by nursing to speak with patient regarding leaving AMA. Visited patient who was dressing himself and adamant about leaving, without a reason besides I want to . Reinforced the importance of IVantibiotics for his severe arm infection, and again spoke about possibility of needing surgery to aid in healing. Patient was found to be A&O x 4 (person, place, date, situation). He was counseled on returning to the ER??if any fevers, chills, changes in sensation or strength of the L hand, or foul smelling purulence from the wound. IV was removed by nursing. He signed the AMA form. * Ryann Kimbrough RN: PERFORM, SIGN, VERIFY, SIGN, MODIFY, SIGN, MODIFY, SIGN, MODIFY Event Display: Progress Note Hospital Authored Date: [id number] Patient: LUCIAN ZHAO Age: 42 years Sex: Male : 1980 Associated Diagnoses: None Author: Ryann Kimbrough RN Findings Problem Related to Alteration in Integumentary : Alteration in Integumentary/new 09/07/2022 12:54 EDT Alteration in Integumentary Related to Cellulitis, Unstageable Goals & Outcomes, Integumentary Nutritional intake is adequate for metabolic needs, Pt will maintain adequate fluid & nutritional balance, Pt will maintain intact skin integrity, Wound will progress towards healing Interventions, Integumentary Cleanse all wounds with Normal Saline, Collaborate w/ provider for PT/OT consults, Consult Wound Care as needed for further interventions, Encourage & assist pt to change position frequently, Encourage & assist with range of motion exercises, Encourage family participation in pt's care as they are able, Ensure relief modes are on mattress surface & utilized, Increase turning frequency if red or blanched areas appear, Interdisciplinary consults as appropriate, Keep bed as flat as tolerated to reduce shearing, Keep linen clean, dry and wrinkle free, Keepskin clean & dry, Maintain sterile technique with dressing changes, Minimize friction, shear and moisture, Monitor reddened areas for continued or increasing reddness, Record extent of impaired skin integrity, Relieve pressure off bony areas, Reposition pt off reddened areas, Teach Pt/caregivers/s of infection, Teach Pt/S.O. risks of & measures to prevent skin breakdown, Use barrier cream/ointment if pt's skin is frequently moist, Use fecal incontinence appliance if pt incontinent of stool, Use heel & elbow protectors to relieve friction, Use pH balanced no rinse cleanser if incon tinent, Use pressure dispersing devices as appropriate BH Goals/Interventions, Integumentary Yes Integumentary, Problem Start 09/06/2022 15:13 Reviewed plan with, Integumentary Patient Patient Progression, Integumentary Pt progressing according to plan . Falls Risk Assessment 09/07/2022 12:58 EDT Fall Elimination Incontinent, Toileting Needs Increased Plan: Fall Elimination Monitor fluid intake & bladder & bowel activity, Implement an individualized toileting schedule, Place bedpan/urinal within easy each, Place commode next to bed, Collaborate with MD to consider contributory medications, Collaborate with MD for management of altered elimination Fall Agitation/Anxiety/Depression Agitated, Anxious Plan: Fall Agitation/Anxiety/Depression Identify triggers for agitation/anxiety to reduce them, Collaborate with patient to minimize depression, Inform MD patient is agitated, anxious or depressed, Collaborate with MD to manage agitation/anxiety/depression, Administer PRN medications for agitation/anxiety, Enlist family to identify & use calming interventions Fall Related Sign/Symptom/Condition None Fall Cognitive Limitations No impairment Fall Sensory and Physical Function Weak, Requires Staff Assistance with Transfer, Requires the Use of an Assistive Device Plan: Fall Sensory and Physical Function Encourage safe activities to maintain strength & mobility, Perform strengthening exercises with the patient, Ask family to encourage safe activities, Monitor patient's progress with physical activities, Educate patient how to use mobility aids safely, Educate the family how to use mobility aids safely, Place mobility aids near bedside, Ensure patient has & wears eyeglasses/hearing aids, Collaborate with MD to refer to physical therapy, Collaborate with Physical Therapy for balance/gait training, Collaborate with MD to refer to occupational therapy Fall High Risk for Injury On Coumadin, IV Heparin, or Lovenox Total Falls Risk Score 19 Fall Risk Level High Risk Falls Prevention Plan for High Risk Fall risk decal outside of patient's room, Fall supervisor carton and can supply patient's chart, Apply yellow high fall risk wrist band to wrist, Ensure patient has yellow non-skid slippers, Supervise patient in the bathroom & shower, Consider relocating patient closer to nurses'station, Activate bed exit alarm system, Evaluate footwear & ensure patient has non-skid slippers, Activate alternate alarm: bed (i.e. TABS), Activate alternate alarm: chair (i.e. TABS, Alimed), Bed in lowest locked position, Provide patient/family falls prevention education, Place personal care items & call horner within reach, Instruct patient/family to request assistance with ambulatio, Instruct patient/family not to get up without assistance, Supervise the patient when ambulating or making transfers, Check that needs are met to minimize attempts to get up, Hourly rounds, Ensure safe& uncluttered environment, Communicate falls risk to all providers, Transport by stretcher to Radiology . Nursing Data Gastrointestinal Data. : Gastrointestinal Data. 09/07/2022 13:00 EDT Gastrointestinal Symptoms None Abdomen Soft Bowel Sounds LUQ Present Bowel Sounds RUQ Present Bowel Sounds LLQ Present Bowel Sounds RLQ Present Last Bowel Movement 09/07/2022 GI WNL except . Integumentary Data. : Integumentary Data. 09/07/2022 13:00 EDT Skin Abnormality Dry Skin Color Normal for ethnicity Skin Integrity Not intact Activity Bedfast Mobility Very limited Wound Location I Hand, left Wound I, Drainage Amount Minimum Wound I, Drainage Color Purulent, Serous Wound I, Surrounding Skin Intact, Dry Integumentary WNL except 09/07/2022 12:57 EDT Sensory Perception No impairment Moisture Very moist Activity Bedfast Mobility Very limited Nutrition Adequate Friction and Shear Potential problem Bobby Score 14 Nursing Care Plan initiated/updated Yes . Musculoskeletal Data. : Musculoskeletal Data. 09/07/2022 13:00 EDT Musculoskeletal Symptoms Joint stiffness, Weakness Musculoskeletal WNL except . Vital Signs : VITAL SIGNS SECTION 09/07/2022 8:30 EDT Temperature 98.1 DegF Temperature Route Oral Pulse Rate 77 bpm Respiratory Rate 16 br/min Systolic Blood Pressure 133 mm Hg Diastolic Blood Pressure 88 mm Hg H Blood pressure sites Arm, left Mean Arterial Pressure 103 mm Hg Pulse Pressure 45 mm Hg Oxygen Saturation 98 % Mode of Delivery (Oxygen) Room air . Narrative/Incidental Patient alert and oriented x4, uncooperative with care and refusing assessment by this RN. Patient denies shortness of breath and is on room air. No edema noted, patient refused Heparin for DVT prophilaxis. Last BM today 09/07. Patient was NPO last night but did not remain NPO, MD Li and surgery MD also aware, patient also refusing surgery. Dressing to the left hand/arm intact. IV to theright arm patent this am with LR infusing per orders and IV Vanco given, then patient dislodged IV.New IV to the right arm obtained and IV Zosyn given per orders. Weakness noted. PRN PO Oxycodone given for pain with some positive effect. Good PO intake noted. Safety and comfort maintained, needs met. . * Ryann Kimbrough RN: PERFORM Event Display: Progress Note Hospital Authored Date: At approximately 1745, patient stated I'm leaving and I already called a ride, you better get the doctor now , cross-covering MD Max paged and coming to bedside. * Ryann Kimbrough RN: PERFORM Event Display: Progress Note Hospital Authored Date: AMA paperwork signed by patient with MD Max and this RN, IV removed with catheter tip intact andpressure dressing applied. * Ryann Kimbrough RN: PERFORM Event Display: Progress Note Hospital Authored Date: [id number] Patient left the unit at 1845. * Guillermo MCKEON, [facility]: PERFORM, MODIFY, MODIFY Event Display: Progress Note Hospital Authored Date: [id number] Patient: ??BOQUERebecca, LUCIAN ? Age:??42 Years?Sex:??Male?:??1980?? Subjective ??Patient ??seen and examined today ??foul smelling wound c/o pain? Review of Systems General: No fever, chills or rigors Cardiac: No Chest pain, No palpitations, No light headedness Respiratory: no Short of breath, no cough Abdomen: No diarrhea or constipation,no nausea or abdominal pain Nervous system: No headache, blurred vision, tingling or numbness or any weakness Left hand wound/pain, discharge Objective Vital Signs?? Temperature: 98.1 DegF (09/07/22 08:30:00) Temperature Route: Oral (09/07/22 08:30:00) Pulse Rate: 77 bpm (09/07/22 08:30:00) Respiratory Rate: 16 br/min (09/07/22 11:21:00) Systolic Blood Pressure: 133 mm Hg (09/07/22 08:30:00) Diastolic Blood Pressure:??88 mm Hg??High (09/07/22 08:30:00) Blood pressure sites: Arm, left (09/07/22 08:30:00) Mean Arterial Pressure: 103 mm Hg (09/07/22 08:30:00) Pulse Pressure: 45 mm Hg (09/07/22 08:30:00) Oxygen Saturation: 98 % (09/07/22 08:30:00) Mode of Delivery (Oxygen): Room air (09/07/22 08:30:00) Early Warning Score: 4 (09/07/22 11:22:06) ? Physical Exam ?? Lungs: Clear to auscultation, no wheezes, rales or rhonchi Heart: RRR, No murmurs, gallops or rubs Abdomen: Soft, non tender, normal Bowel sounds ADOPTION SPECIALIST: Alert awake and oriented X 3 Left hand: hand /left forearm wound-pic is in multi media images Results Recent Labs BLOOD COUNT & DIFF WBC 5.9 k/mm3 ()?? 09/07/2022 06:12 RBC 4.07 m/mm3 (Low)?? 09/07/2022 06:12 Hgb 8.0 Gm/dL (Low)?? 09/07/2022 06:12 Hct 28.0 % (Low)?? 09/07/2022 06:12 MCV 68.8 femtoliters (Low)?? 09/07/2022 06:12 MCH 19.7 pg (Low)?? 09/07/2022 06:12 MCHC 28.6 g/dL (Low)?? 09/07/2022 06:12 Platelet Count 164 k/mm3 ()?? 09/07/2022 06:12 RDW-SD 38.3 femtoliters ()?? 09/07/2022 06:12 MPV 9.0 femtoliters (Low)?? 09/07/2022 06:12 Nucleated RBC (Automated) 0.0 #/100 WBC'S ()?? 09/07/2022 06:12 Abs. NRBC 0.0 k/mm3 ()?? 09/07/2022 06:12 ?? CHEM GENERAL Glucose, POC 460 mg/dL (High)?? 09/07/2022 11:04 ?? URINE OTHER Est Creatinine Clearance 114.93 mL/min ()?? 09/06/2022 14:28 ? Assessment/Plan ? Diagnoses Anemia ??(D64.9) Diabetes mellitus ??(E11.9) Osteomyelitis, hand ??(M86.9) Staphylococcus epidermidis bacteremia ??(R78.81) ? 42-year-old gentleman with a past medical history of ??Uncontrolled type 2 diabetes mellitus, IV drug abuse, left upper lobe cavitary lung lesion with pneumococcal bacteremia 2020, hepatitis C, priorMRSA bacteremia, prior upper extremity abscesses requiring drainage with chronic wounds to the leftupper extremity was recently admitted to the hospital for chronic left upper extremity wounds and weight loss was recommended surgical debridement of his wounds, however declined over he presented with worsening left arm infection was being admitted for further evaluation management. ?? 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 He was admitted to the hospital from August 05 to August 07 and was recommended surgical debridement, however the patient denied. CT of the left upper extremity revealed approximately 11 small gas containing fluid collections within the dorsal soft tissue of the distal forearm, wrist and hand. ??Erosions within the dorsal aspect of the distal ulna consistent with osteomyelitis and small needle fragments within the ulnar soft tissue of the elbow. - Continue vancomycin and Continue piperacillin???tazobactam -ID and hand surgery following. -Myself??and surgery team??had multiple conversations with the patient but he is refusing surgical intervention -He says _ I want to try antibiotics first?? -he had foreign body (Small needle fragment within the ulnar soft tissues of the elbow) as per CT report- which is concerning. -pain control with dilaudid for now- explained to him that this is short term. -repeat blood cultures (one set growing staph Epidermidis) -wound culture growing Staph aureus and Streptococcus AGALACTIAE SERO GROUP B? Uncontrolled Type 2 diabetes mellitus A1C 14.4 sugars are high. Lispro sliding scale will give one dose of Lantus today afternoon and will give 10 units of Lantus tonight. will give Lantus 20 units from 09/08 ?? Anemia Patient found to have a hemoglobin of 6.6 with an MCV of 69.1. He declined blood transfusion. Now hb improved to 8 without transfusion. will check anemia profile. ? IV drug abuse Tobacco dependence Patient reports that he uses intravenous cocaine and heroin. - Addiction consultation as he would like to be on Methadone. ?? Quality measures: DVT prophylaxis: TREMAYNE score is high because of the infection. SQ heparin ordered. Diet: Diabetic, Code: Full resuscitation ?? OMN:Osteo /abscess needing IV abx. he does not want any surgery at this time. discussed with multiple times. uncontrolled blood sugars. addiction medicine consult f/u hand surgery and ID ?? Patient Care team information Care Team Personnel Name: Lorraine Sherwood RN Position: [facility] AMB Nurse Member Role: Primary Care Nurse Name: Hailey Corado RN Position: [facility] RN Supv Member Role: Primary Care Nurse Name: Ana Pink RN Position: [facility] RN Member Role: Primary Care Nurse Name: Ashley Gastelum RN Position: [facility] RN Member Role: Primary Care Nurse Name: Naima Beach RN Position: [facility] RN Member Role: Primary Care Nurse Name: Delvin Bolivar III, MD Position: Reference Physician Member Role: PCP Address: Address: [address] [place] [id number] Name: Zev Brock Position: [facility] RN Member Role: Primary Care Nurse Name: Patt Ponce RN Position: [facility] RN Member Role: Primary Care Nurse Name: Pennie Sanchez RN Position: [facility] RN Member Role: Primary Care Nurse Name: Veronica Garcia RN Position: [facility] RN Member Role: Primary Care Nurse Name: Manav Muñiz RN Position: [facility] ED RN W/OE and Tasks Member Role: Primary Care Nurse Name: Alee Shaikh RN Position: [facility] RN Member Role: Primary Care Nurse Name: Christy Almanza RN Position: [facility] RN Member Role: Primary Care Nurse Name: Bindu Gaspar RN Position: [facility] RN Member Role: Primary Care Nurse Name: Alexey Wilkins RN Position: [facility] RN Member Role: Primary Care Nurse Name: Ilene Orona RN Position: [facility] RN Member Role: Primary Care Nurse Name: Miko Alvarez RN Position: [facility] RN Member Role: Primary Care Nurse Name: Hugo Marshall RN Position: [facility] RN Member Role: Primary Care Nurse Name: Sammie Jimenez RN Position: [facility] RN Member Role: Primary Care Nurse Name: Verenice Espinoza RN Position: [facility] RN Member Role: Primary Care Nurse Name: Lucian Kelly RN Position: [facility] RN Member Role: Primary Care Nurse Name: Charissa Banuelos RN Position: [facility] RN Member Role: Primary Care Nurse Name: Yana Hernandez RN Position: [facility] RN Member Role: Primary Care Nurse Name: Molly Kebede RN Position: [facility] OB RN Member Role: Primary Care Nurse Name: Brittaney Eagle RN Position: [facility] RN Member Role: Primary Care Nurse [facility] Attending Position: [facility] ED Attendings Patient Name: *OLIMPIA, Inpt Attending Position: [facility] ED Medicine MD Name: Maya Landrum RN Position: [facility] ED RN W/OE and Tasks Member Role: Patient Care Provider Name: Ye Teran Position: S ED TA [facility] Member Role: C++ Quant Developer Care Team Related Persons Name: DEBRA ZHAO Address: home [address] [id number] Name: DODIE ZHAO Address: home [address] [place] [address]
--- OUTSIDE RECORDS SUMMARY | 2024-01-19 22:59 | XMS_ITS | Continuity of Care Document ---
Author Organization [facility] Address [address] [place] [address]- Care Team Providers Care Wood Machinist Name Role Phone Calin Larose MD Primary Care Physician Encounter [facility] Date(s): 03/02/20 - 04/01/20 [facility] [address] [place], [place] [address] Allergies, Adverse Reactions, Alerts Substance Reaction Severity Status NKA Active Medications Admelog SoloStar 100 units/mL injectable solution INJ 2 TO 14 UNITS SC TID BEFORE MEALS Start Date: 03/03/20 Status: Ordered Basaglar KwikPen 100 units/mL subcutaneous solution INJECT 42 UNITS SC D HS Start Date: 03/03/20 Status: Ordered Problem List Condition Effective Dates [...]
--- OUTSIDE RECORDS SUMMARY | 2024-01-19 22:59 | XMS_ITS | Continuity of Care Document ---
Author Organization [facility] Address [address] [place] [address]- Care Team Providers Care House Cleaner Name Role Phone Lachelle MCKEON, Calin Mckeon Primary Care Physician Encounter [facility] Date(s): 12/19/22 - 02/13/23 [facility] [address] [place], [place] [address] Attending Physician: Scot Paris MD Admitting Physician: Scot Paris MD Allergies, Adverse Reactions, Alerts Substance Reaction [...] 43.6, kg,... Start Date: 12/19/22 Status: Ordered Augmentin 875 mg-125 mg oral tablet 1 tablet, By Mouth, 2 times a day, for 30 days, You need to take this for at least 2 more weeks; the ID doctor will let you know if you need to continue for the full 6 weeks, which would be through January 26., # 60 tablet, 1 Refills, Acute 02/17/23... Start Date: 12/19/22 Stop Date: 02/17/23 Status: Ordered doxycycline hyclate 100 mg oral capsule 1 capsule = 100 mg, By Mouth, 2 times a day, for 30 days, You need to take this through January 26, 2023, unless directed otherwise by ID doctor. Take with fluids, # 60 capsule, 1 Refills, Acute 02/17/23 9:18:00 EST, 12/19/22 9:18:00 EDT, Capsule, C... Start Date: 12/19/22 Stop Date: 02/17/23 Status: Ordered ferrous sulfate 325 mg oral enteric coated tablet 325 mg, 1, tablet, By Mouth, Daily, # 30 tablet, Refills 0, Tot. Refills 0, Maintenance, 12/19/22 10:40:00 EDT, Route to Pharmacy Electronically, [facility]/pharmacy #[id number], Partial fill upon patient requestif the prescription is for a schedule II opioid serenity... Start Date: 12/19/22 Stop Date: 01/18/23 Status: Ordered Freestyle Lite Lancets See Instructions, [...] 12/19/22 9:11:00 EDT, Route to Pharmacy Electronically, [facility]/pharmacy #[id number], Partial fill upon patient request ifthe [...] 10 uni... Start Date: 12/19/22 Status: Ordered Lab draw--CBC with diff, CMP, ESR, and CRP Lab draw--CBC with diff, CMP, ESR, and CRP, See Instructions, # 4 each, Refills 4, Tot. Refills 4, Maintenance, Draw every 2 weeks while on antibiotics. Results to ID-- Dr Olena Parsons . , 12/19/22 9:26:00 EDT, [place]... Start Date: 12/19/22 Status: Ordered Lantus Solostar Pen 100 units/mL subcutaneous solution = 15 units, Subcutaneous Injection, Daily at bedtime, # 10 mL, 0 Refills, Maintenance, 12/19/22 9:12:00 EDT, Injection, [facility]/pharmacy #[id number], Partial fill upon patient request if the prescription is for a schedule II opioid drug., 163, cm, 12/18/22 13:3... Start Date: 12/19/22 Stop Date: 01/18/23 Status: Ordered Methadone = 100 mg, By Mouth, Daily in AM, 0 Refills, Maintenance, 12/19/22 9:21:00 EDT, Tablet, Partial fillupon patient request if the prescription is for a schedule II opioid drug. Start Date: 12/19/22 Status: Ordered Pen Linn, 31 G x 5 mm BD Ultra Fine III See Instructions, # 100 each, Refills 5, Tot. Refills 5, Maintenance, use as directed for Type 2 Diabetes Mellitus, 12/19/22 9:23:00 EDT, Supply, 163, cm, 12/18/22 13:39:00 EDT, Height, 43.6, kg, 12/04/22 9:38:00 EDT, Dry Weight Start Date: 12/19/22 Stop Date: 06/17/23 Status: Ordered zinc sulfate 220 mg oral capsule 220 mg, By Mouth, Daily in AM, # 30 tablet, Refills 0, Tot. Refills 0, Maintenance, 12/19/22 9:22:00 EDT, Route to Pharmacy Electronically, [facility], Partial fill upon patient requestif the [...] Team Personnel Name: Lorraine Sherwood RN Position: [facility] AMB Nurse Member Role: Primary Care Nurse Name: Hailey Corado RN Position: [facility] RN Supv Member Role: Primary Care Nurse Name: Ana Pink RN Position: [facility] RN Member Role: Primary Care Nurse Name: Ashley Gastelum RN Position: [facility] RN Member Role: Primary Care Nurse Name: Calin Larose MD Position: [facility] Physician (General Medicine) Member Role: PCP Address: Address: [address] [place] [id number] Name: Naima Beach RN Position: [facility] RN Member Role: Primary Care Nurse Name: Margo Valdez LPN Position: [facility] RN Member Role: Primary Care Nurse Name: Zev Brock RN Position: [facility] RN Member Role: Primary Care Nurse Name: Patt Ponce RN Position: [facility] RN Member Role: Primary Care Nurse Name: Pennie Sanchez RN Position: [facility] RN Member Role: Primary Care Nurse Name: Veronica Garcia RN Position: [facility] RN Member Role: Primary Care Nurse Name: Toña Dubon RN Position: [facility] RN Member Role: Primary Care Nurse Name: Manav Muñiz RN Position: [facility] ED RN W/OE and Tasks Member Role: Primary Care Nurse Name: Alee Shaikh RN Position: [facility] RN Member Role: Primary Care Nurse Name: Christy Almanza RN Position: [facility] RN Member Role: Primary Care Nurse Name: Bindu Gaspar RN Position: [facility] RN Member Role: Primary Care Nurse Name: Alexey Wilkins RN Position: [facility] RN Member Role: Primary Care Nurse Name: Ilene Orona RN Position: [facility] RN Member Role: Primary Care Nurse Name: Seth Rivera RN Position: [facility] RN Member Role: Primary Care Nurse Name: Miko Alvarez RN Position: [facility] RN Member Role: Primary Care Nurse Name: Hugo Marshall RN Position: [facility] RN Member Role: Primary Care Nurse Name: Sammie Jimenez RN Position: [facility] RN Member Role: Primary Care Nurse Name: Verenice Espinoza RN Position: [facility] RN Member Role: Primary Care Nurse Name: Lucian Kelly RN Position: [facility] RN Member Role: Primary Care Nurse Name: Charissa Banuelos RN Position: [facility] RN Member Role: Primary Care Nurse Name: Yana Hernandez RN Position: [facility] RN Member Role: Primary Care Nurse Name: Sara Carpenter RN Position: [facility] RN Member Role: Primary Care Nurse Name: Molly Kebede RN Position: [facility] OB RN Member Role: Primary Care Nurse Name: Brittaney Eagle RN Position: [facility] RN Member Role: Primary Care Nurse Name: Dahiana Muller LPN Position: [facility] RN Member Role: Primary Care Nurse Care Team Related Persons Name: DEBRA ZHAO Address: home [address] [place] [address] Name: DODIE ZHAO Address: home [address] [place] [address] Name: GEMMA ZHAO Address: home [address] [place] [address] [place] [address]
--- OUTSIDE RECORDS SUMMARY | 2024-01-19 22:59 | XMS_ITS | Continuity of Care Document ---
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 Start Date: 12/19/22 Stop Date: 06/17/23 Status: [...] oral capsule 600 mg, Capsule, By Mouth, 04/22/23 9:00:00 EST Start Date: 04/22/23 Stop Date: 04/22/23 Status: Completed gabapentin 300 mg oral capsule 600 mg, By Mouth, 3 times a day, # 90 capsule, Refills 0, Tot. Refills 0, Maintenance, 12/19/22 9:11:00 EDT, Route to Pharmacy Electronically, [facility]/pharmacy #[id number], Partial fill upon patient request [...] opioid drug. Start Date: 04/22/23 Status: Ordered HYDROmorphone 2 mg oral tablet 2 mg, Tablet, By Mouth, Every 6 hours, PRN for Pain , Severe, Routine, 04/14/23 15:00:00 EST Start Date: 04/14/23 Stop Date: 04/22/23 Status: Discontinued ibuprofen 400 mg oral tablet 400 mg, [...] opioid drug. Start Date: 04/22/23 Status: Ordered Lisinopril Tablet 10 mg, Tablet, By Mouth, 04/22/23 9:00:00 EST Start Date: 04/22/23 Stop Date: 04/22/23 Status: Completed LORazepam 0.5 mg oral tablet = 0.5 [...] opioid drug. Start Date: 04/22/23 Status: Ordered Methadone Tablet 80 mg, Tablet, By Mouth, 04/22/23 9:00:00 EST Start Date: 04/22/23 Stop Date: 04/22/23 Status: Completed NaCL 0.9% Flush 5 mL, IV Push, [...] Inject... Start Date: 04/08/23 Status: Ordered Pen [place], 31 G x 5 mm BD Ultra [...] Range]: 1 2 3 Height 162 cm (04/22/23 7:39 AM) 162 cm (04/22/23 12:01 AM) 162 cm (04/21/23 8:20 PM) Weight 44.2 kg (04/21/23 5:13 AM) 46.1 kg (04/14/23 4:55 AM) 44.8 kg (04/10/23 4:14 AM) Oxygen Saturation [94-100 %] 100 % (04/22/23 7:39 AM) 100 % (04/22/23 12:01 AM) 97 % (04/21/23 8:20 PM) Pulse Rate [55-90 bpm] 109 bpm *H* (04/22/23 7:39 AM) 114 bpm *H* (04/22/23 12:01 AM) 125 bpm *H* (04/21/23 8:20 PM) Body Mass Index [18.5-24.99 kg/m2] 17.07 kg/m2 *L* (04/10/23 4:14 AM) 17.15 kg/m2 *L* (04/08/23 11:14 PM) Blood Pressure [90-138/55-84 mm Hg] 147/88mm Hg *H* (04/22/23 8:13 AM) 147/88mm Hg *H* (04/22/23 7:39 AM) 133/94mm Hg (04/22/23 12:01 AM) Respiratory Rate [16-30 br/min] 17 br/min (04/22/23 10:20 AM) 17 br/min (04/22/23 9:13 AM) 17 br/min (04/22/23 9:13 AM) Temperature [96.8-100.4 DegF] 97.4 DegF (04/22/23 7:39 AM) 98 DegF (04/22/23 12:01 AM) 98.1 DegF (04/21/23 8:20 PM) Mode of Delivery (Oxygen) Room air (04/22/23 7:39 AM) Room air (04/22/23 12:01 AM) Room air (04/21/23 8:20 PM) Blood pressure sites Arm, left (04/22/23 7:39 AM) Arm, left (04/22/23 12:01 AM) Arm, left (04/21/23 8:20 PM) Temperature Route Oral (04/22/23 7:39 AM) Oral (04/22/23 12:01 AM) Oral (04/21/23 8:20 PM) Dry Weight 45 kg (04/08/23 11:14 PM) Weight Obtained Via Bed scale (04/21/23 5:13 AM) Bed scale (04/14/23 4:55 AM) Bed scale (04/10/23 4:14 AM) Dry Weight Obtained Via Bed scale (04/08/23 11:14 PM) Social History Social History Type Response Smoking Status 10 or more cigarette s (1/2 pack or more)/day in last 30 days entered on: 01/28/18 Sex Admission evaluation note * Jaxson Olivera: PERFORM Event Display: Admission Note Authored Date: [id number] Patient: ??RUSTYHELENA LUCIAN ? Age:??42 Years?Sex:??Male?:??1980?? Chief Complaint/Reason for Consultation Chronic osteomyelitis, transfer from??[facility] for dispo. History of Present Illness ??42-year-old male patient with a history of chronic wounds in the left upper extremity, type 2 diabetes mellitus??requiring insulin, intravenous drug use, untreated hepatitis C,?? was admitted??[facility] at [place] due to escalating pain in the LUE. Examination revealed chronic osteomyelitis in the affected limb. Concurrently, he tested positive for COVID-19 but showed no symptoms. Additionally, he was treated for anemia with 1 unit of packed red blood cells on March 29 and has been stable since. Consultations with plastic and hand surgery teams resulted in a decision to defer any immediate surgical intervention. The patient started receiving intravenous cefepime and daptomycin through a per ipherally inserted central catheter??from March 27, following infectious disease ??specialists' advice for a treatment course of at least six weeks. The wound care team was also involved in his treatment. Notably, he was incidentally found to be COVID-19 positive on March 27, 2023, but remained asymptomatic throughout and completed a 10-day isolation period by April 07, 2022. Throughout his hospital stay, the patient maintained hemodynamic stability and did not exhibit fever. Following the completion of the isolation period, he is now considered fit for discharge to a rehabilitation facility.?? He was transferred to this hospital??for continuation of management??while awaiting for dispo. Review of Systems All other systems were reviewed and are negative. Objective Measurements?? Height: 162 cm (04/08/23) Weight: 45 kg (04/08/23) Dry Weight: 45 kg (04/08/23) Body Mass Index:??17.15 kg/m2??Low (04/08/23) ? Vital Signs?? Temperature: 97.7 DegF (04/08/23 23:29:00) Temperature Route: Temporal (04/08/23 23:29:00) Pulse Rate:??104 bpm??High (04/08/23 23:29:00) Respiratory Rate: 18 br/min (04/09/23 01:54:00) Systolic Blood Pressure: 130 mm Hg (04/08/23 23:29:00) Diastolic Blood Pressure: 82 mm Hg (04/08/23 23:29:00) Blood pressure sites: Arm, left (04/08/23 23:29:00) Mean Arterial Pressure: 98 mm Hg (04/08/23 23:29:00) Pulse Pressure: 48 mm Hg (04/08/23 23:29:00) Oxygen Saturation: 100 % (04/08/23 23:29:00) Mode of Delivery (Oxygen): Room air (04/08/23 23:29:00) Early Warning Score: 3 (04/09/23 01:54:25) ? Perfusion Assessment Cardiovascular: WNL (04/09/23 01:56:00) ? Pain Scores 1 - 10 Pain Scale Score: 8 (:56) ? Ventilator Settings?? No qualifying data available. ? Intake/Output? No Data Available ?? Precautions No Precautions documented.? Mobility & Ambulation Level Mobility & Ambulation Level?? No qualifying data available. ?? Therapeutic Activity Therapeutic Activities/Mobility/Balance?? No qualifying data available. ? Physical Exam General:The patient appears comfortable and is alert and oriented to person, place, and time (AAOx3). HEENT: EOMI Cardio: The heart shows a steady rhythm and rate Respiratory: Clear to auscultation on both sides, with no wheezing or crackles heard. Extremities:??The left upper extremity is covered with a dressing, showing limited finger movement.Both lower extremities exhibit areas of reddish, scratched rashes. Neuro: no facial droop no slurring of the speech Assessment/Plan Diagnoses Chronic osteomyelitis of hand ??(M86.649) Type 2 diabetes mellitus ??(E11.9) ?? Chronic osteomyelitis of hand (M86.649):?? Chronic osteomyelitis of the left wrist. L wrist tissue biopsy in 03/02/2023 grew proteus vulgaris,klebsiella oxytoca, enterococcus faecalis VRE. Left hand abscess from 03/02/2023 grew MRSA. He was admitted as inpatient. Continue with IV antibiotics: Cefepime 2gm q8 and Daptomycin 450mg q24 for 6 weeks since this admission (Oral option if he were to refuse IV/want to leave [facility] would be: Levaquin 750mg daily PO and Doxycycline 100mg PO BID for at least 6 weeks) ?? Type 2 diabetes mellitus (E11.9):?? POC glucose monitoring and insulin sliding scale. Resume glargine 12 units at bedtime. Emergency hypoglycemic measures. ?? Stable Issues: COVID-19: Asymptomatic, saturating 100% on RA. C/w supportive care. Tested positive 03/26/2023, off precautions 15 PM Thrombocytopenia: Plt 150->111->120->105->114, possibly in setting of Cefepime use. Smear showing anemia and thrombocytopenia, not diagnostic of etiology. Hypocalcemia: 6.7, corrected for hypoalbuminemia of 2.0 is 7.9 Polysubstance use disorder: His regular dose is Methadone 75mg qd, however he has not been using this since he left the hospital AMA at last visit. Thus restarted Methadone 30mg daily, increasing to 50mg per Addiction. Addition Following. Insomnia: Will schedule Ativan 0.5mg PO and hold for sedation and low RR ?? VTE Prophylaxis:??Lovenox ?? Code Status:??Full code ? Histories Allergies Allergies ?(Active and Proposed Allergies Only) Zosyn? (Severity: Unknown severity, Onset: Unknown) morphine? (Severity: Unknown, Onset: Unknown) ?Comments: Has a side effect - itching. ? Past Medical History/Problem List Active Problems??(10) Cellulitis [...] or more)/day in last 30 days. ? Psychosocial History ? Family History No family history recorded. ? Travel History Travel Outside [facility]: No ? Medications Home Medications Acetaminophen (Tylenol 325 mg oral tablet)?975?Milligram?By Mouth?3 times a day Cefepime (cefepime 2 g intravenous injection)?2,000?Milligram?IVPB?Every 8 hours Clonidine (cloNIDine 0.1 mg oral tablet)?0.1?Milligram?By Mouth?4 times a day?as needed?PRN Withdrawal?Other Daptomycin (Cubicin RF)?450?Milligram?IV Infusion?Every 24 hours Dextrose 50% in Water (Dextrose 50% Inj Syringe (25Gm))?12.5?gram?IV Push Slowly?Every 20 minutes?as needed?Blood Glucose?50 to 70 and patient is NOT AWAKE or NPO; Repeat GlucosePOC in 20 minutes Dextrose 50% in Water (Dextrose 50% Inj Syringe (25Gm))?25?gram?IV Push Slowly?Every 15minutes?as needed?Blood Glucose?LESS than 50 and patient is NOT AWAKE or NPO - call MD if episode NOT resolved within 20 minutes Docusate (Docusate Sodium Capsule)?100?Milligram?1?capsule?By Mouth?2 times a day?as needed?Constipation Durable Medical Equipment (Freestyle Lite Lancets)?See Instructions?for 30?Days?use as directed for Type 2 Diabetes Mellitus; test at least 3 times per day Durable Medical Equipment (Pen [place], 31 G x 5 mm BD Ultra [...] per day, insulin given 4 x daily Emollients, Topical (Vashe Topical Solution)?475?Milliliter?Topically?Every other day Enoxaparin?0.4?Milliliter?40?Milligram?Subcutaneous Injection?Daily Ferrous Sulfate (ferrous sulfate 325 mg oral enteric coated tablet)?325?Milligram?1?tablet?By Mouth?Daily?for 30?Days Folic Acid (folic acid 1 mg oral tablet)?1?Milligram?By Mouth?Daily Gabapentin (gabapentin 300 mg oral capsule)?600?Milligram?By Mouth?3 times a day?for30?Days Glucagon (Glucagon Inj)?1?Milligram?Intramuscular?Once?as needed?Other Glucose (Glucose Gel)?15?gram?By Mouth?Every 20 minutes?as needed?Blood Glucose?50 to 70 and patient ALERT Glucose (Glucose Gel)?30?gram?By Mouth?Every 20 minutes?as needed?Blood Glucose?LESS THAN 50 and patient ALERT Guaifenesin/Dextromethorphan (Robitussin DM Liquid)?10?Milliliter?By Mouth?Every 4 hours?as needed?Cough Hydromorphone (Dilaudid Inj)?0.5?Milliliter?0.5?Milligram?IV Push Slowly?Every 6 hours?as needed?Pain , Severe HydrOXYzine (hydrOXYzine hydrochloride 10 mg oral tablet)?10?Milligram?By Mouth?3 timesa day?as needed?Other?PRN Withdrawal Ibuprofen (ibuprofen 400 mg oral tablet)?400?Milligram?By Mouth?3 times a day?as needed?Pain , Moderate Insulin Glargine (Lantus Solostar Pen 100 units/mL subcutaneous solution)?15?unit(s)?Subcutaneous Injection?Daily at bedtime?for 30?Days Insulin Lispro (Humalog Kwik Pen 100 units/mL subcutaneous injection)?See Instructions?Take 3times a day before meals, based on your blood sugar: For blood sugar 100 - 149, take ?? 4 [id number] - 199 ?? 5 units 200 - 249 ?? 6 units 250 - 299 ?? 7 units 300 - 349 ?? 8 units 350 - 399 ?? 9 [id number] - 449 ?? 10 units and call MD Lorazepam (LORazepam 0.5 mg oral tablet)?0.5?Milligram?By Mouth?Daily at bedtime?as needed?Anxiety Melatonin (melatonin 3 mg oral tablet)?3?Milligram?By Mouth?Daily at bedtime?as needed?Insomnia Methadone?60?Milligram?By Mouth?Daily Multivitamin With Minerals (Multivit Therapeutic/Minerals Tablet)?1?tab(s)?By Mouth?Daily nalOXONE (nalOXONE Inj)?0.5?Milliliter?0.2?Milligram?IV Push?Every 5 minutes?as needed?Other?Respiratory Rate less than 8 or for somnolence/excessive sedation. Repeat untilRespiratory Rate is greater than 15 and patient is more alert. Ondansetron (Zofran Inj)?4?Milligram?IV Push?Every 6 hours?as needed?Nausea &Vomiting Polyethylene Glycol 3350 (MiraLax Powder)?1?pack/packet?17?gram?By Mouth?Daily?as needed?Constipation Senna (senna 187 mg oral tablet)?1?tab(s)?8.6?Milligram?By Mouth?2 times a day?as needed?Constipation Simethicone (simethicone 80 mg oral tablet, chewable)?80?Milligram?Chew?3 times a day?as needed?Gas Sodium Chloride (NaCL 0.9% Flush)?3?Milliliter?IV Push?Every 8 hours Sodium Chloride (NaCL 0.9% Flush)?5?Milliliter?IV Push?Daily Sodium Chloride (NaCL 0.9% Flush)?3?Milliliter?IV Push?Every 8 hours?as needed?Line/Tube Patency Sodium Chloride (NaCL 0.9% Flush)?5?Milliliter?IV Push?Every hour?as needed?Line/Tube Patency?Pre and post medication administration, follow with Heparin Flush, use 10 mL syringe Zinc Sulfate (zinc sulfate 220 mg oral capsule)?220?Milligram?By Mouth?Daily in AM?for 30?Days ? Inpatient Medications Medications (21) Active SCHEDULED: (6) Cefepime 2 Gm Inj (Cefepime Extended IVPB) ??2,000 mg, IVPB, Every 8 hours Daptomycin 500 mg Inj (DAPTOmycin Inj) ??450 mg 9 mL, IV Push Slowly, Every 24 hours Gabapentin 300 mg Capsule (gabapentin 300 mg oral capsule) ??600 mg, By Mouth, 3 times a day Insulin Glargine 100 units/mL Inj (Insulin Glargine Inj) ??15 units 0.15 mL, Subcutaneous Injection, Daily at bedtime Insulin Lispro 100 units/mL Inj (3mL) (Insulin LISPRO Sliding Scale) ??2-10 units, Subcutaneous Injection, 3 times a day before meals NaCl 0.9% Flush 3ml (NaCL 0.9% Flush) ??3 mL, IV Push, Every 8 hours CONTINUOUS: (0) PRN: (15) Acetaminophen 325 mg Tablet (Acetaminophen Tablet) ??650 mg, By Mouth, Every 4 hours Dextromethorphan-Guaifenesin 20 mg-200 mg/10 mL Liqu UD (Robitussin DM Liquid) ??10 mL, By Mouth, Every 4 hours Dextrose Inj [...] ??30 Gm, By Mouth, Every 20 minutes HYDROmorphone 0.5 mg/0.5 mL Inj Syringe (Dilaudid Inj) ??0.5 mg 0.5 mL, IV Push Slowly, Every 6 hours Lorazepam 0.5 mg Tablet (LORazepam 0.5 mg oral tablet) ??0.5 mg, By Mouth, Daily at bedtime Melatonin 3 mg Tablet (Melatonin Tablet) ??3 mg, By Mouth, Daily at bedtime NaCl 0.9% Flush 3ml (NaCL 0.9% Flush) ??3 mL, IV Push, Every 8 hours Polyethylene Glycol 17 Gm Powder (MiraLax Powder) ??17 Gm 1 pack/packet, By Mouth, Daily Senna Tablet ??8.6 mg 1 tablet, By Mouth, 2 times a day Simethicone 80 mg Chewable Tablet (Simethicone Tablet) ??80 mg, Chew, 3 times a day ? 72 Hour Antibiotic History Active Antibiotics Calendar Day Last Administered First Administered Cefepime??2,000 mg, 33.33 mL/hr, IVPB, Every 8 hours ?1 04/09/2023 01:00 04/09/2023 01:00 ? Vaccinations and Immunoprophylaxis SARS-CoV-2 (COVID-19) Ad26 vaccine: 0.5 Unknown (11/13/20 08:00:00) tetanus/diphtheria/pertussis, acel(Tdap): 0.5 Unknown (10/26/08 08:00:00) ? Results Recent Labs CHEM GENERAL Glucose, POC 370 mg/dL (High)?? 04/08/2023 20:01 ? Abnormal Labs No lab data available. ? Coagulation Profile?? No qualifying data available. ?? LFT?? No qualifying data available. ?? Urinalysis?? No qualifying data available. ? Blood Gases?? No qualifying data available. ?? EKG study * Event Display: ECG 12-Lead Authored Date: Please click on pdf link to open report * Event Display: ECG 12-Lead Authored Date: Ventricular Rate: 109 BPM Atrial Rate: 109 BPM P-R Interval: 134 ms QRS Duration: 72 ms Q-T Interval: 354 ms QTC Calculation(Bazett): 476 ms P [place]: 65 degrees R [place]: 57 degrees T [place]: 80 degrees Sinus tachycardia Otherwise normal ECG When compared with ECG of 14-APR-2023 11:20, No significant change was found Confirmed by Roni Rodríguez ([id number]) on 04/19/2023 11:24:09 AM [place]: Roni Rodríguez * Event Display: ECG 12-Lead Authored Date: Please click on pdf link to open report * Event Display: ECG 12-Lead Authored Date: Ventricular Rate: 110 BPM Atrial Rate: 110 BPM P-R Interval: 138 ms QRS Duration: 74 ms Q-T Interval: 356 ms QTC Calculation(Bazett): 481 ms P [place]: 71 degrees R [place]: 66 degrees T [place]: 73 degrees Sinus tachycardia Otherwise normal ECG When compared with ECG of 30-MAR-2023 15:32, HR has increased. Confirmed by Keith Busby ([id number]) on 04/15/2023 4:22:53 PM [place]: Keith Busby [facility] Progress note * Avila Jeong DO: PERFORM Event Display: [facility] Authored Date: Patient: ??LUCIAN ZHAO ? Age:??42 Years?Sex:??Male?:??1980?? To whom it may concern, ?? The patient is asked me to write the following letter and give me permission to include the following??information ?? He was hospitalized at [facility] from 04/08 through 04/22 ?? His last dose of methadone was administered today at 80 mg ?? Electronically signed: Dr Avila Jeong Chief of Hospital medicine [facility]?? * Austyn LOPEZ, Libby: MODIFY, MODIFY, MODIFY, MODIFY, MODIFY, MODIFY, MODIFY, MODIFY, MODIFY, MODIFY, PERFORM, MODIFY, MODIFY, MODIFY, MODIFY, MODIFY, SIGN, VERIFY Event Display: [facility] Hospital Authored Date: Patient: LUCIAN ZHAO Age: 42 years Sex: Male : 1980 Associated Diagnoses: None Author: Libby Zaman RN Findings Problem Related to Alteration in Integumentary : Alteration in Integumentary/new 04/22/2023 9:00 EST Alteration in Integumentary Related to Other: Osteomyelitis Goals & Outcomes, Integumentary Nutritional intake is adequate for metabolic needs, Pt will maintain adequate fluid & nutritional balance, Pt will maintain intact skin integrity, Wound will progress towards healing Interventions, Integumentary Keep skin clean & dry, Minimize friction, shear and moisture, Monitor reddened areas for continued or increasing reddness, Record extent of impaired skin integrity, Reposition pt off reddened areas, Teach Pt/caregiver s/s of infection BH Goals/Interventions, Integumentary Yes Integumentary, Problem Start 04/09/2023 14:02 Reviewed plan with, Integumentary Patient Patient Progression, Integumentary Pt progressing according to plan . Nursing Data Vital Signs : VITAL SIGNS SECTION 04/22/2023 7:39 EST Temperature 97.4 DegF Temperature Route Oral Pulse Rate 109 bpm H Respiratory Rate 16 br/min Systolic Blood Pressure 147 mm Hg H Diastolic Blood Pressure 88 mm Hg H Blood pressure sites Arm, left Mean Arterial Pressure 108 mm Hg Pulse Pressure 59 mm Hg Oxygen Saturation 100 % Mode of Delivery (Oxygen) Room air . Narrative/Incidental Received report from Margo LOPEZ. A&Ox4. Able to make needs known. Calm and cooperative to care.Can be anxious at times. PRN Ativan 0.5mg PO given in the AM. VSS. Maintaining on RA- satting high 90s. Not on tele. Reports 9/10 pain to the L forearm in the AM. Scheduled Methadone 80mg PO given inthe AM. PRN Dilaudid 2mg PO given in the AM. Denies any chest pain, SOB, cough, chills, dz, headache, n/v/d or any urinary symptoms. No edema, LS clear b/l, positive BS, abd soft and non-tender, dressing to the L forearm remains CDI, dressing to the R lower leg remains CDI. Regular diet. Good appetite. Last BM=04/21/23. No issues voiding. Using urinal at bedside. Stand by assist OOB with a cane. AM POC 199- 1 unit of insulin Lispro given. All scheduled medications given as ordered this shift. Double lumen PICC line to the RUE- dressing remains CDI. Heparin flush administered in the AM. Safetymaintained. Bed alarm on. Call light and belongings placed within reach. Bed rails appropriately inplace. Bed wheels locked. Non-slip footwear on. Educated on risk for and prevention of falls. Educated on calling for assistance when getting OOB if needed. Admitted for osteomyelitis to the L forearm. Receiving IV Cefepime Q8hrs. Pts own medications and valuables/belongings returned to pt at discharge. Discharge paperwork completed. Report given to staff member at [facility] at 1140am. . Discharge Information Rehabilitation Discharge : Rehab Discharge Index 04/21/2023 14:38 EST Comments on treatment indicated PT treatment for impaired strength, impaired balance, and impaired safety Full chart review completed Yes Hospital course Pt admitted to [facility] pending rehab placement with continued wound care needs Other findings Pt I w/ ADL. Pt w/ good gait stability w/ SPC and reported decreased pain and stiffness in B calves. Pt still impulsive at times and perseverates on pain. 04/19/2023 15:32 EST Cane: distance 20-50 * Margo Zazueta RN: PERFORM, SIGN, VERIFY Event Display: Progress Note Hospital Authored Date: Patient: LUCIAN ZHAO Age: 42 years Sex: Male : 1980 Associated Diagnoses: None Author: Margo Zazueta RN Findings Narrative/Incidental Took over care at 0300, report received from Patricia. Patient complained of 8/10 pain, PRN dilaudid given with good effect. Patient pleasant and cooperative with care. Patient resting comfortably, safetymaintained.. Evaluation Continue to monitor signs of infection. Note * Libby Zaman RN: PERFORM Event Display: Discharge/Transfer Note Hospital Authored Date: Nursing Discharge Note Entered On: 04/22/2023 12:03 EST Performed On: 04/22/2023 12:03 EST by Libby Zaman RN Nursing Discharge Note 2 Discharge Time : 04/22/2023 12:03 EST Discharge Level of Care at Discharge : care home facility Patient Left Unit Via : Chair Van Patient Accompanied Off Unit with : Ambulance/Chair Van Personnel Handover Given to Transport Personnel : Yes DC Instructions Provided & Signed by Pt : No Patient Understands D/C Instructions : No Patient Instructions Discharge Signed : No Did Pt have Specialty Bed or Wound Vac : No Austyn LOPEZ, Libby - 04/22/2023 12:03 EST * Avila Jeong DO: PERFORM, MODIFY, MODIFY Event Display: Discharge/Transfer Note Hospital Authored Date: [id number] Patient: ??LUCIAN ZHAO ? Age:??42 Years?Sex:??Male?:??1980?? Patient Information Discharge Location: [facility] Primary Care Physician: Lachelle MCKEON, Calin Mckeon Admit Date/Time: 04/08/23 21:56 Discharge Disposition Discharge Disposition: ?? Discharge Diagnosis Chronic osteomyelitis of hand (M86.649) Acute COVID-19 (U07.1) Thrombocytopenia (D69.6) Iron deficiency anemia (D50.9) Opioid use disorder (F11.90) Hypocalcemia (E83.51) Hypertension (I10) Severe malnutrition (E43) Neuropathy (G62.9) Osteomyelitis of left upper extremity (M86.9) Type 2 diabetes mellitus (E11.9) ?? expect < 30 day stay in rehab _ Discharge Medications Acetaminophen (Tylenol 325 mg oral tablet)?975?Milligram?By Mouth?3 times a day Cefepime (cefepime 2 g intravenous injection)?2,000?Milligram?IVPB?Every 8 hours Daptomycin (Cubicin RF)?450?Milligram?IV Infusion?Every 24 hours Durable Medical Equipment (Freestyle Lite Lancets)?See Instructions?for 30?Days?use as directed for Type 2 Diabetes Mellitus; test at least 3 times per day Durable Medical Equipment (Pen [place], 31 G x 5 mm BD Ultra [...] per day, insulin given 4 x daily Emollients, Topical (Vashe Topical Solution)?475?Milliliter?Topically?Every other day Enoxaparin?0.4?Milliliter?40?Milligram?Subcutaneous Injection?Daily Gabapentin (gabapentin 300 mg oral capsule)?600?Milligram?By Mouth?3 times a day?for30?Days Glucagon (Glucagon Inj)?1?Milligram?Intramuscular?Once?as needed?Other Glucose (Glucose Gel)?15?gram?By Mouth?Every 20 minutes?as needed?Blood Glucose?50 to 70 and patient ALERT Glucose (Glucose Gel)?30?gram?By Mouth?Every 20 minutes?as needed?Blood Glucose?LESS THAN 50 and patient ALERT Guaifenesin/Dextromethorphan (Robitussin DM Liquid)?10?Milliliter?By Mouth?Every 4 hours?as needed?Cough Hydromorphone (HYDROmorphone 2 mg oral tablet)?2?Milligram?By Mouth?Every 6 hours?asneeded?Pain , Severe Ibuprofen (ibuprofen 400 mg oral tablet)?400?Milligram?By Mouth?3 times a day?as needed?Pain , Moderate Insulin Glargine (Insulin Glargine Inj)?0.1?Milliliter?10?unit(s)?Subcutaneous Injection?Daily at bedtime Insulin Lispro? 1-5 units ?Subcutaneous Injection?3 times a day before meals?<< Sliding Scale Comments >>150 - 199 ?? 1 units Call if less than 17001 - 249 ?? 2 units 250 - 299 ?? 3 units 300 - 349 ?? 4 units 350 - 399 ?? 5 units Call if greater than 400<< Sliding Scale Comments >> Lisinopril (lisinopril 10 mg oral tablet)?10?Milligram?By Mouth?Daily Lorazepam (LORazepam 0.5 mg oral tablet)?0.5?Milligram?By Mouth?Daily at bedtime?as needed?Anxiety Melatonin (melatonin 3 mg oral tablet)?3?Milligram?By Mouth?Daily at bedtime?as needed?Insomnia Methadone?80?Milligram?By Mouth?Daily nalOXONE (nalOXONE Inj)?0.5?Milliliter?0.2?Milligram?IV Push?Every 5 minutes?as needed?Other?Respiratory Rate less than 8 or for somnolence/excessive sedation. Repeat untilRespiratory Rate is greater than 15 and patient is more alert. Ondansetron (Zofran Inj)?4?Milligram?IV Push?Every 6 hours?as needed?Nausea &Vomiting Simethicone (simethicone 80 mg oral tablet, chewable)?80?Milligram?Chew?3 times a day?as needed?Gas Sodium Chloride (NaCL 0.9% Flush)?5?Milliliter?IV Push?Daily Sodium Chloride (NaCL 0.9% Flush)?3?Milliliter?IV Push?Every 8 hours?as needed?Line/Tube Patency Sodium Chloride (NaCL 0.9% Flush)?5?Milliliter?IV Push?Every hour?as needed?Line/Tube Patency?Pre and post medication administration, follow with Heparin Flush, use 10 mL syringe ? Allergies Allergies ?(Active and Proposed Allergies Only) Zosyn? (Severity: Unknown severity, Onset: Unknown) morphine? (Severity: Unknown, Onset: Unknown) ?Comments: Has a side effect - itching. ? Future Appointments Thursday 9:20 AM EST ?? With: Issa MCKEON, Olena Contreras Where: [facility] [address] [place] [address]- Status: Pending Hospital Course ??42 yo male with PMH of chronic LUE wounds, insulin dependent??T2DM, IVDU, untreated hep C, PSA who presented??for worsening LUE pain found to have chronic OM of that extremity, complicated by asymptomatic??COVID-19 infection as well as anemia s/p 1u pRBC. Currently receiving IV??cefepime and daptomycin via PICC [1] ?? His original hospital course was at [facility] He is known to the hand surgeon Dr.Tessa Benavidez and was seen by plastic surgery at [facility] Dr Benavidez was consulted earlier in the course of this [facility] admission??but she did not think an inpatient consult was required??but she did let us know she would remain available for any questions and ongoing care.?? She advised to continue the wound care??as outlined in the last??notes at [facility]. ?? The patient is well-known to infectious disease and has a follow-up appointment already scheduled for April 29 ?? The following issues were covered during this hospitalization at [facility] ?? He will be discharged to [facility] with PICC line in place ?? 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 L wrist tissue biopsy in 03/02/2023 grew proteus vulgaris, klebsiella oxytoca, enterococcus faecalis VRE. Left hand abscess from 03/02/2023 grew MRSA. ?At last visit, plan was for IV cefepime and daptomycin for 6 weeks may need longer (per last OPA instructions: planned duration till 04/27/2023, will reassess at that point if needs up to 12 weeks (till 05/25/2023) ?During last visit, went to OR on 03/02 for: Left forearm and wrist washout, excisional debridement of skin, subcutaneous tissue and muscle 20x7cm, Left distal radius bone biopsy ? Plan per [facility] transfer note : ?- No plan for plastic/hand surgical intervention at this time ?- IV antibiotics: Cefepime 2gm q8 and Daptomycin 450mg q24 for 6 weeks since this admission on 03/27 (per [facility] infectious disease notes :oral option if he were to refuse IV/want to leave AMA would be: Levaquin 750mg daily PO (would need to check QTc on methadone)??and Doxycycline 100mg PO BID for at least 6 weeks) ?- ID and wound care consulted at [facility] ?- Nutrition consult: Recommends regular diet with double protein for the patient, because on his previous admission he refused diabetic carb restricted diet ?- Tylenol??, and transferred to [facility] he was on??introductory doses of methadone as well as IVDilaudid. ??We have slowly escalated his dose to 80 mg which she is doing well with. ??Please see below ?? present wound care?? order at [facility] Left forearm apply Vashe moistened gauze to wound bed leave in place for 10 minutes remove gauze and pat wound bed dry??apply nickel thick layer of Iodosorb gel to wound bed cover with dry gauze wrapwith Sage and tape and change every other day??and as needed ? Acute COVID-19 (U07.1):??non hypoxic. diagnosed 03/27- off precautions ?? Thrombocytopenia (D69.6):??platelets stable? Iron deficiency anemia (D50.9):??s/p 1 RBC 03/29, hgb stable, no hemolysis during workup. no overt bleeding ?? Opioid use disorder (F11.90):??addiction medicine titrated methadone from 30 to 60 mg,??qtc ok,??wehave increased him slowly at [facility] up to his present dose of 80 mg. We have taken him off IV Dilaudid and transition to p.o. Dilaudid??and as he goes up on his methadone??he can be titrated down on his opioid for acute pain ?? Diabetes mellitus:??He is very prone to hypoglycemia??and is on a soft sliding scale insulin which should be continued??as well as the Lantus dose. ?? Hypocalcemia (E83.51):??will follow up ?? Hypertension (I10):??lisinopril on hold at [facility],??but we restarted here. ??Last potassium 5.0 would suggest rechecking??this week ?? Neuropathy (G62.9):??on gabapentin at [facility] Objective Assessment and Plan ? Measurements?? Height: 162 cm (04/22/23) Weight: 44.2 kg (04/21/23) Dry Weight: 45 kg (04/08/23) Body Mass Index:??17.07 kg/m2??Low (04/10/23) ? Vital Signs?? Temperature: 97.4 DegF (04/22/23 07:39:00) Temperature Route: Oral (04/22/23 07:39:00) Pulse Rate:??109 bpm??High (04/22/23 07:39:00) Respiratory Rate: 17 br/min (04/22/23 10:20:00) Systolic Blood Pressure:??147 mm Hg??High (04/22/23 08:13:00) Diastolic Blood Pressure:??88 mm Hg??High (04/22/23 08:13:00) Blood pressure sites: Arm, left (04/22/23 07:39:00) Mean Arterial Pressure: 108 mm Hg (04/22/23 07:39:00) Pulse Pressure: 59 mm Hg (04/22/23 07:39:00) Oxygen Saturation: 100 % (04/22/23 07:39:00) Mode of Delivery (Oxygen): Room air (04/22/23 07:39:00) Early Warning Score: 3 (04/22/23 10:21:36) ? . Physical Exam Alert and oriented x 3 in no distress Regular rate and rhythm with no rub or new murmur Lungs clear bilateral Abdomen soft nontender nondistended Lower extremities warm globally perfused He has few excoriations??but no acutely infected areas Left upper extremity dressing intact and dry without soilage or odor Surrounding margins are clear of erythema??and there is good capillary refill distally Some slight contractures to the left hand but motor and sensory are intact Consultants DR Adorno [facility] infectious disease- can cover questions for antibiotics Dr Kaleigh Benavidez [facility] Hand surgery- can cover follow up questions for wound assesment and wound care Pending Results Add On Lab Order ordered on 04/09/2023 Patient Instructions You are being treated for a wound and bone infection in your left arm and will continue on your intravenous antibiotics over at [facility].?? You also were started back on methadone and the dose has slowly been increased.?? It is vital that you complete your antibiotics so that the infection resolves. ??Failure to do so could result in a life-threatening infection.?? As your methadone dose is increased you will start to come off of the Dilaudid medication which you take as needed. ??You will needfollow-up of your blood counts and your potassium levels and your blood pressure over at [facility]. Home Health Face to Face ^HomeHealthFTF Results Discharge Labs BLOOD COUNT & DIFF WBC 5.4 k/mm3 ()?? 04/19/2023 06:14 RBC 3.56 m/mm3 (Low)?? 04/19/2023 06:14 Hgb 9.3 Gm/dL (Low)?? 04/19/2023 06:14 Hct 29.2 % (Low)?? 04/19/2023 06:14 MCV 82.0 femtoliters ()?? 04/19/2023 06:14 MCH 26.1 pg (Low)?? 04/19/2023 06:14 MCHC 31.8 g/dL (Low)?? 04/19/2023 06:14 Platelet Count 171 k/mm3 ()?? 04/19/2023 06:14 RDW-SD 57.5 femtoliters (High)?? 04/19/2023 06:14 MPV 9.7 femtoliters ()?? 04/19/2023 06:14 Nucleated RBC (Automated) 0.0 #/100 WBC'S ()?? 04/19/2023 06:14 Abs. NRBC 0.0 k/mm3 ()?? 04/19/2023 06:14 Abs. Neut 2.0 k/mm3 ()?? 04/09/2023 04:07 Abs. Lymph 1.7 k/mm3 ()?? 04/09/2023 04:07 Abs. [place] 0.4 k/mm3 ()?? 04/09/2023 04:07 Abs. Eo 0.2 k/mm3 ()?? 04/09/2023 04:07 Abs. Baso 0.1 k/mm3 ()?? 04/09/2023 04:07 Neut % 44.6 % ()?? 04/09/2023 04:07 Lymph % 39.2 % ()?? 04/09/2023 04:07 [place] % 9.3 % ()?? 04/09/2023 04:07 Eos % 4.8 % ()?? 04/09/2023 04:07 Baso % 1.4 % ()?? 04/09/2023 04:07 Imm Gran 0.7 % ()?? 04/09/2023 04:07 Abs. Imm Gran 0.0 k/mm3 ()?? 04/09/2023 04:07 ?? CARDIAC CK, Total 49 units/L ()?? 04/09/2023 04:07 ? CHEM GENERAL Sodium 136 mmol/L ()?? 04/19/2023 06:14 Potassium 5.0 mmol/L ()?? 04/19/2023 06:14 Chloride 99 mmol/L ()?? 04/19/2023 06:14 Bicarbonate Level 29 mmol/L ()?? 04/19/2023 06:14 Anion Gap 8 ()?? 04/19/2023 06:14 Glucose Level 125 mg/dL (High)?? 04/09/2023 04:07 Glucose, POC 199 mg/dL (High)?? 04/22/2023 08:02 BUN 31 mg/dL (High)?? 04/19/2023 06:14 Creatinine-Blood 0.7 mg/dL ()?? 04/19/2023 06:14 Estimated GFR Creatinine 115 ML/MIN/1.73 M2 ()?? 04/19/2023 06:14 Calcium 9.7 mg/dL ()?? 04/09/2023 04:07 Phosphorus 4.7 mg/dL (High)?? 04/09/2023 04:07 Magnesium 1.6 mg/dL ()?? 04/19/2023 06:14 ? URINE OTHER Est Creatinine Clearance 85.71 mL/min ()?? 04/19/2023 06:54 ? _ minutes spent on discharge [1]??Progress Note; Sandro MCKEON, Silvina Mckeon 04/06/2023 08:48 EST * Austyn LOPEZ, Libby: PERFORM Event Display: Patient Education/Instruction Authored Date: Inpatient [place] [address] Name: LUCIAN ZHAO : 1980 Visit: 04/08/2023 21:56:00 Current Date: 04/22/2023 11:25 Account: [id number] Inpatient Adult Discharge Instructions We would like to thank you for allowing us to assist you with your healthcare needs. The following includes patient education materials and information regarding your injury/illness. Our entire staffstrives to provide an excellent experience for our patients and their families. PLEASE ENSURE YOU FOLLOW-UP PER THE INSTRUCTIONS BELOW! ?? YOUR OPINION IS IMPORTANT TO US! Please complete the survey you may receive by mail or email. Your feedback will be used to make improvements to the healthcare experiences of our patients and their families. Surveys are administered by [employer] ?? If further treatment with your primary care physician or another doctor is recommended, it is important for you to keep the appointment. Call your primary care physician or return to the Emergency Department immediately if your condition worsens, fails to improve, or new symptoms develop. If you need to find a doctor, you can call [facility] for a referral at [phone] or toll free at [phone]) or log in to [email or web address].. ?? [facility], in keeping with [facility] guidance, no longer requires face masks for staff, patientsor visitors in most situations. Similiar to time spent indoors at other locations, there is the chance that you were exposed to repiratory viruses during your time with us (such as flu or COVID-19). If you develop symptoms concerning for a viral respiratory infection, please seek testing (and treatment if indicated) from your medical provider or home test kit. ?? You can view and manage your care through the patient portal or by using a health care jaspal of your choosing. [employer] is a website that allows you to securely view your medical information including your hospital discharge summary, office visit summaries, medications and follow-up visits. You can also request appointments, renew medications, and request access to your medical information using a health care jaspal of your choosing, or just ask a question. You can enroll at [email or web address] or register during your next office visit. You have been discharged from [facility], Patient Care Unit: [id number]. If you have any questions regarding these instructions after you leave, please call us and we will be happy to assist you. [facility] Your Care Team Attending Physician Avila Jeong DO Discharging Providers Avila Jeong DO Reason for Admission OSTEOMYELITIS Your Diagnosis Type 2 diabetes mellitus Chronic osteomyelitis of hand Osteomyelitis of left upper extremity Opioid use disorder Acute COVID-19 Iron deficiency anemia Thrombocytopenia Neuropathy Hypocalcemia Hypertension Severe malnutrition Tests Performed Below is a partial list of the tests performed during your hospitalization. You may have had other tests and procedures not included in this list. Please discuss all test results with your provider. BUN Calcium Level CBC CBC w/ Differential CK (CREATINE KINASE) Creatinine Electrolytes Glucose Level GLUCOSE POC Magnesium Level Phosphorus Level Primary Care Provider Calin Larose MD Advance Directive Health Care Proxy on File Yes - Health Care Proxy Discharge Vitals Temperature: 97.4 DegF Height: 162 cm Pulse Rate:??109 bpm??High Weight: 44.2 kg Respiratory Rate: 17 br/min Body Mass Index:??17.07 kg/m2??Low Systolic Blood Pressure:??147 mm Hg??High Body surface area: 1.42 Diastolic Blood Pressure:??88 mm Hg??High ?? Oxygen Saturation: 100 % ?? Studies Pending All tests and labs ordered during this hospital stay have been completed unless listed below. Please discuss all pending results with your provider listed above in these instructions. ?? Add On Lab Order What to do next Instructions From Your Doctor You are being treated for a wound and bone infection in your left arm and will continue on your intravenous antibiotics over at [facility].?? You also were started back on methadone and the dose has slowly been increased.?? It is vital that you complete your antibiotics so that the infection resolves. ??Failure to do so could result in a life-threatening infection.?? As your methadone dose is increased you will start to come off of the Dilaudid medication which you take as needed. ??You will needfollow-up of your blood counts and your potassium levels and [facility].You will also need monitoring of your diabetes and??continued use of your insulin. ??Failure to control your blood sugars can also impact healing of infection Discharge Orders Scheduled Follow-Up Appointments Thursday 9:20 AM EST ?? With: Olena Adorno MD Where: [facility] [address] [place] [address]- Status: Pending Discharge Medications RUSTYLUCIAN SONG :1980 Visit Date:04/08/2023 Medications: Please continue your medications until treatment is completed or stopped by your provider. Medications not listed below should be discontinued. Discuss any questions related to medications with your provider. What How Much When Instructions Next Dose New Lisinopril (lisinopril 10 mg oral tablet) 10 Milligram Oral Daily 04/23/23 Changed Hydromorphone (HYDROmorphone 2 mg oral tablet) 2 Milligram Oral Every 6 hours as needed for Pain , Severe As needed Changed Insulin Glargine (Insulin Glargine Inj) 10 unit(s) Subcutaneous Injection Daily at Bedtime 04/22/23 Bedtime Changed Insulin Lispro 1-5 units Subcutaneous Injection 3 times a day before meals << Sliding Scale Comments >> 150 - 199 ?? 1 units Call if less than 70 200 - 249 ?? 2 units 250 - 299 ?? 3 units 300 - 349 ?? 4 units 350 - 399 ?? 5 units Call if greater than 400 << Sliding Scale Comments >> ?? Take as directed Changed Methadone 80 Milligram Oral Daily 04/23/23 Changed Sodium Chloride (NaCL 0.9% Flush) 3 Milliliter Intravenous Push Every 8 hours as needed for Line/Tube Patency As needed Changed Sodium Chloride (NaCL 0.9% Flush) 5 Milliliter Intravenous Push Daily 04/23/23 Changed Sodium Chloride (NaCL 0.9% Flush) 5 Milliliter Intravenous Push Every hour as needed for Line/Tube Patency Pre and post medication administration, follow with Heparin Flush, use 10 mL syringe ?? As needed Unchanged Acetaminophen (Tylenol 325 mg oral tablet) 975 Milligram Oral 3 times a day 04/22/23 Unchanged Cefepime (cefepime 2 g intravenous injection) 2,000 Milligram IV Piggyback Every 8 hours 04/22/23 2pm Unchanged Daptomycin (Cubicin RF) 450 Milligram Intravenous Infusion Every 24 hours 04/22/23 4pm Unchanged Durable Medical Equipment (Alcohol Wipes) See instructions use as directed for Type 2 Diabetes Mellitus; test at least 3 times per day, insulin given 4 x daily ?? Unchanged Durable Medical Equipment (Freestyle Lite Lancets) See instructions Duration: 30 Days use as directed for Type 2 Diabetes Mellitus; test at least 3 times per day ?? Unchanged Durable Medical Equipment (Freestyle Lite Monitor) See instructions Duration: 30 Days use as directed for Type 2 Diabetes Mellitus ?? Unchanged Durable Medical Equipment (Freestyle Lite Test Strips) See instructions Duration: 30 Days use as directed for Type 2, as directed for Type 2 Diabetes Mellitus; test at least 3 times per day?? Unchanged Durable Medical Equipment ([place], 31 G x 5 mm BD Ultra Fine III) See instructions Duration: 30 Days use as directed for Type 2 Diabetes Mellitus ?? Unchanged Emollients, Topical (Vashe Topical Solution) 475 Milliliter Topically Every other day 04/22/23 4pm Unchanged Enoxaparin 40 Milligram Subcutaneous Injection Daily 04/22/23 4pm Unchanged Gabapentin (gabapentin 300 mg oral capsule) 600 Milligram Oral 3 times a day Duration: 30 Days 04/22/23 3pm Unchanged Glucagon (Glucagon Inj) 1 Milligram Intramuscular Once as needed for Other As needed Unchanged Glucose (Glucose Gel) 30 gram Oral Every 20 minutes as needed for Blood Glucose LESS THAN 50 and patient ALERT ?? As needed Unchanged Glucose (Glucose Gel) 15 gram Oral Every 20 minutes as needed for Blood Glucose 50 to 70 and patient ALERT ?? As needed Unchanged Guaifenesin/ Dextromethorphan (Robitussin DM Liquid) 10 Milliliter Oral Every 4 hours as needed for Cough As needed Unchanged Ibuprofen (ibuprofen 400 mg oral tablet) 400 Milligram Oral 3 times a day as needed for Pain , Moderate As needed Unchanged Lorazepam (LORazepam 0.5 mg oral tablet) 0.5 Milligram Oral Daily at Bedtime as needed for Anxiety As needed Unchanged Melatonin (melatonin 3 mg oral tablet) 3 Milligram Oral Daily at Bedtime as needed for Insomnia As needed Unchanged nalOXONE (nalOXONE Inj) 0.2 Milligram Intravenous Push Every 5 minutes as needed for Other Respiratory Rate less than 8 or for somnolence/ excessive sedation. Repeat until Respiratory Rate is greater than 15 and patient is more alert. ?? As needed Unchanged Ondansetron (Zofran Inj) 4 Milligram Intravenous Push Every 6 hours as needed for Nausea & Vomiting As needed Unchanged Simethicone (simethicone 80 mg oral tablet, chewable) 80 Milligram Chew 3 times a day as needed for Gas As needed ?? What How Much When Comments Stop Taking Clonidine (cloNIDine 0.1 mg oral tablet) 0.1 Milligram Oral 4 times a day as needed for Other PRN Withdrawal ?? Stop Taking Dextrose 50% in Water (Dextrose 50% Inj Syringe (25Gm)) 25 gram IV Push Slowly Every 15 minutes as needed for Blood Glucose LESS than 50 and patient is NOT AWAKE or NPO - call MD if episode NOT resolved within 20 minutes ?? Stop Taking Dextrose 50% in Water (Dextrose 50% Inj Syringe (25Gm)) 12.5 gram IV Push Slowly Every 20 minutes as needed for Blood Glucose 50 to 70 and patient is NOT AWAKE or NPO; Repeat Glucose POC in 20 minutes ?? Stop Taking Docusate (Docusate Sodium Capsule) 100 Milligram Oral Twice a day as needed for Constipation Stop Taking Ferrous Sulfate (ferrous sulfate 325 mg oral enteric coated tablet) 1 tab(s) Oral Daily Duration: 30 Days Stop Taking Folic Acid (folic acid 1 mg oral tablet) 1 Milligram Oral Daily Stop Taking HydrOXYzine (hydrOXYzine hydrochloride 10 mg oral tablet) 10 Milligram Oral 3 times a day as needed for Other PRN Withdrawal ?? Stop Taking Multivitamin With Minerals (Multivit Therapeutic/ Minerals Tablet) 1 tab(s) Oral Daily Stop Taking Polyethylene Glycol 3350 (MiraLax Powder) 17 gram Oral Daily as needed for Constipation Stop Taking Senna (senna 187 mg oral tablet) 1 tab(s) Oral Twice a day as needed for Constipation Stop Taking Zinc Sulfate (zinc sulfate 220 mg oral capsule) 220 Milligram Oral Daily in the morning Duration: 30 Days Test Results Below is a partial list of the most recent Laboratory test results done prior to this discharge. You may have had other tests and procedures not included in this list. Please discuss all test resultswith your provider. Est Creatinine Clearance - 85.71 mL/min (04/19/2023) BUN (04/19/2023) ???BUN - 31 mg/dL Calcium Level (04/09/2023) ???Calcium - 9.7 mg/dL CBC (04/19/2023) ???WBC - 5.4 k/mm3???RBC - 3.56 m/mm3???Hgb - 9.3 Gm/dL???Hct - 29.2 %???MCV - 82.0 femtoliters???MCH - 26.1 pg???MCHC - 31.8 g/dL???Platelet Count - 171 k/mm3???RDW-SD - 57.5 femtoliters???MPV - 9.7femtoliters???Nucleated RBC (Automated) - 0.0 #/100 WBC'S???Abs. NRBC - 0.0 k/mm3 CBC w/ Differential (04/09/2023) ???WBC - 4.4 k/mm3???RBC - 3.46 m/mm3???Hgb - 8.7 Gm/dL???Hct - 28.6 %???MCV - 82.7 femtoliters???MCH - 25.1 pg???MCHC - 30.4 g/dL???Platelet Count - 169 k/mm3???RDW-SD - 58.4 femtoliters???MPV - 8.9femtoliters???Nucleated RBC (Automated) - 0.0 #/100 WBC'S???Abs. NRBC - 0.0 k/mm3???Abs. Neut - 2.0 k/mm3???Abs. Lymph - 1.7 k/mm3???Abs. [place] - 0.4 k/mm3???Abs. Eo - 0.2 k/mm3???Abs. Baso - 0.1 k/mm3???Neut % - 44.6 %???Lymph % - 39.2 %???[place] % - 9.3 %???Eos % - 4.8 %???Baso % - 1.4 %???Imm Gran - 0.7 %???Abs. Imm Gran - 0.0 k/mm3 CK (CREATINE KINASE) (04/09/2023) ???CK, Total - 49 units/L Creatinine (04/19/2023) ???Creatinine-Blood - 0.7 mg/dL???Estimated GFR Creatinine - 115 ML/MIN/1.73 M2 Electrolytes (04/19/2023) ???Sodium - 136 mmol/L???Potassium - 5.0 mmol/L???Chloride - 99 mmol/L???Bicarbonate Level - 29 mmol/L???Anion Gap - 8 Glucose Level (04/09/2023) ???Glucose Level - 125 mg/dL GLUCOSE POC (04/22/2023) ???Glucose, POC - 199 mg/dL Magnesium Level (04/19/2023) ???Magnesium - 1.6 mg/dL Phosphorus Level (04/09/2023) ???Phosphorus - 4.7 mg/dL Allergies (NKA means No Known Allergies) morphine Zosyn Problems Active Problems??(11) back fusion L5 S1?? Cellulitis?? Cellulitis and abscess of hand, except fingers and thumb?? Cocaine use disorder, severe, dependence?? Diabetes?? Hyperglycemia without ketosis?? Hyponatremia?? Opioid use disorder, severe, dependence?? Polysubstance abuse?? Uncontrolled diabetes mellitus with hyperglycemia?? Underweight?? Education Materials Below is the list of Educational Leaflet Providered with your Discharge Instructions. Valuables and Belongings I fully understand and agree that [facility] accepts no responsibility for all my personal property including clothing, toilet articles, radios, jewelry, dentures, hearing aids, rings, money, or any other property that is in my possession or is brought to me after admission. I understand certain valuables may be placed in a hospital safe for a short period of time. I understand that the hospital is not liable for loss or damage due to accident, fire, or other natural occurrence while said property is in the safe. I accept full responsibility for any personal property that I keep with me, and will not hold the hospital responsible in case of loss or disappearance. I acknowledge that i have been encouraged to send valuables and belongings home. ?? Date for Pt to Sign Valuables/Belongings: 04/09/23 00:09:00 ?? Other Discharge Information ? Pulmonary Rehab Status?? Pulmonary Rehab Discharge Status?? Respiratory Rate: 17 br/min ? Common Emergency Awareness Tips IS IT A STROKE? Act FAST and Check for these signs: FACE Does the face look uneven? ARM Does one arm drift down? SPEECH Does their speech sound strange? TIME Call at any sign of stroke ?? Heart Attack Signs Chest discomfort: Most heart attacks involve discomfort in the center of the chest and lasts more than a few minutes, or goes away and comes back. It can feel like uncomfortable pressure, squeezing, fullness or pain. Discomfort in upper body: Symptoms can include pain or discomfort in one or both arms, back, neck, jaw or stomach. Shortness of breath: With or without discomfort. Other signs: Breaking out in a cold sweat, nausea, or lightheaded. Remember, MINUTES DO MATTER. If you experience any of these heart attack warning signs, call to get immediate medical attention! ?? Smoking can increase your chances of developing chronic health problems and can cause harmful effects to other family members in your house. If you smoke, you are strongly encouraged to quit. Please call [facility] at [phone] or [phone] ([phone]) or log in to [email or web address] for referrals to smoking cessation programs. ?? 498 Suicide & Crisis Lifeline is available 13/10 if you or someone you know needs to find a reason to keep living. By calling 386 you'll be connected to a skilled, trained counselor at a crisis center in your area. INPATIENT DISCHARGE INSTRUCTIONS SIGNATURE PAGE RUSTYLUCIAN SONG Location:[facility] Registration Date and Time:04/08/2023 21:56 EST Primary Care Physician: Lachelle MCKEON, Calin Mckeon, Attending Physician: Avila Jeong DO, I LUCIAN ZHAO, have received the above patient education materials/instructions and have verbalized understanding. If ambulance or transport services are being used I further acknowledge being given a choice of service. ?? If you need to contact me, please call me at this number: . Patient/Maintenance Technician 3Rd Shift Name: Patient/Maintenance Technician 3Rd Shift Signature: Relationship to Patient: Witness Name/Signature: Date: * Event Display: Provider Clarification Note Please click on pdf link to open report * Event Display: Provider Clarification Note Please click on pdf link to open report Patient Care team information Care Team Personnel Name: Suha Joya RN Position: [facility] RN Member Role: Primary Care Nurse Name: Lorraine Sherwood RN Position: [facility] AMB Nurse Member Role: Primary Care Nurse Name: Hailey Corado RN Position: [facility] RN Jessica Member Role: Primary Care Nurse Name: Alayna Barfield RN Position: [facility] RN Member Role: Primary Care Nurse Name: Ana Pink RN Position: [facility] RN Member Role: Primary Care Nurse Name: Aida Saul RN Position: [facility] RN Member Role: Primary Care Nurse Name: Ashley Gastelum RN Position: [facility] RN Member Role: Primary Care Nurse Name: Calin Larose MD Position: [facility] Physician (General Medicine) Member Role: PCP Address: Address: [address] [place] [address] Name: Mami Goetz RN Position: [facility] RN Member Role: Primary Care Nurse Name: Naima Beach RN Position: [facility] RN Member Role: Primary Care Nurse Name: Margo Valdez LPN Position: [facility] RN Member Role: Primary Care Nurse Name: Italia Raya RN Position: [facility] RN Member Role: Primary Care Nurse Name: Zev Brock RN Position: [facility] RN Member Role: Primary Care Nurse Name: Bo Romero RN Position: [facility] RN Member Role: Primary Care Nurse Name: Chela Herrera RN Position: [facility] RN Member Role: Primary Care Nurse Name: Felecia Vaughn RN Position: [facility] RN Member Role: Primary Care Nurse Name: Liane Tellez RN Position: [facility] RN Member Role: Primary Care Nurse Name: Pennie Sanchez RN Position: [facility] RN Member Role: Primary Care Nurse Name: Veronica Garcia RN Position: [facility] RN Member Role: Primary Care Nurse Name: Mai Jimenez LPN Position: [facility] RN Member Role: Primary Care Nurse Name: Rakel Burton RN Position: [facility] RN Member Role: Primary Care Nurse Name: Toña Dubon RN Position: [facility] RN Member Role: Primary Care Nurse Name: Connie Leavitt RN Position: [facility] RN Member Role: Primary Care Nurse Name: Manav Muñiz RN Position: [facility] ED RN W/OE and Tasks Member Role: Primary Care Nurse Name: Alee Shaikh RN Position: [facility] RN Member Role: Primary Care Nurse Name: Christy Almanza RN Position: [facility] RN Member Role: Primary Care Nurse Name: Lashae Servin RN Position: [facility] RN Member Role: Primary Care Nurse Name: Toy Langley RN Position: [facility] RN Member Role: Primary Care Nurse Name: Bindu Gaspar RN Position: [facility] RN Member Role: Primary Care Nurse Name: Alexey Wilkins RN Position: [facility] RN Member Role: Primary Care Nurse Name: Ilene Orona RN Position: [facility] RN Member Role: Primary Care Nurse Name: Carlos Martin RN Position: [facility] RN Member Role: Primary Care Nurse Name: Doroteo Ray RN Position: [facility] RN Member Role: Primary Care Nurse Name: Miko Alvarez RN Position: [facility] RN Member Role: Primary Care Nurse Name: Fausto Pearl LPN Position: [facility] RN Member Role: Primary Care Nurse Name: Hugo Marshall RN Position: [facility] RN Member Role: Primary Care Nurse Name: Sammie Jimenez RN Position: [facility] RN Member Role: Primary Care Nurse Name: Verenice Espinoza RN Position: [facility] RN Member Role: Primary Care Nurse Name: Livier Denton Position: [facility] RN Member Role: Primary Care Nurse Name: Lucian Kelly RN Position: [facility] RN Member Role: Primary Care Nurse Name: Charissa Banuelos RN Position: [facility] RN Member Role: Primary Care Nurse Name: Michoacano Bowles RN Position: [facility] RN Member Role: Primary Care Nurse Name: Kala Ferraro RN Position: [facility] RN Member Role: Primary Care Nurse Name: Lee Hyde RN Position: [facility] RN Member Role: Primary Care Nurse Name: Dino Brewster RN Position: [facility] RN Member Role: Primary Care Nurse Name: Sara Carpenter RN Position: [facility] RN Member Role: Primary Care Nurse Name: Molly Kebede RN Position: [facility] OB RN Member Role: Primary Care Nurse Name: Nadya Murillo LPN Position: [facility] RN Member Role: Primary Care Nurse Name: Brittaney Eagle RN Position: [facility] RN Member Role: Primary Care Nurse Name: Dahiana Muller LPN Position: [facility] RN Member Role: Primary Care Nurse Name: Renee Villanueva RN Position: [facility] ED RN W/OE and Tasks Member Role: Primary Care Nurse Care Team Related Persons Name: CECE DEBRA Address: home [address] [address] Name: DODIE ZHAO Address: [address] [place] [address] Name: GEMMA ZHAO Address: home [address] [place] [address]
--- OUTSIDE RECORDS SUMMARY | 2024-01-19 22:59 | XMS_ITS | Continuity of Care Document ---
Author Organization [facility] Address [address] [place] [address] [address] [place] [address]- Care Team Providers Care Manager Of Pharmacy Name Role Phone Lachelle MCKEON, Calin Mckeon Primary Care Physician Encounter [facility] [id number] Date(s): 12/19/22 - 01/31/[address] [place] [address]- Attending Physician: Kaleigh Benavidez MD Referring Physician: Not on Staff, Referring [...] 12/19/22 10:40:00 EDT, Route to Pharmacy Electronically, [facility]/pharmacy #[id number], Partial fill upon patient requestif [...] 12/19/22 9:11:00 EDT, Route to Pharmacy Electronically, [facility]/pharmacy #[id number], Partial fill upon patient request [...] 0 Refills, Maintenance, 12/19/22 9:12:00 EDT, Injection, [facility]/pharmacy #[id number], Partial fill upon patient request [...] drug. Start Date: 12/19/22 Status: Ordered Pen [place], 31 G x 5 mm BD Ultra [...] 12/19/22 9:22:00 EDT, Route to Pharmacy Electronically, [facility], Partial fill upon patient requestif [...] Team Personnel Name: Lorraine Sherwood RN Position: [facility] AMB Nurse Member Role: Primary Care Nurse Name: Hailey Corado RN Position: [facility] RN Supv Member Role: Primary Care Nurse Name: Ana Pink RN Position: [facility] RN Member Role: Primary Care Nurse Name: Ashley Gastelum RN Position: [facility] RN Member Role: Primary Care Nurse Name: Calin Larose MD Position: [facility] Physician (General Medicine) Member Role: PCP Address: Address: [address] [place] [id number] Name: Naima Beach RN Position: S RN Member Role: Primary Care Nurse Name: Margo Valdez LPN Position: [facility] RN Member Role: Primary Care Nurse Name: Zev Brock RN Position: [facility] RN Member Role: Primary Care Nurse Name: Patt Ponce RN Position: [facility] RN Member Role: Primary Care Nurse Name: Pennie Sanchez RN Position: [facility] RN Member Role: Primary Care Nurse Name: Veronica Garcia RN Position: [facility] RN Member Role: Primary Care Nurse Name: Toña Dubon RN Position: [facility] RN Member Role: Primary Care Nurse Name: Manav Muñiz RN Position: [facility] ED RN W/OE and Tasks Member Role: Primary Care Nurse Name: Alee Shaikh RN Position: [facility] RN Member Role: Primary Care Nurse Name: Christy Almanza RN Position: [facility] RN Member Role: Primary Care Nurse Name: Bindu Gaspar RN Position: [facility] RN Member Role: Primary Care Nurse Name: Alexey Wilkins RN Position: [facility] RN Member Role: Primary Care Nurse Name: Ilene Orona RN Position: [facility] RN Member Role: Primary Care Nurse Name: Seth Rivera RN Position: [facility] RN Member Role: Primary Care Nurse Name: Miko Alvarez RN Position: [facility] RN Member Role: Primary Care Nurse Name: Hugo Marshall RN Position: [facility] RN Member Role: Primary Care Nurse Name: Sammie Jimenez RN Position: [facility] RN Member Role: Primary Care Nurse Name: Verenice Espinoza RN Position: [facility] RN Member Role: Primary Care Nurse Name: Lucian Kelly RN Position: [facility] RN Member Role: Primary Care Nurse Name: Charissa Banuelos RN Position: [facility] RN Member Role: Primary Care Nurse Name: Yana Hernandez RN Position: [facility] RN Member Role: Primary Care Nurse Name: Sara Carpenter RN Position: [facility] RN Member Role: Primary Care Nurse Name: Molly Kebede RN Position: [facility] OB RN Member Role: Primary Care Nurse Name: Brittaney Eagle RN Position: [facility] RN Member Role: Primary Care Nurse Name: Dahiana Muller LPN Position: [facility] RN Member Role: Primary Care Nurse Care Team Related Persons Name: DEBRA ZHAO Address: home [address] [place] [address] Name: EDEN ZHAOMY Address: [address] [place] [address] Name: GEMMA ZHAO Address: home [address] [place] [address] [place] [address]
--- OUTSIDE RECORDS SUMMARY | 2024-01-19 22:59 | XMS_ITS | Continuity of Care Document ---
Author Organization [facility] ter Address [address] [place] [id number]- Care Team Providers Care Chemical Dependency Nurse Name Role Phone Marshall Mcghee MD Primary Care Physician Encounter [facility] Date(s): 10/28/19 - 11/08/[address] [address]- [facility] Encounter Diagnosis Acidosis(Final) - 10/28/19 Shock, septic(Final) - 10/28/19 DKA (diabetic ketoacidosis)(Final) - 10/31/19 Discharge Disposition: A-D/C AMA Attending Physician: Stephane MCKEON, Keith Su Admitting Physician: Arun Stallworth MD Referring Physician: Not on Staff, Referring MD Allergies, Adverse Reactions, Alerts Substance Reaction Severity Status morphine Active Medications insulin glargine 100 units/mL subcutaneous solution 0.42 mL = 42 units, Subcutaneous Injection, Daily at bedtime, # 12.6 mL, 0 Refills, Maintenance, 11/08/19 18:09:00 EDT, Injection, [id number], 163, cm, 11/08/19 1:23:00 EDT, Height, 45.8, kg, 10/28/19 21:34:00 EDT, Dry Weight Start Date: 11/08/19 Status: Ordered insulin lispro 100 units/mL injectable solution 8-24 units, Subcutaneous Injection, 3 times a day before meals, << Sliding Scale Comments >> 70 - 109 8 units Call if less than 70 110 - 149 10 units 150 - 189 12 units 190 - 229 14 [id number] - 269 16 units 270 - 309 18 units 3... Start Date: 11/08/19 Stop Date: 12/08/19 Status: Ordered sulfamethoxazole-trimethoprim 800 mg-160 mg oral tablet 2 tablet, By Mouth, 2 times a day, # 144 tablet, 0 Refills, Acute 12/14/19 18:00:00 EDT, 11/08/19 18:13:00 EDT, Tablet, [facility] #[id number], 2 tablet By Mouth 2 times a day, 163, cm, 201:23:00 EDT, Height, 45.8, kg, 10/28/19 21:34:00 ED... Start Date: 11/08/19 Stop Date: 12/14/19 Status: Ordered Problem List Condition Effective Dates Status Health Status Inform ant Cellulitis(Confirmed) Active Results Orders for Microbiology Reports Name Date Blood Culture 10/31/19 Blood Culture 10/30/19 Blood Culture #2 10/30/19 Blood Culture 10/28/19 Blood Culture #2 10/28/19 Microbiology Reports TEST:Blood Culture STATUS:Auth (Verified) BODY SITE: SOURCE:Blood COLLECTED DATE/TIME:10/31/19 6:12 AM Blood Culture SPECIMEN DESCRIPTION : BLOOD NOSITE SPECIAL REQUESTS : NONE CULTURE : NO GROWTH 5 DAYS. REPORT STATUS : FINAL 11/05/2019 TEST:Blood Culture STATUS:Auth (Verified) BODY SITE: SOURCE:Blood COLLECTED DATE/TIME:10/30/19 5:15 AM Blood Culture SPECIMEN DESCRIPTION : BLOOD LA SPECIAL REQUESTS : NONE CULTURE : NO GROWTH 5 DAYS. REPORT STATUS : FINAL 11/04/2019 TEST:Blood Culture, Second Order STATUS:Auth (Verified) BODY SITE: SOURCE:Blood COLLECTED DATE/TIME:10/30/19 5:00 AM Blood Culture, Second Order SPECIMEN DESCRIPTION : BLOOD RA SPECIAL REQUESTS : NONE CULTURE : NO GROWTH 5 DAYS. REPORT STATUS : FINAL 11/04/2019 TEST:Blood Culture, Second Order STATUS:Auth (Verified) BODY SITE: SOURCE:Blood COLLECTED DATE/TIME:10/28/19 5:35 PM Blood Culture, Second Order SPECIMEN DESCRIPTION : BLOOD LFT ARM SPECIAL REQUESTS : CRITICAL VALUE CALLED AND VERIFIED BY READBACK FOR: [place] [id number] ON SCI[place] AT 1055 ON 10/29/19 TECH 152. CRITICAL VALUE CALLED AND VERIFIED BY READBACK FOR: GRAM POSITIVE COCCI AND GRAM NEGATIVE RODS TO [id number], SICU, 10/30/2019, 0258, BY TECH 3897 CULTURE : STAPHYLOCOCCUS AUREUS, METHICILLIN RESISTANT. METHICILLIN RESISTANT STAPH AUREUS SHOULD BE CONSIDERED CLINICALLY RESISTANT TO ALL BETA-LACTAMS. Result reported to [facility]. FOR SUSCEPTIBILITY RESULT REFER TO BLOOD CULTURE BURKHOLDERIA (PSEUDOMONAS) CEPACIA S. aureus was identified by multi-plex PCR. Mec A detected. Due to the presence of the mecA gene, this isolate should be considered resistant to methicillin (MRSA). REPORT STATUS : FINAL 11/01/2019 ORGANISM BURKHOLDERIA (PSEUDOMONAS) CEPACIA METHOD MIN. INHIB. CONC. (MCG/ML) CEFTAZIDIME SUSCEPTIBLE LEVOFLOXACIN SUSCEPTIBLE MEROPENEM SUSCEPTIBLE TRIMETH/SULFAMETHOX SUSCEPTIBLE TEST:Blood Culture STATUS:Auth (Verified) BODY SITE: SOURCE:Blood COLLECTED DATE/TIME:10/28/19 5:00 PM Blood Culture SPECIMEN DESCRIPTION : BLOOD UPPER ARM RT SPECIAL REQUESTS : CRITICAL VALUE CALLED AND VERIFIED BY READBACK FOR: [place] [id number] ON SICU AT 1055 ON 10/29/19 TECH 152. CULTURE : STAPHYLOCOCCUS AUREUS, METHICILLIN RESISTANT. METHICILLIN RESISTANT STAPH AUREUS SHOULD BE CONSIDERED CLINICALLY RESISTANT TO ALL BETA-LACTAMS. Result reported to [facility]. REPORT STATUS : FINAL 10/31/2019 ORGANISM STAPHYLOCOCCUS AUREUS, METHICILLIN RESISTANT. ORGANISM METHICILLIN RESISTANT STAPH AUREUS SHOULD BE ORGANISM CONSIDERED CLINICALLY RESISTANT TO ALL ORGANISM BETA-LACTAMS. Result reported to [facility]. METHOD MIN. INHIB. CONC. (MCG/ML) CIPROFLOXACIN SUSCEPTIBLE CLINDAMYCIN SUSCEPTIBLE DAPTOMYCIN SUSCEPTIBLE DAPTOMYCIN JILLIAN EQ 1 MCG/ML ERYTHROMYCIN RESISTANT INDUCIBLE CLINDAMYCI NEGATIVE LEVOFLOXACIN SUSCEPTIBLE LINEZOLID SUSCEPTIBLE OXACILLIN RESISTANT RIFAMPIN SUSCEPTIBLE RIFAMPIN RIFAMPIN SHOULD NOT BE USED ALONE FOR ANTIMICROBIAL RIFAMPIN THERAPY. TETRACYCLINE SUSCEPTIBLE TRIMETH/SULFAMETHOX SUSCEPTIBLE VANCOMYCIN SUSCEPTIBLE VANCOMYCIN JILLIAN EQ 1 MCG/ML Radiology Reports * Exam Date Time Procedure Performing Provider Status 10/29/19 6:34 AM Chest Portable Hailey Orozco; Auth ( Verified) Notes: (Chest Portable) Reason For Exam: Tube Placement RESULT: Chest Portable Chest Portable Indication: Tube placement. COMPARISON: 10/28/2019 FINDINGS: LINES AND TUBES: Enteric tube within the stomach, the sidehole at the level of the GE junction, similar to prior. LUNGS AND PLEURA: Similar distribution of patchy bilateral airspace and interstitial disease right greater than left. Likely trace right pleural effusion. No pneumothorax. HEART, MEDIASTINUM AND LIZBETH: Heart is normal in size. Normal mediastinal and hilar contour. BONES AND SOFT TISSUES: No acute abnormality. IMPRESSION: No significant change and bilateral multifocal airspace and interstitial opacities right greater than left. This may reflect multifocal pneumonia or aspiration given patient's history. WSN: [id number] Ordering Physician: Jagdish Adamson Dictated By: Adrien Granados MD Dictated Date/Time: 10/29/19 10:42 a Reviewed By: Adrien Granados MD Signed By: Adrien Granados MD Signed Date/Time: 10/29/19 10:42 am Transcribed By: AKASH Transcribed Date/Time: 10/29/19 10:39 am * Exam Date Time Procedure Performing Provider Status 10/29/19 6:34 AM Hand Min 3 Views Right Hailey Orozco (Verified) Notes: (Hand Min 3 Views Right) Reason For Exam: Fever/Increased White Count RESULT: Hand Min 3 Views Right Hand Min 3 Views Right, 3 views Refer to EMR; Reason: Fever Increased White Count; COMPARISON: 08/16/2019 FINDINGS: Subchondral cystic changes noted in the distal pole of the scaphoid. No discrete fracture or traumatic malalignment. Degenerative changes of the distal radioulnar joint are noted. No radiopaque foreign body. IMPRESSION: No acute osseous abnormality. WSN: [id number] Ordering Physician: Jagdish Adamson Dictated By: Adrien Granados MD Dictated Date/Time: 10/29/19 10:39 a Reviewed By: Adrien Granados MD Signed By: Adrien Granados MD Signed Date/Time: 10/29/19 10:39 am Transcribed By: AKASH Transcribed Date/Time: 10/29/19 10:36 am * Exam Date Time Procedure Performing Provider Status 10/28/19 11:01 PM Abdomen AP Chela García; Auth (Ve rified) Notes: (Abdomen AP) Reason For Exam: Nausea/Vomiting RESULT: XR Abdomen AP XR Abdomen AP INDICATION/CLINICAL QUESTION: Abdominal Refer to EMR; Reason: Nausea Vomiting; Clinical Question(s): Obstruction; Hx of Present Illness: AMS; Other Objective Findings: pt confused, altered, fruity smell to breath. COMPARISON: None FINDINGS: Normal bowel gas pattern. No evidence of obstruction. Moderate stool retention in the rectum. No evidence of pneumoperitoneum. Enteric tube courses into the stomach. Rectal temperature probe in place. Lung bases are clear. Postsurgical changes in the lumbosacral spine. No acute osseous abnormality. IMPRESSION: No evidence of obstruction. WSN: [id number] Ordering Physician: Jagdish Adamson Dictated By: Jerome Leonard DO Dictated Date/Time: 10/28/19 11:17 p Reviewed By: Jerome Leonard DO Signed By: Jerome Leonard DO Signed Date/Time: 10/28/19 11:17 pm Transcribed By: CSMili Transcribed Date/Time: 10/28/19 11:15 pm * Exam Date Time Procedure Performing Provider Status 10/28/19 11:01 PM Chest Portable Chela García; Auth ( Verified) Notes: (Chest Portable) Reason For Exam: Tube Placement RESULT: Chest Portable Chest Portable Refer to EMR; Reason: Tube Placement; Clinical Question(s): Tube Placement; Hx of Present Illness: AMS; Other Objective Findings: pt confused, altered, fruity smell to breath. Frail and malnourished in appearance. Not answering questions or following commands appropriately - making grunting sounds.Respirations labored, hyperpnic, tachypnic. Abd flat. Open wound noted to RFA, non-bleeding grunti COMPARISON: 10/28/2019 FINDINGS: LINES AND TUBES: Enteric tube in good position. LUNGS AND PLEURA: Patchy densities in both lungs increased compared to previous examination suspicious for progressive pneumonia. No pleural effusion. No pneumothorax. HEART, MEDIASTINUM AND LIZBETH: Heart is normal in size. Normal mediastinal and hilar contour. BONES AND SOFT TISSUES: No acute abnormality. IMPRESSION: Progressive, nodular bilateral pulmonary opacities. Findings concerning for pneumonia. Septic emboli is a consideration. WSN: [id number] Ordering Physician: Jagdish Adamson Dictated By: Agusto Humphries MD Dictated Date/Time: 10/28/19 11:15 p Reviewed By: Agusto Humphries MD Signed By: Agusto Humphries MD Signed Date/Time: 10/28/19 11:15 pm Transcribed By: AKASH Transcribed Date/Time: 10/28/19 11:12 pm * Exam Date Time Procedure Performing Provider Status 10/28/19 5:29 PM Chest Portable Didi Balderrama; Auth ( Verified) Notes: (Chest Portable) Reason For Exam: Shortness of Breath RESULT: Chest Portable Chest Portable AP upright at 1707 hours Reason: Shortness of Breath; Clinical Question(s): CHF COMPARISON: None. FINDINGS: LINES AND TUBES: None. LUNGS AND PLEURA: Mild patchy opacity in the right perihilar region. Lungs otherwise clear. No pleural effusion. No pneumothorax. HEART, MEDIASTINUM AND LIZBETH: Heart is normal in size. Normal mediastinal and hilar contour. BONES AND SOFT TISSUES: No acute abnormality. IMPRESSION: Mild patchy opacity right perihilar region. This finding could represent underlying atelectasis or possibly developing infection. Appearance is atypical for pulmonary edema. WSN: [id number] Ordering Physician: Tracy Navarro Dictated By: Jerome Leonard DO Dictated Date/Time: 10/28/19 5:38 pm Reviewed By: Jerome Leonard DO Signed By: Jerome Leonard DO Signed Date/Time: 10/28/19 5:38 pm Transcribed By: AKASH Transcribed Date/Time: 10/28/19 5:37 pm Vital Signs Most recent to oldest [Reference Range]: 1 2 3 Height 163 cm (11/08/19 1:23 AM) 163 cm (11/07/19 8:50 PM) 163 cm (11/07/19 12:44 AM) Weight 51.3 kg (11/06/19 5:00 AM) 49.8 kg (11/05/19 5:00 AM) 47.3 kg (11/01/19 7:34 AM) Oxygen Saturation [94-100 %] 98 % (11/08/19 4:45 PM) 95 % (11/08/19 8:00 AM) 95 % (11/08/19 1:23 AM) Pulse Rate [55-90 bpm] 103 bpm *H* (11/08/19 4:45 PM) 97 bpm *H* (11/08/19 8:00 AM) 97 bpm *H* (11/08/19 1:23 AM) Body Mass Index [18.5-24.99] 17.8 *L* (11/01/19 7:34 AM) 19.68 (10/30/19 4:20 PM) 17.24 *L* (10/28/19 9:34 PM) Blood Pressure [90-138/55-84 mm Hg] 146/59mm Hg *H* (11/08/19 4:45 PM) 99/58mm Hg (11/08/19 8:00 AM) 101/55mm Hg (11/08/19 1:23 AM) Respiratory Rate [16-30 br/min] 18 br/min (11/08/19 4:45 PM) 19 br/min (11/08/19 8:21 AM) 18 br/min (11/08/19 8:20 AM) Temperature [96.8-100.4 DegF] 98.9 DegF (11/08/19 4:45 PM) 98.9 DegF (11/08/19 8:00 AM) 98.3 DegF (11/08/19 1:23 AM) Liters per Minute 1 L/min (10/31/19 7:40 AM) 3 L/min (10/28/19 11:00 PM) 3 L/min (10/28/19 10:00 PM) Mode of Delivery (Oxygen) Room air (11/08/19 4:45 PM) Room air (11/08/19 8:00 AM) Room air (11/08/19 1:23 AM) Blood pressure sites Arm, left (11/08/19 4:45 PM) Arm, left (11/08/19 8:00 AM) Arm, left (11/08/19 1:23 AM) Temperature Route Oral (11/08/19 4:45 PM) Oral (11/08/19 8:00 AM) Oral (11/08/19 1:23 AM) Dry Weight 45.8 kg (10/28/19 9:34 PM) Weight Obtained Via Bed scale (11/06/19 5:00 AM) Bed scale (11/05/19 5:00 AM) Bed scale (10/30/19 4:20 PM) Dry Weight Obtained Via Bed scale (10/28/19 9:34 PM) Mobility assistance Transfer, assist of 1 (10/30/19 9:37 AM) Independent (10/30/19 4:49 AM) Independent (10/30/19 12:00 AM) Social History Social History Type Response Smoking Status 10 or more cigarette s (1/2 pack or more)/day in last 30 days entered on: 01/28/18 Sex
--- OUTSIDE RECORDS SUMMARY | 2024-01-19 22:59 | XMS_ITS | Continuity of Care Document ---
Author Organization [facility] Address [address] [place] [address]- Care Team Providers Care Business Intelligence Director Name Role Phone Lachelle MCKEON, Calin Mckeon Primary Care Physician Encounter [facility] Date(s): 01/14/22 - 02/13/22 [facility] [address] [place] [id number] Attending Physician: AdmDuke ware Admitting Physician: Admtr, Duke Referring Physician: Admtr, [...] drug. Start Date: 10/16/21 Status: Ordered Pen [place], 29 G x 12.7 mm BD Ultra Fine See Instructions, # 100 each, Refills 5, Tot. Refills 5, Maintenance, use as directed for Type 2 DMcheck POC TID, 06/30/21 9:35:00 EDT, Supply, 162, cm, 02/29/20 13:15:00 EST, Height, 46.9, kg, 06/28/21 12:21:00 EDT, Dry Weight Start Date: 06/30/21 Stop Date: 12/27/21 Status: Ordered vitamin A 65800 u oral capsule 10,000 International_Units, 1, capsule, [...] (General Medicine) Member Role: PCP Address: Address: [address] [place] [address] [place] [address]- Name: Zev Brock Position: [facility] [...] [facility] RN Member Role: Primary Care Nurse Care Team Related Persons Name: RUSTYFOREIGNRebeccaDEBRA Address: home [address] [place] [address] Name: CECE DODIE Address: home [address] [place] [address]
--- OUTSIDE RECORDS SUMMARY | 2024-01-19 22:59 | XMS_ITS | Continuity of Care Document ---
Author Organization [facility] ter Address [address] [place] [id number] Care Team Providers Care Dental Internship Name Role Phone Lachelle MCKEON, Calin Mckeon Primary Care Physician Encounter [facility] [place] Date(s): 12/03/22 - 12/19/[address] [address] Encounter Diagnosis Osteomyelitis(Final) - 12/03/22 Osteomyelitis(Final) - 12/10/22 Discharge Disposition: A-D/C Home Attending Physician: Charissa Wesley MD Admitting Physician: Andrew Sidhu MD Referring Physician: Not on Staff, Referring [...] 12/19/22 10:40:00 EDT, Route to Pharmacy Electronically, [facility]/pharmacy #[id number], Partial fill upon patient requestif the prescription [...] EDT, Height, 43.6, kg, 12/04/22 9:38:00 EDT, DrMary Start Date: 12/19/22 Stop Date: 06/17/23 Status: [...] oral capsule 600 mg, Capsule, By Mouth, 12/19/22 15:00:00 EDT Start Date: 12/19/22 Stop Date: 12/19/22 Status: Completed gabapentin 300 mg oral capsule 600 mg, By Mouth, 3 times a day, # 90 capsule, Refills 0, Tot. Refills 0, Maintenance, 12/19/22 9:11:00 EDT, Route to Pharmacy Electronically, [facility]/pharmacy #[id number], Partial fill upon patient request ifthe prescription [...] 10 uni... Start Date: 12/19/22 Status: Ordered HYDROmorphone 4 mg oral tablet 4 mg, Tablet, By Mouth, Every 4 hours, Hold for: somnolence, PRN for Pain , Moderate, Routine, 12/08/22 13:36:00 EDT Start Date: 12/08/22 Stop Date: 12/20/22 Status: Discontinued Lab draw--CBC with diff, CMP, ESR, and [...] 0 Refills, Maintenance, 12/19/22 9:12:00 EDT, Injection, [facility]/pharmacy #[id number], Partial fill upon patient request if [...] drug. Start Date: 12/19/22 Status: Ordered Pen [place], 31 G x 5 mm BD Ultra Fine III See Instructions, # 100 each, Refills 5, Tot. Refills 5, Maintenance, use as directed for Type 2 Diabetes Mellitus, 12/19/22 9:23:00 EDT, Supply, 163, cm, 12/18/22 13:39:00 EDT, Height, 43.6, kg, 12/04/22 9:38:00 EDT, Dry Weight Start Date: 12/19/22 Stop Date: 06/17/23 Status: Ordered silver sulfADIAZINE 1% topical cream 1 application, Topically, 2 times a day, for 14 days, # 50 Gm, 1 Refills, Acute 01/16/23 9:22:00 EDT, 12/19/22 9:22:00 EDT, Cream, [facility], Partial fill upon patient request if the prescription is for a schedule II opioid drug., 1 jayy... Start Date: 12/19/22 Stop Date: 01/16/23 Status: Ordered thiamine 100 mg oral tablet 100 mg, By Mouth, Daily, for 30 days, # 30 tablet, Refills 0, Tot. Refills 0, Acute 01/18/23 9:22:00 EDT, 12/19/22 9:22:00 EDT, Route to Pharmacy Electronically, [facility] 3, Partial fill upon patient request if the prescription is for a... Start Date: 12/19/22 Stop Date: 01/18/23 Status: Ordered zinc sulfate 220 mg oral capsule 220 mg, By Mouth, Daily in AM, # 30 tablet, Refills 0, Tot. Refills 0, Maintenance, 12/19/22 9:22:00 EDT, Route to Pharmacy Electronically, [facility], Partial fill upon patient requestif [...] Reports Name Date Anaerobic Culture (ANAEROBIC CULTURE) Tissue Culture w/ Gram Smear (TISSUE/BIO PSY CULT.) 12/15/22 Anaerobic Culture (ANAEROBIC CULTURE) Tissue Culture w/ Gram Smear (TISSUE/BIO PSY CULT.) 12/15/22 Anaerobic Culture (ANAEROBIC CULTURE) Wound Deep Culture w/ Gram Smear (DEEP W OUND CULTURE) 12/15/22 Blood Culture 12/03/22 Blood Culture #2 12/03/22 Microbiology Reports TEST:Anaerobic Culture STATUS:Unauthenticated BODY SITE: SOURCE:BONE COLLECTED DATE/TIME:12/15/22 8:20 AM Anaerobic Culture SPECIMEN DESCRIPTION : BONE LEFT DISTAL RADIUS SPECIAL REQUESTS : OR SPECIMEN CULTURE : NO ANAEROBES ISOLATED SO FAR. REPORT STATUS : PRELIMINARY REPORT TEST:Tissue/Biopsy Culture STATUS:Auth (Verified) BODY SITE: SOURCE:BONE COLLECTED DATE/TIME:12/15/22 8:20 AM Tissue/Biopsy Culture SPECIMEN DESCRIPTION : BONE LEFT DISTAL RADIUS SPECIAL REQUESTS : OR SPECIMEN GRAM STAIN : 1+ TISSUE CELLS 1+ WHITE BLOOD CELLS NO ORGANISMS SEEN CULTURE : NO GROWTH 2 DAYS REPORT STATUS : FINAL 12/17/2022 TEST:Anaerobic Culture STATUS:Auth (Verified) BODY SITE: SOURCE:TISSUE1 COLLECTED DATE/TIME:12/15/22 8:17 AM Anaerobic Culture SPECIMEN DESCRIPTION : TISSUE LEFT WRIST SYNOVIAL SPECIAL REQUESTS : OR SPECIMEN CULTURE : 1+ STAPHYLOCOCCUS AUREUS, METHICILLIN RESISTANT. METHICILLIN RESISTANT STAPH AUREUS SHOULD BE CONSIDERED CLINICALLY RESISTANT TO ALL BETA-LACTAMS. These AST results were performed on the Vitek 2 ID and AST system NO ANAEROBES ISOLATED CRITICAL VALUE CALLED AND VERIFIED BY READBACK FOR: S. AUREUS IN TISSUE CULTURE TO [id number], S64 12/17/22 1320 BY TECH [id number] REPORT STATUS : FINAL 12/18/2022 ORGANISM 1+ STAPHYLOCOCCUS AUREUS, METHICILLIN RESISTANT. METHICILLIN RESISTANT STAPH AUREUS SHOULD BE CONSIDERED CLINICALLY RESISTANT TO ALL BETA-LACTAMS. These AST results were performed on the Vitek 2 ID and AST system METHOD MIN. INHIB. CONC. (MCG/ML) CIPROFLOXACIN SUSCEPTIBLE CLINDAMYCIN SUSCEPTIBLE ERYTHROMYCIN RESISTANT INDUCIBLE CLINDAMYCI NEGATIVE LEVOFLOXACIN SUSCEPTIBLE LINEZOLID SUSCEPTIBLE OXACILLIN RESISTANT RIFAMPIN SUSCEPTIBLE RIFAMPIN RIFAMPIN SHOULD NOT BE USED ALONE FOR ANTIMICROBIAL RIFAMPIN THERAPY. TETRACYCLINE SUSCEPTIBLE TRIMETH/SULFAMETHOX SUSCEPTIBLE VANCOMYCIN SUSCEPTIBLE TEST:Tissue/Biopsy Culture STATUS:Auth (Verified) BODY SITE: SOURCE:TISSUE1 COLLECTED DATE/TIME:12/15/22 8:17 AM Tissue/Biopsy Culture SPECIMEN DESCRIPTION : TISSUE LEFT WRIST SYNOVIAL SPECIAL REQUESTS : OR SPECIMEN GRAM STAIN : NO CELLS OR ORGANISMS SEEN CULTURE : NO GROWTH 2 DAYS REPORT STATUS : FINAL 12/17/2022 TEST:Anaerobic Culture STATUS:Unauthenticated BODY SITE: SOURCE:SWAB1 COLLECTED DATE/TIME:12/15/22 8:10 AM Anaerobic Culture SPECIMEN DESCRIPTION : SWAB LEFT WRIST JOINT SPECIAL REQUESTS : OR SPECIMEN CULTURE : NO ANAEROBES ISOLATED SO FAR. REPORT STATUS : PRELIMINARY REPORT TEST:Deep Wound Culture STATUS:Auth (Verified) BODY SITE: SOURCE:SWAB1 COLLECTED DATE/TIME:12/15/22 8:10 AM Deep Wound Culture SPECIMEN DESCRIPTION : SWAB LEFT WRIST JOINT SPECIAL REQUESTS : OR SPECIMEN GRAM STAIN : 1+ TISSUE CELLS 1+ WHITE BLOOD CELLS NO ORGANISMS SEEN CULTURE : NO GROWTH 2 DAYS REPORT STATUS : FINAL 12/17/2022 TEST:Blood Culture STATUS:Auth (Verified) BODY SITE: SOURCE:Blood COLLECTED DATE/TIME:12/03/22 1:05 AM Blood Culture SPECIMEN DESCRIPTION : BLOOD L ARM SPECIAL REQUESTS : NONE CULTURE : NO GROWTH 5 DAYS. REPORT STATUS : FINAL 12/08/2022 TEST:Blood Culture, Second Order STATUS:Auth (Verified) BODY SITE: SOURCE:Blood COLLECTED DATE/TIME:12/03/22 1:05 AM Blood Culture, Second Order SPECIMEN DESCRIPTION : BLOOD L ARM SPECIAL REQUESTS : NONE CULTURE : NO GROWTH 5 DAYS. REPORT STATUS : FINAL 12/08/2022 Radiology Reports * Exam Date Time Procedure Performing Provider Status 12/04/22 8:[address] Ext Upper W/ Contrast Left Lidia Blanco; Auth (Verified) Notes: (CT Ext Upper W/ Contrast Left) Reason For Exam: Infection RESULT: CT Ext Upper W/ Contrast Left CT Ext Upper W/ Contrast Left Reason: Infection; Clinical Question(s): Forearm; Order Comment: TECHNIQUE: Helical CT of the left upper extremity extending from the forearm into the hand was performed with contrast , with images formatted in 3 planes. 100 cc of Omnipaque 300 was administered intravenously. Weight-based protocol using automatic tube modulation was used to optimize exposure parameters. CTDIvol Body: 8.00 mGy, DLP Body: 247 mGy*cm. COMPARISONS: Left forearm and left hand radiographs from 12/03/2022. Comparison is also made with left upper extremity CT dated 09/05/2022. FINDINGS: Bones and joints: There is joint space narrowing of the radiocarpal joint with cortical destructionof the distal radius and ulna as well as areas of cortical destruction in the lunate. There is volar subluxation of the carpal bones relative to the distal radius and ulna. There is periosteal reaction extending along the distal radius and ulna to the mid diaphyses. Small amount of periosteal reaction is seen along the fifth metacarpal diaphysis. Carpal bones, distal radius and normal in base of the metacarpals are osteopenic. Soft Tissues: Generalized soft tissue edema is seen throughout the left forearm with irregular contour of the dorsal aspect of the distal forearm and wrist extending into the hand. Hypodensity of themuscles with loss of definition of muscular fat planes. No rim-enhancing fluid collection or subcutaneous gas. Linear metallic fragment is seen in the medial soft tissues of the elbow measuring 1.3 cm in length. IMPRESSION: Findings concerning for septic arthritis/osteomyelitis of the radiocarpal joint. Diffuse soft tissue swelling throughout the forearm with no rim-enhancing fluid collection or subcutaneous gas. Irregular contour of the dorsal soft tissues of the distal forearm, wrist and extendinginto the hand may reflect associated ulceration. Diffuse hypodensity throughout the muscles with loss of definition of the intramuscular fat planes,which may reflect myositis though fasciitis cannot be excluded. Linear metallic foreign body in the medial soft tissues at the level of the elbow concerning for retained needle fragment. WSN: [id number] Ordering Physician: Miguelina Vizcarra Dictated By: Lashae Kumari MD Dictated Date/Time: 12/04/22 8:50 am Reviewed By: Lashae Kumari MD Signed By: Lashae Kumari MD Signed Date/Time: 12/04/22 8:50 am Transcribed By: AKASH Transcribed Date/Time: 12/04/22 8:28 am * Exam Date Time Procedure Performing Provider Status 12/03/22 4:33 AM Hand Min 3 Views Left Lo , Gagan; Au (Verified) Notes: (Hand Min 3 Views Left) Reason For Exam: Pain RESULT: Hand Min 3 Views Left Hand Min 3 Views Left, 3 views HX OF PRESENT ILLNESS: wounds, high blood sugar; Reason: Pain; Clinical Question(s): Osteomyelitis COMPARISON: 01/20/2020. FINDINGS: Osteopenia and bony destruction involving the distal radius, proximal carpal row along with posterior subluxation of the distal ulna. There is periosteal reaction involving the distal radius, ulna. Overlying soft tissue ulceration and edema. IMPRESSION: Findings highly concerning for osteomyelitis/septic arthritis of the left wrist. I have personally reviewed the images and I agree with this report. WSN: [id number] Ordering Physician: Ruben Mccormick Dictated By: José Manuel[Radiology] Deb MCKEON Dictated Date/Time: 12/03/22 12:10 p Reviewed By: Landen Garduno MD Signed By: Landen Garduno MD Signed Date/Time: 12/03/22 12:15 pm Transcribed By: AKASH Transcribed Date/Time: 12/03/22 11:29 am * Exam Date Time Procedure Performing Provider Status 12/03/22 4:33 AM Foot Min 3 Views Right Lo , Gagan; A ut (Verified) Notes: (Foot Min 3 Views Right) Reason For Exam: Pain RESULT: Foot Min 3 Views Right Foot Min 3 Views Right, 3 views Hx of Present Illness: wounds, high blood sugar; Reason: Pain; Clinical Question(s): Osteomyelitis COMPARISON: None. FINDINGS: No fractures or bone lesions. No significant degenerative change. No radiopaque foreign body. IMPRESSION: No evidence of acute osseous abnormality. I have personally reviewed the images and I agree with this report. WSN: [id number] Ordering Physician: Ruben Mccormick Dictated By: José Manuel[Radiology] Deb MCKEON Dictated Date/Time: 12/03/22 12:08 p Reviewed By: Landen Garduno MD Signed By: Landen Garduno MD Signed Date/Time: 12/03/22 12:13 pm Transcribed By: AKASH Transcribed Date/Time: 12/03/22 11:26 am * Exam Date Time Procedure Performing Provider Status 12/03/22 4:33 AM Forearm 2 Views Left Ol , Gagan; Aut h (Verified) Notes: (Forearm 2 Views Left) Reason For Exam: Pain RESULT: Forearm 2 Views Left Forearm 2 Views Left Hx of Present Illness: wounds, high blood sugar; Reason: Pain; Clinical Question(s): Osteomyelitis COMPARISON: Multiple priors, the most recent 02/26/2020. FINDINGS: Osteopenia of the distal radius, proximal carpal row with indistinct bony margins. Posterior subluxation of the ulna. Extensive soft tissue edema, ulceration involving the dorsal forearm, wrist and dorsal hand. Periosteal reaction involving the distal ulna, distal radius. IMPRESSION: Osteopenia and bony destruction involving the distal radius, proximal carpal row and associated periosteal reaction suggestive of osteomyelitis/septic arthritis. Posterior subluxation of the ulna and the DRUJ. Extensive skin ulceration and soft tissue thickening involving the dorsal forearm, wrist and hand. I have personally reviewed the images and I agree with this report. WSN: [id number] Ordering Physician: Ruben Mccormick Dictated By: José Manuel[Radiology] Deb MCKEON Dictated Date/Time: 12/03/22 12:12 p Reviewed By: Landen Garduno MD Signed By: Landen Garduno MD Signed Date/Time: 12/03/22 12:17 pm Transcribed By: AKASH Transcribed Date/Time: 12/03/22 11:24 am Vital Signs Most recent to oldest [Reference Range]: 1 2 3 Height 163 cm (12/19/22 12:06 PM) 163 cm (12/18/22 1:39 PM) 163 cm (12/18/22 5:52 AM) Weight 43.6 kg (12/15/22 6:54 AM) 43.6 kg (12/04/22 9:07 AM) 45.5 kg (12/04/22:26 AM) Oxygen Saturation [94-100 %] 100 % (12/19/22 12:06 PM) 100 % (12/19/22 3:00 AM) 100 % (12/18/22 9:00 PM) Pulse Rate [55-90 bpm] 93 bpm *H* (12/19/22 12:06 PM) 90 bpm (12/19/22 3:00 AM) 100 bpm *H* (12/18/22 9:00 PM) Body Mass Index [18.5-24.99 kg/m2] 16.41 kg/m2 *L* (12/15/22 6:54 AM) 16.41 kg/m2 *L* (12/04/22 9:07 AM) 17.13 kg/m2 *L* (12/04/22:26 AM) Blood Pressure [90-138/55-84 mm Hg] 135/80mm Hg (12/19/22 12:06 PM) 130/93mm Hg (12/19/22 3:00 AM) 122/89mm Hg (12/18/22 9:00 PM) Respiratory Rate [16-30 br/min] 18 br/min (12/19/22 3:30 PM) 18 br/min (12/19/22 3:30 PM) 18 br/min (12/19/22 12:06 PM) Temperature [96.8-100.4 DegF] 97.6 DegF (12/19/22 12:06 PM) 98.4 DegF (12/19/22 3:00 AM) 98.0 DegF (12/18/22 9:00 PM) Liters per Minute 6 L/min (12/15/22 9:00 AM) Mode of Delivery (Oxygen) Room air (12/19/22 12:06 PM) Room air (12/19/22 3:00 AM) Room air (12/18/22 9:00 PM) Blood pressure sites Arm, left (12/19/22 12:06 PM) Arm, right (12/19/22 3:00 AM) Arm, right (12/18/22 9:00 PM) Temperature Route Oral (12/19/22 12:06 PM) Oral (12/19/22 3:00 AM) Oral (12/18/22 9:00 PM) Dry Weight 43.6 kg (12/04/22 9:07 AM) 45.5 kg (12/04/22 5:26 AM) 45.5 kg (12/03/22 12:58 AM) Weight Obtained Via Bed scale (12/04/22 9:07 AM) Standing scale (12/03/22 12:42 AM) Dry Weight Obtained Via Bed scale (12/04/22 9:07 AM) Standing scale (12/03/22 12:42 AM) Social History Social History Type Response Smoking Status 10 or more cigarette s (1/2 pack or more)/day in last 30 days entered on: 01/28/18 Sex Male Admission evaluation note * Svetlana MCKEON, Norma: PERFORM, MODIFY, MODIFY Event Display: Admission Note Authored Date: Patient: ??LUCIAN ZHAO ? Age:??42 Years?Sex:??Male?:??1980?? Chief Complaint/Reason for Consultation Coming from home, reports hyperglycemia in the 400s, chronic infection to L arm R foot and R calf. Recent admission left AMA in August. History of Present Illness Lucian Zhao is a 42-year-old gentleman with a history of poorly controlled type 2 diabetes, current IV drug use, previous left upper lobe cavitary lung lesion with subsequent pneumococcal bacteremia in 2020, hepatitis C, prior MRSA bacteremia, previous upper extremity abscesses requiring drainage, with chronic wounds to left upper extremity. ?? Patient was admitted in August 2022 with osteomyelitis of the distal ulna and left AMA, no surgery was done. Patient also notes LE swelling and worsening right pate wound. ? He presents today for sugars in the 400s as well as worsening of his chronic infections.He reports in the last few days his worsening especially in his left hand.??Also endorses generalized fatigue malaise..??No fevers/chills. Does note weight loss , unsure how much. Appetite is ok. No blood in stool or dysphagia symptoms. ?? Patient on my evaluation is comfortable and does note LE pain and LUE pain when asked. Patient is also mentioning he is very hungry, wondering when surgery is Review of Systems All systems reviewed and negative except above. Objective Vital Signs?? Temperature: 97.8 DegF (12/03/22 08:12:00) Temperature Route: Oral (12/03/22 08:12:00) Pulse Rate:??14 bpm??Low (12/03/22 08:12:00) Respiratory Rate:??15 br/min??Low (12/03/22 08:12:00) Systolic Blood Pressure: 110 mm Hg (12/03/22 08:12:00) Diastolic Blood Pressure: 83 mm Hg (12/03/22 08:12:00) Blood pressure sites: Arm, right (12/03/22 08:12:00) Mean Arterial Pressure: 110 mm Hg (12/03/22 00:42:00) Pulse Pressure: 27 mm Hg (12/03/22 08:12:00) Oxygen Saturation: 100 % (12/03/22 08:12:00) Mode of Delivery (Oxygen): Room air (12/03/22 08:12:00) Early Warning Score: 8 (12/03/22 08:49:30) ? Intake/Output? No Data Available ? Physical Exam General:??No acute distress, AAOx3. HEENT:??Atruamatic/normocephalic, temporal wasting Cardio:??Regular rate, Respiratory:??CTA Abdomen:??Soft, NT, nondistended, Extremities: pitting edema b/l LE large skin breakdown with erythema and drainage right lateral pate abrasions left medial thigh left hand/arm in bandage, fingers very swollen Skin:??No rashes or hematomas appreciated. Vascular:??Pulses present and equal distally. Neuro:??No focal deficits grossly Assessment/Plan Lucian Zhao is a 42-year-old gentleman with a history of poorly controlled type 2 diabetes, current IV drug use, previous left upper lobe cavitary lung lesion with subsequent pneumococcal bacteremia in 2020, hepatitis C, prior MRSA bacteremia, previous upper extremity abscesses requiring drainage, with chronic wounds to left upper extremity. ? Worsening??left arm osteomyelitis Patient was last seen in August, left AMA before surgery was done.?? At the time CTLeft upper extremity showed 11 small gas containing focal fluid collections/abscesses in the distal forearm wrist and hand.?? Erosion of the dorsal aspect of the distal ulna small needle fragment within the ulnar soft t issue of the elbow. Ortho hand consulted, will take him to the OR??likely today Continue Vanco and Zosyn Follow-up blood cultures ?? Insulin-dependent??diabetes Per patient is type II He is on sliding scale only at home We will start low-dose Lantus 10 units as well as increased??sliding scale and adjust??as needed ?? Lower extremity wounds Right lateral pate has a large??skin abrasion??with erythema around it as well as some drainage Wound care consulted Antibiotics as above ?? IVDU Last??use reportedly couple days ago per patient Addiction medicine is consulted, he is interested in trying methadone again ?? Unintentional weight loss Malnutrition unclear how many pounds or in how long nutrition consulted no red flag symptoms so far ?? N.p.o.,??diabetic diet??after the surgery Full code DVT prophylaxis??Lovenox Histories Allergies Allergies ?(Active and Proposed Allergies Only) morphine? (Severity: Unknown, Onset: Unknown) ?Comments: Has a side effect - itching. ? Past Medical History/Problem List Active Problems??(8) Cellulitis Cellulitis and abscess of hand, except fingers and thumb Cocaine use disorder, severe, dependence Hyperglycemia without ketosis Hyponatremia Opioid use disorder, severe, dependence Polysubstance abuse Underweight ? Social History Alcohol Details:??Use: Never. Substance Abuse Details:??Use: Past. ??Type: Heroin. ??Substance abuse in household: No. Details:??Use: Past. ??Type: Heroin. ??Substance abuse in household: No. Tobacco Details:??Use: 10 or more cigarettes (1/2 pack or more)/day in last 30 days. ? Family History Mother had an VT at a young age. ?? Medications Home Medications Insulin Lispro (Insulin Lispro KwikPen 100 units/mL injectable solution)?See Instructions ? Results Recent Labs BLOOD COUNT & DIFF WBC 4.6 k/mm3 ()?? 12/03/2022 03:45 RBC 4.53 m/mm3 (Low)?? 12/03/2022 03:45 Hgb 8.8 Gm/dL (Low)?? 12/03/2022 03:45 Hct 30.4 % (Low)?? 12/03/2022 03:45 MCV 67.1 femtoliters (Low)?? 12/03/2022 03:45 MCH 19.4 pg (Low)?? 12/03/2022 03:45 MCHC 28.9 g/dL (Low)?? 12/03/2022 03:45 Platelet Count 105 k/mm3 (Low)?? 12/03/2022 03:45 RDW-SD 44.1 femtoliters ()?? 12/03/2022 03:45 MPV NOT MEASURED femtoliters ()?? 12/03/2022 03:45 Nucleated RBC (Automated) 0.0 #/100 WBC'S ()?? 12/03/2022 03:45 Abs. NRBC 0.0 k/mm3 ()?? 12/03/2022 03:45 Abs. Neut 3.6 k/mm3 ()?? 12/03/2022 03:45 Abs. Lymph 0.8 k/mm3 ()?? 12/03/2022 03:45 Abs. [place] 0.2 k/mm3 (Low)?? 12/03/2022 03:45 Abs. Eo 0.0 k/mm3 ()?? 12/03/2022 03:45 Abs. Baso 0.0 k/mm3 ()?? 12/03/2022 03:45 Neut % 78.4 % (High)?? 12/03/2022 03:45 Lymph % 17.5 % ()?? 12/03/2022 03:45 [place] % 3.5 % (Low)?? 12/03/2022 03:45 Eos % 0.0 % ()?? 12/03/2022 03:45 Baso % 0.2 % ()?? 12/03/2022 03:45 Imm Gran 0.4 % ()?? 12/03/2022 03:45 Abs. Imm Gran 0.0 k/mm3 ()?? 12/03/2022 03:45 ?? BLOOD GAS pH, Venous 7.33 ()?? 12/03/2022 01:05 ?? CHEM GENERAL Sodium 135 mmol/L ()?? 12/03/2022 01:07 Potassium 4.5 mmol/L ()?? 12/03/2022 01:07 Chloride 96 mmol/L (Low)?? 12/03/2022 01:07 Bicarbonate Level 27 mmol/L ()?? 12/03/2022 01:07 Anion Gap 12 ()?? 12/03/2022 01:07 Glucose Level 237 mg/dL (High)?? 12/03/2022 01:07 Glucose, POC 379 mg/dL (High)?? 12/03/2022 08:41 Beta Hydroxybutyrate <0.05 mmol/L ()?? 12/03/2022 01:07 BUN 16 mg/dL ()?? 12/03/2022 01:07 Creatinine-Blood 0.6 mg/dL (Low)?? 12/03/2022 01:07 Estimated GFR Creatinine 121 ML/MIN/1.73 M2 ()?? 12/03/2022 01:07 Calcium 7.8 mg/dL (Low)?? 12/03/2022 01:07 Protein, Total 6.8 Gm/dL ()?? 12/03/2022 01:07 Albumin 3.0 Gm/dL (Low)?? 12/03/2022 01:07 AG Ratio 0.8 ()?? 12/03/2022 01:07 Alkaline Phosphatase 116 units/L ()?? 12/03/2022 01:07 Lipase 12 units/L (Low)?? 12/03/2022 01:07 AST (SGOT) 18 units/L ()?? 12/03/2022 01:07 ALT (SGPT) 10 units/L ()?? 12/03/2022 01:07 Bilirubin, Total 0.3 mg/dL ()?? 12/03/2022 01:07 Lactate 2.8 mmol/L (High)?? 12/03/2022 03:05 C-Reactive Protein 5.5 mg/dL (High)?? 12/03/2022 06:04 ?? HEME OTHER Sed Rate 20 mm/hr (High)?? 12/03/2022 06:04 Hold Blue Top SPECIMEN DISCARDED AFTER 4 HOURS. ()?? 12/03/2022 03:45 ?? UA/URINALYSIS Appear/Color, Urine YELLOW ()?? 12/03/2022 04:45 Specific [place], Urine 1.016 ()?? 12/03/2022 04:45 pH, Urine 6.0 ()?? 12/03/2022 04:45 Albumin, Urine 1+ (Abnormal)?? 12/03/2022 04:45 Glucose, Urine 3+ (Abnormal)?? 12/03/2022 04:45 Ketones, Urine NEGATIVE ()?? 12/03/2022 04:45 Bilirubin, Urine NEGATIVE ()?? 12/03/2022 04:45 Hemoglobin, Urine 3+ (Abnormal)?? 12/03/2022 04:45 Nitrite, Urine NEGATIVE ()?? 12/03/2022 04:45 Leukocyte, Urine 1+ (Abnormal)?? 12/03/2022 04:45 Urobilinogen 2 mg/dL (Abnormal)?? 12/03/2022 04:45 WBC's, Urine 13 /HPF (High)?? 12/03/2022 04:45 RBC's, Urine 8 /HPF (High)?? 12/03/2022 04:45 Bacteria HEAVY HPF (Abnormal)?? 12/03/2022 04:45 Squamous Epith <1 /HPF ()?? 12/03/2022 04:45 Mucus SLIGHT /LPF ()?? 12/03/2022 04:45 Hold Urine Culture Testing available 48 hours from time of collection. ()?? 12/03/2022 04:45 ?? URINE OTHER Est Creatinine Clearance 101.11 mL/min ()?? 12/03/2022 04:47 ?? VIROLOGY COVID-19 by RT-PCR NEGATIVE ()?? 12/03/2022 05:40 ? Microbiology ?? COVID-19 (Novel Coronavirus), Rapid PCR?? Completed?? Source: Nasal Body Site: Nose Collected Dt/Tm: 12/03/2022 05:29 Last Updated Dt/Tm: 12/03/2022 07:52 ? EKG study * Event Display: ECG 12-Lead Authored Date: [id number] Please click on pdf link to open report * Event Display: ECG 12-Lead Authored Date: Ventricular Rate: 87 BPM Atrial Rate: 87 BPM P-R Interval: 132 ms QRS Duration: 72 ms Q-T Interval: 400 ms QTC Calculation(Bazett): 481 ms P [place]: 66 degrees R [place]: 56 degrees T [place]: 77 degrees Normal sinus rhythm Prolonged QT Abnormal ECG When compared with ECG of 07-DEC-2022 11:45, Nonspecific T wave abnormality now evident in Anterior leads Confirmed by LUCIAN MCCULLOUGH ([id number]) on 12/16/2022 1:33:54 PM Supply: LUCIAN MCCULLOUGH * Event Display: ECG 12-Lead Authored Date: [id number] Please click on pdf link to open report * Event Display: ECG 12-Lead Authored Date: Ventricular Rate: 92 BPM Atrial Rate: 92 BPM P-R Interval: 130 ms QRS Duration: 74 ms Q-T Interval: 380 ms QTC Calculation(Bazett): 469 ms P [place]: 76 degrees R [place]: 63 degrees T [place]: 87 degrees Normal sinus rhythm Normal ECG When compared with ECG of 04-DEC-2022 10:04, Vent. rate has increased BY 41 BPM Confirmed by YAMILETH WYATT ([id number]) on 12/08/2022 8:26:12 AM Supply: YAMILETH WYATT * Event Display: ECG 12-Lead Authored Date: [id number] Please click on pdf link to open report * Event Display: ECG 12-Lead Authored Date: [id number] Ventricular Rate: 51 BPM Atrial Rate: 51 BPM P-R Interval: 126 ms QRS Duration: 82 ms Q-T Interval: 524 ms QTC Calculation(Bazett): 482 ms P Fairbank: 86 degrees R Fairbank: 76 degrees T [place]bank: 89 degrees Sinus bradycardia Prolonged QT Abnormal ECG When compared with ECG of 05-AUG-2022 21:57, Vent. rate has decreased BY 55 BPM Confirmed by YAMILETH WYATT ([id number]) on 12/04/2022 12:18:06 PM Supply: YAMILETH WYATT [facility] Progress note * Vinay Cagle RN: PERFORM, SIGN, VERIFY, MODIFY, SIGN Event Display: Progress Note Hospital Authored Date: Patient: LUCIAN ZHAO Age: 42 years Sex: Male : 1980 Associated Diagnoses: None Author: Vinay Cagle RN Findings Problem Related to Alteration in Immunologic : Alteration in Immunologic Function/new 12/18/2022 16:00 EDT Alteration Immunologic Status Related to Other: Osteo; worsening inf Goals & Outcomes, Immunologic Inflammatory/infectious process will resolve, Wound healing will take place, Pt will show proper technique wth self care procedures Interventions, Immunologic Maintain patent IV access, Assess skin integrity BH Goals/Interventions, Immunologic Yes Immunologic, Problem Start 12/15/2022 20:34 Reviewed Plan with, Immunologic Patient Patient Progression, Immunologic Status Pt progressing according to plan . Nursing Data Vital Signs : VITAL SIGNS SECTION 12/19/2022 3:00 EDT Temperature 98.4 DegF Temperature Route Oral Pulse Rate 90 bpm Respiratory Rate 18 br/min Systolic Blood Pressure 130 mm Hg Diastolic Blood Pressure 93 mm Hg H Blood pressure sites Arm, right Pulse Pressure 37 mm Hg Oxygen Saturation 100 % Mode of Delivery (Oxygen) Room air . Evaluation Pt. A+Ox4, verbal making his needs known. Pt. H+H 6.7/23.5 this morning reported to covering provider. Pt. with concerns regarding blood transfusion. Provider came to bedside to discussed blood transfusion with Pt. who was in agreement with getting blood. Order for transfuse RBC 1 unit placed by covering provider. Type/screen in process. Blood transfusion pending type/screen result. Pt. denied any chest pain, no shortness of breath. Will continue to reassess. 0600 blood transfusion started, infusing. Monitoring Pt. Vs WNL. No reports of adverse reactions. Will continue to reassess. . * Dahiana Muller LPN: PERFORM, SIGN, VERIFY Event Display: Progress Note Hospital Authored Date: [id number] Patient: LUCIAN ZHAO Age: 42 years Sex: Male : 1980 Associated Diagnoses: None Author: MullerDahiana nguyen LPN Problem Related to Alteration in Comfort : Alteration in Comfort/new 12/18/2022 16:00 EDT Alteration in Comfort Related to Disease process, Surgery Goals & Outcomes: Comfort Pt will report acceptable level of comfort & pain control, Pt will state importance of adhering to pain strategy regime, Pt will demonstrate necessary skills to manage pain Interventions Implemented: Comfort Assess pain using appropriate pain scale/tools, Assess alleviating factors & promote them accordingly Goals/Interventions, Comfort Yes Comfort, Problem Start 12/13/2022 12:57 Reviewed plan with, Comfort Patient Patient Progression, Comfort Pt progressing according to plan Comfort, Problem Ongoing Yes . Alteration in Immunologic : Alteration in Immunologic Function/new 12/18/2022 16:00 EDT Alteration Immunologic Status Related to Other: Osteo; worsening inf Goals & Outcomes, Immunologic Inflammatory/infectious process will resolve, Wound healing will take place, Pt will show proper technique wth self care procedures Interventions, Immunologic Maintain patent IV access, Assess skin integrity BH Goals/Interventions, Immunologic Yes Immunologic, Problem Start 12/15/2022 20:34 Reviewed Plan with, Immunologic Patient Patient Progression, Immunologic Status Pt progressing according to plan . Evaluation No acute event. A&O x4. Calm and cooperative care. Pt c/o 8/10 pain PRN meds given with positive affects. IV flushed and patent, Zosyn given per order tolerating well. Refusing dressing changed to left arm and leg, education given on importance. Eating and eliminating, loose stools noted, no further episodes reported. Safety maintained.. * Issa MCKEON, Olena Contreras: MODIFY, PERFORM Event Display: Progress Note Hospital Authored Date: Patient: ??LUCIAN ZHAO ? Age:??42 Years?Sex:??Male?:??1980?? Subjective Reason for follow up:left arm abscesses,concern for septic arthritis and underlying osteo of radius ?? Interval Events: wants to??go home and states he will be staying locally in [place]. Denies fevers, chills, sweats, nausea, vomiting, cough, shortness of breath. Eating. ??c/o some loose stool after every antibiotic dose - describes as like rabbit pellets- not??diarrhea. ?? antibiotics: ??-doxycycline (12/07-) ??-zosyn (12/03-) ?? prior antibiotics: -vanco (12/03-12/07) ?Review of Systems: a full review of system was performed which was negative other than positive pertinence mentioned above Objective Vitals & Measurements T:??98.7?F?? TMIN:??98.6?F?? TMAX:??98.7?F?? HR:??116??(Peripheral)?? RR:??18?? BP:??124/88?? SpO2:??99%?? Physical Exam General: chronically ill appearing, pale, sedated, very thin ??HEENT: PERRL, EOMI, anicteric sclera, pink conjunctiva, dry mucous membrane, no thrush (limited view), neck supple, no cervical adenopathy ??CVS: RRR, S1, S2 ??Respiratory: Clear to auscultation ??Abdomen: Soft, nontender, nondistended, bowel sounds present ??Extremities: No cyanosis, clubbing or edema; track pinto; upper extremity wrapped on left to wrist/hand (did not unwrap) ??MUSCU: generalized muscle wasting ??Derm: No rash ??Neuro: A&O x3, moving extremities freely - limite range of motion of left arm/wrist due to pain and fully wrapped ?? LABS: (12/17) WBC 2.6, hemoglobin 7.2, platelets 144, creatinine 0.6 Assessment/Plan Complicated cachectic 42 year old male with active polysubstance abuse, poorly controlled type II DM, HCV, h/o YAMILKA cavitary lung lesion and pneumococcal bacteremia (2020), prior MRSA bacteremia, prior upper extremity abscesses requiring drainage with chronic LUE wounds, prior admit in 04/2022 with possible pneumococcal bacteremia thought left AMA, admit in 07/2022 with left forearm abscess - left AMA, readmit in 08/2022 with multiple arm abscess and osteomyelitis of distal ulna - left AMA again and presented to the ED on 12/03 with worsening swelling of his left arm and blood glucose 400s. CT LUE(12/04) was concerning for septic arthritis/osteomyelitis of radiocarpal joint, diffuse soft tissue swelling throughout forearm with no rim enhancing collection or subcutaneous gas, irregular contour of dorsal soft tissues of distal forearm, wrist and hand, diffuse hypodensity throughout muscles with loss of definition of intramuscular pain - ? myositis although couldn't rule out fasciitis with met allic foreign body in soft tissue of elbow (retained needle fragment). ??(12/03) blood cultures (04/24) were negative. ??ESR 20, CRP 5.5 on 12/03/2022 ??(+)HepBSAb, (-)HepAAb (IgM) & had (-) HIV testing in 07/2022 ??OR cultures (12/15) - tissue left wrist synovial culture is NOW growing MRSA on the anaerobic culture (NO??anaerobes)??despite being ON broad antibiotics since 12/03 (12 days). ?? PLAN: ??1. as he wants to go and not able to place a line would discharge on doxycycline 100mg PO BID andconsider oral augmentin 875mg PO BID with plan of 6 weeks from the OR on 12/15 - till 01/26. If 16s from bone only shows MRSA can stop the augmentin at that point. ??(unclear if anything else didn't grow as treated with 12 days of IV antibiotics before surgery) ??2. path still pending ??3. if not done and consents would check HIV, hepAAg IgG & HCV VL 4. will arrange ID OPD f/u if he is willing to come and will need CBC, CMP,ESR, CRP in about 2-3 weeks. He states he will come to that appointment. I warned him how to take both antibiotics and explained in detail possible side effects of doxy andhow to avoid them. all his questions were answered in detail. d/w med attending Medications Inpatient Acetaminophen Tablet, 650 mg, By Mouth, Every 4 hours, PRN Docusate Sodium Capsule, 100 mg= 1 capsule, By Mouth, 2 times a day, PRN Doxycycline Tablet, 100 mg, By Mouth, Every 12 hours Enoxaparin Inj, 40 mg= 0.4 mL, Subcutaneous Injection, Daily gabapentin 300 mg oral capsule, 600 mg, By Mouth, 3 times a day HYDROmorphone 4 mg oral tablet, 4 mg, By Mouth, Every 4 hours, PRN HYDROmorphone Inj, 1 mg= 1 mL, IV Push Slowly, Every 4 hours, PRN Imodium Capsule, 2 mg, By Mouth, Every 3 hours, PRN Insulin LISPRO Sliding Scale, 4-11 units, Subcutaneous Injection, 3 times a day before meals Lantus Inj, 15 units= 0.15 mL, Subcutaneous Injection, Daily at bedtime LORazepam 0.5 mg oral tablet, 0.5 mg, By Mouth, Every 8 hours, PRN Melatonin Tablet, 3 mg, By Mouth, Daily at bedtime, PRN Methadone Tablet, 100 mg, By Mouth, Daily in AM Methadone Tablet, 10 mg, By Mouth, Once Methadone Tablet, 90 mg, By Mouth, Daily in AM Multivit Therapeutic/Minerals Tablet, 1 tablet, By Mouth, Daily NaCL 0.9% Flush, 3 mL, IV Push, Every 8 hours NaCL 0.9% Flush, 3 mL, IV Push, Every 8 hours, PRN nalOXONE Inj, 0.2 mg= 0.5 mL, IV Push, Every 5 minutes, PRN Ondansetron Inj, 4 mg, IV Push, Every 4 hours, PRN Robitussin DM Liquid, 10 mL, By Mouth, Every 4 hours, PRN Senna Tablet, 8.6 mg= 1 tablet, By Mouth, 2 times a day, PRN Silvadene 50 Gm Topical, 50 Gm= 1 application, Topically, Daily Simethicone Tablet, 80 mg, Chew, 3 times a day, PRN thiamine 100 mg oral tablet, 100 mg, By Mouth, Daily Tylenol 325 mg oral tablet, 975 mg, By Mouth, 3 times a day zinc sulfate 220 mg oral capsule, 220 mg, By Mouth, Daily in AM Zosyn Extended IVPB, 3.375 Gm, IVPB, Every 8 hours Home Humalog Kwik Pen 100 units/mL subcutaneous injection, 8 units, Subcutaneous Injection, 3 times a day before meals Lantus Solostar Pen 100 units/mL subcutaneous solution, 20 units, Subcutaneous Injection, Daily at bedtime Neurontin 400 mg oral capsule, 400 mg= 1 capsule, By Mouth, 3 times a day Consult note * Darryl Asencio MD: PERFORM Event Display: Consultation Note Authored Date: Patient: ??LUCIAN ZHAO ? Age:??42 Years?Sex:??Male?:??1980?? Chief Complaint Coming from home, reports hyperglycemia in the 400s, chronic infection to L arm R foot and R calf. Recent admission left AMA in August. History of Present Illness ID consulted for OM management Consult requested by: Dr Lupillo Carrington ?? Pt is a 42 y/o M who is an active IVDU with hx of??Poorly controlled DM2, HepC untreated, hx of MRSA bacteremia, hx??pneumococcal bacteremia c/b YAMILKA cavitary lung lesions in 2020, Chronic wound??in Lower extremity from injection site, and LUEx abscess initially noted in July of 2022??s/p debridement however left AMA without further recommended surgical intervention, or without taking recommended abx (prior wcx MSSA and GBS both in 09/05 & 08/07) who was recently readmitted in 08/2022??with noted??left distal ulnar OM??again left AMA after continuingly declining surgical intervention??who presents on 12/03??due to noted hyperglycemia as well as worsening Left hand wound. The left hadwound has been draining pus with noted foul smell,??as well as??worsening swelling, pain, weakness,fatigue and weight loss. Since admission pt has been afebrile, intermittent mild tachycardia, normo/hypertensive, on RA. Labs showed normal wbc, thrombocytopenia, normal LFTs. Blood cx from 12/[address] of LUE is significantly abnormal (concerning for septic arthritis/OM of left radiocarpal join with soft tissue welling, possible myositis, fasciitis can not be excluded, linear metallic foreign body in the medial aspect near the elbow without any distinct rim-enhancing fluid collection or gas).Multiple attempts were made to take pt to surgery, which pt is refusing. ?? Review of Systems Denied any fevers, chills, night sweats, n/v/d, cough, cp, sob Physical Exam Vitals & Measurements T:??98.6?F?? TMIN:??98.1?F?? TMAX:??98.7?F?? HR:??92??(Peripheral)?? RR:??18?? BP:??135/84?? SpO2:??99%?? Gen: Cachectic, NAD, comfortably lying down on RA HEENT: Normocephalic, PERRLA, anicteric, EOMI, moist oral mucosa without lesions/thrush? Respiratory: CTABLL Cardiac: RRR, no murmur is appreciated? GI: soft, non-tender, non-distended, bowel sounds.? Extremities: Rt lateral mid thigh track sal with superficial skin abrasion, erythema, drainage as well as nodular nontender 2 lesion, left lateral pate scraping w/out any purulent drain, tender and erythematous Assessment/Plan Assessment:??Pt who is an active IVDU, diabetic non-compliant and multiple recent hospital admission for LUEx abscess??AMA with incomplete treatment is now noted to have septic arthritis/OM of left radiocarpal join with soft tissue welling, possible myositis, fasciitis. Again pt continues??to??refuse surgical intervention. ?? Recommendations For now can continue Doxycycline and pip/tazo Consider repeating wound cx Highly recommend surgical intervention as Only abx have high risk of failure and re-occurrence IF pt again wants to AMA can transition IV pip/tazo to Augmentin 875 q12hrs??I would recommend tx for a 6 weeks course along with doxycycline.??If able to obtain wound cx and no MRSA is isolated, at which point we can discontinue doxycycline and only continue the Augmentin for a 6 weeks course?? If agrees consider HIV testing ?? Defer rest of care to primary team Thank you? Problem List/Past Medical History Ongoing Cellulitis Cellulitis and abscess of hand, except fingers and thumb Cocaine use disorder, severe, dependence Diabetes Hyperglycemia without ketosis Hyponatremia Opioid use disorder, severe, dependence Polysubstance abuse Uncontrolled diabetes mellitus with hyperglycemia Underweight Medications Inpatient Acetaminophen Tablet, 650 mg, By Mouth, Every 4 hours, PRN Docusate Sodium Capsule, 100 mg= 1 capsule, By Mouth, 2 times a day, PRN Doxycycline Tablet, 100 mg, By Mouth, Every 12 hours Enoxaparin Inj, 40 mg= 0.4 mL, Subcutaneous Injection, Daily gabapentin 300 mg oral capsule, 600 mg, By Mouth, 3 times a day HYDROmorphone 4 mg oral tablet, 4 mg, By Mouth, Every 4 hours, PRN HYDROmorphone Inj, 1 mg= 1 mL, IV Push Slowly, Every 4 hours, PRN Insulin LISPRO Sliding Scale, 4-11 units, Subcutaneous Injection, 3 times a day before meals Lantus Inj, 15 units= 0.15 mL, Subcutaneous Injection, Daily at bedtime LORazepam 0.5 mg oral tablet, 0.5 mg, By Mouth, Every 8 hours, PRN Melatonin Tablet, 3 mg, By Mouth, Daily at bedtime, PRN Methadone Tablet, 70 mg, By Mouth, Daily in AM Methadone Tablet, 10 mg, By Mouth, Once MiraLax Powder, 17 Gm= 1 pack/packet, By Mouth, Daily, PRN Multivit Therapeutic/Minerals Tablet, 1 tablet, By Mouth, Daily NaCL 0.9% Flush, 3 mL, IV Push, Every 8 hours NaCL 0.9% Flush, 3 mL, IV Push, Every 8 hours, PRN nalOXONE Inj, 0.2 mg= 0.5 mL, IV Push, Every 5 minutes, PRN Ondansetron Inj, 4 mg, IV Push, Every 4 hours, PRN Robitussin DM Liquid, 10 mL, By Mouth, Every 4 hours, PRN Senna Tablet, 8.6 mg= 1 tablet, By Mouth, 2 times a day, PRN Silvadene 50 Gm Topical, 50 Gm= 1 application, Topically, Daily Simethicone Tablet, 80 mg, Chew, 3 times a day, PRN thiamine 100 mg oral tablet, 100 mg, By Mouth, Daily Tylenol 325 mg oral tablet, 975 mg, By Mouth, 3 times a day zinc sulfate 220 mg oral capsule, 220 mg, By Mouth, Daily in AM Zosyn Extended IVPB, 3.375 Gm, IVPB, Every 8 hours Home Humalog Kwik Pen 100 units/mL subcutaneous injection, 8 units, Subcutaneous Injection, 3 times a day before meals Lantus Solostar Pen 100 units/mL subcutaneous solution, 20 units, Subcutaneous Injection, Daily at bedtime Neurontin 400 mg oral capsule, 400 mg= 1 capsule, By Mouth, 3 times a day Allergies morphine Social History Alcohol Use: Never. Substance Abuse Use: Past. Type: Heroin. Substance abuse in household: No. Tobacco Use: 10 or more cigarettes (1/2 pack or more)/day in last 30 days. Immunizations Vaccine Date Status SARS-CoV-2 (COVID-19) Ad26 vaccine 11/13/2020 Recorded tetanus/diphtheria/pertussis, acel(Tdap) 10/26/2008 Recorded Lab Results ?? Culture/Event_id: ?Blood Culture, Second Order/[id number]?? Collect date: ?12/03/22 01:05 ? Result Status: ?Auth (Verified) Result Date: ?12/08/22 23:01 ? SPECIMEN DESCRIPTION : BLOOD L ARM ?? SPECIAL REQUESTS : NONE ?? CULTURE : NO GROWTH 5 DAYS. ?? REPORT STATUS : FINAL 12/08/2022? Culture/Event_id: ?Blood Culture/[id number]?? Collect date: ?12/03/22 01:05 ? Result Status: ?Auth (Verified) Result Date: ?12/08/22 23:01 ? SPECIMEN DESCRIPTION : BLOOD L ARM ?? SPECIAL REQUESTS : NONE ?? CULTURE : NO GROWTH 5 DAYS. ?? REPORT STATUS : FINAL 12/08/2022?? Diagnostic Results (12/04/2022 08:[address] Ext Upper W/ Contrast Left) ?? Reason For Exam Infection ?? RESULT: CT Ext Upper W/ Contrast Left CT Ext Upper W/ Contrast Left? Reason: Infection; Clinical Question(s): Forearm; Order Comment: ?? TECHNIQUE: Helical CT of the left upper extremity extending from the forearm into the hand was performed with contrast , with images formatted in 3 planes. 100 cc of Omnipaque 300 was administered intravenously. Weight-based protocol using automatic tube modulation was used to optimize exposure parameters.? CTDIvol Body: 8.00 mGy, ??DLP Body: 247 mGy*cm. ? COMPARISONS: Left forearm and left hand radiographs from 12/03/2022. Comparison is also made with left upper extremity CT dated 09/05/2022. ?? FINDINGS: ?? Bones and joints: There is joint space narrowing of the radiocarpal joint with cortical destructionof the distal radius and ulna as well as areas of cortical destruction in the lunate. There is volar subluxation of the carpal bones relative to the distal radius and ulna. There is periosteal reaction extending along the distal radius and ulna to the mid diaphyses. Small amount of periosteal reaction is seen along the fifth metacarpal diaphysis. Carpal bones, distal radius and normal in base of the metacarpals are osteopenic. ?? Soft Tissues: Generalized soft tissue edema is seen throughout the left forearm with irregular contour of the dorsal aspect of the distal forearm and wrist extending into the hand. Hypodensity of themuscles with loss of definition of muscular fat planes. No rim-enhancing fluid collection or subcutaneous gas. ?? Linear metallic fragment is seen in the medial soft tissues of the elbow measuring 1.3 cm in length. ?? IMPRESSION: ?? Findings concerning for septic arthritis/osteomyelitis of the radiocarpal joint. ?? Diffuse soft tissue swelling throughout the forearm with no rim-enhancing fluid collection or subcutaneous gas. Irregular contour of the dorsal soft tissues of the distal forearm, wrist and extendinginto the hand may reflect associated ulceration. ?? Diffuse hypodensity throughout the muscles with loss of definition of the intramuscular fat planes,which may reflect myositis though fasciitis cannot be excluded. ?? Linear metallic foreign body in the medial soft tissues at the level of the elbow concerning for retained needle fragment. [1] [1]??CT Ext Upper W/ Contrast Left; Quoc MCKEON, Lashae Yousif 12/04/2022 08:27 EDT * Shaikh LINDA, Michelle: PERFORM, MODIFY, MODIFY Event Display: Consultation Note Authored Date: [id number] Patient: ??LUCIAN ZHAO ? Age:??42 Years?Sex:??Male?:??1980?? Chief Complaint Hyperglycemia, poorly controlled diabetes mellitus Reason for Consultation Reason for consultation:??Poorly controlled diabetes mellitus Consult requesting service: Hospital medicine Consult requesting physician:??Charissa Workman ? History of Presenting Illness: This is a 42 years old male??with a past medical history of uncontrolled type 2 diabetes, ongoing??IV drug use, previous left upper lobe cavitary lung lesion with subsequent pneumococcal bacteremia in 2020, hepatitis C, prior MRSA bacteremia, previous upper extremity abscesses requiring drainage, with chronic wounds to left upper extremity, who was admitted to the hospital due to??worsening of??left forearm infection. ??Endocrine team was consulted due to elevated blood sugar levels. ?? Patient was last admitted here in August 2022 where he was offered surgical intervention for left arm??osteomyelitis but patient declined surgical intervention and left??AMA. ??During this admission, patient was diagnosed with left??ulnar osteomyelitis and was offered surgical??debridement but patient declined any surgical intervention and??is currently getting??IV antibiotics. ?? Patient reports that he was diagnosed with diabetes few years ago. ??[facility] medical records indicate diabetes??in 2019.?? Patient also reports that he was on metformin in the past but??later on he was switched to??insulin??regimen with Lantus and??Humalog.?? Unfortunately patient was unable to recall his Lantus or Humalog??doses.?? Review of the??prescription monitoring records indicate patientlast filled his Lantus and??Humalog in October 2021. ?? Current insulin regimen and blood sugars: At the time of admission patient blood sugar was 237. ??His hemoglobin A1c was 11.3%. ??Patient wasstarted on Lantus??and??lispro coverage. ??Over the last 24 hours patient blood sugar have been??between 137-298. ??He received??10 units of Lantus insulin last night with??14??units of lispro coverage. ?? At the time of my examination, patient denies any fever, chills, nausea or vomiting.?? Patient reports left arm pain. ??He also reports??[id number] weight loss??over the last few months. ? Review of Systems A 14 point comprehensive ROS was performed and positive findings are mentioned in the HPI.?? Physical Exam Vitals & Measurements T:??97.7?F?? TMIN:??97.3?F?? TMAX:??97.7?F?? HR:??62??(Peripheral)?? RR:??18?? BP:??141/83?? SpO2:??100%? Gen: NAD, AOX3, cachectic,??looks older than his stated age HEENT: EOMI Neck: Supple Ext:??Left arm - dressed Skin: no rash ?? Assessment/Plan Briefly this is a 42 years old??male with??past medical history of uncontrolled diabetes mellitus??and chronic left arm wound??complicated by osteomyelitis??with??history of??MRSA infection, hep C??and pneumococcal bacteremia??who??presented to hospital with worsening left arm??wound infection.?? Endocrine??service was consulted for the management of diabetes.?? Patient has been very poorly compliant with his diabetes regimen.?? Prescription records indicate patient last filled his Lantus??and??Lispro in October 2021.?At admissions patient blood sugar was 237 with??hemoglobin A1c was 11.3%. ?? Recommendations: 1. ??Continue Lantus??10 units??subcu nightly 2. ??Change lispro??to start with??4 units for blood sugar more than 100??mg/dl with addition of??1units for every 50 mg/dL increase in??blood sugars, TID AC 3. ??Check blood sugars??4 times a day or more frequently patient is hypoglycemic 4. ??Please??prescribe??Lantus Solostar,??lispro KwikPen,??glucometer, alcohol swabs, lancets??to the patient in the discharge. ?? Thank you for consulting endocrine team. ??Endocrine team will continue to follow this patient withyou make further recommendations based on patient's blood sugar levels. ?? Case d/w ??Marshall ?? Michelle Zapata MD Endocrinology Fellow PGY-4 ?? Total Time Spent Activities performed in this time include chart review, obtaining / reviewing history, performing amedically necessary evaluation, documentation and Reporting test results to the patient including medical decision making of Moderate Complexity (45-59 minutes for NEW patient) Problem List/Past Medical History Ongoing Cellulitis Cellulitis and abscess of hand, except fingers and thumb Cocaine use disorder, severe, dependence Hyperglycemia without ketosis Hyponatremia Opioid use disorder, severe, dependence Polysubstance abuse Underweight Medications Inpatient Acetaminophen Tablet, 650 mg, By Mouth, Every 4 hours, PRN Dilaudid Inj, 1 mg= 1 mL, IV Push Slowly, Once, PRN Docusate Sodium Capsule, 100 mg= 1 capsule, By Mouth, 2 times a day, PRN Enoxaparin Inj, 40 mg= 0.4 mL, Subcutaneous Injection, Daily HYDROmorphone Inj, 1 mg= 1 mL, IV Push Slowly, Every 4 hours, PRN Insulin LISPRO Sliding Scale, 5-13 units, Subcutaneous Injection, 3 times a day before meals Lantus Inj, 10 units= 0.1 mL, Subcutaneous Injection, Daily at bedtime Melatonin Tablet, 3 mg, By Mouth, Daily at bedtime, PRN Methadone Tablet, 40 mg, By Mouth, Daily MiraLax Powder, 17 Gm= 1 pack/packet, By Mouth, Daily, PRN Multivit Therapeutic/Minerals Tablet, 1 tablet, By Mouth, Daily NaCL 0.9% Flush, 3 mL, IV Push, Every 8 hours NaCL 0.9% Flush, 3 mL, IV Push, Every 8 hours, PRN nalOXONE Inj, 0.2 mg= 0.5 mL, IV Push, Every 5 minutes, PRN Ondansetron Inj, 4 mg, IV Push, Every 4 hours, PRN Robitussin DM Liquid, 10 mL, By Mouth, Every 4 hours, PRN Senna Tablet, 8.6 mg= 1 tablet, By Mouth, 2 times a day, PRN Silvadene 50 Gm Topical, 50 Gm= 1 application, Topically, Daily Simethicone Tablet, 80 mg, Chew, 3 times a day, PRN thiamine 100 mg oral tablet, 100 mg, By Mouth, Daily Vancomycin IVPB, 500 mg, 15 mg/kg, IVPB, Every 12 hours zinc sulfate 220 mg oral capsule, 220 mg, By Mouth, Daily in AM Zosyn Extended IVPB, 3.375 Gm, IVPB, Every 8 hours Home Humalog Kwik Pen 100 units/mL subcutaneous injection, 8 units, Subcutaneous Injection, 3 times a day before meals Lantus Solostar Pen 100 units/mL subcutaneous solution, 20 units, Subcutaneous Injection, Daily at bedtime Neurontin 400 mg oral capsule, 400 mg= 1 capsule, By Mouth, 3 times a day Allergies morphine Social History Alcohol Use: Never. Substance Abuse Use: Past. Type: Heroin. Substance abuse in household: No. Tobacco Use: 10 or more cigarettes (1/2 pack or more)/day in last 30 days. Immunizations Vaccine Date Status SARS-CoV-2 (COVID-19) Ad26 vaccine 11/13/2020 Recorded tetanus/diphtheria/pertussis, acel(Tdap) 10/26/2008 Recorded * Angelica Dempsey MD: PERFORM Event Display: Consultation Note Authored Date: [id number] Attending Attestation:??I have seen and evaluated this patient. ??I have discussed the case and itsmanagement with the fellow and agree with the findings and plan as documented in the fellow???s note. DOS 12/06 * Sha ROGERS, Brenda Roque: PERFORM Event Display: Consultation Note Authored Date: [id number] Patient: ??LUCIAN ZHAO ? Age:??42 Years?Sex:??Male?:??1980?? Chief Complaint rt lateral pate and left inner thigh Reason for Consultation rt lateral pate and left inner thigh History of Present Illness Pt is a 42 yr old male seen at the request of the medical service for evaluation of rt lateral shinand left inner thigh. Pt was admitted on 12/03 for chronic infection to left arm. HPI obtained from??primarily from chart review due to pt's agitation/irritation w/questions. Pt reports approximate 1 month hx of wounds to bilateral feet and RLE that initially presented as blisters that eventually ruptured leaving open wounds. Pt unable to recall injury/trauma or how wounds on left thigh initially presented. Pt reports pain to RLE wound rated 10/10 and described as constant w/o ameliorating or worsening factors. ?? PMH: type 2 diabetes,??IV drug use,??hep C, opioid use, polysubstance use, cocaine use ?? PSH: Denies hx of surgeries ?? Social Hx: Declines to answer; no hx of alcohol use with current nicotine use (1/2 ppd) and former heroin use; chart reviewed ?? FMH: Declines to answer; no pertinent FMH documented on chart; chart reivewed Review of Systems Constitutional:??Denies fever/chills. Eyes:??No vision changes ENT:??No hearing loss, sneezing, congestion, runny nose or sore throat. Respiratory:??No shortness of breath, cough. Cardiovascular:??No chest pain or palpitations. Gastrointestinal:??No anorexia, N/V/D, or abdominal pain. :??Denies??urinary incontinence Neurologic:??No headache, dizziness. Musculoskeletal:??See HPI Skin:??See HPI Physical Exam Vitals & Measurements T:??97.3?F?? TMIN:??97.3?F?? TMAX:??97.7?F?? HR:??53??(Peripheral)?? RR:??17?? BP:??128/87?? SpO2:??98%?? WT:??43.6??kg?? Constitutional:??WD/thin male??in no distress. Mental Status:??Alert/oriented to person, place and time. Head: Normocephalic. Cardiac: RRR, +S1/S2. No murmur, rub, gallop. Respiratory: Unlabored breathing; on RA.??Lungs equal/clear to auscultation. Gastrointestinal: Abdomen soft, non-tender, +bowel sounds Neurologic: Moves all extremities x4 independently. Normal, coherent speech Skin: Warm, pink dry. No rashes or lesions. No petechiae or purpura.?? Musculoskeletal: No cyanosis or clubbing. Extremities:??+1 dorsalis pedis pulses bilaterally; +1 posterior tibial pulses bilaterally. No peripheral pitting edema noted. Superficial ulcer to lateral RLE measuring approx 6 x 4 x 0.1 cm with pale yellow wound bed punctated w/pink dots; scarred pink skin to surrounding area. Brown scabs to lt medial thigh with erythema to periwound; scarring to surrounding area. Dry desiccated ulcer to left dorsal foot with melgar wound bed; no bogginess/drainage/erythema or point tenderness. Resolved blisters to rt plantar foot/heel x2. Psychiatric:??Euthymic mood, normal affect. Normal thought content, normal judgment. Assessment/Plan Assessment:??Pt w/PMH for type 2 diabetes,??IV drug use,??hep C, opioid use, polysubstance use, cocaine use who presents 1 month hx of wounds to RLE and left thigh without known injury/trauma; etiology is unknown based on HPI/assessment. ?? Non-pressure chronic ulcer of other part of left foot limited to breakdown of skin (L97.521):??Clean w/NS. Pat dry. Apply 2 layers Xeroform to wound bed; cut to size of wound. Cover w/gauze and secure w/medipore tape. Change QD ?? Non-pressure chronic ulcer of right calf limited to breakdown of skin (L97.211):??Clean w/NS and remove old Silvadene. Apply Silvadene to wound bed. Cover w/gauze and lightly wrap w/juvenal. Change QD ?? Skin ulcer of left thigh (L97.129):??Clean w/NS. Pat dry. Apply 2 layers Xeroform to wound bed; cutto size of wound. Cover w/gauze and secure w/medipore tape. Change QD ?? Discharge Planning: Recommend pt f/u with local wound care center upon discharge for wound/ulcer management. If referring to [facility], please??request through the Club W list listed as a tab in the Inbox Summary section; select Wound Care - Scheduling to send a communication message requesting an appointment.? Please re-consult wound care MD/JAYY for deterioration in wound/skin status. ?? Pictures uploaded in circus roustabout ?? Thank you for allowing me to participate in the care of this patient,??I appreciate the opportunity to assist??in management. My assessment and??all recommendations??have been communicated??to the patient's primary team via this documentation. Please??feel free to reach out with any??concerns??or questions. ?? Problem List/Past Medical History Ongoing Cellulitis Cellulitis and abscess of hand, except fingers and thumb Cocaine use disorder, severe, dependence Hyperglycemia without ketosis Hyponatremia Opioid use disorder, severe, dependence Polysubstance abuse Underweight Medications Inpatient Acetaminophen Tablet, 650 mg, By Mouth, Every 4 hours, PRN Dilaudid Inj, 1 mg= 1 mL, IV Push Slowly, Once, PRN Docusate Sodium Capsule, 100 mg= 1 capsule, By Mouth, 2 times a day, PRN Enoxaparin Inj, 40 mg= 0.4 mL, Subcutaneous Injection, Daily HYDROmorphone Inj, 1 mg= 1 mL, IV Push Slowly, Every 4 hours, PRN Insulin LISPRO Sliding Scale, 5-13 units, Subcutaneous Injection, 3 times a day before meals Lantus Inj, 10 units= 0.1 mL, Subcutaneous Injection, Daily at bedtime Melatonin Tablet, 3 mg, By Mouth, Daily at bedtime, PRN Methadone Tablet, 40 mg, By Mouth, Daily MiraLax Powder, 17 Gm= 1 pack/packet, By Mouth, Daily, PRN NaCL 0.9% Flush, 3 mL, IV Push, Every 8 hours NaCL 0.9% Flush, 3 mL, IV Push, Every 8 hours, PRN nalOXONE Inj, 0.2 mg= 0.5 mL, IV Push, Every 5 minutes, PRN Ondansetron Inj, 4 mg, IV Push, Every 4 hours, PRN Robitussin DM Liquid, 10 mL, By Mouth, Every 4 hours, PRN Senna Tablet, 8.6 mg= 1 tablet, By Mouth, 2 times a day, PRN Silvadene 50 Gm Topical, 50 Gm= 1 application, Topically, Daily Simethicone Tablet, 80 mg, Chew, 3 times a day, PRN Vancomycin IVPB, 500 mg, 15 mg/kg, IVPB, Every 12 hours Zosyn Extended IVPB, 3.375 Gm, IVPB, Every 8 hours Home Humalog Kwik Pen 100 units/mL subcutaneous injection, 8 units, Subcutaneous Injection, 3 times a day before meals Lantus Solostar Pen 100 units/mL subcutaneous solution, 20 units, Subcutaneous Injection, Daily at bedtime Neurontin 400 mg oral capsule, 400 mg= 1 capsule, By Mouth, 3 times a day Allergies morphine Social History Alcohol Use: Never. Substance Abuse Use: Past. Type: Heroin. Substance abuse in household: No. Tobacco Use: 10 or more cigarettes (1/2 pack or more)/day in last 30 days. Immunizations Vaccine Date Status SARS-CoV-2 (COVID-19) Ad26 vaccine 11/13/2020 Recorded tetanus/diphtheria/pertussis, acel(Tdap) 10/26/2008 Recorded Images lateral RLE rt foot left foot left medial thigh Note * Bailey Oconnell RN: PERFORM Event Display: Discharge/Transfer Note Hospital Authored Date: [id number] Nursing Discharge Note Entered On: 12/19/2022 12:48 EDT Performed On: 12/19/2022 12:47 EDT by Bailey Oconnell RN Nursing Discharge Note 2 Discharge Time : 12/19/2022 16:00 EDT Discharge Comments : no changes from reporting RN assessmemnt. went over dressing changes with pt and also sent home supplies. pt was able to teach back and understood teaching Bailey Oconnell RN - 12/19/2022 16:52 EDT Discharge Level of Care at Discharge : Home/Longterm/Foster Care Patient Left Unit Via : Wheelchair Patient Accompanied Off Unit with : Responsible adult DC Instructions Provided & Signed by Pt : Yes Patient Understands D/C Instructions : Yes Verbalized Understanding of D/C Plan By : Patient Patient Instructions Discharge Signed : Yes Did Pt have Specialty Bed or Wound Vac : No Anish LOPEZ, Bailey Phillips - 12/19/2022 12:47 EDT * Charissa Wesley MD: PERFORM, MODIFY, MODIFY, MODIFY, MODIFY, MODIFY, MODIFY, MODIFY Event Display: Discharge/Transfer Note Hospital Authored Date: [id number] Patient: ??LUCIAN ZHAO ? Age:??42 Years?Sex:??Male?:??1980?? Patient Information Discharge Location: 4 Primary Care Physician: No Current PCP Admit Date/Time: 12/03/22 05:38 Discharge Disposition Discharge Disposition: Home: No Services??(He does not have a current PCP, so he cannot be set up with [facility] at this time)?? Discharge Diagnosis Malnutrition (E46) Polysubstance abuse (F19.10) Opioid use disorder, severe, dependence (F11.20) Osteomyelitis (M86.9) Tobacco dependence (F17.200) Uncontrolled diabetes mellitus with hyperglycemia (E11.65) Anemia requiring transfusions (D64.9) Microcytic anemia (D50.9) Diabetes (E11.9) Cocaine use disorder (F14.10) Marijuana use (F12.90) Non-pressure chronic ulcer of other part of left foot limited to breakdown of skin (L97.521) Non-pressure chronic ulcer of right calf limited to breakdown of skin (L97.211) Osteomyelitis (M86.9) Skin ulcer of left thigh (L97.129) ?? _ Discharge Medications Amoxicillin-Clavulanate (Augmentin 875 mg-125 mg oral tablet)?1?tab(s)?By Mouth?2 timesa day?for 30?Days?You need to take this for at least 2 more weeks; the ID doctor will let you know if you need to continue for the full 6 weeks, which would be through January 26. Doxycycline (doxycycline hyclate 100 mg oral capsule)?1?capsule?100?Milligram?By Mouth?2 times a day?for 30?Days?You need to take this through January 26, 2023, unless directed otherwise by ID doctor. Take with fluids Durable Medical Equipment (Freestyle Lite Lancets)?See Instructions?for 30?Days?use as directed for Type 2 Diabetes Mellitus; test at least 3 times per day Durable Medical Equipment (Pen [place], 31 G x 5 mm BD Ultra [...] sugar 100 - 149, take ?? 4 [id number] - 199 ?? 5 units 200 - 249 ?? 6 units 250 - 299 ?? 7 units 300 - 349 ?? 8 units 350 - 399 ?? 9 - 449 ?? 10 units and call Methadone?100?Milligram?By Mouth?Daily in AM Miscellaneous Rx (Lab draw--CBC with diff, CMP, ESR, and CRP)?See Instructions?Draw every 2 weeks while on antibiotics. Results to ID-- Dr Olena Parsons . ?? Silver SulfADIAZINE Topical (silver sulfADIAZINE 1% topical cream)?1?jayy?Topically?2 times a day?for 14?Days Thiamine (thiamine 100 mg oral tablet)?100?Milligram?By Mouth?Daily?for 30?Days Zinc Sulfate (zinc sulfate 220 mg oral capsule)?220?Milligram?By Mouth?Daily in AM?for 30?Days ? Medications Started Augmentin + doxycycline-- tentative stop date 01/26, but ID will see him before that and review 16s results, which may allow them to stop Augmentin. ?? resumed gabapentin, Lantus, and Lispro rx for diabetes supplies Rx for vitamins including Ferrous sulfate x 1 month ?? needs labs drawn every 2 weeks-- Rx provided Allergies Allergies ?(Active and Proposed Allergies Only) morphine? (Severity: Unknown, Onset: Unknown) ?Comments: Has a side effect - itching. ? PCP Follow-Up/Heads-Up ?? Patient is working to establish care with PCP. He will followup with ID and Endocrinology and with the Surgery office (for suture removal in 10 days). Wound care followup recommended as well. He is aware that he needs labs drawn every 2 weeks, results to ID ?? He is eager to go home. He lives with family and roommates. He agrees to followup with??ID, Surgery, and ENdo, and will call to establish new PCP Needs to see GI as outpt as well--info provided. ?? Needs very close followup-- he had anemia, and required several blood transfusions during admission. He had Hg 6.7 on day of d/c, and did receive a 1u PRBC transfusion after that. He was eager to go,and has no signs of active bleeding (very slow drift down from the low 7s over the past week), so will allow him to go home, with plans for repeat labs as outpt ?? Objective CX from OR: ??NO ANAEROBES ISOLATED ?CRITICAL VALUE CALLED AND VERIFIED BY READBACK FOR: S. AUREUS IN TISSUE ?CULTURE TO [id number], S64 12/17/22 1320 BY TECH [id number] ?? REPORT STATUS : FINAL 12/18/2022 ? ORGANISM 1+ STAPHYLOCOCCUS AUREUS, METHICILLIN RESISTANT. ?METHICILLIN RESISTANT STAPH AUREUS SHOULD BE ??CONSIDERED CLINICALLY RESISTANT TO ALL BETA-LACTAMS. These AST results ??were performed on the Vitek 2 ID and AST system METHOD MIN. INHIB. CONC. (MCG/ML) CIPROFLOXACIN SUSCEPTIBLE CLINDAMYCIN SUSCEPTIBLE ERYTHROMYCIN RESISTANT INDUCIBLE CLINDAMYCI NEGATIVE LEVOFLOXACIN SUSCEPTIBLE LINEZOLID SUSCEPTIBLE OXACILLIN RESISTANT RIFAMPIN SUSCEPTIBLE RIFAMPIN RIFAMPIN SHOULD NOT BE USED ALONE FOR ANTIMICROBIAL RIFAMPIN THERAPY. TETRACYCLINE SUSCEPTIBLE TRIMETH/SULFAMETHOX SUSCEPTIBLE VANCOMYCIN SUSCEPTIBLE ? PREOPERATIVE DIAGNOSIS: Left wrist septic arthritis and osteomyelitis of distal radius and ulna POSTOPERATIVE DIAGNOSIS: Left wrist septic arthritis and osteomyelitis of distal radius and ulna PROCEDURE PERFORMED: Left wrist arthrotomy and washout, biopsy of distal radius bone SURGEON: Kaleigh Benavidez MD MEDICAL DONATION PROFESSIONAL: None SPECIMENS: 1. Left wrist 4th dorsal compartment synovium sent for culture 2. Left wrist joint fluid sent for culture 3. Left distal radius bone sent for culture and pathology ? A/P: ?? This is a??42 y/o man with very complex??hx including uncontrolled type 2 diabetes, ongoing??IV drug use, previous left upper lobe cavitary lung lesion with subsequent pneumococcal bacteremia in 2020, hepatitis C, prior MRSA bacteremia, previous upper extremity abscesses requiring drainage, with chronic wounds to left upper extremity, who is admitted with worsening L forearm infection.??He underwent OR washout on 12/15??Continues on??abx, which will transition to po at d/c, to complete a 6 week course through 01/26. It is possible that ID will??be able to stop augmentin and continue doxy alone (for MRSA) if the 16s test??does not show other significant organisms. He was started back on insulin, and??we recommended outpt f/u with Endocrinology. ? Left chronic forearm wound ??Left arm osteomyelitis ??Patient was last seen in August, left AMA before surgery was done. ??Hand surgery consulted and planned for surgical debridement, which he eventually agreed to -- this was??done 12/15.??May WBAT per Surgery. outpt f/u in 10 days ID advised d/c on augmentin + doxy, and they'll see him for followup. Tentative plan is to completea 6 week course through 01/26. It is possible that ID will??be able to stop augmentin and continue doxy alone (for MRSA) if the 16s test??does not show other significant organisms. Needs labs CBCdiff, CMP, ESR and CRP every 2 weeks, Rx provided to pt, results to ID?Insulin-dependent diabetes Appreicate BIDs input. I??sent Rx for all diabetes supplies to [facility] pharmacy. His Lantus Solostar and Lispro kwik pen were refilled at [facility]. A1C is 11 Close outpt f/u with Endocrinology recommended ?? IVDU--Cessation advised. Wanted to resume methadone, and arrangements were made. Last dose letter provided?? Currently methadone??dose is 100mg daily, will f/u at [facility] ??Reviewed old labs--in 2020, labs show reactive Hep C screen, and evidence of Hep B vaccination ??Hep C viral load ordered/pending ??did not consent to HIV screen so far; was negative in July 2022 ?? Severe malnutrition: quoted from RD??note: ...related to inadequate protein- energy intake as evidenced by BMI 16.41, severe loss of muscle mass, reduction of PO intake x 1 month per patient and chronic disease related inflammation... encouraged lifestyle changes, watch for signs of refeeding on outpt labs Will continue thiamine supplement, zinc and ferrous sulfate supplement ?? Code Status: Full code? DVT prophylaxis:??Lovenox Dispo: He is eager to go home. He lives with family and roommates. He agrees to followup with??ID, Surgery, and ENdo, and will call to establish new PCP Needs to see GI as outpt as well--info provided. ?? Wound care recs: ...Non-pressure chronic ulcer of other part of left foot limited to breakdown of skin (L97.521):??Clean w/NS. Pat dry. Apply 2 layers Xeroform to wound bed; cut to size of wound. Cover w/gauze and secure w/medipore tape. Change QD ?? Non-pressure chronic ulcer of right calf limited to breakdown of skin (L97.211):??Clean w/NS and remove old Silvadene. Apply Silvadene to wound bed. Cover w/gauze and lightly wrap w/juvenal. Change QD ?? Skin ulcer of left thigh (L97.129):??Clean w/NS. Pat dry. Apply 2 layers Xeroform to wound bed; cutto size of wound. Cover w/gauze and secure w/medipore tape. Change QD ?? Discharge Planning: Recommend pt f/u with local wound care center upon discharge for wound/ulcer management.... Vital Signs?? Temperature: 98.4 DegF (12/19/22 03:00:00) Temperature Route: Oral (12/19/22 03:00:00) Pulse Rate: 90 bpm (12/19/22 03:00:00) Respiratory Rate:??15 br/min??Low (12/19/22 08:13:00) Systolic Blood Pressure: 130 mm Hg (12/19/22 03:00:00) Diastolic Blood Pressure:??93 mm Hg??High (12/19/22 03:00:00) Blood pressure sites: Arm, right (12/19/22 03:00:00) Mean Arterial Pressure: 100 mm Hg (12/18/22 13:39:00) Pulse Pressure: 37 mm Hg (12/19/22 03:00:00) Oxygen Saturation: 100 % (12/19/22 03:00:00) Mode of Delivery (Oxygen): Room air (12/19/22 03:00:00) Early Warning Score: 3 (12/19/22 08:29:47) ? . Physical Exam alert, more comfortable, ambulating in hallway EOMI, MMM no bleeding noted eager to go home thin, but appears more energetic and well compared with admission 12/03/22 HR 90s no JVD Resp non labored, 100% on RA Ext warm, has healing wounds present on admission on lower ext; the LUE has new dressing/ c/d/i, moving fingers well b/l no new focal deficits; no seizure or tremor Surgical Procedures Incision and Drainage with Wound Closure 12/15/2022 08:05 Pending Results Add On Lab Order ordered on 12/09/2022 Add On Lab Order ordered on 12/09/2022 Add On Lab Order ordered on 12/09/2022 Add On Lab Order ordered on 12/10/2022 Add On Lab Order ordered on 12/18/2022 Add On Lab Order ordered on 12/18/2022 Anaerobic Culture ordered on 12/15/2022 Anaerobic Culture ordered on 12/15/2022 Anti-HAV IgG ordered on 12/17/2022 BUN ordered on 12/15/2022 Bacterial 16S Broad Range PCR ordered on 12/17/2022 Comprehensive Metabolic Panel ordered on 12/06/2022 Creatinine ordered on 12/15/2022 Electrolytes ordered on 12/15/2022 Hepatitis C RNA PCR Quant ordered on 12/19/2022 Hold Green Top Tube ordered on 12/03/2022 Magnesium Level ordered on 12/06/2022 Phosphorus Level ordered on 12/06/2022 Transfuse RBCs ordered on 12/09/2022 Transfuse RBCs ordered on 12/19/2022 Zinc Level ordered on 12/09/2022 Patient Education Titles Discharge Instructions for Osteomyelitis?? Amoxicillin/Clavulanate Oral Tablet?? Doxycycline Oral Tablet?? Iron-Deficiency Anemia (Adult)?? Follow-Up Appointments Added Follow Up ?Time Frame ?Comments Your blood count was low, and you have iron deficiency anemia. You received blood transfusions during your stay. If you have any bleeding or dark stools or dark vomit, seek emergency treatment. Devan Campbell?2 to 3 weeks?Call for a GI appointment. You have anemia (low blood count) and need to see a GI specialist. Michelle Zapata?2 to 3 weeks?Call for followup with Endocrinology You need to followup for suture removal with Surgery, within 10 days. [facility] - [address], [address] [place] [id number] you don't hear from them by next week, please call [phone] Check your blood sugar at least 3 times per day, before meals, and at bedtime. Take your sliding scale insulin 3 x per day before meals. Olena Parsons?2 to 3 weeks?Call for Infectious Disease appointment. They need to see you in the office in 2-3 weeks, to determine if you need to continue both antibiotics through January 26. You need to get your labs drawn before that-- take prescription to any [facility] lab. [facility] PCP Assignment Line [phone]?1 week?Call for help getting a new primary doctor Please return if you have fever, chest pain, trouble breathing, neck pain, vision changes, or any other worrisome symptoms. Please followup with all of your usual doctors. Return if you have bleeding, fever, cannot eat/drink, or have any other worrisome symptoms drink plenty of fluids; return for evaluation if you notice decreased urination, or have vomiting or other worrisome symptoms do not take Ibuprofen, Aleve, Motrin, Naprosyn or other similar medications Call [facility] for followup Address: [address] [place] [id number]: ?1 week Patient Instructions Surgery recommend: daily dressing changes: cover the dressing with adaptic, Telfa, and wrap with gauze and RUBENS wrap. RN will show you how this is done.?? Followup with Surgery in 10 days for suture removal; it is very important to get the sutures removed. ?? For other wounds, the Matching Machine Operator advised: Left foot: Clean??and ??Pat dry. Apply 2 layers Xeroform to wound bed; cut to size of wound. Cover w/gauze and secure w/tape. Change??daily until healed.? Chronic ulcer of right calf: Clean and remove old Silvadene. Apply Silvadene to wound bed. Cover w/gauze and lightly wrap w/juvenal. Change daily, until healed. ?? Skin ulcer of left thigh (L97.129):??Clean and Pat dry. Apply 2 layers Xeroform to wound bed; cut to size of wound. Cover w/gauze and secure w/medipore tape. Change??daily. ?? Discharge Planning: Recommend pt f/u with local wound care center upon discharge Home Health Face to Face ^HomeHealthFTF Results ? Procedures(s) ?Operative Note ?? 12/15/2022 08:40??by Kaleigh Benavidez MD ? Imaging(s) ?ECG 12-Lead ?? 12/16/2022 10:58??by Lucian Mccullough MD ?CT Ext Upper W/ Contrast Left ?? 12/04/2022 08:27??by Lashae Kumari MD ? _52 minutes spent on discharge * Anish LOPEZ, Bailey Phillips: PERFORM Event Display: Patient Education/Instruction Authored Date: [id number] Inpatient Adult Discharge Instructions [address] [address] Name: LUCIAN CECE : 1980 Visit: 12/03/2022 05:38:00 Current Date: 12/19/2022 12:48 Account: [id number] Inpatient Adult Discharge Instructions We would like [...] and their families. Surveys are administered by [employer] ?? If further treatment with your primary care physician or another doctor is recommended, it is important for you to keep the appointment. Call your primary care physician or return to the Emergency Department immediately if your condition worsens, fails to improve, or new symptoms develop. If you need to find a doctor, you can call [facility] [employer]™ for a referral at [phone] or toll free at [phone] or log in to [email or web address].. ?? [facility], in keeping with [facility] guidance, no longer requires face masks for [...] portal or by using a health care jayy of your choosing. [employer] is a website that allows you to securely view your medical information including your hospital discharge summary, office visit summaries, medications and follow-up visits. You can also request appointments, renew medications, and request access to your medical information using a health care jayy of your choosing, or just ask a question. You can enroll at [email or web address] or register during your next office visit. You have been discharged from [facility], Patient Care Unit: S3. If you have any questions regarding these instructions after you leave, please call us and we will be happy to assist you. [facility] Your Care Team Attending Physician Charissa Wesley MD Consulting Providers Elif MCKEON, Darryl; Nik MCKEON, Bill Parsons MD, Oelna Benavidez MD, Kaleigh Kumar; Roselyn MCKEON, Angelica Cruz Discharging Providers Charissa Wesley MD Reason for Admission Coming from home, reports hyperglycemia in the 400s, chronic infection to L arm R foot and R calf. Recent admission left [facility] in August. Your Diagnosis Osteomyelitis Cocaine use disorder Opioid use disorder, severe, dependence Tobacco dependence Marijuana use Non-pressure chronic ulcer of right calf limited to breakdown of skin Skin ulcer of left thigh Non-pressure chronic ulcer of other part of left foot limited to breakdown of skin Malnutrition Polysubstance abuse Uncontrolled diabetes mellitus with hyperglycemia Uncontrolled diabetes mellitus with hyperglycemia Anemia requiring transfusions Microcytic anemia Diabetes Osteomyelitis Tests Performed Below is a partial list of the tests performed during your hospitalization. You may have had other tests and procedures not included in this list. Please discuss all test results with your provider. ANTI HEP. A IGM ANTI-HBS QUANT Beta Hydroxybutyrate BUN CBC CBC w/ Differential Comprehensive Metabolic Panel COVID-19 (Novel Coronavirus), Rapid PCR Creatinine CRP Electrolytes ESR FERRITIN FOLIC ACID GLUCOSE POC H + H HEMOGLOBIN A1C HOLD BLUE TUBE IRON IRON & TIBC Lactate Level Lipase Lytes Magnesium Level pH Venous Phosphorus Level TSH Type and Screen Urinalysis w/hold for Urine Culture Vancomycin Trough VITAMIN B12 Ext Upper CT W/ Contrast Left XR Foot Min 3 Views Right XR Forearm 2 Views Left XR Hand Min 3 Views Left Primary Care Provider Lachelle MCKEON, Calin Mckeon Advance Directive Health Care Proxy on File Yes - Health Care Proxy Discharge Vitals Temperature: 97.6 DegF Height: 163 cm Pulse Rate:??93 bpm??High Weight: 43.6 kg Respiratory Rate: 18 br/min Body Mass Index:??16.41 kg/m2??Low Systolic Blood Pressure: 135 mm Hg Body surface area: 1.41 Diastolic Blood Pressure: 80 mm Hg ?? Oxygen Saturation: 100 % ?? Studies Pending All tests and labs ordered during this hospital stay have been completed unless listed below. Please discuss all pending results with your provider listed above in these instructions. ?? Add On Lab Order Anaerobic Culture Anti-HAV IgG BUN Bacterial 16S Broad Range PCR Comprehensive Metabolic Panel Creatinine Electrolytes Hepatitis C RNA PCR Quant Hold Green Top Tube (HOLD GREEN TUBE) Magnesium Level Phosphorus Level Tissue Culture w/ Gram Smear (TISSUE/BIOPSY CULT.) Transfuse RBCs Zinc Level What to do next Instructions From Your Doctor Surgery recommend: daily dressing changes: cover the dressing with adaptic, Telfa, and wrap with gauze and RUBENS wrap. RN will show you how this is done.?? Followup with Surgery in 10 days for suture removal; it is very important to get the sutures removed. ?? For other wounds, the Matching Machine Operator advised: Left foot: Clean??and ??Pat dry. Apply 2 layers Xeroform to wound bed; cut to size of wound. Cover w/gauze and secure w/tape. Change??daily until healed.? Chronic ulcer of right calf: Clean and remove old Silvadene. Apply Silvadene to wound bed. Cover w/gauze and lightly wrap w/juvenal. Change daily, until healed. ?? Skin ulcer of left thigh (L97.129):??Clean and Pat dry. Apply 2 layers Xeroform to wound bed; cut to size of wound. Cover w/gauze and secure w/medipore tape. Change??daily. ?? Discharge Planning: Recommend pt f/u with local wound care center upon discharge Discharge Orders You Need to Schedule the Following Appointments Follow Up with??Your blood count was low, and you have iron deficiency anemia. You received blood transfusions during your stay. If you have any bleeding or dark stools or dark vomit, seek emergency treatment. Follow Up with??Devan Campbell When:??Within 2 to 3 weeks Why: Call for a GI appointment. You have anemia (low blood count) and need to see a GI specialist. Where: [address] [facility] [place] [address]- [facility] (1) Follow Up with??Michelle Zapata When:??Within 2 to 3 weeks Why: Call for followup with Endocrinology Where: [address] [facility] [place] [address] [facility] (1) Follow Up with??You need to followup for suture removal with Surgery, within 10 days. [facility] - [address], [address] [place] [address] If you don't hear from them by next week, please call [phone] Follow Up with??Check your blood sugar at least 3 times per day, before meals, and at bedtime. Takeyour sliding scale insulin 3 x per day before meals. Follow Up with??Olena Parsons When:??Within 2 to 3 weeks Why: Call for Infectious Disease appointment. They need to see you in the office in 2-3 weeks, to determine if you need to continue both antibiotics through January 26. You need to get your labs drawn before that-- take prescription to any [facility] lab. Where: [address] [facility] [place] [address] [facility] (1) Follow Up with??[facility] PCP Assignment Line [phone] When:??Within 1 week Why: Call for help getting a new primary doctor Follow Up with??Please return if you have fever, chest pain, trouble breathing, neck pain, vision changes, or any other worrisome symptoms. Follow Up with??Please followup with all of your usual doctors. Return if you have bleeding, fever,cannot eat/drink, or have any other worrisome symptoms Follow Up with??drink plenty of fluids; return for evaluation if you notice decreased urination, orhave vomiting or other worrisome symptoms Follow Up with??do not take Ibuprofen, Aleve, Motrin, Naprosyn or other similar medications Follow Up with??Call [facility] for followup Address: [address] [place] [address], [place] [address] When:??Within 1 week Discharge Medications LUCIAN ZHAO :1980 Visit Date:12/03/2022 Medications: Please continue your medications until treatment is completed or stopped by your provider. Medications not listed below should be discontinued. Discuss any questions related to medications with your provider. What How Much When Why Instructions Next Dose New Amoxicillin-Clavulanate (Augmentin 875 mg-125 mg oral tablet) 1 tab(s) Oral Twice a day Duration: 30 Days Refills: 1 You need to take this for at least 2 more weeks; the ID doctor will let you know if you need to continue for the full 6 weeks, which would be through January 26. ?? Pickup at [facility]/pharmacy #1291 12/19 tonight at 9pm New Doxycycline (doxycycline hyclate 100 mg oral capsule) 1 capsule Oral Twice a day Duration: 30 Days Refills: 1 You need to take this through January 26, 2023, unless directed otherwise by ID doctor. Take withfluids ?? Pickup at [facility]/pharmacy #1291 12/19 at 8pm New Durable Medical Equipment (Alcohol Wipes) See instructions Refills: 5 use as directed for Type 2 Diabetes Mellitus; test at least 3 times per day, insulin given 4 x daily ?? Pickup at [facility] 3 12/19 at 5pm New Durable Medical Equipment (Freestyle Lite Lancets) See instructions Duration: 30 Days Refills: 5 use as directed for Type 2 Diabetes Mellitus; test at least 3 times per day ?? Pickup at [facility] 3 12/19 at 5pm New Durable Medical Equipment (Freestyle Lite Monitor) See instructions Duration: 30 Days Refills: 5 use as directed for Type 2 Diabetes Mellitus ?? Pickup at [facility] 3 12/19 at 5pm New Durable Medical Equipment (Freestyle Lite Test Strips) See instructions Duration: 30 Days use as directed for Type 2, as directed for Type 2 Diabetes Mellitus; test at least 3 times per day ?? Pickup at [facility] 3 12/19 at 5pm New Durable Medical Equipment (Pen [place], 31 G x 5 mm BD Ultra Fine III) See instructions Duration: 30 Days Refills: 5 use as directed for Type 2 Diabetes Mellitus ?? Pickup at [place] [address] 12/19 at 5pm New Ferrous Sulfate (ferrous sulfate 325 mg oral enteric coated tablet) 1 tab(s) Oral Daily Duration: 30 Days [facility] tomorrow morning New Methadone 100 Milligram Oral Daily in the morning 12/20 tomorrow morning, last dose was 12/19/22 at 8:13am New Miscellaneous Rx (Lab draw--CBC with diff, CMP, ESR, and CRP) See instructions Refills: 4 Draw every 2 weeks while on antibiotics. Results to ID-- Dr Olena Parsons . ? Printed Prescription please have labs drawn 12/22-12/24 New Silver SulfADIAZINE Topical (silver sulfADIAZINE 1% topical cream) 1 jayy Topically Twice a day Non-pressure chronic ulcer of right calf limited to breakdown of skin Duration: 14 Days Refills: 1 [facility] [place] [address] [facility] New Thiamine (thiamine 100 mg oral tablet) 100 Milligram Oral Daily Duration: 30 Days Pickup at [place] [address] 12/20 tomorrow morning New Zinc Sulfate (zinc sulfate 220 mg oral capsule) 220 Milligram Oral Daily in the morning Duration: 30 Days Pickup at [place] [address] 12/20 tomorrow morning Changed Gabapentin (gabapentin 300 mg oral capsule) 600 Milligram Oral 3 times a day Duration: 30 Days [facility] at 3pm Changed Insulin Glargine (Lantus Solostar Pen 100 units/ mL subcutaneous solution) 15 unit(s) Subcutaneous Injection Daily at Bedtime Duration: 30 Days [facility] Changed Insulin Lispro (Humalog Kwik Pen 100 units/ mL subcutaneous injection) See instructions Take 3 times a day before meals, based on your blood sugar: For blood sugar 100 - 149, take ?? 4 units 150 - 199 ?? 5 units 200 - 249 ?? 6 units 250 - 299 ?? 7 units 300 - 349 ?? 8 units 350 - 399 ?? 9 units 400 - 449 ?? 10 units and call MD ?? Pickup at [facility] 12/19 at 5pm Pharmacy Information [id number]: [address] [place], [place] [id number] [phone] [facility]: [address] [place], [place] [phone] Test Results Below is a partial list of the most recent Laboratory test results done prior to this discharge. You may have had other tests and procedures not included in this list. Please discuss all test resultswith your provider. Est Creatinine Clearance - 96.89 mL/min (12/17/2022) RBC Available - IS (12/19/2022) RBC Unit ID - [id number]-* (12/19/2022) ANTI HEP. A IGM (12/09/2022) ???Anti Hepatitis A IgM - NEGATIVE ANTI-HBS QUANT (12/09/2022) ???Anti-HBS Quant - 383.07 mIU/mL Beta Hydroxybutyrate (12/03/2022) ? ?Beta Hydroxybutyrate - <0.05 mmol/L BUN (12/17/2022) ???BUN - 17 mg/dL CBC (12/19/2022) ???WBC - 2.5 k/mm3???RBC - 3.15 m/mm3???Hgb - 6.7 Gm/dL???Hct - 23.5 %???MCV - 74.6 femtoliters???MCH - 21.3 pg???MCHC - 28.5 g/dL???Platelet Count - 156 k/mm3???RDW-SD - 56.0 femtoliters???MPV - 9.1femtoliters???Nucleated RBC (Automated) - 0.0 #/100 WBC'S???Abs. NRBC - 0.0 k/mm3 CBC w/ Differential (12/17/2022) ???WBC - 2.6 k/mm3???RBC - 3.38 m/mm3???Hgb - 7.2 Gm/dL???Hct - 24.4 %???MCV - 72.2 femtoliters???MCH - 21.3 pg???MCHC - 29.5 g/dL???Platelet Count - 144 k/mm3???RDW-SD - 54.2 femtoliters???MPV - 9.2femtoliters???Nucleated RBC (Automated) - 0.0 #/100 WBC'S???Abs. NRBC - 0.0 k/mm3???Abs. Neut - 1.2 k/mm3???Abs. Lymph - 1.0 k/mm3???Abs. [place] - 0.3 k/mm3???Abs. Eo - 0.0 k/mm3???Abs. Baso - 0.0 k/mm3???Neut % - 45.8 %???Lymph % - 40.8 %???[place] % - 9.8 %???Eos % - 1.6 %???Baso % - 1.6 %???Imm Gran - 0.4 %???Abs. Imm Gran - 0.0 k/mm3 Comprehensive Metabolic Panel (12/19/2022) ???Sodium - 143 mmol/L???Potassium - 4.3 mmol/L???Chloride - 104 mmol/L???Bicarbonate Level - 26 mmol/L???Anion Gap - 13???Glucose Level - 182 mg/dL???BUN - 19 mg/dL???Creatinine-Blood - 0.6 mg/dL???Estimated GFR Creatinine - 123 ML/MIN/1.73 M2???Calcium - 9.2 mg/dL???Protein, Total - 6.5 Gm/dL???Al bumin - 3.3 Gm/dL???AG Ratio - 1.0???Alkaline Phosphatase - 86 units/L???AST (SGOT) - 28 units/L???ALT (SGPT) - 24 units/L? ?Bilirubin, Total - <0.2 mg/dL COVID-19 (Novel Coronavirus), Rapid PCR (12/03/2022) ???COVID-19 by RT-PCR - NEGATIVE Creatinine (12/17/2022) ???Creatinine-Blood - 0.6 mg/dL???Estimated GFR Creatinine - 122 ML/MIN/1.73 M2 CRP (12/03/2022) ???C-Reactive Protein - 5.5 mg/dL Electrolytes (12/17/2022) ???Sodium - 142 mmol/L???Potassium - 4.4 mmol/L???Chloride - 104 mmol/L???Bicarbonate Level - 27 mmol/L???Anion Gap - 11 ESR (12/03/2022) ???Sed Rate - 20 mm/hr FERRITIN (12/10/2022) ???Ferritin Level - 32 ng/mL FOLIC ACID (12/10/2022) ???Folic Acid Level - 7.9 ng/mL GLUCOSE POC (12/19/2022) ???Glucose, POC - 238 mg/dL H + H (12/09/2022) ???Hgb - 6.5 Gm/dL???Hct - 23.0 % HEMOGLOBIN A1C (12/03/2022) ???Hemoglobin A1C (Monitoring) - 11.3 % HOLD BLUE TUBE (12/03/2022) ???Hold Blue Top - SPECIMEN DISCARDED AFTER 4 HOURS. IRON (12/09/2022) ???Iron Level - 18 mcg/dL IRON & TIBC (12/10/2022) ???Iron Level - 22 mcg/dL???Iron Binding Capacity, Unsaturated - 217 mcg/dL???Iron Binding Capacity, Estimated Total - 239 mcg/dL???% Iron Saturation - 9 % Lactate Level (12/03/2022) ???Lactate - 2.8 mmol/L Lipase (12/03/2022) ???Lipase - 12 units/L Lytes (12/15/2022) ???Sodium - 141 mmol/L???Potassium - 4.9 mmol/L???Chloride - 102 mmol/L???Bicarbonate Level - 27 mmol/L???Anion Gap - 12 Magnesium Level (12/10/2022) ???Magnesium - 1.7 mg/dL pH Venous (12/03/2022) ???pH, Venous - 7.33 Phosphorus Level (12/10/2022) ???Phosphorus - 4.2 mg/dL TSH (12/09/2022) ???TSH - 6.62 uIU/mL Type and Screen (12/18/2022) ???Blood Type - O Positive???Antibody Screen - Negative Urinalysis w/hold for Urine Culture (12/03/2022) ???Appear/Color, Urine - YELLOW???Specific [place], Urine - 1.016???pH, Urine - 6.0???Albumin, Urine - 1+???Glucose, Urine - 3+???Ketones, Urine - NEGATIVE???Bilirubin, Urine - NEGATIVE???Hemoglobin,Urine - 3+???Nitrite, Urine - NEGATIVE???Leukocyte, Urine - 1+???Urobilinogen - 2 mg/dL???WBC's, Urine - 13 /HPF? ?RBC's, Urine - 8 /HPF? ?Bacteria - HEAVY? ?Squamous Epith - <1 /HPF? ?Mucus - SLIGHT???Hold Urine Culture - Testing available 48 hours from time of collection. Vancomycin Trough (12/05/2022) ???Vancomycin Level, Trough - 7.3 mg/L VITAMIN B12 (12/10/2022) ???Vitamin B12 Level - 589 pg/mL Allergies (NKA means No Known Allergies) morphine Problems Active Problems??(11) back fusion L5 S1?? Cellulitis?? Cellulitis and abscess of hand, except fingers and thumb?? Cocaine use disorder, severe, dependence?? Diabetes?? Hyperglycemia without ketosis?? Hyponatremia?? Opioid use disorder, severe, dependence?? Polysubstance abuse?? Uncontrolled diabetes mellitus with hyperglycemia?? Underweight?? Education Materials Below is the list of Educational Leaflet Providered with your Discharge Instructions. Discharge Instructions for Osteomyelitis?? Amoxicillin/Clavulanate Oral Tablet?? Doxycycline Oral Tablet?? Iron-Deficiency Anemia (Adult)?? Valuables and Belongings I fully understand and agree that [facility] accepts no responsibility for all [...] to send valuables and belongings home. ?? No Valuables/Belongings: No valuables/belongings present Review of Valuable and Belonging List: With patient, With witness Possessions released to: PATIENT REFUSE TO LET ME CHECK HIS BELONGING Date for Pt to Sign Valuables/Belongings: 12/19/22 12:06:00 ?? Other Discharge Information ?? Wound Assessment?? Wound Assessment?? Wound Location I: Arm, Left Upper Wound Type I: Traumatic Wound Wound I, Present on Admission: Yes Wound Location II: Forearm, left Wound Type II: Diabetic Wound II, Present on Admission: Yes Wound Location III: Arm, Left Upper Wound Type III: Surgical Wound III, Present on Admission: Yes Wound Location IV: Leg, right lower Wound Location V: Leg, left upper ? Case Management Discharge Plan?? Discharge Plan?? Discharge Level of Care at Discharge: Home/Longterm/Foster Care ?? Pulmonary Rehab Status?? Pulmonary Rehab Discharge Status?? Respiratory Rate: 18 br/min ? Common Emergency Awareness Tips IS [...] are strongly encouraged to quit. Please call [facility] at [phone] or [phone] or log in to [email or web address] for referrals to smoking cessation programs. ?? 158 Suicide & Crisis Lifeline is available 13/10 if you or someone you know needs to find a reason to keep living. By calling 520 you'll be connected to a skilled, trained counselor at a crisis center in your area. INPATIENT DISCHARGE INSTRUCTIONS SIGNATURE PAGE LUCIAN ZHAO Location:[facility] Registration Date and Time:12/03/2022 05:38 EDT Primary Care Physician: Lachelle MCKEON, Calin Mckeon, Attending Physician: Lupillo MCKEON, Charissa, I LUCIAN ZHAO, have received the above patient education materials/instructions and have verbalized understanding. If ambulance or transport services are being used I further acknowledge being given a choice of service. ?? If you need to contact me, please call me at this number: . Patient/Customer Service Associate Name: Patient/Customer Service Associate Signature: Relationship to Patient: Witness Name/Signature: Date: * Charissa Wesley MD: SIGN, SIGN, PERFORM, SIGN, VERIFY Event Display: Patient Education Handout Authored Date: [id number] * Charissa Wesley MD: PERFORM Event Display: Patient Education Leaflets Authored Date: [id number] Discharge Instructions for Osteomyelitis ?? 8[address]76 Discharge Instructions for Osteomyelitis You have a condition called osteomyelitis. This is a bone infection caused by bacteria or fungi. Itmay have spread through the blood from one area of your body to the bone. Osteomyelitis is called acute when the infection is new. It's called chronic when you've had it for a longer time. Home care ??? Take your medicine exactly as directed. If you were given antibiotics or antifungal medicine, make sure you finish the prescription???even if you feel better. If you don???t finish the medicine, the infection may return and may make future infections harder??to treat. ??? Be careful not to injure the area where you have the infection. ??? Carefully follow all instructions for takingcare of any wounds. ??? Use a splint, sling, or brace as directed by your healthcare provider. ?? Follow-up care Make a follow-up appointment, or as directed. ?? When to get medical care Call your healthcare provider??if you have any of the following: ??? Increasing pain, redness, swelling, or drainage in the infected area ??? Fever of 100.4?? F??( 38??C) or higher, or as advised by your provider ??? Chills ??? Increasing fatigue or feeling tired ?? Last Reviewed Date: 2021 ?? 8357-2597 [employer]. All rights reserved. This information is not intended as a substitute for professional medical care. Always follow your healthcare professional's instructions. ?? * Charissa Wesley MD: PERFORM Event Display: Patient Education Leaflets Authored Date: [id number] Amoxicillin/Clavulanate Oral Tablet ?? [address] Amoxicillin/Clavulanate Oral Tablet Brands: Augmentin Uses For treating bacterial infection. ?? Instructions Take the medicine with food. Keep the medicine at room temperature. Avoid heat and direct light. It is important that you keep taking each dose of this medicine on time even if you are feeling well. If you forget to take a dose on time, take it as soon as you remember. If it is almost time for thenext dose, do not take the missed dose. Return to your normal schedule. Do not take 2 doses at one time. Tell your doctor and pharmacist about all your medicines. Include prescription and thtt-rwj-xnmgbtklhozeyybm, vitamins, and herbal medicines. Keep using this medicine for the full number of days that it is prescribed. Do not stop the medicine even if you start to feel better. If you have diabetes and use urine glucose tests, this medicine may cause incorrect results. Pleasecheck with your doctor before making any changes to your diabetes treatment plan. ?? Cautions Tell your doctor and pharmacist if you ever had an allergic reaction to a medicine. Do not use the medication any more than instructed. Please tell your doctor if you have moderate to severe diarrhea while on this medicine. Do not treat the diarrhea with moml-uhz-ogmtono diarrhea medicine. Tell the doctor or pharmacist if you are , planning to be , or . Do not start or stop any other medicines without first speaking to your doctor or pharmacist. Do not share this medicine with anyone who has not been prescribed this medicine. ?? Side Effects The following is a list of some common side effects from this medicine. Please speak with your doctor about what you should do if you experience these or other side effects. ??? diarrhea ??? nausea and vomiting ??? stomach upset or abdominal pain Call your doctor or get medical help right away if you notice any of these more serious side effects: ??? severe or persistent abdominal pain ??? severe, watery or bloody diarrhea ??? signs of liver damage (such as yellowing of eye or skin, dark urine, or unusual tiredness) ??? red, burning, or itchyskin ??? yeast infection of mouth ??? vaginal itching or discharge A few people may have an allergic reaction to this medicine. Symptoms can include difficulty breathing, skin rash, itching, swelling, or severe dizziness. If you notice any of these symptoms, seek medical help quickly. ?? Extra Please speak with your doctor, nurse, or pharmacist if you have any questions about this medicine. ?? [email or web address] IMPORTANT NOTE: This document tells you briefly how to take your medicine, but it does not tell youall there is to know about it. Your doctor or pharmacist may give you other documents about your medicine. Please talk to them if you have any questions. Always follow their advice. There is a more complete description of this medicine available in Cambodian. Scan this code on your smartphone or tablet or use the web address below. You can also ask your pharmacist for a printout. If you have any questions, please ask your pharmacist. The display and use of this drug information is subject to Terms of Use. Copyright(c) 2022 [employer]. ?? [employer]. All rights reserved. This information is not intended as a substitute for professional medical care. Always follow your healthcare professional's instructions. ?? * Charissa Wesley MD: PERFORM Event Display: Patient Education Leaflets Authored Date: [id number] Doxycycline Oral Tablet ?? [id number] Doxycycline Oral Tablet Brands: Acticlate, Adoxa, Avidoxy, Targadox Uses For treating bacterial infection. ?? Instructions Take the medicine with 250 mL (1 cup) of water. Take on empty stomach - 1 hour before or 2 hours after eating. Sit or stand upright for 30 minutes after taking the medicine. Do not lie down. Keep the medicine at room temperature. Avoid heat and direct light. Do not take any antacid or vitamins with magnesium, calcium, aluminum, or iron for 2 hours before and 2 hours after taking this medicine. This medicine can make you sensitive to the sun. Use sunscreen or protective clothing when in sun. If you forget to take a dose on time, take it as soon as you remember. If it is almost time for thenext dose, do not take the missed dose. Return to your normal schedule. Do not take 2 doses at one time. Drug interactions can change how medicines work or increase risk for side effects. Tell your healthcare providers about all medicines taken. Include prescription and gjvy-dpn-tygcmle medicines, vitamins, and herbal medicines. Speak with your doctor or pharmacist before starting or stopping any medicine. Keep using this medicine for the full number of days that it is prescribed. Do not stop the medicine even if you start to feel better. This medicine can cause permanent change in teeth color in children. ?? Cautions Tell your doctor and pharmacist if you ever had an allergic reaction to a medicine. Do not use the medication any more than instructed. Contact your doctor if you notice a change in the amount or darkening of your urine. Please tell your doctor if you have moderate to severe diarrhea while on this medicine. Do not treat the diarrhea with rveb-oex-jbsejmv diarrhea medicine. This medicine passes into breast milk. Ask your doctor before . This medicine can hurt a new baby in the womb. If you become while on this medicine, tell your doctor immediately. Your doctor may switch you to a different medicine. Do not share this medicine with anyone who has not been prescribed this medicine. ?? Side Effects The following is a list of some common side effects from this medicine. Please speak with your doctor about what you should do if you experience these or other side effects. ??? diarrhea ??? nausea and vomiting ??? stomach upset or abdominal pain ??? yeast infection of mouth ??? vaginal itching or yeast infection Call your doctor or get medical help right away if you notice any of these more serious side effects: ??? swelling in the neck or throat ??? difficulty swallowing ??? blurring or changes of vision A few people may have an allergic reaction to this medicine. Symptoms can include difficulty breathing, skin rash, itching, swelling, or severe dizziness. If you notice any of these symptoms, seek medical help quickly. ?? Extra Please speak with your doctor, nurse, or pharmacist if you have any questions about this medicine. ?? [email or web address] IMPORTANT NOTE: This document tells you briefly how to take your medicine, but it does not tell youall there is to know about it. Your doctor or pharmacist may give you other documents about your medicine. Please talk to them if you have any questions. Always follow their advice. There is a more complete description of this medicine available in Cambodian. Scan this code on your smartphone or tablet or use the web address below. You can also ask your pharmacist for a printout. If you have any questions, please ask your pharmacist. The display and use of this drug information is subject to Terms of Use. Copyright(c) 2022 [employer]. ?? The [employer]. All rights reserved. This information is not intended as a substitute for professional medical care. Always follow your healthcare professional's instructions. ?? Patient Care team information Care Team Personnel Name: Lorraine Sherwood RN Position: [facility] AMB Nurse Member Role: Primary Care Nurse Name: Hailey Corado RN Position: [facility] RN Supv Member Role: Primary Care Nurse Name: Ana Pink RN Position: S RN Member Role: Primary Care Nurse Name: Ashley Gastelum RN Position: [facility] RN Member Role: Primary Care Nurse Name: Calin Larose MD Position: [facility] Physician (General Medicine) Member Role: PCP Address: Address: [address] [place] [address] Name: Naima Beach RN Position: [facility] RN Member Role: Primary Care Nurse Name: Margo Valdez LPN Position: [facility] RN Member Role: Primary Care Nurse Name: Zev Brock RN Position: [facility] RN Member Role: Primary Care Nurse Name: Patt Ponce RN Position: [facility] RN Member Role: Primary Care Nurse Name: Pennie Sanchez RN Position: [facility] RN Member Role: Primary Care Nurse Name: Veronica Garcia RN Position: [facility] RN Member Role: Primary Care Nurse Name: Toña Dubon RN Position: [facility] RN Member Role: Primary Care Nurse Name: Manav Muñiz RN Position: [facility] ED RN W/OE and Tasks Member Role: Primary Care Nurse Name: Alee Shaikh RN Position: [facility] RN Member Role: Primary Care Nurse Name: Christy Almanza RN Position: [facility] RN Member Role: Primary Care Nurse Name: Bindu Gaspar RN Position: [facility] RN Member Role: Primary Care Nurse Name: Alexey Wilkins RN Position: [facility] RN Member Role: Primary Care Nurse Name: Ilene Orona RN Position: [facility] RN Member Role: Primary Care Nurse Name: Seth Rivera RN Position: [facility] RN Member Role: Primary Care Nurse Name: Miko Alvarez RN Position: [facility] RN Member Role: Primary Care Nurse Name: Hugo Marshall RN Position: [facility] RN Member Role: Primary Care Nurse Name: Sammie Jimenez RN Position: [facility] RN Member Role: Primary Care Nurse Name: Verenice Espinoza RN Position: [facility] RN Member Role: Primary Care Nurse Name: Lucian Kelly RN Position: [facility] RN Member Role: Primary Care Nurse Name: Charissa Banuelos RN Position: [facility] RN Member Role: Primary Care Nurse Name: Yana Hernandez RN Position: [facility] RN Member Role: Primary Care Nurse Name: Sara Carpenter RN Position: [facility] RN Member Role: Primary Care Nurse Name: Molly Kebede RN Position: [facility] OB RN Member Role: Primary Care Nurse Name: Brittaeny Eagle RN Position: [facility] RN Member Role: Primary Care Nurse Name: Dahiana Muller LPN Position: [facility] RN Member Role: Primary Care Nurse Name: Fabian ESQUIVEL Attending Position: [facility] ED Medicine MD Name: Toña Barnhart Position: [facility] ED OA Charge Member Role: ED Associate Name: Liane Juan RN Position: [facility] ED RN W/OE and Tasks Member Role: Patient Care Provider Name: Hieu Guerra RN Position: [facility] ED RN W/OE and Tasks Member Role: Patient Care Provider Name: Anuj Zhang Position: [facility] ED TA [facility] Member Role: Addiction Nurse Care Team Related Persons Name: DEBRA ZHAO Address: home [address] [place] [address] Name: DODIE ZHAO Address: home [address] [place] [address] Name: GEMMA ZHAO Address: home [address] [place] [address]
--- OUTSIDE RECORDS SUMMARY | 2024-01-19 22:59 | XMS_ITS | Continuity of Care Document ---
Author Organization [facility] Address [address] [place] [address]- Care Team Providers Care Senior Landscape Architect Name Role Phone Lachelle MCKEON, Calin Mckeon Primary Care Physician En[place] [facility] [place] Date(s): 01/14/23 - 02/13/23 [facility] [address] [place] [address] Attending Physician: AdmDuke ware Admitting Physician: AdmtrDuke Referring Physician: Admtr, Ar8 Allergies, Adverse Reactions, [...] 12/19/22 10:40:00 EDT, Route to Pharmacy Electronically, [facility]/pharmacy #[id number], Partial fill upon patient requestif [...] 12/19/22 9:11:00 EDT, Route to Pharmacy Electronically, [facility]/pharmacy #[id number], Partial fill upon patient request [...] on antibiotics. Results to ID-- Dr Olena Prasons . , 12/19/22 9:26:00 EDT, [place]... Start Date: 12/19/22 Status: Ordered Lantus Solostar Pen 100 units/mL subcutaneous solution = 15 units, Subcutaneous Injection, Daily at bedtime, # 10 mL, 0 Refills, Maintenance, 12/19/22 9:12:00 EDT, Injection, [facility]/pharmacy #[id number], Partial fill upon patient request [...] drug. Start Date: 12/19/22 Status: Ordered Pen [place], 31 G x 5 mm BD Ultra [...] 12/19/22 9:22:00 EDT, Route to Pharmacy Electronically, [facility], Partial fill upon patient requestif [...] Team Personnel Name: Lorraine Sherwood RN Position: [facility] AMB Nurse Member Role: Primary Care Nurse Name: Hailey Corado RN Position: [facility] RN Supv Member Role: Primary Care Nurse Name: Ana Pink RN Position: [facility] RN Member Role: Primary Care Nurse Name: Ashley Gastelum RN Position: [facility] RN Member Role: Primary Care Nurse Name: Calin Larose MD Position: [facility] Physician (General Medicine) Member Role: PCP Address: Address: [address] [place] [address] Name: Naima Beach RN Position: S RN Member Role: Primary Care Nurse Name: Mrago Valdez LPN Position: [facility] RN Member Role: Primary Care Nurse Name: Zev Brock RN Position: [facility] RN Member Role: Primary Care Nurse Name: Patt Ponce RN Position: [facility] RN Member Role: Primary Care Nurse Name: Pennie Sanchez RN Position: [facility] RN Member Role: Primary Care Nurse Name: Veronica Garcia RN Position: [facility] RN Member Role: Primary Care Nurse Name: Toña Dubon RN Position: [facility] RN Member Role: Primary Care Nurse Name: Manav Muñiz RN Position: [facility] ED RN W/OE and Tasks Member Role: Primary Care Nurse Name: Alee Shaikh RN Position: [facility] RN Member Role: Primary Care Nurse Name: Christy Almanza RN Position: [facility] RN Member Role: Primary Care Nurse Name: Bindu Gaspar RN Position: [facility] RN Member Role: Primary Care Nurse Name: Alexey Wilkins RN Position: [facility] RN Member Role: Primary Care Nurse Name: Ilene Orona RN Position: [facility] RN Member Role: Primary Care Nurse Name: Seth Rivera RN Position: [facility] RN Member Role: Primary Care Nurse Name: Miko Alvarez RN Position: [facility] RN Member Role: Primary Care Nurse Name: Hugo Marshall RN Position: [facility] RN Member Role: Primary Care Nurse Name: Sammie Jimenez RN Position: [facility] RN Member Role: Primary Care Nurse Name: Verenice Espinoza RN Position: [facility] RN Member Role: Primary Care Nurse Name: Lucian Kelly RN Position: [facility] RN Member Role: Primary Care Nurse Name: Charissa Banuelos RN Position: [facility] RN Member Role: Primary Care Nurse Name: Yana Hernandez RN Position: [facility] RN Member Role: Primary Care Nurse Name: Sara Carpenter RN Position: [facility] RN Member Role: Primary Care Nurse Name: Molly Kebede RN Position: [facility] OB RN Member Role: Primary Care Nurse Name: Brittaney Eagle RN Position: [facility] RN Member Role: Primary Care Nurse Name: Dahiana Muller LPN Position: [facility] RN Member Role: Primary Care Nurse Care Team Related Persons Name: DEBRA ZHAO Address: home [address] [place] [address] Name: EDEN ZHAOMY Address: [address] [place] [address] Name: GEMMA ZHAO Address: home [address] [place] [address] [place] [address]
--- OUTSIDE RECORDS SUMMARY | 2024-01-19 22:59 | XMS_ITS | Continuity of Care Document ---
Author Organization [facility] Address [address] [place] [address]- Care Team Providers Care Leak Hunter Name Role Phone Calin Larose MD Primary Care Physician [place] [facility] [place] 01/24/[address] [address]- [facility] Discharge Disposition: Transfer to [facility] Facility Attending Physician: Marielena Malhotra MD Admitting Physician: Jamil Hankins MD Referring Physician: Not on Staff, Referring MD Allergies, Adverse Reactions, Alerts Substance Reaction Severity Status morphine Active Medications Bactrim DS 800 mg-160 mg oral tablet 1 tablet, By Mouth, Every 12 hours, # 9 tablet, 0 Refills, Acute 01/28/20 23:00:00 EST, 01/24/20 9:21:00 EST, Tablet Start Date: 01/24/20 Stop Date: 01/28/20 Status: Ordered cloNIDine 0.1 mg oral tablet 0.1 mg, 1, tablet, By Mouth, 3 times a day, # 90 tablet, Refills 0, Tot. Refills 0, Maintenance, 01/24/20 9:19:00 EST, Print Requisition Start Date: 01/24/20 Stop Date: 02/23/20 Status: Ordered hydrOXYzine pamoate 50 mg oral capsule = 50 mg, By Mouth, Every 6 hours, PRN Agitation, for 30 days, # 90 capsule, 0 Refills, Acute 02/23/20 9:20:00 EST, 01/24/20 9:20:00 EST, Capsule Start Date: 01/24/20 Stop Date: 02/23/20 Status: Ordered insulin glargine 100 units/mL subcutaneous solution 0.42 mL = 42 units, Subcutaneous Injection, Daily at bedtime, # 12.6 mL, 0 Refills, Maintenance, 01/24/20 9:18:00 EST, Injection, Dry Weight Start Date: 01/24/20 Stop Date: 02/23/20 Status: Ordered insulin lispro 100 u/ml subcutaneous injection 2-14 units, Subcutaneous Injection, 3 times a day before meals, # 15 mL, 0 Refills, Maintenance, 01/24/20 9:18:00 EST, Injection Start Date: 01/24/20 Stop Date: 02/23/20 Status: Ordered Problem List Condition Effective Dates [...] Smear (Culture Wound Superficial w/ Gram Smear) 01/20/20 Blood Culture (BLOOD CULTURE) 01/19/20 Blood Culture 01/18/20 Blood Culture #2 01/18/20 Microbiology Reports TEST:Superficial Wound Culture STATUS:Auth (Verified) BODY SITE: SOURCE:SWAB1 COLLECTED DATE/TIME:01/20/20 4:15 PM Superficial Wound Culture SPECIMEN DESCRIPTION : SWAB ARM LT SPECIAL REQUESTS : NONE GRAM STAIN : NO CELLS OR ORGANISMS SEEN CULTURE : NO GROWTH 2 DAYS REPORT STATUS : FINAL 01/23/2020 TEST:Blood Culture STATUS:Auth (Verified) BODY SITE: SOURCE:Blood COLLECTED DATE/TIME:01/19/20 2:24 AM Blood Culture SPECIMEN DESCRIPTION : BLOOD RAC SPECIAL REQUESTS : NONE CULTURE : NO GROWTH 5 DAYS. REPORT STATUS : FINAL 01/24/2020 TEST:Blood Culture, Second Order STATUS:Auth (Verified) BODY SITE: SOURCE:Blood COLLECTED DATE/TIME:01/19/20 12:29 AM Blood Culture, Second Order SPECIMEN DESCRIPTION : BLOOD R A SPECIAL REQUESTS : NONE CULTURE : NO GROWTH 5 DAYS. REPORT STATUS : FINAL 01/24/2020 TEST:Blood Culture STATUS:Auth (Verified) BODY SITE: SOURCE:Blood COLLECTED DATE/TIME:01/19/20 12:06 AM Blood Culture SPECIMEN DESCRIPTION : BLOOD LA SPECIAL REQUESTS : NONE CULTURE : NO GROWTH 5 DAYS. REPORT STATUS : FINAL 01/24/2020 Radiology Reports * Exam Date Time Procedure Performing Provider Status 01/20/20 11:23 AM Wrist Comp Min 3 Views Left Bill DeniseErmelinda Huerta (Verified) Notes: (Wrist Comp Min 3 Views Left) Reason For Exam: Infection RESULT: Wrist Comp Min 3 Views Left Wrist Comp Min 3 Views Left INDICATION: Infection; question Osteomyelitis. Physical exam demonstrates erythema and soft tissue swelling about the rest of the small incision on the dorsal radial wrist and soft tissue swelling along the volar aspect. COMPARISON: Left hand radiograph 07/30/2018. FINDINGS: No fracture or dislocation. Normal carpal configuration. Intact radial and ulnar styloid processes. Mild sclerosis of the distal radius at the radiocarpal joint. The dorsal and ventral soft tissues demonstrate mild swelling. No underlying periosteal reaction orosseous erosion. IMPRESSION: 1. No acute abnormality. 2. Minimal soft tissue swelling overlying the wrist. No underlying evidence of osteomyelitis. I have personally reviewed the images and I agree with this report. WSN: [id number] Ordering Physician: Mayra Montejo Dictated By: Lorin Haji MD Dictated Date/Time: 01/20/20 11:38 a Reviewed By: Landen Garduno MD Signed By: Landen Garduno MD Signed Date/Time: 01/20/20 11:43 am Transcribed By: AKASH Transcribed Date/Time: 01/20/20 11:34 am * Exam Date Time Procedure Performing Provider Status 01/19/20 12:07 AM Chest Portable [facility] (Verified) Notes: (Chest Portable) Reason For Exam: Shortness of Breath RESULT: Chest Portable Chest Portable Reason: Shortness of Breath; Clinical Question(s): CHF COMPARISON: Multiple priors most recent dated 10/29/2019. CT chest 10/29/2019. FINDINGS: LINES AND TUBES: None. LUNGS AND PLEURA: Bibasilar patchy airspace opacities. No pleural effusion. No pneumothorax. HEART, MEDIASTINUM AND LIZBETH: Heart is normal in size. Normal mediastinal and hilar contour. BONES AND SOFT TISSUES: No acute abnormality. IMPRESSION: Bibasilar patchy opacities may represent scarring from recent infection or very early/mild pneumonia. I have personally reviewed the images and I agree with this report. WSN: [id number] Ordering Physician: Blanca Lacy Dictated By: Jessica Salinas MD Dictated Date/Time: 01/19/20 7:48 am Reviewed By: Sal Manzo MD Signed By: Sal Manzo MD Signed Date/Time: 01/19/20 7:53 am Transcribed By: AKASH Transcribed Date/Time: 01/19/20 3:20 am Vital Signs Most recent to oldest [Reference Range]: 1 2 3 Height 163 cm (01/24/20 8:51 AM) 163 cm (01/24/20 5:55 AM) 163 cm (01/23/20 5:19 PM) Weight 57.8 kg (01/21/20 5:27 AM) 52 kg (01/19/20 2:07 AM) Oxygen Saturation [94-100 %] 97 % (01/24/20 8:51 AM) 100 % (01/24/20 5:55 AM) 99 % (01/23/20 8:00 PM) Pulse Rate [55-90 bpm] 90 bpm (01/24/20 8:51 AM) 78 bpm (01/24/20 5:55 AM) 82 bpm (01/23/20 8:00 PM) Body Mass Index [18.5-24.99] 21.75 (01/21/20 5:27 AM) 19.57 (01/19/20 2:07 AM) Blood Pressure [90-138/55-84 mm Hg] 110/68mm Hg (01/24/20 8:51 AM) 114/63mm Hg (01/24/20 5:55 AM) 94/52mm Hg (01/23/20 8:00 PM) Respiratory Rate [16-30 br/min] 19 br/min (01/24/20 9:44 AM) 19 br/min (01/24/20 8:51 AM) 18 br/min (01/24/20 5:55 AM) Temperature [96.8-100.4 DegF] 98.2 DegF (01/24/20 8:51 AM) 98.0 DegF (01/24/20 5:55 AM) 98.1 DegF (01/23/20 8:00 PM) Liters per Minute 0 L/min (01/19/20 1:27 AM) 0 L/min (01/18/20 11:40 PM) 0 L/min (01/18/20 9:27 PM) Mode of Delivery (Oxygen) Room air (01/24/20 8:51 AM) Room air (01/24/20 5:55 AM) Room air (01/23/20 5:19 PM) Blood pressure sites Arm, right (01/24/20 8:51 AM) Arm, right (01/24/20 5:55 AM) Arm, left (01/23/20 8:00 PM) Temperature Route Oral (01/24/20 8:51 AM) Oral (01/24/20 5:55 AM) Oral (01/23/20 5:19 PM) Dry Weight 52 kg (01/19/20 2:07 AM) Weight Obtained Via Bed scale (01/21/20 5:27 AM) Social History Social History Type Response Smoking Status 10 or more cigarette s (1/2 pack or more)/day in last 30 days entered on: 01/28/18 Sex
--- OUTSIDE RECORDS SUMMARY | 2024-01-19 22:59 | XMS_ITS | Continuity of Care Document ---
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 Start Date: 03/10/23 Status: Ordered cloNIDine 0.1 mg oral tablet 0.1 mg, By Mouth, 4 times a day, PRN, PRN Withdrawal, Refills 0, Maintenance, Other, 04/07/23 6:42:00 EST, Partial fill upon patient request if the prescription is for a schedule II opioid drug. Start Date: 04/07/23 Status: Ordered Cubicin RF = 450 mg, IV Infusion, Every 24 hours, 0 Refills, Maintenance, 03/10/23 16:19:00 EST, Partial fill upon patient request if the prescription is for a schedule II opioid drug. Start Date: 03/10/23 Status: Ordered Dextrose 50% Inj Syringe (25Gm) = 12.5 Gm, IV Push Slowly, Every 20 minutes, PRN Blood Glucose, 50 to 70 and patient is NOT AWAKE or NPO; Repeat Glucose POC in 20 minutes, 0 Refills, Maintenance, 04/08/23 14:59:00 EST, Injection, Partial fill upon patient request if the prescription... Start Date: 04/08/23 Status: Ordered Dextrose 50% Inj Syringe (25Gm) = 25 Gm, IV Push Slowly, Every 15 minutes, PRN Blood Glucose, LESS than 50 and patient is NOT AWAKEor NPO - call MD if episode NOT resolved within 20 minutes, 0 Refills, Maintenance, 04/08/23 14:59:00 EST, Injection, Partial fill upon patient request... Start Date: 04/08/23 Status: Ordered Dilaudid Inj 0.5 mg, Injection, IV Push Slowly, Every 6 hours, PRN for Pain , Severe, Routine, 03/27/23 16:26:00EST Start Date: 03/27/23 Stop Date: 04/09/23 Status: Discontinued Dilaudid Inj 0.5 mL = 0.5 mg, IV Push Slowly, Every 6 hours, PRN Pain , Severe, 0 Refills, Maintenance, 04/08/2414:00:00 EST, Injection, Partial fill upon patient request if the prescription is for a schedule IIopioid drug. Start Date: 04/08/23 Status: Ordered Docusate Sodium Capsule 100 mg, 1, capsule, By Mouth, 2 times a day, PRN, Refills 0, Maintenance, Constipation, 04/08/23 14:59:00 EST, Partial fill upon patient request if the prescription is for a schedule II opioid drug. Start Date: 04/08/23 Status: Ordered Enoxaparin 0.4 mL = 40 mg, Subcutaneous Injection, Daily, 0 Refills, Maintenance, 04/08/23 14:59:00 EST, Injection, Partial fill upon patient request if the prescription is for a schedule II opioid drug. Start Date: 04/08/23 Status: Ordered ferrous sulfate 325 mg oral enteric coated tablet 325 mg, 1, tablet, By Mouth, Daily, # 30 tablet, Refills 0, Tot. Refills 0, Maintenance, 12/19/22 10:40:00 EDT, Route to Pharmacy Electronically, [facility]/pharmacy #[id number], Partial fill upon patient requestif the [...] oral capsule 600 mg, Capsule, By Mouth, 04/08/23 21:00:00 EST Start Date: 04/08/23 Stop Date: 04/08/23 Status: Completed gabapentin 300 mg oral capsule 600 mg, By Mouth, 3 times a day, # 90 capsule, Refills 0, Tot. Refills 0, Maintenance, 12/19/22 9:11:00 EDT, Route to Pharmacy Electronically, [facility]/pharmacy #[id number], Partial fill upon patient request ifthe [...] opioid drug. Start Date: 04/08/23 Status: Ordered Humalog Kwik Pen 100 units/mL [...] 10 uni... Start Date: 12/19/22 Status: Ordered hydrOXYzine hydrochloride 10 mg oral tablet = 10 mg, By Mouth, 3 times a day, PRN Other, PRN Withdrawal, 0 Refills, Maintenance, 04/07/23 6:42:00 EST, Tablet, Partial fill upon patient request if the prescription is for a schedule II opioid drug. Start Date: 04/07/23 Status: Ordered ibuprofen 400 mg oral tablet [...] 0 Refills, Maintenance, 12/19/22 9:12:00 EDT, Injection, [facility]/pharmacy #[id number], Partial fill upon patient request if the prescription is for a schedule II opioid drug., 163, cm, 12/18/22 13:3... Start Date: 12/19/22 Stop Date: 01/18/23 Status: Ordered LORazepam 0.5 mg oral tablet [...] Start Date: 03/10/23 Status: Ordered Methadone = 60 mg, By Mouth, Daily, 0 Refills, Maintenance, 04/07/23 9:39:00 EST, Tablet, Partial fill upon patient request if the prescription is for a schedule II opioid drug. Start Date: 04/07/23 Status: Ordered MiraLax Powder 1 pack/packet = 17 Gm, By Mouth, Daily, PRN Constipation, 0 Refills, Maintenance, 04/08/23 15:00:00EST, Powder, Partial fill upon patient request if the prescription is for a schedule II opioid drug. Start Date: 04/08/23 Status: Ordered Multivit Therapeutic/Minerals Tablet 1 tablet, By Mouth, Daily, 0 Refills, Maintenance, 03/10/23 16:19:00 EST, Tablet, Partial fill uponpatient request if the prescription is for a schedule II opioid drug. Start Date: 03/10/23 Status: Ordered NaCL 0.9% Flush 5 mL, [...] Inject... Start Date: 04/08/23 Status: Ordered Pen Schuyler, 31 G x 5 mm BD Ultra [...] opioid drug. Start Date: 04/08/23 Status: Ordered senna 187 mg oral tablet 1 tablet = 8.6 mg, By Mouth, 2 times a day, PRN Constipation, 0 Refills, Maintenance, 04/08/23 15:00:00 EST, Tablet, [...] Maintenance, Solution Start Date: 04/07/23 Status: Ordered zinc sulfate 220 mg oral capsule 220 mg, By Mouth, Daily in AM, # 30 tablet, Refills 0, Tot. Refills 0, Maintenance, 12/19/22 9:22:00 EDT, Route to Pharmacy Electronically, [facility], Partial fill upon patient requestif the prescription is for a schedule II opioid serenity... Start Date: 12/19/22 Stop Date: 01/18/23 Status: Ordered Zofran Inj = 4 mg, [...] for Microbiology Reports Name Date Blood Culture 03/27/23 Blood Culture #2 03/27/23 Microbiology Reports TEST:Blood Culture, Second Order STATUS:Auth (Verified) BODY SITE: SOURCE:Blood COLLECTED DATE/TIME:03/27/23 9:39 AM Blood Culture, Second Order SPECIMEN DESCRIPTION : BLOOD NO SITE SPECIAL REQUESTS : NONE CULTURE : NO GROWTH 5 DAYS. REPORT STATUS : FINAL 04/01/2023 TEST:Blood Culture STATUS:Auth (Verified) BODY SITE: SOURCE:Blood COLLECTED DATE/TIME:03/27/23 9:19 AM Blood Culture SPECIMEN DESCRIPTION : BLOOD RT AC SPECIAL REQUESTS : NONE CULTURE : NO GROWTH 5 DAYS. REPORT STATUS : FINAL 04/01/2023 Radiology Reports * Exam Date Time Procedure Performing Provider Status 03/27/23 10:[address] Ext Upper W/ Contrast Left Marcie Devine; Auth (Verified) Notes: (CT Ext Upper W/ Contrast Left) Reason For Exam: Infection RESULT: CT Ext Upper W/ Contrast Left CT Ext Upper W/ Contrast Left Hx of Present Illness: L forearm infection; Reason: Infection. TECHNIQUE: Helical CT with contrast formatted in 3 planes. 100 cc of Omnipaque 300 was administeredintravenously. Weight-based protocol using automatic tube modulation was used to optimize exposure parameters. COMPARISONS: CT 12/04/2022. 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 Associated increased concavity of the distal radius and proximal migration of the first carpal row. Progressive osteopenia and bony destruction at the base of the second through fourth metacarpal bases when compared to CT dated 12/04/2022, but likely similar to radiographs dated 02/20/2023. Chronic periosteal reaction along the distal radius and ulna. No elbow joint effusion. Soft Tissues: Chronic extensive soft tissue edema throughout the forearm without discrete fluid collection. No soft tissue gas to suggest necrotizing infection. Redemonstrated retained needle fragment in the antecubital fossa. 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 Extensive soft tissue edema of the forearm and wrist. No discrete fluid collection. WSN: [id number] Ordering Physician: Meghan Gaytan Dictated By: Adrien Granados MD Dictated Date/Time: 03/27/23 11:09 a Reviewed By: Adrien Granados MD Signed By: Adrien Granados MD Signed Date/Time: 03/27/23 11:09 am Transcribed By: AKASH Transcribed Date/Time: 03/27/23 10:31 am * Exam Date Time Procedure Performing Provider Status 03/27/23 5:15 AM Forearm 2 Views Left Qiana Granados; Bradley (Verified) Notes: (Forearm 2 Views Left) Reason For Exam: with Pain;Trauma RESULT: Forearm 2 Views Left Forearm 2 Views Left Hx of Present Illness: L forearm infection; history of septic arthritis/osteomyelitis of the radiocarpal joint status post arthrotomy and washout on 12/15/2022. MRI 02/22/2023 shows extensive marrow abnormality throughout the forearm, wrist and metacarpals consistent with osteomyelitis. COMPARISON: 02/20/2023 FINDINGS: Direct comparison difficult because of nonstandard projections. There is probably new cortical destruction of the distal ulna. No other convincing bony change. A small needle fragment that was seen previously in the mid forearm appears to been removed. There is a persistent needle fragment in the region of the antecubital fossa. No soft tissue emphysema. IMPRESSION: There is probably new destructive change of the distal ulna. WSN: [id number] Ordering Physician: Philippe Castaneda Dictated By: Keith Linder MD Dictated Date/Time: 03/27/23 6:52 am Reviewed By: Keith Linder MD Signed By: Keith Linder MD Signed Date/Time: 03/27/23 6:52 am Transcribed By: AKASH Transcribed Date/Time: 03/27/23 6:47 am Vital Signs Most recent to oldest [Reference Range]: 1 2 3 Height 162.5 cm (04/08/23 5:52 AM) 162.5 cm (04/02/23 3:53 AM) 162.5 cm (04/01/23 11:57 PM) Oxygen Saturation [94-100 %] 98 % (04/08/23 8:00 PM) 94 % (04/08/23 4:00 PM) 98 % (04/08/23 8:00 AM) Pulse Rate [55-90 bpm] 110 bpm *H* (04/08/23 8:00 PM) 95 bpm *H* (04/08/23 4:00 PM) 103 bpm *H* (04/08/23 8:00 AM) Blood Pressure [90-138/55-84 mm Hg] 131/77mm Hg (04/08/23 8:00 PM) 165/84mm Hg *H* (04/08/23 4:00 PM) 151/90mm Hg *H* (04/08/23 8:00 AM) Respiratory Rate [16-30 br/min] 16 br/min (04/08/23 8:09 PM) 16 br/min (04/08/23 8:09 PM) 18 br/min (04/08/23 8:00 PM) Temperature [96.8-100.4 DegF] 97.7 DegF (04/08/23 8:00 PM) 97.8 DegF (04/08/23 4:00 PM) 97.6 DegF (04/08/23 8:00 AM) Mode of Delivery (Oxygen) Room air (04/08/23 8:00 PM) Room air (04/08/23 4:00 PM) Room air (04/08/23 8:00 AM) Blood pressure sites Arm, left (04/08/23 8:00 PM) Arm, left (04/08/23 4:00 PM) Arm, left (04/08/23 8:00 AM) Temperature Route Oral (04/08/23 8:00 PM) Oral (04/08/23 4:00 PM) Oral (04/08/23 8:00 AM) Social History Social History Type Response Smoking Status 10 or more cigarette s (1/2 pack or more)/day in last 30 days entered on: 01/28/18 Sex Note * Michoacano Bowles RN: PERFORM Event Display: Discharge/Transfer Note Hospital Authored Date: [id number] Nursing Discharge Note Entered On: 04/08/2023 21:01 EST Performed On: 04/08/2023 20:59 EST by Michoacano Bowles RN Nursing Discharge Note 2 Discharge Time : 04/08/2023 20:59 EST Discharge Level of Care at Discharge : Short-term Acute Inpatient Name of Receiving Short Term Gen Hosp : [facility] Patient Left Unit Via : Ambulance Patient Accompanied Off Unit with : Ambulance/Chair Van Personnel Handover Given to Transport Personnel : Yes DC Instructions Provided & Signed by Pt : No Patient Understands D/C Instructions : Yes Patient Instructions Discharge Signed : No Did Pt have Specialty Bed or Wound Vac : No Michoacano Bowles RN - 04/08/2023 20:59 EST * Sandro MCKEON, Silvina Mckeon: PERFORM, MODIFY Event Display: Discharge/Transfer Note Hospital Authored Date: [id number] Patient: ??CECE LUCIAN ? Age:??42 Years?Sex:??Male?:??1980?? Patient Information Discharge Location: [facility] Primary Care Physician: Lachelle MCKEON, Calin Mckeon Admit Date/Time: 03/27/23 11:10 Discharge Disposition Discharge Disposition: Transfer to [facility], pending rehab placement Discharge Diagnosis Primary diagnosis: Osteomyelitis (M86.9) ?? Secondary diagnoses: COVID (U07.1) Severe cocaine use disorder (F14.20) Severe opioid use disorder (F11.20) _ Discharge Medications Acetaminophen (Tylenol 325 mg oral tablet)?975?Milligram?By Mouth?3 times a day Cefepime (cefepime 2 g intravenous injection)?2,000?Milligram?IVPB?Every 8 hours Clonidine (cloNIDine 0.1 mg oral tablet)?0.1?Milligram?By Mouth?4 times a day?as needed?PRN Withdrawal?Other Daptomycin (Cubicin RF)?450?Milligram?IV Infusion?Every 24 hours Durable Medical Equipment (Freestyle Lite Lancets)?See Instructions?for 30?Days?use as directed for Type 2 Diabetes Mellitus; test at least 3 times per day Durable Medical Equipment (Pen Schuyler, 31 G x 5 mm BD Ultra [...] Emollients, Topical (Vashe Topical Solution)?475?Milliliter?Topically?Every other day Ferrous Sulfate (ferrous sulfate 325 mg oral enteric coated tablet)?325?Milligram?1?tablet?By Mouth?Daily?for 30?Days Folic Acid (folic acid 1 mg oral tablet)?1?Milligram?By Mouth?Daily Gabapentin (gabapentin 300 mg oral capsule)?600?Milligram?By Mouth?3 times a day?for30?Days HydrOXYzine (hydrOXYzine hydrochloride 10 mg oral tablet)?10?Milligram?By [...] sugar 100 - 149, take ?? 4 [id number] - 199 ?? 5 units 200 - 249 ?? 6 units 250 - 299 ?? 7 units 300 - 349 ?? 8 units 350 - 399 ?? 9 - 449 ?? 10 units and call MD Melatonin (melatonin 3 mg oral tablet)?3?Milligram?By Mouth?Daily at bedtime?as needed?Insomnia Methadone?75?Milligram?By Mouth?Daily in AM Methadone?60?Milligram?By Mouth?Daily Multivitamin With Minerals (Multivit Therapeutic/Minerals Tablet)?1?tab(s)?By Mouth?Daily Zinc Sulfate (zinc sulfate 220 mg oral capsule)?220?Milligram?By Mouth?Daily in AM?for 30?Days ? Quality Measures Tobacco Use Treatment:? Medications Started Daptomycin (Cubicin RF)?450?Milligram?IV Infusion?Every 24 hours Cefepime (cefepime 2 g intravenous injection)?2,000?Milligram?IVPB?Every 8 hours Emollients, Topical (Vashe Topical Solution)?475?Milliliter?Topically?Every other day Medications Discontinued None Doses Changed Methadone changed from 75mg to 60mg PCP Follow-Up/Heads-Up - Please educate patient about importance of controlling diabetes with insulin meds to help preventsevere wound infections - Please ensure patient attends outpatient ID follow up - IV Daptomycin and Cefepime for at least 6 weeks (started 03/27), directed by ID Future Appointments Thursday 9:20 AM EST ?? With: Olena Parsons MD Where: [facility] Infectious Disease [address] [place] [id number]- Status: Pending Hospital Course Lucian is a 42 yo male with PMH of chronic LUE wounds, insulin dependent T2DM, IVDU, untreated hep C,PSA who presented for worsening LUE pain found to have chronic OM of that extremity, complicated byasymptomatic COVID-19 infection as well as anemia s/p 1u pRBC on 03/29, stable since then. Was evaluated by plastic/hand surgery, with no acute intervention at this time. Currently receiving IV cefepime and daptomycin via PICC started 03/27, needing at least 6 weeks' total duration as per ID recommendations. Wound care consulted as well. Patient??found to be incidentally??COVID-19 positive on 03/27/23,but was asymptomatic and completed 10 days of??isolation on 04/07/22.??Patient remained otherwise hemodynamically stable and afebrile and is appropriate after completing 10 day isolation period at this time for discharge to rehab. ?? On discharge, recommendations are as follows: ?? Chronic LUE osteomyelitis L wrist tissue biopsy in 03/02/2023 grew proteus vulgaris, klebsiella oxytoca, enterococcus faecalis VRE. Left hand abscess from 03/02/2023 grew MRSA. ??At last visit, plan was for IV cefepime and daptomycin for 6 weeks may need longer (per last OPA instructions: planned duration till 04/27/2023, will reassess at that point if needs up to 12 weeks (till 05/25/2023) ??During last visit, went to OR on 03/02 for: Left forearm and wrist washout, excisional debridement of skin, subcutaneous tissue and muscle 20x7cm, Left distal radius bone biopsy ??ESR 4 (normal), CRP 2.7 (high) ??Bcx drawn 03/27, final read NGTD x5 days ?? Plan: ??- Patient frequently refusing medications (DVT ppx and ISS, has been taking antibiotics), vitals,nursing checks, will continue attempts to elder counselor patients about his healthcare needs ??- No plan for plastic/hand surgical intervention at this time ??- IV antibiotics: Cefepime 2gm q8 and Daptomycin 450mg q24 for 6 weeks since this admission on 03/27 (Oral option if he were to refuse IV/want to leave [facility] would be: Levaquin 750mg daily PO and Doxycycline 100mg PO BID for at least 6 weeks) ??- ID and wound care consulted ??-??Evaluated by PT, recommending rehab. [facility] accepted patient but does not??have bed availability until next week. ??- Nutrition consult: Recommends regular diet with double protein for the patient, because on his previous admission he refused diabetic carb restricted diet ??- Tylenol 975mg TID, Dilaudid 0.5mg q6 for severe pain, Ketorolac 7.5mg 4x a day ?? Iron deficiency anemia ??S/p 1 u pRBC on 03/29 ??No signs of hemolysis on lab work ??Hgb remains stable at this time ?? Recommendations: ??- CTM, transfer as needed ?? COVID-19 Infection Completed 10 day isolation course from 03/27 to 04/07, was asymptomatic ?? Hypertension Home lisinopril held due to hyperkalemia, can resume on discharge. BP ranged from 130s-140s. ?? Stable medical conditions Thrombocytopenia:??Plt 150->111->120->105->114, possibly in setting of Cefepime use. Smear showing anemia and thrombocytopenia, not diagnostic of etiology. Hypocalcemia:??6.7, corrected for hypoalbuminemia of 2.0 is 7.9 Polysubstance use disorder: His regular dose is Methadone 75mg qd, however he has not been using this since he left the hospital AMA at last visit. Has not been established with an outside methadone clinic. Addiction medicine??restarted patient on??Methadone 30mg daily, now uptitrated to 60mg daily. Insomnia:??PRN Melatonin 6mg and Ativan 0.5mg PO ?? Chronic Stable Medical Conditions: Neuropathy:??Continue Gabapentin 600mg tid ? Objective Measurements?? Height: 162.5 cm (04/08/23) ?? Vital Signs?? Temperature: 97.6 DegF (04/08/23 08:00:00) Temperature Route: Oral (04/08/23 08:00:00) Pulse Rate:??103 bpm??High (04/08/23 08:00:00) Respiratory Rate: 16 br/min (04/08/23 08:58:00) Respiratory Rate: 16 br/min (04/08/23 08:58:00) Systolic Blood Pressure:??151 mm Hg??High (04/08/23 08:00:00) Diastolic Blood Pressure:??90 mm Hg??High (04/08/23 08:00:00) Blood pressure sites: Arm, left (04/08/23 08:00:00) Mean Arterial Pressure: 104 mm Hg (04/08/23 05:52:00) Pulse Pressure: 61 mm Hg (04/08/23 08:00:00) Oxygen Saturation: 98 % (04/08/23 08:00:00) Mode of Delivery (Oxygen): Room air (04/08/23 08:00:00) Early Warning Score: 6 (04/08/23 08:59:40) ? . Physical Exam General: No acute distress, AAOx3 HEENT: EOMI Cardio: regular rate and rhythm. Respiratory: CTA bilaterally w/ no audible wheezes or rales Extremities: LUE wrapped in dressing,??limited movement his LUE digits, b/l LE with patchy erythematous excoriated rashes.?? Neuro: no facial droop no slurring of the speech Consultants Plastic Surgery/Hand Surgery Infectious Disease Addiction Medicine Pending Results Add On Lab Order ordered on 03/29/2023 Add On Lab Order ordered on 03/30/2023 Add On Lab Order ordered on 04/02/2023 Basic Metabolic Panel ordered on 03/28/2023 Basic Metabolic Panel ordered on 03/30/2023 Transfuse RBCs ordered on 03/29/2023 Patient Education Titles Discharge Instructions for Osteomyelitis?? Follow-Up Appointments Added Follow Up ?Time Frame ?Comments Lachelle MCKEON, Calin Mckeon?1 to 2 days Patient Instructions DIAGNOSIS / RESULTS / PROCEDURES (what was done): ?? You were found to have a chronic bone infection (osteomyelitis) of your left hand/forearm. There isstill some infection and inflammation in the area, so you??will need to take antibiotics to treat that. Since the infection is located in the bone, you will need antibiotics through an IV; you had anIV called a PICC line placed while in??the hospital to continue receiving the antibiotics while in??rehab.? INSTRUCTIONS (what you need to do): Please follow up with your PCP in 2-3 days. Please continue to take your IV antibiotics while at rehab; if you decide not to take the IV antibiotics be sure to ask your doctor for oral antibiotics.?? Please follow up with wound care/ID regarding the infection. You have an infectious disease appointment on 04/29 at 9:20 AM.? Watch the site for any further drainage; a little bit of bloody or clear yellow drainage is fine, but if you see pus, develop??a fever, or if the red area gets significantly bigger or more tender, come back to the emergency department. ?? MEDICATIONS (what you need to take):?? Continue your IV antibiotics for at least 6 weeks as directed by ID (start date 03/27). You were alsostarted on Vashe wound care cream. Otherwise continue your regular medicines. You were given 60mg of methadone here daily.?? Post Discharge Care Full code Diabetic diet, extra protein Home Health Face to Face *Denotes mandatory monson ?? *I certify that this patient is under my care and that I or an allowed non- physician working with me had a face to face encounter with the patient on this date:??04/07/2023 06:50 ?? *The encounter with the patient was in whole, or in part, for the following medical condition, which is the primary diagnosis(es) for home health care:? *Select the indications for the discipline/s that are being arranged for this patient. Nursing (select all that apply): [_] None [x] Medication management (reconciliation, teaching)?? [x] Chronic disease management?? [x] Wound care and treatment?? [_] Home safety evaluation [x] Administer SQ/IM/IV medications?? [_] Cath care?? [_] Drain care?? [_] Trach or GT care?? Other _ Occupation Therapy (select all that apply): [_] None [_] ADL Management [_] Fall prevention training [_] Energy conservation [_] Cognitive training Other _ Physical Therapy (select all that apply): [_] None [x] Functional mobility training [_] Home exercise program to strengthen [_] Increase ROM?? [_] Falls prevention training [x] Home maintenance program for chronic disease Other _ Speech Therapy (select all that apply): [_] None [_] Swallow evaluation and training [_] Speech and language training [_] Cognitive training to process, organize, and/or recall information Other _ ? *Homebound due to (select all that apply): [_] Inability to leave home without assistance/supervision [_] Inability to ambulate without assistance [_x Pain [_] Decreased strength and endurance [_] Unsteady gait [_] Severe SOB and fatigue [_] Impaired transfers [_] Inability to negotiate stairs [_] Limited weight bearing [_] Mental status change? *Physician Signature:??Silvina Jo MD ?? *By signing this, I certify that I have personally evaluated the patient and agree with the findings and recommendations as documented above. Results Discharge Labs BLOOD BANK Blood Type O Positive ()?? 03/29/2023 05:38 Antibody Screen Negative ()?? 03/29/2023 05:38 RBC Unit ID [id number] ()?? 03/29/2023 11:43 RBC Available PT ()?? 03/29/2023 11:43 ?? BLOOD COUNT & DIFF WBC 5.1 k/mm3 ()?? 04/07/2023 04:45 RBC 3.28 m/mm3 (Low)?? 04/07/2023 04:45 Hgb 8.3 Gm/dL (Low)?? 04/07/2023 04:45 Hct 26.4 % (Low)?? 04/07/2023 04:45 MCV 80.5 femtoliters ()?? 04/07/2023 04:45 MCH 25.3 pg (Low)?? 04/07/2023 04:45 MCHC 31.4 g/dL (Low)?? 04/07/2023 04:45 Platelet Count 148 k/mm3 (Low)?? 04/07/2023 04:45 RDW-SD 55.7 femtoliters (High)?? 04/07/2023 04:45 MPV 9.2 femtoliters (Low)?? 04/07/2023 04:45 Nucleated RBC (Automated) 0.0 #/100 WBC'S ()?? 04/07/2023 04:45 Abs. NRBC 0.0 k/mm3 ()?? 04/07/2023 04:45 Abs. Neut 2.3 k/mm3 ()?? 03/30/2023 06:24 Abs. Lymph 1.9 k/mm3 ()?? 03/30/2023 06:24 Abs. [place] 0.3 k/mm3 (Low)?? 03/30/2023 06:24 Abs. Eo 0.1 k/mm3 ()?? 03/30/2023 06:24 Abs. Baso 0.0 k/mm3 ()?? 03/30/2023 06:24 Neut % 49.5 % ()?? 03/30/2023 06:24 Lymph % 40.1 % ()?? 03/30/2023 06:24 Independence % 6.5 % ()?? 03/30/2023 06:24 Eos % 2.6 % ()?? 03/30/2023 06:24 Baso % 0.9 % ()?? 03/30/2023 06:24 Peripheral Blood Smear Review Interp. Reviewed by pathologist. ()?? 03/30/2023 06:24 Retic Count 1.7 % ()?? 03/29/2023 01:03 Retic Count Corrected 0.8 % (Low)?? 03/29/2023 01:03 Retic Production Index 0.4 % (Low)?? 03/29/2023 01:03 Imm Gran 0.4 % ()?? 03/30/2023 06:24 Abs. Imm Gran 0.0 k/mm3 ()?? 03/30/2023 06:24 ?? CHEM GENERAL Sodium 138 mmol/L ()?? 04/07/2023 04:45 Potassium 4.4 mmol/L ()?? 04/07/2023 04:45 Chloride 99 mmol/L ()?? 04/07/2023 04:45 Bicarbonate Level 30 mmol/L (High)?? 04/07/2023 04:45 Anion Gap 9 ()?? 04/07/2023 04:45 Glucose Level 228 mg/dL (High)?? 04/07/2023 04:45 Glucose, POC 191 mg/dL (High)?? 04/08/2023 08:55 BUN 24 mg/dL (High)?? 04/07/2023 04:45 Creatinine-Blood 0.6 mg/dL (Low)?? 04/07/2023 04:45 Estimated GFR Creatinine 120 ML/MIN/1.73 M2 ()?? 04/07/2023 04:45 Calcium 9.2 mg/dL ()?? 04/07/2023 04:45 Protein, Total 6.6 Gm/dL ()?? 04/02/2023 05:04 Albumin 3.0 Gm/dL (Low)?? 04/02/2023 05:04 AG Ratio 0.8 ()?? 03/27/2023 09:19 LDH 168 units/L ()?? 03/29/2023 01:03 Alkaline Phosphatase 101 units/L ()?? 04/02/2023 05:04 AST (SGOT) 62 units/L (High)?? 04/02/2023 05:04 ALT (SGPT) 32 units/L ()?? 04/02/2023 05:04 Bilirubin, Total <0.2 mg/dL ()?? 04/02/2023 05:04 Bilirubin, Direct <0.2 mg/dL ()?? 04/02/2023 05:04 Bilirubin, Indirect Total bilirubin is less than the measureable limit. Therefore, indirect mg/dL ()?? 04/02/2023 05:04 Lactate 0.8 mmol/L ()?? 04/05/2023 03:45 C-Reactive Protein 2.7 mg/dL (High)?? 03/29/2023 01:03 ? HEME OTHER Sed Rate 4 mm/hr ()?? 03/29/2023 01:03 ? IMMUNOLOGY GENERAL Haptoglobin 116 mg/dL ()?? 03/29/2023 01:03 ? TOXICOLOGY/TDM Barbiturate Screen, Urine NONE DETECTED ()?? 03/28/2023 12:30 Cannabinoid Screen, Urine NONE DETECTED ()?? 03/28/2023 12:30 Cocaine Metabolite Screen, Urine POSITIVE (Abnormal)?? 03/28/2023 12:30 Benzodiazepine Screen, Urine NONE DETECTED ()?? 03/28/2023 12:30 Amphetamine Screen, Urine NONE DETECTED ()?? 03/28/2023 12:30 Opiate Screen, Urine POSITIVE (Abnormal)?? 03/28/2023 12:30 ?? URINE OTHER Est Creatinine Clearance 126.67 mL/min ()?? 03/27/2023 18:39 ? VIROLOGY Influenza A PCR NEGATIVE ()?? 03/27/2023 09:35 Influenza B PCR NEGATIVE ()?? 03/27/2023 09:35 RSV PCR NEGATIVE ()?? 03/27/2023 09:35 COVID-19 PCR Specimen Source NASAL ()?? 03/27/2023 09:35 COVID-19 PCR Result POSITIVE (Abnormal)?? 03/27/2023 09:35 ? Microbiology ?? Blood Culture?? Completed?? Source: Blood Body Site: ?? Collected Dt/Tm: 03/27/2023 08:49 Last Updated Dt/Tm: 03/27/2023 08:50 ?SPECIMEN DESCRIPTION : BLOOD ??RT ACSPECIAL REQUESTS : NONECULTURE : NO GROWTH 5 DAYS.REPORT STATUS : FINAL 04/01/2023 Blood Culture #2?? Completed?? Source: Blood Body Site: ?? Collected Dt/Tm: 03/27/2023 08:49 Last Updated Dt/Tm: 03/27/2023 08:50 ?SPECIMEN DESCRIPTION : BLOOD ??NO SITESPECIAL REQUESTS : NONECULTURE : NO GROWTH 5 DAYS.REPORT STATUS : FINAL 04/01/2023 ? Imaging ?(03/27/2023 05:15 EST Forearm 2 Views Left) IMPRESSION:? There is probably new destructive change of the distal ulna.?? WSN: [id number] [1] ?? (03/27/2023 10:[address] Ext Upper W/ Contrast Left) IMPRESSION: ?? 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 ?? Extensive soft tissue edema of the forearm and wrist. No discrete fluid collection. ?? [2] ? 40??minutes spent on discharge Patient care discussed with Dr. Steven Jo, PGY - 2 Internal Medicine/Pediatrics? * Silvina Jo MD S: PERFORM, MODIFY, MODIFY, MODIFY, MODIFY, MODIFY Event Display: Discharge/Transfer Note Hospital Authored Date: Patient: ??LUCIAN ZHAO ? Age:??42 Years?Sex:??Male?:??1980?? Patient Information Discharge Location: [facility] Primary Care Physician: Calin Larose MD Admit Date/Time: 03/27/23 11:10 Discharge Disposition Discharge Disposition: Group Home Facility/Rehab Discharge Diagnosis Primary diagnosis: Osteomyelitis (M86.9) ?? Secondary diagnoses: COVID (U07.1) Severe cocaine use disorder (F14.20) Severe opioid use disorder (F11.20) ?? _ Discharge Medications Acetaminophen (Tylenol 325 mg oral tablet)?975?Milligram?By Mouth?3 times a day Cefepime (cefepime 2 g intravenous injection)?2,000?Milligram?IVPB?Every 8 hours Clonidine (cloNIDine 0.1 mg oral tablet)?0.1?Milligram?By Mouth?4 times a day?as needed?PRN Withdrawal?Other Daptomycin (Cubicin RF)?450?Milligram?IV Infusion?Every 24 hours Durable Medical Equipment (Freestyle Lite Lancets)?See Instructions?for 30?Days?use as directed for Type 2 Diabetes Mellitus; test at least 3 times per day Durable Medical Equipment (Pen Schuyler, 31 G x 5 mm BD Ultra [...] Emollients, Topical (Vashe Topical Solution)?475?Milliliter?Topically?Every other day Ferrous Sulfate (ferrous sulfate 325 mg oral enteric coated tablet)?325?Milligram?1?tablet?By Mouth?Daily?for 30?Days Folic Acid (folic acid 1 mg oral tablet)?1?Milligram?By Mouth?Daily Gabapentin (gabapentin 300 mg oral capsule)?600?Milligram?By Mouth?3 times a day?for30?Days HydrOXYzine (hydrOXYzine hydrochloride 10 mg oral tablet)?10?Milligram?By [...] 8 units 350 - 399 ?? 9 [id number] ?? 10 units and call MD Melatonin (melatonin 3 mg oral tablet)?3?Milligram?By Mouth?Daily at bedtime?as needed?Insomnia Methadone?75?Milligram?By Mouth?Daily in AM Multivitamin With Minerals (Multivit Therapeutic/Minerals Tablet)?1?tab(s)?By Mouth?Daily Zinc Sulfate (zinc sulfate 220 mg oral capsule)?220?Milligram?By Mouth?Daily in AM?for 30?Days ? Quality Measures Tobacco Use Treatment:? Medications Started Daptomycin (Cubicin RF)?450?Milligram?IV Infusion?Every 24 hours Cefepime (cefepime 2 g intravenous injection)?2,000?Milligram?IVPB?Every 8 hours Emollients, Topical (Vashe Topical Solution)?475?Milliliter?Topically?Every other day Medications Discontinued None Doses Changed Methadone now 60mg from 75mg PCP Follow-Up/Heads-Up - Please educate patient about importance of controlling diabetes with insulin meds to help preventsevere wound infections - Please ensure patient attends outpatient ID follow up - IV Daptomycin and Cefepime for at least 6 weeks (started 03/27), directed by ID Future Appointments Thursday 9:20 AM EST ?? With: Issa MCKEON, Olena Contreras Where: [facility] Infectious Disease [address] [place] [id number]- Status: Pending Hospital Course Lucian is a 42 yo male with PMH of chronic LUE wounds, insulin dependent T2DM, IVDU, untreated hep C,PSA who presented for worsening LUE pain found to have chronic OM of that extremity, complicated byasymptomatic COVID-19 infection as well as anemia s/p 1u pRBC on 03/29, stable since then. Was evaluated by plastic/hand surgery, with no acute intervention at this time. Currently receiving IV cefepime and daptomycin via PICC started 03/27, needing at leasr 6 weeks' total duration as per ID recommendations. Wound care consulted as well. Patient remained otherwise hemodynamically stable and afebrile and is appropriate after completing 10 day isolation period at this time for discharge to rehab. ?? On discharge, recommendations are as follows: ?? Chronic LUE osteomyelitis L wrist tissue biopsy in 03/02/2023 grew proteus vulgaris, klebsiella oxytoca, enterococcus faecalis VRE. Left hand abscess from 03/02/2023 grew MRSA. ??At last visit, plan was for IV cefepime and daptomycin for 6 weeks may need longer (per last OPA instructions: planned duration till 04/27/2023, will reassess at that point if needs up to 12 weeks (till 05/25/2023) ??During last visit, went to OR on 03/02 for: Left forearm and wrist washout, excisional debridement of skin, subcutaneous tissue and muscle 20x7cm, Left distal radius bone biopsy ??ESR 4 (normal), CRP 2.7 (high) ??Bcx drawn 03/27, final read NGTD x5 days ?? Recommendations: ??-??Please elder counselor patient regarding healthcare needs - Follow up with PCP and ID (04/29/23 at??9:20 AM) ??- No plan for plastic/hand surgical intervention at this time ??- IV antibiotics: Cefepime 2gm q8 and Daptomycin 450mg q24 for 6 weeks since this admission on 03/27 (Oral option if he were to refuse IV/want to leave AMA would be: Levaquin 750mg daily PO and Doxycycline 100mg PO BID for at least 6 weeks) ??-??Please prescribed Boost protein shakes as recommended by nutrition outpatient ??- Tylenol 975mg TID, Dilaudid 0.5mg q6 for severe pain, Ketorolac 7.5mg 4x a day ?? Iron deficiency anemia ??S/p 1 u pRBC on 03/29 ??No signs of hemolysis on lab work ??Hgb remains stable at this time ?? Recommendations: ??- CTM outpatient, continue iron supplementation ?? COVID-19 Infection Completed 10 day isolation course, was asymptomatic ?? Hypertension Home lisinopril held due to hyperkalemia, can resume on discharge. BP ranged from 130s-140s. ?? Stable medical conditions Thrombocytopenia:??Plt 150->111->120->105->114, possibly in setting of Cefepime use. Smear showing anemia and thrombocytopenia, not diagnostic of etiology. Hypocalcemia:??6.7, corrected for hypoalbuminemia of 2.0 is 7.9 Polysubstance use disorder: His regular dose is Methadone 75mg qd, however he has not been using this since he left the hospital AMA at last visit. Thus restarted Methadone 30mg daily, increasing to 60mg per Addiction. Addiction Following. Insomnia:??PRN Melatonin 6mg and Ativan 0.5mg PO ?? Chronic Stable Medical Conditions: Neuropathy:??Continue Gabapentin 600mg tid ? Objective Assessment and Plan ? Measurements?? Height: 162.5 cm (04/02/23) ?? Vital Signs?? Temperature: 98.2 DegF (04/07/23 04:00:00) Temperature Route: Oral (04/07/23 04:00:00) Pulse Rate: 84 bpm (04/07/23 04:00:00) Respiratory Rate: 16 br/min (04/07/23 04:38:00) Systolic Blood Pressure: 128 mm Hg (04/07/23 04:00:00) Diastolic Blood Pressure: 74 mm Hg (04/07/23 04:00:00) Blood pressure sites: Arm, left (04/07/23 04:00:00) Pulse Pressure: 47 mm Hg (04/06/23 16:00:00) Oxygen Saturation: 96 % (04/07/23 04:00:00) Mode of Delivery (Oxygen): Room air (04/07/23 04:00:00) Early Warning Score: 3 (04/07/23 06:42:57) ? . Physical Exam General: No acute distress, AAOx3 HEENT: EOMI Cardio: regular rate and rhythm. Respiratory: CTA bilaterally w/ no audible wheezes or rales Extremities: LUE wrapped in dressing,??limited movement his LUE digits, b/l LE with patchy erythematous excoriated rashes.?? Neuro: no facial droop no slurring of the speech Consultants Plastic Surgery/Hand Surgery Infectious Disease Addiction Medicine Pending Results Add On Lab Order ordered on 03/29/2023 Add On Lab Order ordered on 03/30/2023 Add On Lab Order ordered on 04/02/2023 Basic Metabolic Panel ordered on 03/28/2023 Basic Metabolic Panel ordered on 03/30/2023 Transfuse RBCs ordered on 03/29/2023 Patient Education Titles Discharge Instructions for Osteomyelitis?? Follow-Up Appointments Added Follow Up ?Time Frame ?Comments Lachelle MCKEON, Calin Mckeon?1 to 2 days Patient Instructions DIAGNOSIS / RESULTS / PROCEDURES (what was done): ?? You were found to have a chronic bone infection (osteomyelitis) of your left hand/forearm. There isstill some infection and inflammation in the area, so you??will need to take antibiotics to treat that. Since the infection is located in the bone, you will need antibiotics through an IV; you had anIV called a PICC line placed while in??the hospital to continue receiving the antibiotics while in??rehab.? INSTRUCTIONS (what you need to do): Please follow up with your PCP in 2-3 days. Please continue to take your IV antibiotics while at rehab; if you decide not to take the IV antibiotics be sure to ask your doctor for oral antibiotics.?? Please follow up with wound care/ID regarding the infection. You have an infectious disease appointment on 2/7 at 9:20 AM.? Watch the site for any further drainage; a little bit of bloody or clear yellow drainage is fine, but if you see pus, develop??a fever, or if the red area gets significantly bigger or more tender, come back to the emergency department. ?? MEDICATIONS (what you need to take):?? Continue your IV antibiotics for at least 6 weeks as directed by ID (start date 03/27). You were alsostarted on Vashe wound care cream. Otherwise continue your regular medicines. You were given 60mg of methadone here daily.?? Post Discharge Care Full Code Diabetic diet with supplemental protein shakes Home Health Face to Face *Denotes mandatory monson ?? *I certify that this patient is under my care and that I or an allowed non- physician working with me had a face to face encounter with the patient on this date:??04/07/2023 06:50 ?? *The encounter with the patient was in whole, or in part, for the following medical condition, which is the primary diagnosis(es) for home health care:? *Select the indications for the discipline/s that are being arranged for this patient. Nursing (select all that apply): [_] None [x] Medication management (reconciliation, teaching)?? [x] Chronic disease management?? [x] Wound care and treatment?? [_] Home safety evaluation [x] Administer SQ/IM/IV medications?? [_] Cath care?? [_] Drain care?? [_] Trach or GT care?? Other _ Occupation Therapy (select all that apply): [_] None [_] ADL Management [_] Fall prevention training [_] Energy conservation [_] Cognitive training Other _ Physical Therapy (select all that apply): [_] None [x] Functional mobility training [_] Home exercise program to strengthen [_] Increase ROM?? [_] Falls prevention training [x] Home maintenance program for chronic disease Other _ Speech Therapy (select all that apply): [_] None [_] Swallow evaluation and training [_] Speech and language training [_] Cognitive training to process, organize, and/or recall information Other _ ? *Homebound due to (select all that apply): [_] Inability to leave home without assistance/supervision [_] Inability to ambulate without assistance [_x Pain [_] Decreased strength and endurance [_] Unsteady gait [_] Severe SOB and fatigue [_] Impaired transfers [_] Inability to negotiate stairs [_] Limited weight bearing [_] Mental status change? *Physician Signature:??Silvina Jo MD ?? *By signing this, I certify that I have personally evaluated the patient and agree with the findings and recommendations as documented above. ? Results Discharge Labs BLOOD BANK Blood Type O Positive ()?? 03/29/2023 05:38 Antibody Screen Negative ()?? 03/29/2023 05:38 RBC Unit ID [id number] ()?? 03/29/2023 11:43 RBC Available PT ()?? 03/29/2023 11:43 ?? BLOOD COUNT & DIFF WBC 5.1 k/mm3 ()?? 04/07/2023 04:45 RBC 3.28 m/mm3 (Low)?? 04/07/2023 04:45 Hgb 8.3 Gm/dL (Low)?? 04/07/2023 04:45 Hct 26.4 % (Low)?? 04/07/2023 04:45 MCV 80.5 femtoliters ()?? 04/07/2023 04:45 MCH 25.3 pg (Low)?? 04/07/2023 04:45 MCHC 31.4 g/dL (Low)?? 04/07/2023 04:45 Platelet Count 148 k/mm3 (Low)?? 04/07/2023 04:45 RDW-SD 55.7 femtoliters (High)?? 04/07/2023 04:45 MPV 9.2 femtoliters (Low)?? 04/07/2023 04:45 Nucleated RBC (Automated) 0.0 #/100 WBC'S ()?? 04/07/2023 04:45 Abs. NRBC 0.0 k/mm3 ()?? 04/07/2023 04:45 Abs. Neut 2.3 k/mm3 ()?? 03/30/2023 06:24 Abs. Lymph 1.9 k/mm3 ()?? 03/30/2023 06:24 Abs. Independence 0.3 k/mm3 (Low)?? 03/30/2023 06:24 Abs. Eo 0.1 k/mm3 ()?? 03/30/2023 06:24 Abs. Baso 0.0 k/mm3 ()?? 03/30/2023 06:24 Neut % 49.5 % ()?? 03/30/2023 06:24 Lymph % 40.1 % ()?? 03/30/2023 06:24 Independence % 6.5 % ()?? 03/30/2023 06:24 Eos % 2.6 % ()?? 03/30/2023 06:24 Baso % 0.9 % ()?? 03/30/2023 06:24 Peripheral Blood Smear Review Interp. Reviewed by pathologist. ()?? 03/30/2023 06:24 Retic Count 1.7 % ()?? 03/29/2023 01:03 Retic Count Corrected 0.8 % (Low)?? 03/29/2023 01:03 Retic Production Index 0.4 % (Low)?? 03/29/2023 01:03 Imm Gran 0.4 % ()?? 03/30/2023 06:24 Abs. Imm Gran 0.0 k/mm3 ()?? 03/30/2023 06:24 ?? CHEM GENERAL Sodium 138 mmol/L ()?? 04/07/2023 04:45 Potassium 4.4 mmol/L ()?? 04/07/2023 04:45 Chloride 99 mmol/L ()?? 04/07/2023 04:45 Bicarbonate Level 30 mmol/L (High)?? 04/07/2023 04:45 Anion Gap 9 ()?? 04/07/2023 04:45 Glucose Level 228 mg/dL (High)?? 04/07/2023 04:45 Glucose, POC 240 mg/dL (High)?? 04/06/2023 19:56 BUN 24 mg/dL (High)?? 04/07/2023 04:45 Creatinine-Blood 0.6 mg/dL (Low)?? 04/07/2023 04:45 Estimated GFR Creatinine 120 ML/MIN/1.73 M2 ()?? 04/07/2023 04:45 Calcium 9.2 mg/dL ()?? 04/07/2023 04:45 Protein, Total 6.6 Gm/dL ()?? 04/02/2023 05:04 Albumin 3.0 Gm/dL (Low)?? 04/02/2023 05:04 AG Ratio 0.8 ()?? 03/27/2023 09:19 LDH 168 units/L ()?? 03/29/2023 01:03 Alkaline Phosphatase 101 units/L ()?? 04/02/2023 05:04 AST (SGOT) 62 units/L (High)?? 04/02/2023 05:04 ALT (SGPT) 32 units/L ()?? 04/02/2023 05:04 Bilirubin, Total <0.2 mg/dL ()?? 04/02/2023 05:04 Bilirubin, Direct <0.2 mg/dL ()?? 04/02/2023 05:04 Bilirubin, Indirect Total bilirubin is less than the measureable limit. Therefore, indirect mg/dL ()?? 04/02/2023 05:04 Lactate 0.8 mmol/L ()?? 04/05/2023 03:45 C-Reactive Protein 2.7 mg/dL (High)?? 03/29/2023 01:03 ? HEME OTHER Sed Rate 4 mm/hr ()?? 03/29/2023 01:03 ? IMMUNOLOGY GENERAL Haptoglobin 116 mg/dL ()?? 03/29/2023 01:03 ? TOXICOLOGY/TDM Barbiturate Screen, Urine NONE DETECTED ()?? 03/28/2023 12:30 Cannabinoid Screen, Urine NONE DETECTED ()?? 03/28/2023 12:30 Cocaine Metabolite Screen, Urine POSITIVE (Abnormal)?? 03/28/2023 12:30 Benzodiazepine Screen, Urine NONE DETECTED ()?? 03/28/2023 12:30 Amphetamine Screen, Urine NONE DETECTED ()?? 03/28/2023 12:30 Opiate Screen, Urine POSITIVE (Abnormal)?? 03/28/2023 12:30 ?? URINE OTHER Est Creatinine Clearance 126.67 mL/min ()?? 03/27/2023 18:39 ? VIROLOGY Influenza A PCR NEGATIVE ()?? 03/27/2023 09:35 Influenza B PCR NEGATIVE ()?? 03/27/2023 09:35 RSV PCR NEGATIVE ()?? 03/27/2023 09:35 COVID-19 PCR Specimen Source NASAL ()?? 03/27/2023 09:35 COVID-19 PCR Result POSITIVE (Abnormal)?? 03/27/2023 09:35 ? Microbiology ?? Blood Culture?? Completed?? Source: Blood Body Site: ?? Collected Dt/Tm: 03/27/2023 08:49 Last Updated Dt/Tm: 03/27/2023 08:50 ?SPECIMEN DESCRIPTION : BLOOD ??RT ACSPECIAL REQUESTS : NONECULTURE : NO GROWTH 5 DAYS.REPORT STATUS : FINAL 04/01/2023 Blood Culture #2?? Completed?? Source: Blood Body Site: ?? Collected Dt/Tm: 03/27/2023 08:49 Last Updated Dt/Tm: 03/27/2023 08:50 ?SPECIMEN DESCRIPTION : BLOOD ??NO SITESPECIAL REQUESTS : NONECULTURE : NO GROWTH 5 DAYS.REPORT STATUS : FINAL 04/01/2023 ? Imaging ?(03/27/2023 05:15 EST Forearm 2 Views Left) IMPRESSION:? There is probably new destructive change of the distal ulna.?? WSN: [id number] [1] ?? (03/27/2023 10:[address] Ext Upper W/ Contrast Left) IMPRESSION: ?? 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 ?? Extensive soft tissue edema of the forearm and wrist. No discrete fluid collection. ?? [2] 40??minutes spent on discharge Patient care discussed with Dr. Steven Jo, PGY - 2 Internal Medicine/Pediatrics?? [1]??Forearm 2 Views Left; Keith Linder MD 03/27/2023 05:15 EST [2]??CT Ext Upper W/ Contrast Left; Adrien Granados MD W 03/27/2023 10:21 EST * Silvina Jo MD S: PERFORM Event Display: Discharge/Transfer Note Hospital Authored Date: [id number] Patient was not able to be discharged today due to no bed availability at rehab facility. This willserve as a progress note for today. * Norma Harris MD: PERFORM Event Display: Discharge/Transfer Note Hospital Authored Date: [id number] Attending Attestation: I have seen and evaluated this patient.?? I have discussed the case and its management with the resident and agree with the findings and plan as documented in the resident???s note. * Silvina Jo MD S: PERFORM Event Display: Patient Education Leaflets Authored Date: [id number] Discharge Instructions for Osteomyelitis ?? [id number] Discharge Instructions for Osteomyelitis You have a [...] tired ?? Last Reviewed Date: 2021 ?? [id number] [employer]. All rights reserved. This information is not intended as a substitute for professional medical care. Always follow your healthcare professional's instructions. ?? * Toy Langley RN: PERFORM Event Display: Procedures Invasive Line Authored Date: [id number] Vascular Access Insertion Entered On: 03/29/2023 18:24 EST Performed On: 03/29/2023 18:21 EST by Toy Langley RN Vascular Access Insertion Date of Vascular Access Insertion : 03/29/2023 EST Procedure Location Vascular Access : D6B Person recording insertion : Resistor Coater Resistor Coater of Vascular Access : Toy Langley RN Occupation of Vascular Access Resistor Coater : Registered nurse Was watch assembly inspector a member of PICC/IV Team : Yes Toy Langley RN - 03/29/2023 18:21 EST Procedural Comments Risk Factors and Labs Reviewed : Yes Anticoagulation Therapy : Yes Antiplatelet Therapy : No Toy Langley RN - 03/29/2023 18:21 EST Was vascular access order placed : [...] Sherlock 3CG technology Toy Langley RN - 03/29/2023 18:21 EST DCP GENERIC CODE Suture needles : 0 Schuyler : 3 Scalpels : 1 Clamps : 0 Guide Wires : 1 Toy Langley RN - 03/29/2023 18:21 EST Complications during Insertion : None Tolerated CLIP procedure well : Yes Insertion Attempts : 1 Vascular Access Device QA : CT PICC 4Fr Double lumen Right arm @35cm Vascular Access Device Lot Number : [id number] Vascular Access Device Code : [id number] Vascular Access Device Expiration Date : 05/20/2024 EST Vascular Access Insertion Comments : Mid bicep circumference 10cm above AC: 22cm PICC okay to use Toy Langley RN - 03/29/2023 18:21 EST Admission evaluation note * Emely MCKEON, Paula Torrez: PERFORM, MODIFY, MODIFY, MODIFY, MODIFY, MODIFY, MODIFY, MODIFY Event Display: Admission Note Authored Date: [id number] Patient: ??LUCIAN ZHAO ? Age:??42 Years?Sex:??Male?:??1980?? History of Present Illness 42-year-old gentleman with a PMH of chronic left upper extremity wounds, type 2 diabetes, IV drug use (heroin and cocaine), hepatitis C, prior MRSA bacteremia, polysubstance use presenting to the emergency department with concern for worsening left upper extremity infection. Patient was recently seen back in February after debridement with Dr. García. He was discharged to a rehab but on day of discharge decided to leave [facility]. He reports that after leaving he did not adhere to follow-up or antibiotic treatment. Has not had routine wound care since leaving. He returns to the emergency department for green discharge and worsening pain. States that he cannot move his left wrist and fingers secondary to pain. He denies any injection in this left upper extremity only in RUE. He denies any fevers,chills, chest pain, shortness of breath, abdominal pain, vomiting, diarrhea, urinary symptoms. Lastused 2 days ago, injects, 4-5 bundles. Used to be on methadone but has not been on it since his last admission. ?? On arrival, patient is afebrile, mildly tachycardic but the rest of his vitals are within normal limits. Labs notable for normal WBC, microcytic anemia, and lactate of 2.4. Normal kidney and liver function. ?? 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 ?? Review of Systems A full review of systems was completed and is otherwise negative except as mentioned in history of present illness. Physical Exam Vitals & Measurements T:??98.1?F?? TMIN:??98.1?F?? TMAX:??98.6?F?? HR:??105??(Peripheral)?? RR:??16?? BP:??138/97?? SpO2:??100%?? General: Middle age male, severely cachectic appearing, temporal wasting, moderate distress due to pain HEENT: Normocephalic, atraumatic. Mucous membranes moist.?? Cardiac: Regular rate and rhythm. Normal S1 and S2 heard. No JVD. Respiratory: Lung sounds clear to auscultation in all lobes bilaterally.?? Abdomen: Unable to examine as patient's hand which is very tender was resting above abdomen, pt in too much pain to move arm right now.?? Extremities: LUE wrapped in gauze/dressing. Bilateral LE with moderate swelling, erythema, excoriated rash diffusely. Neurological: AAOx3. Able to move all extremities except LUE due to pain. Able to move L 5th digit but not others due to pain. Psychiatric: Normal mood and affect.?? Assessment/Plan 42-year-old gentleman with a PMH of chronic left upper extremity wounds, type 2 diabetes, IV drug use, hepatitis C, prior MRSA bacteremia, polysubstance use presenting to the emergency department with concern for worsening left upper extremity infection. Admitted for chronic osteomyelitis. ?? Chronic left wrist osteomyelitis -L wrist tissue biopsy in 03/02/2023 grew proteus vulgaris, klebsiella oxytoca, enterococcus faecalis VRE. Left hand abscess from 03/02/2023 grew MRSA. -At last visit, plan was for IV cefepime and daptomycin for 6 weeks may need longer (per last OPA instructions: planned duration till 04/27/2023, will reassess at that point if needs up to 12 weeks (till 05/25/2023) -During last visit, went to OR on 03/02 for: Left forearm and wrist washout, excisional debridementof skin, subcutaneous tissue and muscle 20x7cm, Left distal radius bone biopsy ?? Plan: -F/u blood cultures this admission -No plan for plastic/hand surgical intervention at this time. -IV antibiotics: Cefepime 2gm q8 and Daptomycin 450mg q24 -ID and wound care consulted -Start IV Fluids -PT consult for placement -Nutrition consult -Tylenol 975mg TID ?? COVID-19 -Asymptomatic, saturating 100% on RA ?? Plan: -Supportive care ?? Chronic Medical Conditions: -CLARISA: Resume Ferrous sulfate -DM: A1C 11.3 in November. At home taking Glargine 12 units at bedtime. Resume Glargine 10 units (weight based dose 0.2*46 is 9.2) with ISS and hypoglycemia measures. -Neuropathy: Continue Gabapentin 600mg tid -Polysubstance abuse: His regular dose is Methadone 75mg qd, however he has not??been using this since he left the hospital AMA at last visit. Thus will restart at Methadone 30mg daily and will??Consult Addiction for Methadone uptitration. ?? Quality Measures: -DVT ppx: Lovenox -Diet: Diabetic -Code: Full Code ?? Paula Han MD PGYII Internal Medicine Problem List/Past Medical History Ongoing Cellulitis Cellulitis and abscess of hand, except fingers and thumb Cocaine use disorder, severe, dependence Diabetes Hyperglycemia without ketosis Hyponatremia Opioid use disorder, severe, dependence Polysubstance abuse Uncontrolled diabetes mellitus with hyperglycemia Underweight Medications Inpatient Acetaminophen Tablet, 650 mg, By Mouth, Every 4 hours, PRN DAPTOmycin Inj, 450 mg= 9 mL, IV Push Slowly, Every 24 hours Dextrose 50% Inj Syringe (25Gm), 12.5 Gm, IV Push Slowly, Every 20 minutes, PRN Dextrose 50% Inj Syringe (25Gm), 25 Gm, IV Push Slowly, Every 15 minutes, PRN Docusate Sodium Capsule, 100 mg= 1 capsule, By Mouth, 2 times a day, PRN Glucagon Inj, 1 mg, Intramuscular, Once, PRN Glucose Gel, 15 Gm, By Mouth, Every 20 minutes, PRN Glucose Gel, 30 Gm, By Mouth, Every 20 minutes, PRN Insulin Glargine Inj, 10 units= 0.1 mL, Subcutaneous Injection, Daily at bedtime Insulin LISPRO Sliding Scale, 2-10 units, Subcutaneous Injection, 3 times a day before meals Melatonin Tablet, 3 mg, By Mouth, Daily at bedtime, PRN MiraLax Powder, 17 Gm= 1 pack/packet, By Mouth, Daily, PRN MorPHINE Inj, 4 mg, IV Push Slowly, Every 5 minutes, PRN NaCL 0.9% Flush, 3 mL, IV Push, Every 8 hours NaCL 0.9% Flush, 3 mL, IV Push, Every 8 hours, PRN Robitussin DM Liquid, 10 mL, By Mouth, Every 4 hours, PRN Senna Tablet, 8.6 mg= 1 tablet, By Mouth, 2 times a day, PRN Simethicone Tablet, 80 mg, Chew, 3 times a day, PRN Home Alcohol Wipes, See Instructions, 5 refills cefepime 2 g intravenous injection, 2000 mg, IVPB, Every 8 hours Cubicin RF, 450 mg, IV Infusion, Every 24 hours ferrous sulfate 325 mg oral enteric coated tablet, 325 mg= 1 tablet, By Mouth, Daily folic acid 1 mg oral tablet, 1 mg, By Mouth, Daily Freestyle Lite Lancets, See Instructions, 5 refills Freestyle Lite Monitor, See Instructions, 5 refills Freestyle Lite Test Strips, See Instructions, 5 refills gabapentin 300 mg oral capsule, 600 mg, By Mouth, 3 times a day Humalog Kwik Pen 100 units/mL subcutaneous injection, See Instructions ibuprofen 400 mg oral tablet, 400 mg, By Mouth, 3 times a day, PRN Lantus Solostar Pen 100 units/mL subcutaneous solution, 15 units, Subcutaneous Injection, Daily at bedtime melatonin 3 mg oral tablet, 3 mg, By Mouth, Daily at bedtime, PRN Methadone, 75 mg, By Mouth, Daily in AM Multivit Therapeutic/Minerals Tablet, 1 tablet, By Mouth, Daily Pen Schuyler, 31 G x 5 mm BD Ultra Fine III, See Instructions, 5 refills Tylenol 325 mg oral tablet, 975 mg, [...] 11/13/2020 Recorded tetanus/diphtheria/pertussis, acel(Tdap) 10/26/2008 Recorded * Ray Mckee MD: PERFORM Event Display: Admission Note Authored Date: [id number] 42-year-old man with insulin-dependent type 2 diabetes,??polysubstance use disorder including opiates and IV drug use, chronic hepatitis C who presented for worsening purulence and pain in his chronic left upper extremity wounds. ?? He was recently admitted from 02/21 - 03/12 for similar complaints status post??washout and bone biopsy and discharged on IV cefepime and daptomycin for 6 weeks to rehab but left AGAINST MEDICAL ADVICE prior to rehab. ?? Diagnoses: Chronic left forearm wounds Chronic left wrist osteomyelitis Insulin-dependent type 2 diabetes Severe opioid use disorder on maintenance therapy Cocaine use disorder Chronic hepatitis C Severe malnutrition related to inadequate protein-energy intake COVID 19 Decubitus ulcer of right ischium, stage 2 Non-pressure ulcer of left lower extremity, limited??to breakdown of skin?? Non-pressure ulcer of right lower extremity, limited to breakdown of skin? Vitals reviewed and significant for Tachycardia and otherwise unremarkable. Labwork reviewed and significant for Microcytic anemia with CBC and BMP otherwise??unremarkable. CT LUE w CON Imaging reviewed and significant for Chronic destructive osteomyelitis at the radiocarpal and ulnocarpal articulations as well as throughout the carpus with worsening bony resorption when compared to 12/04/2022 and likely similar??to radiographs dated 02/20/2023. . ? Plan: ???Started on cefepime 2 g every 8 hours, daptomycin 450 mg daily per discharge recommendations from infectious diseases. ??Duration planned for 03/02 - 04/27 but likely will have to start 8-week course again depending on ID recommendations ?Methadone??30??mg. ?? EKG 476 ms. Addiction consult for methadone uptitrating ?Tylenol 975 mg 3 times daily plus methadone and prn dilaudid ?ID and wound consult ?Follow-up blood cultures ???10??units Lantus, 3U Lispro SSI starting at 100mg/dL going up by 1U every 50mg/dL ?? Ongoing Medical Necessity:?? IV antibiotics ?? Quality Measures: CODE STATUS: FULL CODE DVT Prophylaxis: Enoxaparin 40mg QD Disposition: Pending Physical Therapy??Evaluation ?? I evaluated the patient on date of service 03/27/2023. I saw and evaluated this patient with Dr. Han and agree with the resident???s findings and plan ofcare as documented by the resident or edited by me. I spent 39 minutes on the following: preparing to see the patient (eg, review of tests), obtaining and/or reviewing separately obtained history, performing a medically appropriate examination and/or evaluation and counseling and educating the patient/family/caregiver EKG study * Event Display: EKG Authored Date: * Event Display: ECG 12-Lead Authored Date: Please click on pdf link to open report * Event Display: ECG 12-Lead Authored Date: Ventricular Rate: 79 BPM Atrial Rate: 79 BPM P-R Interval: 128 ms QRS Duration: 82 ms Q-T Interval: 396 ms QTC Calculation(Bazett): 454 ms P Hanson: 69 degrees R Hanson: 54 degrees T Hanson: 78 degrees Normal sinus rhythm Normal ECG Confirmed by YAMILETH WYATT ([id number]) on 03/30/2023 4:55:38 PM Raymond: YAMILETH WYATT * Event Display: ECG 12-Lead Authored Date: Please click on pdf link to open report * Event Display: ECG 12-Lead Authored Date: Ventricular Rate: 91 BPM Atrial Rate: 91 BPM P-R Interval: 132 ms QRS Duration: 72 ms Q-T Interval: 370 ms QTC Calculation(Bazett): 455 ms P Hanson: 71 degrees R Hanson: 59 degrees T Hanson: 86 degrees Normal sinus rhythm Normal ECG When compared with ECG of 26-MAR-2023 16:44, No significant change was found Confirmed by YAMILETH WYATT ([id number]) on 03/30/2023 4:55:31 PM Raymond: YAMILETH WYATT Hospital Progress note * Michoacano Bowles RN: PERFORM, SIGN, VERIFY Event Display: Progress Note Hospital Authored Date: Patient: LUCIAN ZHAO Age: 42 years Sex: Male : 1980 Associated Diagnoses: None Author: Michoacano Bowles RN Findings Evaluation Pt transferred to [facility] unit Spoke 3 VIA ambulance @ 22:00. Report called and given to RN recieving pt. . Discharge Information Case Management Discharge Plan : Case Management Discharge Plan Data 04/08/2023 20:59 EST Discharge Level of Care at Discharge Short-term Acute Inpatient * Ave Borjas RN: PERFORM, SIGN, VERIFY Event Display: Progress Note Hospital Authored Date: Patient: LUCIAN ZHAO Age: 42 years Sex: Male : 1980 Associated Diagnoses: None Author: Ave Borjas RN Findings Problem Related to Alteration in Comfort : Alteration in Comfort/new 04/08/2023 4:00 EST Alteration in Comfort Related to Injury Goals & Outcomes: Comfort Pt will report acceptable level of comfort & pain control, Pt will state importance of adhering to pain strategy regime Interventions Implemented: Comfort Assess pain using appropriate pain scale/tools, Assess aggravating factors & prevent them accordingly, Assess alleviating factors & promote them accordingly BH Goals/Interventions, Comfort Yes Comfort, Problem Start 03/27/2023 11:10 Reviewed plan with, Comfort Patient Patient Progression, Comfort Pt progressing according to plan Comfort, Problem Ongoing Yes . Alteration in Integumentary : Alteration in Integumentary/new 04/08/2023 4:00 EST Alteration in Integumentary Related to Other: L Arm Wound Goals & Outcomes, Integumentary Pt will maintain adequate fluid & nutritional balance, Wound will progress towards healing Interventions, Integumentary Cleanse all wounds with Normal Saline, Encourage & assist pt to change position [...] skin integrity, Relieve pressure off bony areas, Teach Pt/caregiver s/s of infection Goals/Interventions, Integumentary Yes Integumentary, Problem Start 03/27/2023 18:33 Reviewed plan with, Integumentary Patient Patient Progression, Integumentary Pt progressing according to plan . Nursing Data Vital Signs : VITAL SIGNS SECTION 04/07/2023 20:00 EST Temperature 98.0 DegF Temperature Route Oral Pulse Rate 89 bpm Systolic Blood Pressure 139 mm Hg H Diastolic Blood Pressure 81 mm Hg Blood pressure sites Arm, right Pulse Pressure 58 mm Hg Oxygen Saturation 100 % Mode of Delivery (Oxygen) Room air . Narrative/Incidental Alert and oriented x 4, afebrile. No chest pain or shortness of breath. Complained of left arm pain, Dilaudid 0.5 mg IV given PRN with relief. Currently on IV antibiotics. Slept most part of the night. Needs were attended. Will continue care plan. Evaluation Progressing with plan of care. * Caryn LOPEZ, Ashley: PERFORM, SIGN, VERIFY Event Display: Progress Note Hospital Authored Date: Patient: LUCIAN ZHAO Age: 42 years Sex: Male : 1980 Associated Diagnoses: None Author: Ashley Rubin RN Findings Problem Related to Alteration in Comfort : Alteration in Comfort/new 04/07/2023 10:00 EST Alteration in Comfort Related to Injury Goals & Outcomes: Comfort Pt will report acceptable level of comfort & pain control, Pt will state importance of adhering to pain strategy regime Interventions Implemented: Comfort Assess pain using appropriate pain scale/tools Goals/Interventions, Comfort Yes Comfort, Problem Start 03/27/2023 11:10 Reviewed plan with, Comfort Patient Patient Progression, Comfort Pt progressing according to plan Comfort, Problem Ongoing Yes . Alteration in Integumentary : Alteration in Integumentary/new 04/07/2023 10:00 EST Alteration in Integumentary Related to Other: L Arm Wound Goals & Outcomes, Integumentary Pt will maintain adequate fluid & nutritional balance, Wound will progress towards healing Interventions, Integumentary Keep skin clean & dry Goals/Interventions, Integumentary Yes Integumentary, Problem Start 03/27/2023 18:33 Reviewed plan with, Integumentary Patient Patient Progression, Integumentary Pt progressing according to plan . Narrative/Incidental Pt AOx3. VSS on room air. Covid isolation d/c today. pt continues to have LUE pain, requiring iv dilaudid with good relief. dressing changed to LUE wound QOD, changed 04/06, dressing CDI. iv abx for osteo infection. pt has refused insulin today despite POC in 200s. MD aware. Waiting rehab placement.Safety maintained. Call light in reach, care on going.. Consult note * Samara Pandey RN: PERFORM, SIGN, VERIFY Event Display: Consultation Note Authored Date: [id number] Patient: LUCIAN ZHAO Age: 42 years Sex: Male : 1980 Associated Diagnoses: None Author: Samara Pandey RN History of Presenting Problem Date of Service 03/30/2023 Reason for referral Wound: Description Location: BLE Etiology: scattered scabbing and resolving blood blisters Description: red, maroon, stable scabbing Measurements: largest to left lateral LE measures 3cm x 4cm Drainage: none Odor: na Edges: irregular; defined; attached Periwound: dried, flaking epidermal layer Pain: denies Goal of treatment: soften and soothe skin . Wound: Description Location: left posterior forearm Etiology: cellulitis and abscess Description: 80% red, viable tissue; 20% with islands of yellow and brown slough; exposed tendon Measurements: 17cm x 8cm x 0.4cm Drainage: moderate amount of thick yellow, opaque drainage Odor: none Edges: irregular; defined; attached Periwound: intact no erythema, induration or fluctuance noted Pain: endorses Goal of treatment: management of biofilm and debris; antimicrobial action; management of drainage . LLE right pate left posterior forearm 02/23/23 left posterior forearm 03/30/23 Received wound RN consult to assess LUE and BLE wounds and provide appropriate topical wound care recommendations. Patient recently admitted to [facility] with c/o LUE infection. Of note, he has been seen by hand surgery who is deferring to the wound RN team for topical wound care recommendations. He has a PMH significant for DM, IVDU, Hep C, MRSA, polysubstance abuse and LUE wounds. Upon entry into patient's room, he is found lying in bed, alert and oriented x 3. Role of wound RN is explained and he is amenable to continuing with consult and photodocumentation. Patient was in the middle of eating and was agreeable to have BLE wounds assessed. Once completed with his lunch, LUEdressing is removed so that wound could be visualized as well. All are described as above. Spoke with patient and direct care RN regarding recommendations. [place] text sent to Dr Han as well. Recommendations: 1. BLE- Cleanse with ph balanced skin cleanser. Pat dry. Apply Hydraguard (blue top cream) daily 2. left posterior forearm- Apply Vashe moistened gauze to wound bed. Leave in place x 10 minutes. Remove gauze and pat wound bed dry. Apply nickel thick layer of Iodosorb gel to wound bed. Cover withdry gauze, wrap with juvenal and secure with tape. Change every 2 days and as needed for saturation. 3. Continue to provide optimal nutritional support Please reconsult wound RN for deterioration in wound/skin status. Plan Recommendations Nutrition Plan Consult [employer] Maximize nutritional support Mobility Bobby Score : Bobby Score 03/29/2023 9:00 EST Bobby Score 17 03/28/2023 9:00 EST Bobby Score 14 Patient Teaching Discussed plan of care with patient Discussed plan of care with RN Time spent 31-45 minutes * Mami Choe: PERFORM Event Display: Consultation Note Authored Date: [id number] Patient: ??LUCIAN ZHAO ? Age:??42 Years?Sex:??Male?:??1980?? Reason for Consultation Addiction Med Consult - methadone titration Requested by??Dr Paula Han History of Present Illness Lucian Zhao is a 42 yo??with a PMHx of opioid use disorder, cocaine use disorder,??IVDU,??HCV,??chronic wounds,??poorly controlled??DM T2,??previous??MRSA bacteremia. Pt with multiple admissions over the last year with chronic wounds. Many AMA discharges, and general poor follow up once back in the community. Pt was here last month 02/21 - 03/12, during which time the addiction team was involved, and pt reached a methadone dose of 75mg daily. Pt did not follow up with any clinic upon leaving AMA last month, and methadone had to be restarted when he presented again. Additionally, pt did not follow up with any type of wound care or adhere to antibiotic treatment. Pt was admitted 03/27 after presenting with ongoing LUE infection. Pt started on IV antibiotics, anticipating for an 8 week course, but ultimately depending on ID recommendations. Pt restarted on methadone 30mg daily as well, QTc <500ms. ?? Met with pt this morning for brief interview, pt well known to service. Pt reporting he has still been using multiple bundles of heroin a day, 4-5. Continues to use IV. Pt also still using cocaine on a daily basis, also IV. Amount vary. He does not endorse use of any different or new substances since he was last seen last month. He expresses that he would like to stay on methadone maintenance still, not particularly interestedin any specific resource referrals. Did discuss [facility]??transitional services program though, which pt said he would consider. Review of Systems No acute complaints this morning Physical Exam Vitals & Measurements T:??98.4?F?? TMIN:??98.1?F?? TMAX:??98.5?F?? HR:??82??(Peripheral)?? RR:??16?? BP:??156/94?? SpO2:??99%?? General:??Thin male, cachectic,??appears to be stated age.??Breathing is??even and unlabored.??In no acute distress,??no diaphoresis. Mental Status Exam: Appearance:??casual?? Attitude:??cooperative? Eye contact:??normal Motor activity:??calm, no aberrant movements? Mood:??euthymic? Affect:??congruent? Speech:??fluent, unimpaired? Judgment:??appears intact? Insight:??appears intact? Thought process:??linear? Reliability:??likely reliable source? Delusions or hallucinations:??denies Fund of knowledge:??intact Assessment/Plan Severe opioid use disorder (F11.20):??. Pt has been started on methadone 30mg, received today and yesterday. QTc <500ms. While still quite thin, it does appear that pt has put on a little weight since his last admission here at least. Pt generally tolerates the lower doses of methadone without any issues. Could do another 10mg of methadone x1 this afternoon and maintain on 40mg for now. Can likely increase further to 50mg daily after 1-2 days. Continue with PRN opioids per primary team. ?? Can continue PRN clonidine and vistaril for symptomatic management of withdrawal symptoms. Could consider addition of flexeril 10mg PO TID PRN body aches. ?? Severe cocaine use disorder (F14.20):??. Patient counseled on risks of cocaine use, [...] as well as contingency management plans. Pt??receptive.? Update sent via [employer] to Dr Han. Addiction??Service will continue to follow with this patient. Thank you for allowing us to participate in the care of this patient. Please contact me with any further questions or concerns.? Problem List/Past Medical History Ongoing Cellulitis Cellulitis and abscess of hand, except fingers and thumb Cocaine use disorder, severe, dependence Diabetes Hyperglycemia without ketosis Hyponatremia Opioid use disorder, severe, dependence Polysubstance abuse Uncontrolled diabetes mellitus with hyperglycemia Medications Inpatient Cefepime Extended IVPB, 2000 mg, IVPB, Every 8 hours cloNIDine 0.1 mg oral tablet, 0.1 mg, By Mouth, 4 times a day, PRN DAPTOmycin Inj, 450 mg= 9 mL, IV Push Slowly, Every 24 hours Dextrose 50% Inj Syringe (25Gm), 12.5 Gm, IV Push Slowly, Every 20 minutes, PRN Dextrose 50% Inj Syringe (25Gm), 25 Gm, IV Push Slowly, Every 15 minutes, PRN Dilaudid Inj, 1 mg= 1 mL, IV Push Slowly, Every 4 hours, PRN Docusate Sodium Capsule, 100 mg= 1 capsule, By Mouth, 2 times a day, PRN Enoxaparin Inj, 40 mg= 0.4 mL, Subcutaneous Injection, Daily ferrous sulfate 325 mg oral enteric coated tablet, 325 mg, By Mouth, Daily folic acid 1 mg oral tablet, 1 mg, By Mouth, Daily gabapentin 300 mg oral capsule, 600 mg, By Mouth, 3 times a day Glucagon Inj, 1 mg, Intramuscular, Once, PRN Glucose Gel, 15 Gm, By Mouth, Every 20 minutes, PRN Glucose Gel, 30 Gm, By Mouth, Every 20 minutes, PRN HydrOXYzine HCL Tablet, 10 mg, By Mouth, 3 times a day, PRN Insulin Glargine Inj, 10 units= 0.1 mL, Subcutaneous Injection, Daily at bedtime Insulin LISPRO Sliding Scale, 5 units= 0.05 mL, Subcutaneous Injection, 3 times a day before meals Melatonin Tablet, 3 mg, By Mouth, Daily at bedtime, PRN Methadone Tablet, 30 mg, By Mouth, Daily MiraLax Powder, 17 Gm= 1 pack/packet, By Mouth, Daily, PRN NaCL 0.9% Flush, 3 mL, IV Push, Every 8 hours NaCL 0.9% Flush, 3 mL, IV Push, Every 8 hours, PRN NaCL 0.9% Flush, 5 mL, IV Push, Daily NaCL 0.9% Flush, 5 mL, IV Push, Every hour, PRN nalOXONE Inj, 0.2 mg= 0.5 mL, IV Push, Every 5 minutes, PRN Robitussin DM Liquid, 10 mL, By Mouth, Every 4 hours, PRN Senna Tablet, 8.6 mg= 1 tablet, By Mouth, 2 times a day, PRN Simethicone Tablet, 80 mg, Chew, 3 times a day, PRN Toradol Inj, 7.5 mg= 0.25 mL, IV Push Slowly, 4 times a day Tylenol 325 mg oral tablet, 975 mg, By Mouth, 3 times a day Home Alcohol Wipes, See Instructions, 5 refills cefepime 2 g intravenous injection, 2000 mg, IVPB, Every 8 hours Cubicin RF, 450 mg, IV Infusion, Every 24 hours ferrous sulfate 325 mg oral enteric coated tablet, 325 mg= 1 tablet, By Mouth, Daily folic acid 1 mg oral tablet, 1 mg, By Mouth, Daily Freestyle Lite Lancets, See Instructions, 5 refills Freestyle Lite Monitor, See Instructions, 5 refills Freestyle Lite Test Strips, See Instructions, 5 refills gabapentin 300 mg oral capsule, 600 mg, By Mouth, 3 times a day Humalog Kwik Pen 100 units/mL subcutaneous injection, See Instructions ibuprofen 400 mg oral tablet, 400 mg, By Mouth, 3 times a day, PRN Lantus Solostar Pen 100 units/mL subcutaneous solution, 15 units, Subcutaneous Injection, Daily at bedtime melatonin 3 mg oral tablet, 3 mg, By Mouth, Daily at bedtime, PRN Methadone, 75 mg, By Mouth, Daily in AM Multivit Therapeutic/Minerals Tablet, 1 tablet, By Mouth, Daily Pen Schuyler, 31 G x 5 mm BD Ultra Fine III, See Instructions, 5 refills Tylenol 325 mg oral tablet, 975 mg, By Mouth, 3 times a day zinc sulfate 220 mg oral capsule, 220 mg, By Mouth, Daily in AM Allergies morphine Zosyn Social History Alcohol Use: Never. Substance Abuse Use: Past. Type: Heroin. Substance abuse in household: No. Tobacco Use: 10 or more cigarettes (1/2 pack or more)/day in last 30 days. Immunizations Vaccine Date Status influenza virus vaccine, inactivated - Not Given Comments : Patient Refuses SARS-CoV-2 (COVID-19) Ad26 vaccine 11/13/2020 Recorded tetanus/diphtheria/pertussis, acel(Tdap) 10/26/2008 Recorded * Issa MCKEON, Olena Contreras: MODIFY, PERFORM, MODIFY Event Display: Consultation Note Authored Date: [id number] Patient: ??LUCIAN ZHAO ? Age:??42 Years?Sex:??Male?:??1980?? Reason for Consultation ongoing nonhealing wounds with underlying chronic osteomyelitis of left hand and left forearm in setting of active polysubstance abuse Requested by Dr. Mansfield Source of Information CIS, patient History of Present Illness Extremely complicated cachectic 42 year old male with active polysubstance abuse, poorly controlledtype II DM, HCV, h/o YAMILKA cavitary lung lesion and pneumococcal bacteremia (2020), prior MRSA bacteremia, prior upper extremity abscesses requiring drainage with chronic LUE wounds, prior admit in 04/2022 with possible pneumococcal bacteremia thought left AMA, admit in 07/2022 with left forearm abscess - left AMA, readmit in 08/2022 with multiple arm abscess and osteomyelitis of distal ulna - left AMA again, readmitted again from 12/03-12/19 with poorly controlled DM and taken to the OR on 12/15 and underwent left wrist arthrotomy and washout with biopsy of the distal radius bone for left wrist septic arthritis and osteomyelitis of the distal radius and ulna. OR (12/15) anaerobic cultures ON ANTIBIOTICS grew MRSA in the anaerobic culture with NO anaerobes isolated and had (-)blood cultures on 12/03.?? During his last admit blood cultures on 12/03 (04/24) were negative.?? As he did not want IV antibiotics and wanted to go home (staying with friends) he was discharged on oral doxycycline and augmentin with plan of 6 weeks of antibiotics from the OR on 12/15 till 01/26 and no path sent. 16S bacterial PCR by sequencing was negative and he was not seen in the ID OPD as he couldn't be reached. He wasreadmitted again on 02/21 with concern for worsening left upper extremity and right lower extremity wounds in the setting of active polysubstance abuse with NO wound care since last discharge. Labs showed a normal WCC & worsening anemia (Hgb 6.2). MRI LUE (02/22) showed destructive osteo of distal radius and ulna with abnormal marrow signal throughout all the carpal bones in the base of the second, third, and fourth metatarsals concerning for osteomyelitis, abnormal nonenhancing marrow signalthroughout the visualized radius and ulna more proximal to the distal site of osteomyelitis read aslikely reflecting serous atrophy of the bone marrow and malnutrition with extensive ulceration of the distal forearm with ulceration extending to the extensor tendons which appear to be torn.?? (02/21) blood culture (03/23) was negative and inflammatory markers were as follows:?? ESR 17 (better than prior admit) & CRP 5.0 (down from CRP 5.5 on 12/03). He was taken to OR on (03/02) and underwent left forearm and wrist washout, excisional debridement of skin, subcutaneous tissue and muscle with left distal radius bone biopsy for left wrist osteomyelitis, myositis and rupture of extensor tendons and nonhealing wounds due to a polymicrobial infection.?? OR notes stated a pocket of purulent fluid on dorsal aspect of metacarpals and pus was expressed and sent for culture with extensive debridement of skin, subcutaneous tissue, muscle and tendon with tissue culture sent and path with obvious rupture of multiple finger extensors and wrist extensors and a bone biopsy performed with noted very soft bone.?? All necrotic tissue was removed.?? On 03/02 tissue left wrist OR culture grew: proteus vulgaris, kleb oxytoca AND now VRE (R amp) BUT bone distal radius culture (03/02)?? grew morganella.?? Swab left hand abscess on 03/02 grew: 4+ MRSA with NO anaerobes to date on either culture. Path was read as read as fragments of bone with chronic inf lammation and marrow fibrosis consistent with chronic osteomyelitis. During last admit he was awarethat his treatment course was very difficult as he had left AMA multiple times previously in setting of active substance abuse and was severely malnourished/cachectic with extensive underlying osteomyelitis on distal radius, ulna, all carpal bones & bases of 2nd, 3rd and 4th MCPs on MRI LUE on 02/22 yet improving inflammatory markers - with essentially a limb threatening infection. He was eventually discharged to rehab on 03/12 after admit from 02/21-03/12/2023 on IV dapto 450mg daily and cefepime 2gq8h IV but left rehab again without antibiotics and actively using IV heroine with last use 2 days prior to ED presentation.?? He denied any fevers, chills, sweats, cough, shortness of breath,nausea, vomiting, diarrhea or rash.?? Vitals in the ED were as follows: Temp 98.2, heart rate 98, respiratory 17, blood pressure 135/91 satting 100% on room air.?? Labs showed WBC 7, hemoglobin 8.8, platelets 182, glucose 253, creatinine 0.6, lactic 2.4 with normal LFTs.?? CT of the left upper extremity on 03/27/2023 showed chronic destructive osteomyelitis at the radiocarpal and ulnocarpal articulations as well as throughout the carpus with worsening bony resorption compared to prior imaging in November and February 2023 with extensive soft tissue edema of the forearm and wrist but no discrete fluid collection.?? He was evaluated by hand surgery who felt he needed no surgical intervention but recommended IV antibiotics and ID input. ID is asked to help with antibiotics. ? Past Medical and Surgical History: ??? Poorly controlled type 2 diabetes ??? active IVDU - polysubstance abuse -chronic HCV, immune to HepB by serologies and HIV negative during last admit (11/2022) ??? Upper extremity abscesses requiring drainage ??? Left upper lobe cavitary lung lesion with pneumococcal bacteremia 08/2020 managed with roughly 4weeks of antibiotics, AFB cultures negative, did not follow-up with ID in the office as recommended ??? Presumed pneumococcal pneumonia 04/2022, left AMA ??? MRSA bacteremia 10/2019 ??? prior Burkholderia bacteremia -recent complicated admits well detailed in HPI above ?? Recent Antimicrobials: -dapto -cefepime ?? Medications: Reviewed ?? Antimicrobial Allergies: -zosyn ? ?? Family History: No relevant history of infectious issues in first degree relatives. ?? Social History and Infectious Diseases Exposure History: using heroin, cocaine and tobacco. injecting into right arm but denies into left. (+)homeless Review of Systems appears to be negative otherwise Physical Exam Vitals & Measurements Vital Signs?? Temperature: 97.9 DegF (03/28/23 08:00:00) Temperature Route: Oral (03/28/23 08:00:00) Pulse Rate:??102 bpm??High (03/28/23 08:00:00) Respiratory Rate: 17 br/min (03/28/23 08:00:00) Systolic Blood Pressure: 137 mm Hg (03/28/23 08:00:00) Diastolic Blood Pressure:??86 mm Hg??High (03/28/23 08:00:00) Blood pressure sites: Arm, right (03/28/23 08:00:00) Mean Arterial Pressure: 90 mm Hg (03/27/23 15:36:00) Pulse Pressure: 51 mm Hg (03/28/23 08:00:00) Oxygen Saturation: 100 % (03/28/23 08:00:00) Mode of Delivery (Oxygen): Room air (03/28/23 08:00:00) Early Warning Score: 3 (03/28/23 09:11:45) ?? General: chronically ill appearing, pale, cachectic, chronically ill appearing very thin, looks tired HEENT: PERRL, EOMI, anicteric sclera, pink conjunctiva, dry mucous membrane, no thrush, neck supple, no cervical adenopathy CVS: RRR, S1, S2 Respiratory: Clear to auscultation Abdomen: Soft, very thin, nontender, nondistended, bowel sounds present Muscu: generalized muscle wasting Extremities: No cyanosis, clubbing or edema; track pinto; upper extremity wrapped on left to wrist/hand/forearm (did not unwrap) MUSCU: generalized muscle wasting Derm: No rash, dry skin, multiple wounds on bilateral lower extremities - limited exam due to pain Neuro: A&O x3, moving extremities freely - limited range of motion of left arm/wrist due to pain ?? LABS: WBC 5.3, hemoglobin 7.3, platelets 159, glucose 219, creatinine 0.6, alk phos 133, AST 23,lactate 2.5 Assessment/Plan Extremely complicated cachectic 42 year old male with active polysubstance abuse, poorly controlledtype II DM, HCV, h/o YAMILKA cavitary lung lesion and pneumococcal bacteremia (2020), prior MRSA bacteremia, prior upper extremity abscesses requiring drainage with chronic LUE wounds, prior admit in 04/2022 with possible pneumococcal bacteremia thought left AMA, admit in 07/2022 with left forearm abscess - left AMA, readmit in 08/2022 with multiple arm abscess and osteomyelitis of distal ulna - left AMA again, readmitted again from 12/03-12/19 with poorly controlled DM and taken to the OR on 12/15 and underwent left wrist arthrotomy and washout with biopsy of the distal radius bone for left wrist septic arthritis and osteomyelitis of the distal radius and ulna. He was readmitted again on 02/21 with concern for worsening left upper extremity and right lower extremity wounds in the setting of active polysubstance abuse with NO wound care since last discharge with on imaging destructive osteo of distal radius and ulna with abnormal marrow signal throughout all the carpal bones in the base of the second, third, and fourth metatarsals concerning for osteomyelitis, abnormal nonenhancing marrow signal throughout the visualized radius and ulna more proximal to the distal site of osteomyelitis read as likely reflecting serous atrophy of the bone marrow and malnutrition with extensive ulceration ofthe distal forearm with ulceration extending to the extensor tendons which appear to be torn. He was taken to OR on (03/02) and underwent left forearm and wrist washout, excisional debridement of skin, subcutaneous tissue and muscle with left distal radius bone biopsy for left wrist osteomyelitis, myositis and rupture of extensor tendons and nonhealing wounds due to a polymicrobial infection.?On 03/02 tissue left wrist OR culture grew: proteus vulgaris, kleb oxytoca & VRE (R amp) BUT bone distal radius culture (03/02)?? grew morganella.?? Swab left hand abscess on 03/02 grew: 4+ MRSA with NO anaerobes to date on either culture. Path was read as read as fragments of bone with chronic inflammation and marrow fibrosis consistent with chronic osteomyelitis. During last admit he was aware that his treatment course was very difficult as he had left AMA multiple times previously in setting of active substance abuse and was severely malnourished/cachectic with extensive underlying osteomyelitis on distal radius, ulna, all carpal bones & bases of 2nd, 3rd and 4th MCPs on MRI LUE on 02/22 yet improving inflammatory markers - with essentially a limb thre atening infection. He was eventually discharged to rehab on 03/12 after admit from 02/21-03/12/2023 on IV dapto 450mg daily and cefepime 2gq8h IV but left rehab AMA without antibiotics and actively using IVDA. He is now readmitted with significant arm pain. CT of the left upper extremity on 03/27/2023 showed chronic destructive osteomyelitis at the radiocarpal and ulnocarpal articulations as well as throughout the carpus with worsening bony resorption compared to prior imaging in November and February 2023 with extensive soft tissue edema of the forearm and wrist but no discrete fluid collection.?? He was evaluated by hand surgery who felt he needed no surgical intervention but recommended IV antibiotics and ID input. ID is asked to help with antibiotics again for potential limb threatening left hand and forearm infection in setting of active IVDU. Prelim blood cultures on 03/26 are no growth. (+) COVID testing on 03/27 (last + in 04/2022) ?? PLAN: 1. evaluated by Hand Surgery 2. back on dapto and cefepime (to cover prior kleb oxytoca, p. vulgaris & morganella with left hand swab + MRSA) with prior plan from 03/02-04/27 but during last admit also had oral option if refused IVs with oral levaquin & doxycycline - he does state he wasn't on antibiotics since discharged last and didn't go to rehab 3. blood cultures ordered in the ED - prelim no growth 4. please check ESR and CRP if not done yet 5. Addiction med 6. would also make sure he is competent to make the decisions he does as will likely end up losing his hand and/or arm if ongoing episodes of leaving AMA with partial antibiotic courses and ongoing worsening chronic osteo that antibiotics alone won't fix 7. on enhanced precautions and no need for further therapy for COVID as not hypoxic and on room air following further recs to follow based on above thanks for the consult Problem List/Past Medical History Ongoing Cellulitis Cellulitis and abscess of hand, except fingers and thumb Cocaine use disorder, severe, dependence Diabetes Hyperglycemia without ketosis Hyponatremia Opioid use disorder, severe, dependence Polysubstance abuse Uncontrolled diabetes mellitus with hyperglycemia Medications Inpatient Cefepime Extended IVPB, 2000 mg, IVPB, Every 8 hours DAPTOmycin Inj, 450 mg= 9 mL, IV Push Slowly, Every 24 hours Dextrose 50% Inj Syringe (25Gm), 12.5 Gm, IV Push Slowly, Every 20 minutes, PRN Dextrose 50% Inj Syringe (25Gm), 25 Gm, IV Push Slowly, Every 15 minutes, PRN Dilaudid Inj, 0.5 mg= 0.5 mL, IV Push Slowly, Every 4 hours, PRN Docusate Sodium Capsule, 100 mg= 1 capsule, By Mouth, 2 times a day, PRN Enoxaparin Inj, 40 mg= 0.4 mL, Subcutaneous Injection, Daily ferrous sulfate 325 mg oral enteric coated tablet, 325 mg, By Mouth, Daily folic acid 1 mg oral tablet, 1 mg, By Mouth, Daily gabapentin 300 mg oral capsule, 600 mg, By Mouth, 3 times a day Glucagon Inj, 1 mg, Intramuscular, Once, PRN Glucose Gel, 15 Gm, By Mouth, Every 20 minutes, PRN Glucose Gel, 30 Gm, By Mouth, Every 20 minutes, PRN Influenza, Quadrivalent Vaccine (Fluzone Quad), 0.5 mL, Intramuscular, Once Insulin Glargine Inj, 10 units= 0.1 mL, Subcutaneous Injection, Daily at bedtime Insulin LISPRO Sliding Scale, 3-8 units, Subcutaneous Injection, 3 times a day before meals LR 1,000 mL, 1000 mL, IV Infusion Melatonin Tablet, 3 mg, By Mouth, Daily at bedtime, PRN Methadone Tablet, 30 mg, By Mouth, Daily MiraLax Powder, 17 Gm= 1 pack/packet, By Mouth, Daily, PRN NaCL 0.9% Flush, 3 mL, IV Push, Every 8 hours NaCL 0.9% Flush, 3 mL, IV Push, Every 8 hours, PRN nalOXONE Inj, 0.2 mg= 0.5 mL, IV Push, Every 5 minutes, PRN Robitussin DM Liquid, 10 mL, By Mouth, Every 4 hours, PRN Senna Tablet, 8.6 mg= 1 tablet, By Mouth, 2 times a day, PRN Simethicone Tablet, 80 mg, Chew, 3 times a day, PRN Tylenol 325 mg oral tablet, 975 mg, By Mouth, Every 8 hours Home Alcohol Wipes, See Instructions, 5 refills cefepime 2 g intravenous injection, 2000 mg, IVPB, Every 8 hours Cubicin RF, 450 mg, IV Infusion, Every 24 hours ferrous sulfate 325 mg oral enteric coated tablet, 325 mg= 1 tablet, By Mouth, Daily folic acid 1 mg oral tablet, 1 mg, By Mouth, Daily Freestyle Lite Lancets, See Instructions, 5 refills Freestyle Lite Monitor, See Instructions, 5 refills Freestyle Lite Test Strips, See Instructions, 5 refills gabapentin 300 mg oral capsule, 600 mg, By Mouth, 3 times a day Humalog Kwik Pen 100 units/mL subcutaneous injection, See Instructions ibuprofen 400 mg oral tablet, 400 mg, By Mouth, 3 times a day, PRN Lantus Solostar Pen 100 units/mL subcutaneous solution, 15 units, Subcutaneous Injection, Daily at bedtime melatonin 3 mg oral tablet, 3 mg, By Mouth, Daily at bedtime, PRN Methadone, 75 mg, By Mouth, Daily in AM Multivit Therapeutic/Minerals Tablet, 1 tablet, By Mouth, Daily Pen Schuyler, 31 G x 5 mm BD Ultra Fine III, See Instructions, 5 refills Tylenol 325 mg oral tablet, 975 mg, By Mouth, 3 times a day zinc sulfate 220 mg oral capsule, 220 mg, By Mouth, Daily in AM Antibiotic History Active Antibiotics Calendar Day Last Administered First Administered Cefepime??2,000 mg, 33.33 mL/hr, IVPB, Every 8 hours ?2 03/28/2023 01:28 03/27/2023 16:57 Daptomycin??450 mg, 9 mL, IV Push Slowly, Every 24 hours ?2 03/27/2023 13:14 03/27/2023 13:14 ? Stopped Antibiotics Stop Date/Time Last Administered First Administered Cefepime??2 Gm, 33.33 mL/hr, IVPB, Once 03/27/2023 09:29 03/27/2023 09:27 03/27/2023 09:27 Allergies morphine Zosyn Social History Alcohol Use: Never. Substance Abuse Use: Past. Type: Heroin. Substance abuse in household: No. Tobacco Use: 10 or more cigarettes (1/2 pack or more)/day in last 30 days. Immunizations Vaccine Date Status SARS-CoV-2 (COVID-19) Ad26 vaccine 11/13/2020 Recorded tetanus/diphtheria/pertussis, acel(Tdap) 10/26/2008 Recorded Patient Care team information Care Team Personnel Name: Suha Joya RN Position: [facility] RN Member Role: Primary Care Nurse Name: Lorraine Sherwood RN Position: [facility] AMB Nurse Member Role: Primary Care Nurse Name: Hailey Corado RN Position: [facility] RN Supv Member Role: Primary Care Nurse Name: Alayna Barfield RN Position: [facility] RN Member Role: Primary Care Nurse Name: Ana Pink RN Position: S RN Member Role: Primary Care Nurse Name: Aida Saul RN Position: [facility] RN Member Role: Primary Care Nurse Name: Ashley Gastelum RN Position: [facility] RN Member Role: Primary Care Nurse Name: Mami Goetz RN Position: [facility] RN Member Role: Primary Care Nurse Name: Naima Beach RN Position: [facility] RN Member Role: Primary Care Nurse Name: Margo Valdez LPN Position: [facility] RN Member Role: Primary Care Nurse Name: Italia Raya RN Position: [facility] RN Member Role: Primary Care Nurse Name: Zev Brock RN Position: [facility] RN Member Role: Primary Care Nurse Name: Bo Romero RN Position: [facility] RN Member Role: Primary Care Nurse Name: Chela Herrera RN Position: [facility] RN Member Role: Primary Care Nurse Name: Felecia Vaughn RN Position: [facility] RN Member Role: Primary Care Nurse Name: Liane Tellez RN Position: [facility] SN RN Member Role: Primary Care Nurse Name: Pennie Sanchez RN Position: [facility] RN Member Role: Primary Care Nurse Name: Veronica Garcia RN Position: [facility] RN Member Role: Primary Care Nurse Name: Mai Jimenez LPN Position: [facility] RN Member Role: Primary Care Nurse Name: Rakel Burton RN Position: [facility] RN Member Role: Primary Care Nurse Name: Toña Dubon RN Position: [facility] ED RN W/OE and Tasks Member Role: Primary Care Nurse Name: Connie Leavitt RN Position: [facility] RN Member Role: Primary Care Nurse Name: Manav Muñiz RN Position: [facility] ED RN W/OE and Tasks Member Role: Primary Care Nurse Name: Alee Shaikh RN Position: [facility] RN Member Role: Primary Care Nurse Name: Christy Almanza RN Position: [facility] RN Member Role: Primary Care Nurse Name: Lashae Servin RN Position: [facility] RN Member Role: Primary Care Nurse Name: Toy Langley RN Position: [facility] RN Member Role: Primary Care Nurse Name: Bindu Gaspar RN Position: [facility] RN Member Role: Primary Care Nurse Name: Alexey Wlikins RN Position: [facility] RN Member Role: Primary Care Nurse Name: Ilene Orona RN Position: [facility] RN Member Role: Primary Care Nurse Name: Carlos Martin RN Position: [facility] RN Member Role: Primary Care Nurse Name: Seth Rivera RN Position: [facility] RN Member Role: Primary Care Nurse Name: Doroteo Ray RN Position: [facility] RN Member Role: Primary Care Nurse Name: Miko Alvarez RN Position: [facility] RN Member Role: Primary Care Nurse Name: Not on Staff, PCP Position: [facility] Physician (General Medicine) Member Role: PCP Name: Fausto Pearl LPN Position: [facility] RN Member Role: Primary Care Nurse Name: Hugo Marshall RN Position: [facility] RN Member Role: Primary Care Nurse Name: Sammie Jimenez RN Position: [facility] RN Member Role: Primary Care Nurse Name: Verenice Espinoza RN Position: [facility] RN Member Role: Primary Care Nurse Name: Livier Denton Position: [facility] RN Member Role: Primary Care Nurse Name: Lucian Kelly RN Position: [facility] RN Member Role: Primary Care Nurse Name: Charissa Banuelos RN Position: [facility] RN Member Role: Primary Care Nurse Name: Michoacano Bowles RN Position: [facility] RN Member Role: Primary Care Nurse Name: Yana Hernandez RN Position: [facility] RN Member Role: Primary Care Nurse Name: Kala Ferraro RN Position: [facility] RN Member Role: Primary Care Nurse Name: Dino Brewster RN Position: [facility] RN Member Role: Primary Care Nurse Name: Sara Carpenter RN Position: [facility] RN Member Role: Primary Care Nurse Name: Molly Kebede RN Position: [facility] OB RN Member Role: Primary Care Nurse Name: Nadya Murillo LPN Position: [facility] RN Member Role: Primary Care Nurse Name: Brittaney Eagle RN Position: [facility] RN Member Role: Primary Care Nurse Name: Dahiana Muller LPN Position: [facility] RN Member Role: Primary Care Nurse Name: Renee Villanueva RN Position: [facility] ED RN W/OE and Tasks Member Role: Primary Care Nurse Care Team Related Persons Name: DEBRA ZHAO Address: home [address] [place] [address] Name: RUSTYFOREIGNDODIE Fernandez Address: [address] [place] [address] Name: CECEGEMMA Address: home [address] [place] [address]
--- OUTSIDE RECORDS SUMMARY | 2024-01-19 22:59 | XMS_ITS | Continuity of Care Document ---
Author Organization [facility] Address [address] [place] [address]- Care Team Providers Care Rejected Items Clerk Name Role Phone Calin Larose MD Primary Care Physician Encounter [facility] Date(s): 06/06/20 - 07/06/20 [facility] [address] [place], [place] [address] Allergies, Adverse Reactions, Alerts Substance Reaction [...]
--- OUTSIDE RECORDS SUMMARY | 2024-01-19 22:59 | XMS_ITS | Continuity of Care Document ---
Author Organization [facility] [place] monique Address [address] [place] [address] [address] [place] [address]- Care Team Providers Care Wharf Laborer Name Role Phone Calin Larose MD Primary Care Physician Encounter [facility] [place] Date(s): 01/01/23 - 01/31/23 [facility] [address] [place] [address]- Attending Physician: AdmtrDuke Admitting Physician: Admtr, [id number] [...] 12/19/22 10:40:00 EDT, Route to Pharmacy Electronically, [facility]/pharmacy #[id number], Partial fill upon patient requestif the prescription is for a schedule II opioid serenityAlli.. Start Date: 12/19/22 Stop Date: 01/18/23 Status: [...] 12/19/22 9:11:00 EDT, Route to Pharmacy Electronically, [facility]/pharmacy #[id number], Partial fill upon patient request [...] 0 Refills, Maintenance, 12/19/22 9:12:00 EDT, Injection, [facility]/pharmacy #[id number], Partial fill upon patient request [...] drug. Start Date: 12/19/22 Status: Ordered Pen Childs, 31 G x 5 mm BD Ultra [...] 12/19/22 9:22:00 EDT, Route to Pharmacy Electronically, [facility], Partial fill upon patient requestif the [...] Team Personnel Name: Lorraine Sherwood RN Position: [facility] AMB Nurse Member Role: Primary Care Nurse Name: Hailey Corado RN Position: [facility] RN Supv Member Role: Primary Care Nurse Name: Ana Pink RN Position: [facility] RN Member Role: Primary Care Nurse Name: Ashley Gastelum RN Position: [facility] RN Member Role: Primary Care Nurse Name: Calin Larose MD Position: [facility] Physician (General Medicine) Member Role: PCP Address: Address: [address] [place] [id number]- Name: Naima Beach RN Position: [facility] RN Member Role: Primary Care Nurse Name: Margo Valdez LPN Position: [facility] RN Member Role: Primary Care Nurse Name: Zev Brock RN Position: [facility] RN Member Role: Primary Care Nurse Name: Patt Ponce RN Position: [facility] RN Member Role: Primary Care Nurse Name: Pennie Sanchez RN Position: [facility] RN Member Role: Primary Care Nurse Name: Veronica Garcia RN Position: [facility] RN Member Role: Primary Care Nurse Name: Toña Dubon RN Position: [facility] RN Member Role: Primary Care Nurse Name: Manav Muñiz RN Position: [facility] ED RN W/OE and Tasks Member Role: Primary Care Nurse Name: Alee Shaikh RN Position: [facility] RN Member Role: Primary Care Nurse Name: Christy Almanza RN Position: [facility] RN Member Role: Primary Care Nurse Name: Bindu Gaspar RN Position: [facility] RN Member Role: Primary Care Nurse Name: Alexey Wilkins RN Position: [facility] RN Member Role: Primary Care Nurse Name: Ilene Orona RN Position: [facility] RN Member Role: Primary Care Nurse Name: Seth Rivera RN Position: [facility] RN Member Role: Primary Care Nurse Name: Miko Alvarez RN Position: [facility] RN Member Role: Primary Care Nurse Name: Hugo Marshall RN Position: [facility] RN Member Role: Primary Care Nurse Name: Sammie Jimenez RN Position: [facility] RN Member Role: Primary Care Nurse Name: Verenice Espinoza RN Position: [facility] RN Member Role: Primary Care Nurse Name: Lucian Kelly RN Position: [facility] RN Member Role: Primary Care Nurse Name: Charissa Banuelos RN Position: [facility] RN Member Role: Primary Care Nurse Name: Yana Hernandez RN Position: [facility] RN Member Role: Primary Care Nurse Name: Sara Carpenter RN Position: [facility] RN Member Role: Primary Care Nurse Name: Molly Kebede RN Position: [facility] OB RN Member Role: Primary Care Nurse Name: Brittaney Eagle RN Position: [facility] RN Member Role: Primary Care Nurse Name: Dahiana Muller LPN Position: [facility] RN Member Role: Primary Care Nurse Care Team Related Persons Name: RUSTYDEBRA SONG Address: home [address] [place] [address] Name: DODIE ZHAO Address: [address] [place] [address] Name: GEMMA HZAO Address: home [address] [place] [address]
--- NOTE | 2024-01-19 23:04 | PC.NURSE ---
Addendum entered by Armando Mejia RN 01/19/24 23:14: [phone] Addendum entered by Armando Mejia RN 01/19/24 23:05: program name TSS Original Note: Contacted [facility]iaz[facility] Escal[facility] staff for pt to notify that we were admitting pt.
[2024-01-19] MEDS: levoFLOXacin/D5W 750 MG/150 ML PIGGYBACK 100 MG IV (23:31)
--- NOTE | 2024-01-19 23:34 | MHC.EDTECH ---
this tech assumed care of this pt @ 2300. When rounding on pt he was witnessed in bed, awake, resting quietly, and appeared to be in no apparent distress. Call light within reach for safety.
[2024-01-20] VITALS (12 sets, daily range): BP systolic 111–143; BP diastolic 67–91; PULSE 81–105; RESP 12–20; TEMP 36.3–36.8; O2SAT 90–98; BMI 23.8
[2024-01-20] MEDS: 0.9 % Sodium Chloride 1,000 ML 999 ML IV (02:36)
[2024-01-20] MEDS: Pantoprazole Sodium 40 MG/10 ML VIAL IVPUSH (05:56)
[2024-01-20 06:12] LABS: MANUAL DIFF FLAG NO
[2024-01-20 06:13] LABS: Basophils Percent Auto 0.4 % (0-2); Eosinophils Absolute Auto 0.1 X10*3/uL (0.0-0.4); Eosinophils Percent Auto 1.7 % (0-4); Hematocrit 22.8 % (42.0-52.0); Hemoglobin 7.6 g/dl (14.0-18.0); Imm Gran Abs Auto 0.01 X10*3/uL (0.00-0.03); Imm Gran Pct Auto 0.2 % (0.0-0.4); Lymphocytes Percent Auto 20.5 % (20-40); Mean Corpuscular HGB Conc 33.3 g/dl (31.0-36.0); Mean Corpuscular Hemoglobin 28.9 pg (27.0-33.0); Mean Corpuscular Volume 86.7 fL (80.0-98.0); Mean Platelet Volume 10.2 fL (9.4-12.4); Monocytes Absolute Auto 0.3 X10*3/uL (0.1-1.2); Monocytes Percent Auto 7.1 % (2-11); Neutrophils Absolute Auto 3.3 x10*3/uL (2.0-8.3); Neutrophils Percent Auto 70.1 % (45-73); Red Blood Count 2.63 X10*6/uL (4.60-5.80); Red Cell Distribution Width 14.2 % (11.0-16.0); White Blood Count 4.7 X10*3/uL (4.8-10.8)
[2024-01-20 06:17] LABS: Platelet Count 87 X10*3/uL (160-400)
[2024-01-20 06:32] LABS: Anion Gap 11 (12-20); Blood Urea Nitrogen 20 mg/dL (9-16); Calcium 8.5 mg/dL (8.4-10.2); Carbon Dioxide 24 mmol/L (22-29); Chloride 105 mmol/L (96-108); Creatinine Clr Calc Pharmacy 85.8; Estimated Glomerular Filt Rate > 60; Glucose Random 125 mg/dL (60-115); Sodium 136 mmol/L (135-145)
--- NOTE | 2024-01-20 08:21 | PHA.MEDREC ---
Addendum entered by Christina Lopez RPh 01/20/24 08:26: Reviewed by [facility] Original Note: Pharmacy Consult ? Medication Reconciliation Pharmacy reviewed med rec done by nursing. Claims matched, spoke to patient to confirm medications and he confirmed he is taking Cyclobenzaprine 5mg tab Q8H as needed for muscle spasms and Gabapentin 600mg 1 tab TID. He also states he is taking Methadone 120mg daily and he gets it at [facility] on [facility] in [place] .
--- NOTE | 2024-01-20 08:34 | P.CNGI_ITS ---
History of Present Illness Data of Consult Service Date: 01/20/24 Requesting physician: Aminata Farfan Primary Care Provider: Unknown Physician HPI Reason for consult: Upper GI bleeding 43 YM with neuropathy, opioid use disorder on methadone seen at [facility] ED on 01/19/24 for coughing up black sputum. In the ED pt reported his symptoms started 1 day prior to presentation and he had multiple episodes of coughing up black colored phlegm and he coughed up blood duirng the last episode. He also had an episode of vomiting but unclear if it was black or contained blood. On interviewing the patient notes that he has been coughing up black phlegm for the past few years. He also complains of heartburn and regurgitation of acidic fluid into the lower chest. Patient denies abdominal pain, dysphagia, odynophagia or change in appetite or weight. He also complains of diarrhea for the past 8 months with up to 20 loose to watery nonbloody bowel movements a day. First bowel movement of small and solid followed by watery bowel movements. He admits to history of nocturnal diarrhea - he wakes up at night every other hour to have a bowel movement otherwise he will end with incontinence of stool in the morning when he wakes up. Pt denies fever, chills, chest pain, palpitations, shortness of breath. Patient admits to smoking 1 pack of cigarettes every 3 days. He denies EtOH use and states he quit drugs and marijuana for the past year. Patient lives in a detention. He denies known family history of colon polyps or GI malignancy. Questionable history of colitis in his mom. 01/19/[address] SCAN TODAY SHOWED: There is no evidence of pulmonary embolism. Mediastinum. Thyroid gland is unremarkable. There is mild mediastinal lymphadenopathy with lymph nodes in front of the trachea measured 1.6 cm. There is dilatation of esophagus filled with fluid. There is no pericardial effusion or cardiomegaly and no coronary artery calcifications seen. Lungs there are numerous lung nodules, with reticulonodular pattern seen in the most of the right upper lobe but seen through the entire right lung with less prominent nodularity through the left lung and scarring in the left upper lobe as well as left upper lung bronchiectasis. Pleura: There is no pleural or pericardial effusion. ABDOMEN: Liver, visualized pancreas, spleen, unremarkable. No evidence of reflux seen IVC. 01/19/[address] SCAN SHOWED: Dilated esophagus with thickened wall: Correlate with possibility of esophagitis. Splenomegaly. Multifocal pneumonia. Nephrolithiasis without hydronephrosis. Review of Systems 2 Constitutional: Constitutional: Reports weight loss ENT: Reports system reviewed and no additional complaints, except as documented Cardiovascular: Cardiovascular: Reports no additional cardiovascular complaints Respiratory: Respiratory: Reports hemoptysis and Denies wheezing Gastrointestinal: Gastrointestinal: Reports diarrhea and Reports vomiting Genitourinary: Genitourinary: Reports no additional male genitourinary complaints Musculoskeletal: Musculoskeletal: Reports no additional musculoskeletal complaints Hematologic/Lymphatic: Hematologic/Lymphatic: Reports easy bleeding Allergic/Immunologic: Allergic/Immunologic: Denies wheezing PMFSH Past Medical History Medical History Peripheral neuropathy Social History Social History Household Members: Other Housing: Other Do you presently have visiting nurse or other home services: No Patient Tobacco Use Status: Current everyday Tobacco user Tobacco use type: Cigarette Smoked in Last 30 Days: Yes Patient Interested in Nicotine Replacement: No Patient Given Instructions on How to Stop Smoking: No Second Hand Smoke Exposure: Yes Use of substances other than those prescribed or required for medical reasons: Yes Last Used Substance Other:: 1 year ago Currently Displaying Signs/Symptoms of Drug Intoxication Withdrawal: No Any prior treatment program specific to substance use: No Have you been hit, kicked, punched, or otherwise hurt by someone within the past year? If so, by whom?: No Is there a partner from a previous relationship who is making you feel unsafe now?: No Are you made to feel afraid or neglected: No Advance Directives: Yes Advance Directives Information Provided: Yes Advance Directives on File: No Advance Directives Date on File: 01/20/24 Do you have a plan to hurt others: No Plan Recently lost weight without trying: No How much weight loss: Unsure Eating poorly because of decreased appetite: No Nutrition screen score: 2 Poor oral hygiene: No service: No Meds Allergies Allergy/AdvReac Type Severity Reaction Status Date / Time morphine [Morphine] Allergy Unknown ITCHY RASH Verified 01/19/24 13:50 Active Medications: Current Medications Acetaminophen (Acetaminophen 325 Mg Tablet) 650 mg PO Q6H PRN PRN Reason: Pain, Mild (Pain Scale 1-3), fever or headache Calcium Carbonate (Calcium Carbonate 750 Mg Tab.Chew) 750 mg PO Q4H PRN PRN Reason: Heartburn Levofloxacin (Levaquin) 750 mg in 150 mls @ 100 mls/hr IV Q24H [facility] Last Infusion: 01/20/24 01:15 Dose: Infused Magnesium Hydroxide (Milk Of Magnesia 30 Ml Oral.Susp) 30 ml PO DAILY PRN PRN Reason: Constipation Melatonin (Melatonin 3 Mg Tablet) 6 mg PO BEDTIME PRN PRN Reason: Insomnia Ondansetron HCl (Ondansetron Hcl 4 Mg/2 Ml Vial) 4 mg IVPUSH Q8H PRN PRN Reason: Nausea and Vomiting Pantoprazole Sodium (Pantoprazole Sodium 40 Mg/10 Ml Vial) 40 mg IVPUSH BID@0630,1630 [facility] Last Admin: 01/20/24 05:56 Dose: 40 mg Sodium Chloride (0.9 % Sodium Chloride Flush 3 Ml Syringe) 3 ml IVFLUSH QSHIFT [facility] Last Admin: 01/20/24 00:19 Dose: Not Given Home Medications ?Medication ?Instructions ?Recorded ?Confirmed ?Last Taken ?Type cyclobenzaprine 5 mg tablet 5 mg PO Q8H PRN muscle spasm 01/19/24 01/19/24 Unknown History gabapentin 600 mg tablet 600 mg PO TID 01/19/24 01/19/24 Unknown History methadone 10 mg/5 mL oral solution 120 mg PO DAILY 01/20/24 01/20/24 01/19/24 History Physical Exam 2 Vital Signs: Vital Signs: Last Vital Signs Temp 97.5 F 01/20/24 07:29 Pulse 95 01/20/24 07:29 Resp 17 01/20/24 07:29 BP 132/67 01/20/24 07:29 Pulse Ox 98 01/20/24 07:29 O2 Del Method Room Air 01/20/24 07:29 BMI result Body Mass Index 23.8 Const: General: comfortable, alert and awake Orientation/consciousness: p atient oriented x3 HEENT: Head: Yes normocephalic Neck: Neck: Yes trachea midline and Yes supple Chest: Chest palpation & inspection: normal inspection of the chest Resp: Effort & Inspection: normal respiratory effort Auscultation: clear to auscultation bilaterally Cardio: Heart sounds: S1 normal heart sound present and S2 normal heart sound present GI: Inspection: Yes scar (LLQ scar of past back surgery) Palpation (GI): S oft to palpation Skin: General skin exam: no rashes or lesions noted Neuro: General: patient oriented x3 Extrem: General: Yes normal to inspection and Yes other (Multiple scare on left UE - past osteomyelitis) Results Labs 01/20/24 05:50 01/20/24 05:50 Labs: Short CBC 01/19/24 01/19/24 01/20/24 Range/Units 14:33 20:24 05:50 WBC 5.4 5.3 4.7 L (4.8-10.8) X10*3/uL Hgb 8.5 L 7.2 L 7.6 L (14.0-18.0) g/dl Hct 25.9 L 21.8 L 22.8 L (42.0-52.0) % Plt Count 111 L 97 L 87 L (160-400) X10*3/uL BMP 01/19/24 01/20/24 14:33 05:50 Sodium 139 136 Potassium 4.1 4.0 Chloride 104 105 Carbon Dioxide 26 24 BUN 27 H 20 H Creatinine 1.19 0.91 Calcium 8.9 8.5 Liver Function 01/19/24 Range/Units 14:33 Total Bilirubin 0.3 (0.0-1.0) mg/dL Direct Bilirubin 0.1 (0.0-0.5) mg/dL AST 25 (5-37) U/L ALT 42 H (0-40) U/L Alkaline Phosphatase 79 (39-117) U/L Albumin 3.8 (3.5-5.0) g/dL Assessment and Plan (1) Erosive esophagitis: Status: Acute (2) Upper gastrointestinal bleeding: Status: Acute Plan 43 YM with neuropathy, opioid use disorder on methadone seen at [facility] ED on 01/19/24 for coughing up black sputum. In the ED pt reported his symptoms started 1 day prior to presentation and he had multiple episodes of coughing up black colored phlegm and he coughed up blood duirng the last episode. He also had an episode of vomiting but unclear if it was black or contained blood. On interviewing the patient notes that he has been coughing up black phlegm for the past few years. He also complains of heartburn and regurgitation of acidic fluid into the lower chest. He also complains of diarrhea for the past 8 months with up to 20 loose to watery nonbloody bowel movements a day. CT scan reviewed - UGI bleed most likely due to severe erosive esophagitis with possible stricture versus achalasia. Pt denies taking any PPI on a regular basis Chronic diarrhea possibly due to IBD, IBS or SIBO. RECOMMENDATIONS: 1. Agree with IV PPI. 2. Proceed with EGD today - EGD procedure and potential complications including bleeding, perforation, reaction to anesthetic and aspiration were reviewed with the patient. He is eager to have the procedure and get discharged later today. He is willing to return as an outpatient for a colonoscopy for evaluation of chronic diarrhea. Procedures Date of Service Date of Service: 01/20/24
[2024-01-20] MEDS: 0.9 % Sodium Chloride Flush 3 ML SYRINGE IVFLUSH ×3 (09:06→21:00)
--- NOTE | 2024-01-20 09:17 | P.CONPL_ITS ---
History of Present Illness History of Present Illness Consult date: 01/20/24 Chief complaint: Coughing blood Narrative: This is an inpatient pulmonary consultation. This is a 43-year-old male with pertinent history of neuropathy, opioid use disorder on methadone who presents to the emergency department for evaluation of coughing up black sputum. Patient states his symptoms started 1 day prior to presentation. He has been coughing up black colored phlegm. Has had multiple episodes of the same. His last episode he coughed up blood. Also had episode of vomiting but unclear if it was black or contained blood. This has never happened before. Denies dysphagia or odynophagia. No fever, chills, chest pain, palpitations, shortness of breath, abdominal pain, changes in urinary or bowel habits. The patient did have imaging studies including a CT scan of the chest which I personally reviewed. The patient has evidence of tree-in-bud and also airspace disease bilaterally but right more than left suggesting the possibility of aspiration pneumonia. Also has some nodular densities which could represent some hematogenous spreading infection. In addition to that has a very dilated esophagus in the question of a distal esophageal mass. Most likely from the GI obstruction the patient is likely aspirating to the lungs and therefore ended up with pneumonia. Hemoptysis is potentially likely due to infection if it is not from the esophageal obstruction resulting in regurgitation the blood into the lungs. At this point the patient is scheduled to undergo an endoscopy. Which continued to cover him with antibiotics for now. Review of Systems 2 Constitutional: Constitutional: Reports weight loss ENT: Reports system reviewed and no additional complaints, except as documented Cardiovascular: Cardiovascular: Reports no additional cardiovascular complaints Respiratory: Respiratory: Reports hemoptysis and Denies wheezing Gastrointestinal: Gastrointestinal: Reports vomiting Genitourinary: Genitourinary: Reports no additional male genitourinary complaints Musculoskeletal: Musculoskeletal: Reports no additional musculoskeletal complaints Hematologic/Lymphatic: Hematologic/Lymphatic: Reports easy bleeding Allergic/Immunologic: Allergic/Immunologic: Denies wheezing PMFSH Past Medical History Medical History Peripheral neuropathy Social History Social History Household Members: Other Housing: Other Do you presently have visiting nurse or other home services: No Patient Tobacco Use Status: Current everyday Tobacco user Tobacco use type: Cigarette Smoked in Last 30 Days: Yes Patient Interested in Nicotine Replacement: No Patient Given Instructions on How to Stop Smoking: No Second Hand Smoke Exposure: Yes Use of substances other than those prescribed or required for medical reasons: Yes Last Used Substance Other:: 1 year ago Currently Displaying Signs/Symptoms of Drug Intoxication Withdrawal: No Any prior treatment program specific to substance use: No Have you been hit, kicked, punched, or otherwise hurt by someone within the past year? If so, by whom?: No Is there a partner from a previous relationship who is making you feel unsafe now?: No Are you made to feel afraid or neglected: No Advance Directives: Yes Advance Directives Information Provided: Yes Advance Directives on File: No Advance Directives Date on File: 01/20/24 Do you have a plan to hurt others: No Plan Recently lost weight without trying: No How much weight loss: Unsure Eating poorly because of decreased appetite: No Nutrition screen score: 2 Poor oral hygiene: No Meds Allergies Allergy/AdvReac Type Severity Reaction Status Date / Time morphine [Morphine] Allergy Unknown ITCHY RASH Verified 01/19/24 13:50 Active Medications: Current Medications Acetaminophen (Acetaminophen 325 Mg Tablet) 650 mg PO Q6H PRN PRN Reason: Pain, Mild (Pain Scale 1-3), fever or headache Calcium Carbonate (Calcium Carbonate 750 Mg Tab.Chew) 750 mg PO Q4H PRN PRN Reason: Heartburn Levofloxacin (Levaquin) 750 mg in 150 mls @ 100 mls/hr IV Q24H [facility] Last Infusion: 01/20/24 01:15 Dose: Infused Magnesium Hydroxide (Milk Of Magnesia 30 Ml Oral.Susp) 30 ml PO DAILY PRN PRN Reason: Constipation Melatonin (Melatonin 3 Mg Tablet) 6 mg PO BEDTIME PRN PRN Reason: Insomnia Ondansetron HCl (Ondansetron Hcl 4 Mg/2 Ml Vial) 4 mg IVPUSH Q8H PRN PRN Reason: Nausea and Vomiting Pantoprazole Sodium (Pantoprazole Sodium 40 Mg/10 Ml Vial) 40 mg IVPUSH BID@0630,1630 [facility] Last Admin: 01/20/24 05:56 Dose: 40 mg Sodium Chloride (0.9 % Sodium Chloride Flush 3 Ml Syringe) 3 ml IVFLUSH QSHIFT [facility] Last Admin: 01/20/24 09:06 Dose: 3 ml Home Medications ?Medication ?Instructions ?Recorded ?Confirmed ?Last Taken ?Type cyclobenzaprine 5 mg tablet 5 mg PO Q8H PRN muscle spasm 01/19/24 01/19/24 Unknown History gabapentin 600 mg tablet 600 mg PO TID 01/19/24 01/19/24 Unknown History methadone 10 mg/5 mL oral solution 120 mg PO DAILY 01/20/24 Unknown History Physical Exam 2 Vital Signs: Vital Signs: Last Vital Signs Temp 97.5 F 01/20/24 07:29 Pulse 95 01/20/24 07:29 Resp 17 01/20/24 07:29 BP 132/67 01/20/24 07:29 Pulse Ox 98 01/20/24 07:29 O2 Del Method Room Air 01/20/24 07:29 BMI result Body Mass Index 23.8 Const: General: comfortable, alert and awake Orientation/consciousness: p atient oriented x3 HEENT: Head: Yes normocephalic Neck: Neck: Yes trachea midline and Yes supple Chest: Chest palpation & inspection: normal inspection of the chest Resp: Effort & Inspection: normal respiratory effort Auscultation: clear to auscultation bilaterally Cardio: Heart sounds: S1 normal heart sound present and S2 normal heart sound present GI: Palpation (GI): Soft to palpation Skin: General skin exam: no rashes or lesions noted Neuro: General: patient oriented x3 Extrem: General: Yes normal to inspection Results Laboratory Findings 01/20/24 05:50 01/20/24 05:50 ABG, PT/INR, D-dimer: PT/INR, D-dimer PT 11.7 SEC (10.9-12.4) 01/19/24 14:54 INR 1.0 (0.9-1.1) 01/19/24 14:54 Abnormal lab findings: Abnormal Labs 01/19/24 01/19/24 01/20/24 14:33 20:24 05:50 WBC 4.7 L RBC 2.96 L 2.49 L 2.63 L Hgb 8.5 L 7.2 L 7.6 L Hct 25.9 L 21.8 L 22.8 L Plt Count 111 L 97 L 87 L Immature Gran % (Auto) 0.6 H Lymph % (Auto) 19.5 L Lymph # (Auto) 1.1 L 1.0 L Anion Gap 11 L BUN 27 H 20 H Random Glucose 170 H 125 H ALT 42 H Assessment and Plan (1) Hemoptysis: Status: Acute (2) Multifocal pneumonia: Status: Acute (3) Dilation of esophagus: Status: Acute Plan sputum cx continue Levaquin for now NPO for procedure monitor for worsening hemoptysis Procedures Date of Service Date of Service: 01/20/24
--- NOTE | 2024-01-20 10:30 | MHC.CM.PN ---
Pt. lives at [facility], a transitional care programs through [facility], at [address] [place] [address]. He does not have home health services or DME. He said that [facility]. He gets Methadone from [facility]. His PCP is [facility], first appt. in Apr, (he saw him last week as a courtesy appt.). DCP: home, self care, CM to follow for DC needs.
--- NOTE | 2024-01-20 10:45 | PC.NURSE ---
Methadone dose verification- [facility] Methadone clinic [phone] Patient last dosed for Methadone 120mg PO on 01/18 @0857 per SAGE Dumont spoke with her over the phone at this time.
--- NOTE | 2024-01-20 11:22 | HE.PHANOTE ---
METHADONE CONFIRMATION FORM PATIENT GETS FROM [facility] 120MG DAILY. LAST DOSE 01/18
[2024-01-20] MEDS: methADONE HCl 20 MG/2 ML ORAL.CONC 120 MG PO (11:29)
--- NOTE | 2024-01-20 13:50 | HO.PM.IMPN ---
Subjective Subjective Date of Service: 01/20/24 Interval History: No acute issues overnight. NPO awaiting EGD Review of Systems Denies chest pain Denies shortness of breath Denies nausea vomiting diarrhea Denies fever chills Physical Exam Vital Signs: Vital Signs: Last Vital Signs Temp 97.8 F 01/20/24 11:28 Pulse 95 01/20/24 11:28 Resp 17 01/20/24 11:28 BP 143/88 H 01/20/24 11:28 Pulse Ox 96 01/20/24 11:28 O2 Del Method Room Air 01/20/24 11:28 BMI result Body Mass Index 23.8 Const: Other: Awake alert no acute distress Resp: Other: Clear to auscultation bilaterally no rales rhonchi or wheezes Cardio: Other: No S4; positive S1-S2; no S3 murmurs rubs or gallops GI: Other: Soft nontender nondistended normoactive bowel sounds Extrem: Other: No edema bilaterally Objective Data Active Medications Acetaminophen (Acetaminophen 325 Mg Tablet) 650 mg PO Q6H PRN PRN Reason: Pain, Mild (Pain Scale 1-3), fever or headache Calcium Carbonate (Calcium Carbonate 750 Mg Tab.Chew) 750 mg PO Q4H PRN PRN Reason: Heartburn Levofloxacin (Levaquin) 750 mg in 150 mls @ 100 mls/hr IV Q24H [facility] Last Infusion: 01/20/24 01:15 Dose: Infused Documented By: YINA Magnesium Hydroxide (Milk Of Magnesia 30 Ml Oral.Susp) 30 ml PO DAILY PRN PRN Reason: Constipation Melatonin (Melatonin 3 Mg Tablet) 6 mg PO BEDTIME PRN PRN Reason: Insomnia Methadone HCl (Methadone Hcl 20 Mg/2 Ml Oral.Conc) 120 mg PO DAILY@0800 [facility] Last Admin: 01/20/24 11:29 Dose: 120 mg Documented By: MITUL Co-signed By: NELSON Ondansetron HCl (Ondansetron Hcl 4 Mg/2 Ml Vial) 4 mg IVPUSH Q8H PRN PRN Reason: Nausea and Vomiting Pantoprazole Sodium (Pantoprazole Sodium 40 Mg/10 Ml Vial) 40 mg IVPUSH BID@0630,1630 [facility] Last Admin: 01/20/24 05:56 Dose: 40 mg Documented By: YINA Sodium Chloride (0.9 % Sodium Chloride Flush 3 Ml Syringe) 3 ml IVFLUSH QSHIFT [facility] Last Admin: 01/20/24 11:31 Dose: 3 ml Documented By: MITUL Labs 01/20/24 05:50 01/20/24 05:50 Labs: Laboratory Results - last 24 hr 01/19/24 01/19/24 01/19/24 13:59 14:33 14:54 MCV 87.5 MCH 28.7 MCHC 32.8 RDW 14.4 Plt Count 111 L MPV 10.5 Immature Gran % (Auto) 0.6 H Neut % (Auto) 71.5 Lymph % (Auto) 19.5 L [place] % (Auto) 6.3 Eos % (Auto) 1.5 Baso % (Auto) 0.6 Lymph # (Auto) 1.1 L [place] # (Auto) 0.3 Eos # (Auto) 0.1 Baso # (Auto) 0.0 Abs Immat Gran (auto) 0.03 Absolute Neuts (auto) 3.9 Absolute Nucleated RBC 0.000 Nucleated RBC % (auto) 0.0 PT 11.7 INR 1.0 APTT 31.7 Anion Gap 13 Estim Creat Clear Calc 65.6 Estimated GFR > 60 Random Glucose 170 H Lactic Acid Calcium 8.9 Total Bilirubin 0.3 Direct Bilirubin 0.1 AST 25 ALT 42 H Alkaline Phosphatase 79 Total Protein 7.0 Albumin 3.8 Gastric Occult Blood Stool Occult Blood Influenza Type A (PCR) NEGATIVE Influenza Type B (PCR) NEGATIVE RSV RNA Qual (PCR) NEGATIVE SARS-CoV-2 RNA (RT-PCR) NEGATIVE Blood Type Antibody Screen 01/19/24 01/19/24 01/19/24 18:47 18:48 20:24 MCV 87.6 MCH 28.9 MCHC 33.0 RDW 14.4 Plt Count 97 L MPV 11.0 Immature Gran % (Auto) 0.2 Neut % (Auto) 67.5 Lymph % (Auto) 22.7 [place] % (Auto) 7.9 Eos % (Auto) 1.3 Baso % (Auto) 0.4 Lymph # (Auto) 1.2 [place] # (Auto) 0.4 Eos # (Auto) 0.1 Baso # (Auto) 0.0 Abs Immat Gran (auto) 0.01 Absolute Neuts (auto) 3.6 Absolute Nucleated RBC 0.000 Nucleated RBC % (auto) 0.0 PT INR APTT Anion Gap Estim Creat Clear Calc Estimated GFR Random Glucose Lactic Acid 1.2 Calcium Total Bilirubin Direct Bilirubin AST ALT Alkaline Phosphatase Total Protein Albumin Gastric Occult Blood Cancelled Stool Occult Blood NEGATIVE Influenza Type A (PCR) Influenza Type B (PCR) RSV RNA Qual (PCR) SARS-CoV-2 RNA (RT-PCR) Blood Type O Positive Antibody Screen NEGATIVE 01/20/24 05:50 MCV 86.7 MCH 28.9 MCHC 33.3 RDW 14.2 Plt Count 87 L MPV 10.2 Immature Gran % (Auto) 0.2 Neut % (Auto) 70.1 Lymph % (Auto) 20.5 [place] % (Auto) 7.1 Eos % (Auto) 1.7 Baso % (Auto) 0.4 Lymph # (Auto) 1.0 L [place] # (Auto) 0.3 Eos # (Auto) 0.1 Baso # (Auto) 0.0 Abs Immat Gran (auto) 0.01 Absolute Neuts (auto) 3.3 Absolute Nucleated RBC 0.000 Nucleated RBC % (auto) 0.0 PT INR APTT Anion Gap 11 L Estim Creat Clear Calc 85.8 Estimated GFR > 60 Random Glucose 125 H Lactic Acid Calcium 8.5 Total Bilirubin Direct Bilirubin AST ALT Alkaline Phosphatase Total Protein Albumin Gastric Occult Blood Stool Occult Blood Influenza Type A (PCR) Influenza Type B (PCR) RSV RNA Qual (PCR) SARS-CoV-2 RNA (RT-PCR) Blood Type Antibody Screen Assessment and Plan (1) Upper gastrointestinal bleeding: Status: Acute (2) Hemoptysis: Status: Acute Plan This is a 43-year-old male with pertinent history of neuropathy, opioid use disorder on methadone who presents to the emergency department for evaluation of coughing up black sputum. 1.Hemoptysis: - -IV Levaquin. -appreciate pulmonary consult 2.Dilated esophagus with possible mass -NPO pending EGD this afternoon 3. Anemia -question acute on chronic -refusing transfusion -follow clinically Mechanical Full code Requires ongoing hospitalization pending EGD/specialist consultation Quality Stroke Does the patient have a stroke diagnosis?: No VTE Prior VTE?: No VTE Risk Level:: Medical - moderate - high VTE Device Contraindication: N/A - Device Ordered VTE Drug Contraindication: Treatment Not Indicated
--- NOTE | 2024-01-20 14:15 | HO.ANESPROP2 ---
HPI - Anesthesia Eval Consult details Narrative: 43 yo male patient for EGD PMFSH Active Problems Active Problems: All Active Problems Upper gastrointestinal bleeding (Acute) Peripheral neuropathy (Acute) Dilation of esophagus (Acute) Blood loss anemia (Acute) Hemoptysis (Acute) Bronchiectasis (Acute) Erosive esophagitis (Acute) Multifocal pneumonia (Acute) Past Medical History Medical History Peripheral neuropathy Family History Family history of problems with anesthesia: No Surgical History Surgical History History of back surgery History of Problems with Anesthesia: No Social History Social History Household Members: Other Housing: Other Do you presently have visiting nurse or other home services: No Patient Tobacco Use Status: Current everyday Tobacco user Tobacco use type: Cigarette Cigarettes Per Day: 8 Second Hand Smoke Exposure: Yes Advance Directives Date on File: 01/20/24 service: No Meds Allergies Allergy/AdvReac Type Severity Reaction Status Date / Time morphine [Morphine] Allergy Unknown ITCHY RASH Verified 01/19/24 13:50 Active Medications: Current Medications Acetaminophen (Acetaminophen 325 Mg Tablet) 650 mg PO Q6H PRN PRN Reason: Pain, Mild (Pain Scale 1-3), fever or headache Calcium Carbonate (Calcium Carbonate 750 Mg Tab.Chew) 750 mg PO Q4H PRN PRN Reason: Heartburn Gabapentin (Gabapentin 600 Mg Tablet) 600 mg PO TID [facility] Levofloxacin (Levaquin) 750 mg in 150 mls @ 100 mls/hr IV Q24H [facility] Last Infusion: 01/20/24 01:15 Dose: Infused Magnesium Hydroxide (Milk Of Magnesia 30 Ml Oral.Susp) 30 ml PO DAILY PRN PRN Reason: Constipation Melatonin (Melatonin 3 Mg Tablet) 6 mg PO BEDTIME PRN PRN Reason: Insomnia Methadone HCl (Methadone Hcl 20 Mg/2 Ml Oral.Conc) 120 mg PO DAILY@0800 [facility] Last Admin: 01/20/24 11:29 Dose: 120 mg Ondansetron HCl (Ondansetron Hcl 4 Mg/2 Ml Vial) 4 mg IVPUSH Q8H PRN PRN Reason: Nausea and Vomiting Pantoprazole Sodium (Pantoprazole Sodium 40 Mg/10 Ml Vial) 40 mg IVPUSH BID@0630,1630 [facility] Last Admin: 01/20/24 05:56 Dose: 40 mg Sodium Chloride (0.9 % Sodium Chloride Flush 3 Ml Syringe) 3 ml IVFLUSH QSHIFT [facility] Last Admin: 01/20/24 11:31 Dose: 3 ml Home Medications ?Medication ?Instructions ?Recorded ?Confirmed ?Last Taken ?Type cyclobenzaprine 5 mg tablet 5 mg PO Q8H PRN muscle spasm 01/19/24 01/19/24 Unknown History gabapentin 600 mg tablet 600 mg PO TID 01/19/24 01/19/24 Unknown History methadone 10 mg/5 mL oral solution 120 mg PO DAILY 01/20/24 01/20/24 01/19/24 History Exam Height,Weight and Vital Signs: Height 5 ft 4 in Weight 62.9 kg Last Vital Signs Temp 97.8 F 01/20/24 11:28 Pulse 95 01/20/24 11:28 Resp 17 01/20/24 11:28 BP 143/88 H 01/20/24 11:28 Pulse Ox 96 01/20/24 11:28 O2 Del Method Room Air 01/20/24 11:28 Vital Signs Temp Pulse Resp BP Pulse Ox O2 Del Method 01/20/24 14:56 98.0 F 84 15 143/91 H 95 Room Air 01/20/24 11:28 97.8 F 95 17 143/88 H 96 Room Air 01/20/24 07:29 97.5 F 95 17 132/67 98 Room Air 01/20/24 04:00 97.5 F 84 16 139/82 96 Room Air 01/20/24 01:09 97.3 F 105 H 20 118/79 96 Room Air 01/20/24 00:10 98.2 F 99 16 129/68 96 Room Air 01/19/24 21:35 97.8 F 112 H 16 144/88 H 93 Room Air 01/19/24 19:19 98.4 F 104 H 16 135/87 94 Room Air 01/19/24 17:54 98.7 F 119 H 16 131/95 H 95 Room Air Pertinent Lab Results Pertinent Lab Results: Laboratory Tests 01/19/24 01/19/24 01/19/24 13:59 14:33 14:54 WBC 5.4 RBC 2.96 L Hgb 8.5 L Hct 25.9 L MCV 87.5 MCH 28.7 MCHC 32.8 RDW 14.4 Plt Count 111 L MPV 10.5 Immature Gran % (Auto) 0.6 H Neut % (Auto) 71.5 Lymph % (Auto) 19.5 L [place] % (Auto) 6.3 Eos % (Auto) 1.5 Baso % (Auto) 0.6 Lymph # (Auto) 1.1 L [place] # (Auto) 0.3 Eos # (Auto) 0.1 Baso # (Auto) 0.0 Abs Immat Gran (auto) 0.03 Absolute Neuts (auto) 3.9 Absolute Nucleated RBC 0.000 Nucleated RBC % (auto) 0.0 PT 11.7 INR 1.0 APTT 31.7 Sodium 139 Potassium 4.1 Chloride 104 Carbon Dioxide 26 Anion Gap 13 BUN 27 H Creatinine 1.19 Estim Creat Clear Calc 65.6 Estimated GFR > 60 Random Glucose 170 H Lactic Acid Calcium 8.9 Total Bilirubin 0.3 Direct Bilirubin 0.1 AST 25 ALT 42 H Alkaline Phosphatase 79 Total Protein 7.0 Albumin 3.8 Gastric Occult Blood Stool Occult Blood Influenza Type A (PCR) NEGATIVE Influenza Type B (PCR) NEGATIVE RSV RNA Qual (PCR) NEGATIVE SARS-CoV-2 RNA (RT-PCR) NEGATIVE Blood Type Antibody Screen 01/19/24 01/19/24 01/19/24 18:47 18:48 20:24 WBC 5.3 RBC 2.49 L Hgb 7.2 L Hct 21.8 L MCV 87.6 MCH 28.9 MCHC 33.0 RDW 14.4 Plt Count 97 L MPV 11.0 Immature Gran % (Auto) 0.2 Neut % (Auto) 67.5 Lymph % (Auto) 22.7 [place] % (Auto) 7.9 Eos % (Auto) 1.3 Baso % (Auto) 0.4 Lymph # (Auto) 1.2 Page # (Auto) 0.4 Eos # (Auto) 0.1 Baso # (Auto) 0.0 Abs Immat Gran (auto) 0.01 Absolute Neuts (auto) 3.6 Absolute Nucleated RBC 0.000 Nucleated RBC % (auto) 0.0 PT INR APTT Sodium Potassium Chloride Carbon Dioxide Anion Gap BUN Creatinine Estim Creat Clear Calc Estimated GFR Random Glucose Lactic Acid 1.2 Calcium Total Bilirubin Direct Bilirubin AST ALT Alkaline Phosphatase Total Protein Albumin Gastric Occult Blood Cancelled Stool Occult Blood NEGATIVE Influenza Type A (PCR) Influenza Type B (PCR) RSV RNA Qual (PCR) SARS-CoV-2 RNA (RT-PCR) Blood Type O Positive Antibody Screen NEGATIVE 01/20/24 05:50 WBC 4.7 L RBC 2.63 L Hgb 7.6 L Hct 22.8 L MCV 86.7 MCH 28.9 MCHC 33.3 RDW 14.2 Plt Count 87 L MPV 10.2 Immature Gran % (Auto) 0.2 Neut % (Auto) 70.1 Lymph % (Auto) 20.5 [place] % (Auto) 7.1 Eos % (Auto) 1.7 Baso % (Auto) 0.4 Lymph # (Auto) 1.0 L [place] # (Auto) 0.3 Eos # (Auto) 0.1 Baso # (Auto) 0.0 Abs Immat Gran (auto) 0.01 Absolute Neuts (auto) 3.3 Absolute Nucleated RBC 0.000 Nucleated RBC % (auto) 0.0 PT INR APTT Sodium 136 Potassium 4.0 Chloride 105 Carbon Dioxide 24 Anion Gap 11 L BUN 20 H Creatinine 0.91 Estim Creat Clear Calc 85.8 Estimated GFR > 60 Random Glucose 125 H Lactic Acid Calcium 8.5 Total Bilirubin Direct Bilirubin AST ALT Alkaline Phosphatase Total Protein Albumin Gastric Occult Blood Stool Occult Blood Influenza Type A (PCR) Influenza Type B (PCR) RSV RNA Qual (PCR) SARS-CoV-2 RNA (RT-PCR) Blood Type Antibody Screen Airway Mallampati Class: II TM Dist: >3cm Neck ROM: Full Loose/Missing/Broken Teeth: Yes (Edentulous) Heart: RRR Lungs: CTAB Assessment and Plan Assessment Anesthesia Assessment: Anesthesia Plan Discussed and Chart Reviewed Final Anesthetic Review Family History of Problems with Anesthesia: No History of Problems with Anesthesia: No NPO: Yes ASA Class: III and Emergency Final Preanesthetic Review: No Changes in Pt Med Stat, Meds/Allgs Chart Reviewed, Consent Obtained/Reviewed and Anes Risks/Benef Reviewed Patient Risk: Intermediate Procedure Risk: Intermediate Assessment/Block/Sedation in SS: Assess/Block/Sedation- Anesthetic Plan Anesthetic Plan: GA Disposition: Standard PACU
--- NOTE | 2024-01-20 14:35 | PC.NURSE ---
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
--- NOTE | 2024-01-20 17:02 | W.PM.OPN ---
Operative Note Operative Note Date of Service: 01/20/24 Narrative: FLEXIBLE TRANSORAL UPPER GASTROINTESTINAL ENDOSCOPY WITH BIOPSIES Pre-op diagnosis: GERD, UGI bleeding, abnormal CT scan of esophagus Post-op diagnosis: Erosive esophagitis, hiatal hernia, Gastritis, Endoscopist:? Escobar Zaman MD Anesthesia:?GA with endotracheal intubation (Dr Ingram) UPPER ENDOSCOPY Consent: Indications for the procedure and potential complications of bleeding, perforation, reaction to medications and missed diagnosis were discussed with the patient and informed consent was obtained. Instrument: Olympus GIF H 190 mid size upper endoscope Monitoring: Vital signs and clinical assessment, continuous EKG monitoring, Pulse oximetry, Carbon Dioxide monitoring and blood pressure monitoring were done throughout the procedure. Procedure: The patient was placed in the left lateral decubitis position and pre-procedure medications were administered and a bite block was placed. The endoscope was inserted into the mouth and advanced under direct vision to the third part of duodenum. A careful inspection was made as the upper endoscope was withdrawn including a retroflexed examination of the proximal stomach; Findings and interventions are described below. Findings: Larynx: Normal - ET tube in place Esophagus: GE junction at 36 cms, hiatal hernia 36 to 40 cms. Moderate erosive esophagitis from 30 to 36 cms (LA Grade C) Stomach: Moderate diffuse gastric erythema with prominent gastric folds and the body and fundus - biopsies were obtained. Antral biopsies were obtained to check for Helicobacter pylori Grade 3 flap valve on retroflexed examination of the cardia. Duodenum: Normal bulb and descending duodenum. Biopsies were obtained from 3rd part of the duodenum to check for celiac sprue. Intervention: Biopsies as noted above Impression and Post Procedure Diagnosis: Endoscopy Findings: ESOPHAGUS: Moderate sized hiatal hernia with erosive esophagitis STOMACH: Diffuse gastritis with prominent gastric folds. DUODENUM: Normal - biopsied to check for celiac sprue. No active bleeding in the UGI tract noted during EGD. Acute on chronic anemia likely due to slow blood loss from erosive esophagitis Plan: Pt can be switched to PO Omeprazole 20 mg twice daily indefinately. Pt will be scheduled for a FU appt in GI clinic. Repeat EGD in 3-4 months to confirm esophagitis has healed. Same day colonoscopy can be scheduled for work up of chronic diarrhea. Above findings were reviewed with the patient and relevant handouts were given and the discharge area.
--- NOTE | 2024-01-20 18:00 | PC.NURSE ---
Patient back on unit at this time. Meds administered late.
[2024-01-20] MEDS: Gabapentin 600 MG TABLET PO ×2 (18:17→20:59)
--- NOTE | 2024-01-20 18:45 | PC.NURSE ---
director imaging- Iliana [phone]
[2024-01-20] MEDS: Cyclobenzaprine HCl 5 MG TABLET PO (20:59)
[2024-01-20] MEDS: levoFLOXacin/D5W 750 MG/150 ML PIGGYBACK 100 MG IV (23:13)
[2024-01-21 04:00] VITALS: BP 114/68; PULSE 86; RESP 20; TEMP 37.2; O2SAT 94
[2024-01-21] MEDS: Pantoprazole Sodium 40 MG/10 ML VIAL IVPUSH (06:37)
[2024-01-21 08:00] VITALS: BP 126/74; PULSE 92; RESP 18; TEMP 36.6; O2SAT 94
--- NOTE | 2024-01-21 08:08 | HO.POSTANES ---
Post Anesthesia Evaluation Post Anesthesia Evaluation Date of Service: 01/21/24 Vital Signs: Vital Signs Temp Pulse Resp BP Pulse Ox O2 Del Method 01/21/24 04:00 98.9 F 86 20 114/68 94 Room Air Anesthesia: General Endotracheal-GETA Mental Status: Awake Pain Control: Satisfactory Nausea/Vomiting: None Hydration: Adequate Anesthesia-Related Issues: No Anes. Related Issues
[2024-01-21] MEDS: Cyclobenzaprine HCl 5 MG TABLET PO (08:46)
[2024-01-21] MEDS: Gabapentin 600 MG TABLET PO (08:46)
[2024-01-21] MEDS: methADONE HCl 20 MG/2 ML ORAL.CONC 120 MG PO (08:47)
[2024-01-21] MEDS: 0.9 % Sodium Chloride Flush 3 ML SYRINGE IVFLUSH (08:47)
--- NOTE | 2024-01-21 10:22 | PM.DS ---
DS: Providers Provider Date of Service: 01/21/24 Date of admission: 01/19/24 22:48 Date of discharge: 01/21/24 Primary care physician: BRANDO Echeverria Consults: 01/19/24 22:48 Consult to Gastroenterology Routine Consulting Provider: Escobar Zaman Reason for consultation: esophagitis ?esophageal mass 01/20/24 02:12 Consult to Pulmonology Routine Consulting Provider: [facility] Reason for consultation: hemoptysis DS: Diagnosis Discharge Diagnosis (1) Erosive esophagitis: Status: Acute (2) Upper gastrointestinal bleeding: Status: Acute DS: Summary Hospital Course Hospital Course: 43-year-old male with pertinent history of neuropathy, opioid use disorder on methadone who presents to the emergency department for evaluation of coughing up black sputum. Patient states his symptoms started 1 day prior to presentation. He has been coughing up black colored phlegm. Has had multiple episodes of the same. His last episode he coughed up blood. Also had episode of vomiting but unclear if it was black or contained blood. This has never happened before. Denies dysphagia or odynophagia. No fever, chills, chest pain, palpitations, shortness of breath, abdominal pain, changes in urinary or bowel habits. In the emergency department, hemoglobin drop noted. Imaging with dilatation of esophagus concerning for possible mass. Hospital course Patient admitted to telemetry where monitor failed to demonstrate any dysrhythmias. He was started on IV Protonix and was seen by GI in consultation. On 01/20/2024 patient underwent flexible transoral upper GI endoscopy with biopsies. This yielded a diagnosis of erosive esophagitis hiatal hernia and gastritis. Patient tolerated the procedure well. GI recommends omeprazole 20 mg twice daily indefinitely and will follow up in the clinic. Patient was also seen in consultation by Pulmonary (Dr. Anderson) who recommended a course of Levaquin for likely pneumonia on chronic bronchiectasis. He will follow him up in the office. At this point in time patient is tolerating diet medically acceptable for discharge Time Attestation Discharge Coordination Time (in mins): 35 Quality: Safe Use of Opioids Does Pt have an Active Cancer Diagnosis on the Problem List?: No Quality: Stroke Does the patient have a stroke diagnosis?: No Physical Exam Vital Signs: Vital Signs: Last Vital Signs Temp 97.8 F 01/21/24 08:00 Pulse 92 10/31/24 08:00 Resp 18 01/21/24 08:00 BP 126/74 01/21/24 08:00 Pulse Ox 94 01/21/24 08:00 O2 Del Method Room Air 01/21/24 08:00 O2 Flow Rate 2 01/20/24 17:10 BMI result Body Mass Index 23.8 Const: Other: Awake alert no acute distress Resp: Other: Clear to auscultation bilaterally no rales rhonchi or wheezes Cardio: Other: No S4; positive S1-S2; no S3 murmurs rubs or gallops GI: Other: Soft nontender nondistended normoactive bowel sounds Extrem: Other: No edema bilaterally DS: Data Data Completed and Pending Pending studies at discharge: Pending at discharge 01/20/24 16:50 Surgical [PTH] Routine Labs on day of discharge: Preliminary micro results at discharge 01/19/24 19:06 Blood Culture - Preliminary Blood - Venous No growth after 24 hours. 01/19/24 18:48 Blood Culture - Preliminary Blood - Venous No growth after 24 hours. Discharge Plan Discharge Anticipated Discharge Date/Time: 01/21/24 10:14 Patient Disposition: Home, Self-Care Discharge Diagnosis: Erosive esophagitis Referrals: Eulogio Hood PA [Primary Care Provider] - 1 Week Discharge Medications: New levofloxacin 750 mg tablet 750 mg PO DAILY 7 Days Qty: 7 0RF omeprazole 20 mg capsule,delayed release(DR/EC) 20 mg PO BID Qty: 60 5RF Continued gabapentin 600 mg tablet 600 mg PO TID cyclobenzaprine 5 mg tablet 5 mg PO Q8H PRN (Reason: muscle spasm) methadone 10 mg/5 mL Solution 120 mg PO DAILY Discharge Orders: Discharge Order (Routine); Ordered 01/21/24 Ordered By: Kaleb Mariee Diet: Advance to usual diet Activity on Discharge: As tolerated Stand Alone Forms: Patient Portal Discharge page Print Language: Filipino Care Plan Goals: Continue all medications as taken prior to the hospital Health Concerns: Omeprazole 20 mg twice daily has been added to your regimen. You will continue this indefinitely until seen by GI. Levaquin 750 mg daily for 7 days has been added to treat your pneumonia. Complete this medicine Plan of Treatment: Follow up with PCP/GI/pulmonary as scheduled Assessment: See discharge summary
--- NOTE | 2024-01-21 10:38 | MHC.CM.PN ---
Pt has been medically cleared, he will arrange a ride home from [facility] transitional care program where he lives, plan is home, self care.
== END 2024-01-21 11:46 | disposition home or self-care (01) | DRG 242 ==
LOC: HO.ED 22:48 → HO.EDOVER 22:57 → HO.IMC 01-20 00:17
PROVIDERS: Internal Medicine Gastroenterology; Physician Assistant; Admitting Provider Student in an Organized Health Care Education/Training Program; Emergency Provider Emergency Medicine Emergency Medical Services; PCP Student in an Organized Health Care Education/Training Program; Visit Provider Hospitalist
PROC: 0DJ08ZZ Inspection of Upper Intestinal Tract, Via Natural or Artificial Opening Endoscopic (ICD-10-PCS; CPT 43235; principal; 2024-01-20 16:00)
DX: K22.11 Ulcer of esophagus with bleeding (principal); J47.0 Bronchiectasis with acute lower respiratory infection; J18.9 Pneumonia, unspecified organism; K29.71 Gastritis, unspecified, with bleeding; D62 Acute posthemorrhagic anemia; E11.42 Type 2 diabetes mellitus with diabetic polyneuropathy; F17.210 Nicotine dependence, cigarettes, uncomplicated; K44.9 Diaphragmatic hernia without obstruction or gangrene; R04.2 Hemoptysis; Z20.822 Contact with and (suspected) exposure to COVID-19; Z59.02 Unsheltered homelessness; F11.20 Opioid dependence, uncomplicated; Z71.6 Tobacco abuse counseling; Z98.1 Arthrodesis status; Z79.899 Other long term (current) drug therapy
CPT/HCPCS: 0241U; 36415; 71046; 71275; 74177; 80048; 80076; 82271; 82272; 83605; 85025; 85610; 85730; 86850; 86900; 86901; 87040; 88305; 88342; 99285; J0171; J0330; J0456; J0696; J1956; J2003; J2405; J2470; J2704; J3010; Q9967

== ENCOUNTER → 2024-01-19 22:48 | Outpatient (BNV) | payer OTHER, SELFPAY | PROVIDERS: Admitting Provider Student in an Organized Health Care Education/Training Program; Emergency Provider Emergency Medicine Emergency Medical Services; Visit Provider Student in an Organized Health Care Education/Training Program | DX: K22.10 Ulcer of esophagus without bleeding (principal); K92.2 Gastrointestinal hemorrhage, unspecified | CPT/HCPCS: 99223; 99232; 99239 ==

== ENCOUNTER → 2024-01-19 22:48 | Outpatient (BNV) | payer OTHER, SELFPAY | PROVIDERS: Admitting Provider Student in an Organized Health Care Education/Training Program; Emergency Provider Emergency Medicine Emergency Medical Services; PCP Student in an Organized Health Care Education/Training Program; Visit Provider Internal Medicine Gastroenterology | DX: K22.10 Ulcer of esophagus without bleeding (principal); K92.2 Gastrointestinal hemorrhage, unspecified | CPT/HCPCS: 99499 ==

== ENCOUNTER → 2024-01-19 22:48 | Outpatient (BNV) | payer OTHER, SELFPAY | PROVIDERS: Admitting Provider Student in an Organized Health Care Education/Training Program; Emergency Provider Emergency Medicine Emergency Medical Services; Visit Provider Hospitalist | DX: R04.2 Hemoptysis (principal); J18.9 Pneumonia, unspecified organism; K22.89 Other specified disease of esophagus | CPT/HCPCS: 99223 ==

== ENCOUNTER 2024-02-18 10:52 | Emergency (ER) | payer OTHER, SELFPAY ==
[2024-02-18 11:08] VITALS: BP 127/75; PULSE 91; RESP 18; TEMP 36.3; O2SAT 95; BMI 24.0
--- NOTE | 2024-02-18 11:35 | PC.NURSE ---
Last methadone dose verfied at both [facility] & [facility]. [facility] called @1115 ?[phone] last dose information provided [facility] on [address] 120mg on 02/13/2024 information provided by Farheen Carmona RN. [facility] called @ 1130 and transferred to [place] [id number] where patient was discharged from and got last dose verification of 120mg @0900 on 02/17/24, information provided by Miguelina Sampson RN.
--- NOTE | 2024-02-18 11:46 | PC.NURSE ---
Methadone Verification from faxed to pharmacy @ [phone] confirmation received @1146 File #[id number].
--- NOTE | 2024-02-18 11:57 | ED.GENADULT ---
HPI - General Adult General Chief complaint: General Medical Stated complaint: Methadone dose Time Seen by Provider: 02/18/24 11:26 Source: patient Mode of arrival: ambulatory Limitations: no limitations History of Present Illness ED Provider: Bindu Stephenson NP HPI narrative: Patient is a 43-year-old male with past medical history of opioid use disorder presenting to the emergency department requesting assistance with methadone dosage. Follows with methadone clinic at [facility] in [place], he was last dosed there 02/13/2024. He had a hospital stay at [facility] in [place], reports that he received his last dose there yesterday. States his doses 120 mg. Denies recreational drug usage. He was unable to get to the clinic today, plans to follow-up tomorrow accordingly. Related Data Home Medications ?Medication ?Instructions ?Recorded ?Confirmed cyclobenzaprine 5 mg tablet 5 mg PO Q8H PRN muscle spasm 01/19/24 02/11/24 gabapentin 600 mg tablet 600 mg PO TID 01/19/24 02/11/24 methadone 10 mg/5 mL oral solution 120 mg PO DAILY 01/20/24 02/11/24 Previous Rx's ?Medication ?Instructions ?Recorded omeprazole 20 mg capsule,delayed 20 mg PO BID #60 caps 01/21/24 release Allergies Allergy/AdvReac Type Severity Reaction Status Date / Time morphine [Morphine] Allergy Unknown ITCHY RASH Verified 02/18/24 11:09 Review of Systems Review of Systems: Yes all other systems are reviewed and are negative PMFSH Past Medical History Attestation statement: The following information was validated with the patient. Source: old records reviewed Medical History Peripheral neuropathy Dilation of esophagus Blood loss anemia Bronchiectasis Surgical History History of esophagogastroduodenoscopy (EGD) History of back surgery Social History Social History Household Members: Other Housing: Other Do you presently have visiting nurse or other home services: No Patient Tobacco Use Status: Current everyday Tobacco user Tobacco use type: Cigarette Cigarettes Per Day: 8 Second Hand Smoke Exposure: Yes Advance Directives: No Advance Directives Information Provided: Yes Advance Directives Date on File: 01/20/24 Do you have a plan to hurt others: No Plan service: No Physical Exam ED Vital Signs: Vital Signs - 24 hr 02/18/24 11:08 Temperature 97.4 F Pulse Rate 91 Respiratory Rate 18 Blood Pressure 127/75 Pulse Oximetry 95 Oxygen Delivery Method Room Air BMI result Body Mass Index 24.0 Appearance: Alert.?Oriented to person, place and time. No acute distress.?Normal affect. Eyes: Pupils equal, round and reactive to light.? CVS: Heart sounds normal. Normal heart rate and rhythm.? Pulses normal.?? Respiratory: No respiratory distress.? Lung sounds clear to auscultation bilaterally?? Skin: Skin warm and dry.? Normal skin color.? Extremities: No lower extremity edema.? Neuro: Moves all extremities spontaneously. Sensation intact bilaterally. No focal neuro deficits. Ambulates with normal steady gait. Medical Decision Making Medical Decision Making MDM Narrative: Patient is a 43-year-old male past medical history of opioid use disorder. Requesting assistance with methadone dosage as per HPI. Nursing staff contacted his methadone clinic as well as [facility] and confirmed his last dosage, most recently at [facility] receiving 120 mg yesterday. He was given a dose of his methadone here in the emergency department. He offers no physical complaints in his physical examination is benign. Stable for discharge Differential Diagnosis Differential Diagnoses: The differential diagnosis associated with the presentation includes (See narrative above) External Record Review External record reviewed: Outpatient record Prescription Management I considered prescription management with: Other (Follow with methadone clinic) Chronic Conditions Patient?s care impacted by: Other (See narrative above) Social Determinants Patient?s care significantly limited by Social Determinants of Health including: Alcoholism and drug addiction in family Discharge Plan Discharge Clinical Impression: Opioid use disorder Patient Disposition: Home, Self-Care Instructions: Opioid Use Disorder (ED) Additional Instructions: You received a dosage of your methadone today in the emergency department; 120 mg. Follow-up with your clinic accordingly tomorrow morning. Prescriptions: No Action gabapentin 600 mg tablet 600 mg PO TID cyclobenzaprine 5 mg tablet 5 mg PO Q8H PRN (Reason: muscle spasm) methadone 10 mg/5 mL Solution 120 mg PO DAILY omeprazole 20 mg capsule,delayed release(DR/EC) 20 mg PO BID Qty: 60 5RF Referrals: Physician,Unknown J [Primary Care Provider] - Print Language: Belarusian
--- NOTE | 2024-02-18 12:19 | HE.PHANOTE ---
METHADONE Last dose at [facility] in patient 02/16 @0900 for 120mg.
[2024-02-18] MEDS: methADONE HCl 20 MG/2 ML ORAL.CONC 120 MG PO (12:28)
[2024-02-18 12:40] VITALS: BP 127/75; PULSE 91; RESP 18; TEMP 36.3; O2SAT 95
== END 2024-02-18 12:40 | disposition home or self-care (01) ==
PROVIDERS: Emergency Provider Emergency Medicine Emergency Medical Services
DX: F11.20 Opioid dependence, uncomplicated (principal)
CPT/HCPCS: 99282; 99283

== ENCOUNTER 2024-02-19 08:41 | Emergency (ER) | payer OTHER, SELFPAY ==
[2024-02-19 08:51] VITALS: BP 132/99; PULSE 89; RESP 16; TEMP 36.2; O2SAT 98; BMI 23.8
[2024-02-19] MEDS: methADONE HCl 20 MG/2 ML ORAL.CONC 120 MG PO (10:09)
--- NOTE | 2024-02-19 10:11 | ED_ITS ---
HPI - General Adult General Chief complaint: General Medical Stated complaint: Needs Methodone Dose Time Seen by Provider: 02/19/24 09:33 Source: patient Mode of arrival: ambulatory Limitations: no limitations History of Present Illness ED Provider: Odilon Bernal [facility] narrative: 43-year-old male with history of opiate use disorder presents to ED to receive his methadone dose. Patient states his methadone clinic is closed today and usually takes tolerated 20 mg daily. Patient was seen here yesterday with dose confirmed by methadone clinic and has letter from ED which proved last dose here yesterday. Patient denies any physical symptoms. Patient is not suicidal or homicidal. Related Data Home Medications ?Medication ?Instructions ?Recorded ?Confirmed cyclobenzaprine 5 mg tablet 5 mg PO Q8H PRN muscle spasm 01/19/24 02/11/24 gabapentin 600 mg tablet 600 mg PO TID 01/19/24 02/11/24 methadone 10 mg/5 mL oral solution 120 mg PO DAILY 01/20/24 02/18/24 Previous Rx's ?Medication ?Instructions ?Recorded omeprazole 20 mg capsule,delayed 20 mg PO BID #60 caps 01/21/24 release Allergies Allergy/AdvReac Type Severity Reaction Status Date / Time morphine [Morphine] Allergy Unknown ITCHY RASH Verified 02/19/24 08:52 Review of Systems Review of Systems: none Yes all other systems are reviewed and are negative [facility] Past Medical History Medical History Peripheral neuropathy Dilation of esophagus Blood loss anemia Bronchiectasis Surgical History History of esophagogastroduodenoscopy (EGD) History of back surgery Social History Social History Household Members: Other Housing: Other Do you presently have visiting nurse or other home services: No Patient Tobacco Use Status: Current everyday Tobacco user Tobacco use type: Cigarette Cigarettes Per Day: 8 Second Hand Smoke Exposure: Yes Advance Directives: No Advance Directives Information Provided: No Advance Directives Date on File: 01/20/24 Do you have a plan to hurt others: No Plan service: No Physical Exam ED Vital Signs: Vital Signs - 24 hr 02/19/24 08:51 02/19/24 10:32 Temperature 97.1 F 97.1 F Pulse Rate 89 89 Respiratory Rate 16 16 Blood Pressure 132/99 H 132/99 H Pulse Oximetry 98 98 Oxygen Delivery Method Room Air Room Air BMI result Body Mass Index 23.8 Const General: cooperative, healthy appearing, comfortable, no acute distress, well developed, alert, awake and Physically active Orientation/consciousness: patient oriented x3 HENOR Head: Yes normal to inspection, Yes No palpable skull fracture present, Yes normocephalic and Yes atraumatic Eyes General: appearance normal, both eyes and all related structures Neck Neck: Yes normal visual inspection, Yes full ROM, Yes no lymphadenopathy, Yes no meningeal signs, Yes trachea midline, Yes supple, No anterior neck swelling and No tender Chest Chest palpation & inspection: normal inspection of the chest and normal palpation of entire chest wall Resp Effort & Inspection: normal respiratory effort and able to speak in complete sentences Auscultation: clear to auscultation bilaterally Cardio Jugular venous distension: no JVD Heart sounds: S1 normal heart sound present and S2 normal heart sound present GI Inspection: Yes normal to inspection Palpation (GI): Soft to palpation, not firm, nontender, no guarding and not rigid General: No CVA tenderness and Yes no CVA tenderness Back/Spine/Pelvis Back: no CVA tenderness, No CVA tenderness and No back tenderness Skin General skin exam: no rashes or lesions noted, elasticity normal and turgor normal Neuro General: patient oriented x3, gait normal, tone normal, moves all extremities, Normal light touch and pain sensation, no meningeal signs, no focal motor deficits, CN's II-XI intact bilaterally and normal sensation to monofilament Extrem General: Yes normal to inspection, Yes full ROM and Yes capillary refill normal Psych Appearance: grossly normal, well kempt and not disheveled Medications Administered Discontinued Medications Generic Name Dose Route Start Last Admin Trade Name Freq PRN Reason Stop Dose Admin Methadone HCl 120 mg 02/19/24 09:53 02/19/24 10:09 Methadone Hcl 20 Mg/2 Ml Oral.Conc PO 02/19/24 09:54 120 mg ONCE ONE Administration Medical Decision Making Medical Decision Making MDM Narrative: 43-year-old male presents to the ED for methadone dose. Patient states he took 120 mg daily. Patient states methadone clinic is closed today. Patient came came to the ED to receive dose. Patient denies any suicidal homicidal ideation. 10:29am: Patient given methadone. Patient denies any suicidal or homicidal ideation. Patient has no physical complaints. Patient explained worrisome signs and informed to return to the ED immediately Differential Diagnosis Differential Diagnoses: The differential diagnosis associated with the presentation includes ( Medication refill. ) Admission/Observation Consideration of admission/observation: Escalation of care including admission/observation considered Independent Historian Clinical information obtained from an independent historian. History obtained from or confirmed by: Other ( patient) External Record Review External record reviewed: Other ( prior visits) Discharge Plan Discharge Clinical Impression: Medication refill Patient Disposition: Home, Self-Care Instructions: Medicine Refill (ED) Additional Instructions: recommend follow-up with primary care provider. Return to the ED immediately for any suicidal/ homicidal ideation, auditory / visual hallucinations, any physical complaints, any other concerning symptoms. Recommend also follow up with the methadone clinic tomorrow Prescriptions: No Action gabapentin 600 mg tablet 600 mg PO TID cyclobenzaprine 5 mg tablet 5 mg PO Q8H PRN (Reason: muscle spasm) methadone 10 mg/5 mL Solution 120 mg PO DAILY omeprazole 20 mg capsule,delayed release(DR/EC) 20 mg PO BID Qty: 60 5RF Interventions: ED Discharge Assessment Last Done: 02/19/24 10:32 Discharge Date/Time: 02/19/24 10:33 Print Language: Togolese
--- NOTE | 2024-02-19 10:13 | PC.NURSE ---
pt presented [place] [facility] [place] Odilon MICHAELS. The letter was dated yesterday (02/17). BRANDO ordered methadone. Given per order. New last dose letter for today printed
[2024-02-19 10:32] VITALS: BP 132/99; PULSE 89; RESP 16; TEMP 36.2; O2SAT 98
== END 2024-02-19 10:33 | disposition home or self-care (01) ==
PROVIDERS: Emergency Provider Emergency Medicine
DX: F11.90 Opioid use, unspecified, uncomplicated (principal); Z76.0 Encounter for issue of repeat prescription; Z79.899 Other long term (current) drug therapy; F17.210 Nicotine dependence, cigarettes, uncomplicated
CPT/HCPCS: 99282; 99283

== ENCOUNTER 2024-06-23 09:36 | Day surgery (SDC) | payer OTHER, SELFPAY ==
--- NOTE | 2024-06-22 09:37 | P.CONAN_ITS ---
Documented by User: Chela Espinosa NP 06/22/24 09:39 HPI - Anesthesia Eval Consult details Narrative: 44yo M for Upper Endoscopy and Colonoscopy 12/2023 H&H 7&22 - will repeat preop Methadone daily PMFSH Active Problems Active Problems: All Active Problems Chronic diarrhea (Acute) Erosive esophagitis (Acute) Multifocal pneumonia (Acute) Peripheral neuropathy (Acute) Past Medical History Medical History Peripheral neuropathy Dilation of esophagus Blood loss anemia Bronchiectasis Family History Family history of problems with anesthesia: No Surgical History Surgical History History of esophagogastroduodenoscopy (EGD) History of back surgery History of Problems with Anesthesia: No Social History Social History Household Members: Other Housing: Other Housing Other:: fpc house Are you a primary animal care assistant to a significant other at home: No Do you presently have visiting nurse or other home services: No Patient Tobacco Use Status: Current everyday Tobacco user Tobacco use type: Cigarette Cigarettes Per Day: 8 Smoked in Last 30 Days: Yes Patient Interested in Nicotine Replacement: No Second Hand Smoke Exposure: Yes Substance Use Type: Opiates Have you been hit, kicked, punched, or otherwise hurt by someone within the past year? If so, by whom?: No Are you DNR?: No Advance Directives: No Advance Directives Information Provided: Yes Advance Directives Date on File: 01/20/24 Poor oral hygiene: Yes service: No Meds Allergies Allergy/AdvReac Type Severity Reaction Status Date / Time morphine [Morphine] Allergy Unknown ITCHY RASH Verified 06/23/24 11:34 Home Medications ?Medication ?Instructions ?Recorded ?Confirmed ?Last Taken ?Type cyclobenzaprine 5 mg tablet 5 mg PO Q8H PRN muscle spasm 01/19/24 06/23/24 Unknown History gabapentin 600 mg tablet 600 mg PO TID 01/19/24 06/23/24 Unknown History methadone 10 mg/5 mL oral solution 120 mg PO DAILY 01/20/24 06/23/24 02/17/24 09:00 History Assessment and Plan Assessment Anesthesia Assessment: Chart Reviewed Final Anesthetic Review Family History of Problems with Anesthesia: No History of Problems with Anesthesia: No Documented by User: Eusebia Collins MD 06/23/24 12:26 [facility] Past Medical History Medical History Peripheral neuropathy Dilation of esophagus Blood loss anemia Bronchiectasis Surgical History Surgical History History of esophagogastroduodenoscopy (EGD) History of back surgery Social History Social History Household Members: Other Housing: Other Housing Other:: fpc house Are you a primary animal care assistant to a significant other at home: No Do you presently have visiting nurse or other home services: No Patient Tobacco Use Status: Current everyday Tobacco user Tobacco use type: Cigarette Cigarettes Per Day: 8 Smoked in Last 30 Days: Yes Patient Interested in Nicotine Replacement: No Second Hand Smoke Exposure: Yes Substance Use Type: Opiates Have you been hit, kicked, punched, or otherwise hurt by someone within the past year? If so, by whom?: No Are you DNR?: No Advance Directives: No Advance Directives Information Provided: Yes Advance Directives Date on File: 01/20/24 Poor oral hygiene: Yes service: No Meds Allergies Allergy/AdvReac Type Severity Reaction Status Date / Time morphine [Morphine] Allergy Unknown ITCHY RASH Verified 06/23/24 11:34 Home Medications ?Medication ?Instructions ?Recorded ?Confirmed ?Last Taken ?Type cyclobenzaprine 5 mg tablet 5 mg PO Q8H PRN muscle spasm 01/19/24 06/23/24 Unknown History gabapentin 600 mg tablet 600 mg PO TID 01/19/24 06/23/24 Unknown History methadone 10 mg/5 mL oral solution 120 mg PO DAILY 01/20/24 06/23/24 02/17/24 09:00 History Exam Airway Mallampati Class: II (edentulous) TM Dist: >3cm Neck ROM: Full Loose/Missing/Broken Teeth: Yes, Upper and Lower Heart: RRR 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
[2024-06-23 11:03] LABS: Hematocrit 24.3 % (42.0-52.0); Hemoglobin 7.3 g/dl (14.0-18.0); Mean Corpuscular Hemoglobin 24.5 pg (27.0-33.0); Mean Corpuscular Volume 81.5 fL (80.0-98.0); Mean Platelet Volume 10.1 fL (9.4-12.4); Platelet Count 160 X10*3/uL (160-400); Red Blood Count 2.98 X10*6/uL (4.60-5.80); Red Cell Distribution Width 15.5 % (11.0-16.0); White Blood Count 5.8 X10*3/uL (4.8-10.8)
[2024-06-23 11:19] VITALS: BP 113/74; PULSE 85; RESP 18; TEMP 36.8; O2SAT 99
[2024-06-23] MEDS: Lactated Ringers 1,000 ML 100 ML IVCONT (11:19)
[2024-06-23 11:28] VITALS: BMI 24.0
--- NOTE | 2024-06-23 11:33 | PC.NURSE ---
Dr. Kendrick reviewed preop lab work results. OK to proceed, and no interventions at this time.
--- NOTE | 2024-06-23 11:55 | P.HPSUR_ITS ---
Pre-Procedural Eval Section A - 24 Hr Update-Section A only Date of Service: 06/23/24 Section B - Complete if H&P > 30 days Chief Complaint: anemia and diarrhea Relevant Family History (Specify if Yes): No Relevant Social History: Other (specify) (ex drug abuse ) Present Medications: see Short Stay Collaborative assessment Medical History: Significant History (Peripheral neuropathy Dilation of esophagu s Blood loss anemia Bronchiectasis) History of Previous Operations: Relevant previous surgery/procedure and date(s) (History of esophagogastroduodenoscopy (EGD) History of back surgery) Allergies: Allergies Allergy/AdvReac Type Severity Reaction Status Date / Time morphine [Morphine] Allergy Unknown ITCHY RASH Verified 06/23/24 11:34 Review of Systems Sugical H&P ROS: Negative: Constitution, Cardiovascular, Respiratory, Neurological, Psychiatric, Hem-Onc, Allergic/Immunologic, Gastrointestinal, Genitourinary, Musculoskeletal, Integumentary, Endocrine and Eyes/Ears/Nose/Throat Exam Surgical H&P Exam: Normal: HEENT, Normal: Heart, Normal: Lungs, Normal: Extremities, Normal: Abdomen, Normal: Skin and Normal: Neurological Plan Diagnosis/Plan: Unchanged I have reviewed the history and physical and performed a pertinent physical examination on my patient. No changes have occurred unless specified. Time Spent With Patient Time: Total time managing care of this patient today ____ minutes.
--- NOTE | 2024-06-23 12:38 | W.PM.OPN ---
Operative Note Operative Note Date of Service: 06/23/24 Narrative: Procedure Description: EGD Indication: anemia Anesthesia: MAC FLEXIBLE TRANSORAL UPPER GASTROINTESTINAL ENDOSCOPY UPPER ENDOSCOPY Consent: Indications for the procedure and potential complications of bleeding, perforation, reaction to medications and missed diagnosis were discussed with the patient and informed consent was obtained. Instrument: Olympus GIF H 190 J mid size upper endoscope Monitoring: Vital signs and clinical assessment, continuous EKG monitoring, Pulse oximetry, Carbon Dioxide monitoring and blood pressure monitoring were done throughout the procedure. Procedure: The patient was placed in the left lateral decubitis position and pre-procedure medications were administered and a bite block was placed. The endoscope was inserted into the mouth and advanced under direct vision to the stomach Findings: Larynx:normal Esophagus: distal esophagitis with boggy mucosa and slight oozing of blood noted. Stomach: food was noted in the stomach and the procedure was aborted Intervention: none Impression/Findings: esophagitis food in stomach aborted procedure PLAN: repeat eGD and colo with compliance with instructions, maybe 2 d of clears if needed, I note he is also on methadone ensure taking PPI --can increase dose to 40 mg BId if needed GERD precautions
[2024-06-23 12:45] VITALS: BP 130/74; PULSE 72; RESP 18; TEMP 36.1; O2SAT 100
[2024-06-23 12:50] VITALS: BP 134/73; PULSE 73; RESP 18; O2SAT 100
[2024-06-23 13:01] VITALS: BP 143/81; PULSE 74; RESP 18; O2SAT 100
[2024-06-23 13:15] VITALS: BP 150/82; PULSE 77; RESP 18; O2SAT 98
[2024-06-23 13:30] VITALS: BP 157/83; PULSE 79; RESP 16; TEMP 36.4; O2SAT 96
== END 2024-06-23 14:11 | disposition home or self-care (01) ==
PROVIDERS: Nurse Practitioner; Visit Provider Internal Medicine Gastroenterology
PROC: (CPT 43235; principal; 2024-06-23 13:30)
DX: D50.0 Iron deficiency anemia secondary to blood loss (chronic) (principal); K20.80 Other esophagitis without bleeding; K52.9 Noninfective gastroenteritis and colitis, unspecified; K21.9 Gastro-esophageal reflux disease without esophagitis; F17.210 Nicotine dependence, cigarettes, uncomplicated; F11.20 Opioid dependence, uncomplicated; Z53.9 Procedure and treatment not carried out, unspecified reason
CPT/HCPCS: 43235; 36415; 85027; J2003; J2704

== ENCOUNTER → 2024-06-23 09:36 | Outpatient (BNV) | payer OTHER, SELFPAY | PROVIDERS: Visit Provider Internal Medicine Gastroenterology | DX: D64.9 Anemia, unspecified (principal); R19.7 Diarrhea, unspecified; Z53.09 Procedure and treatment not carried out because of other contraindication | CPT/HCPCS: 43235 ==